=== PATIENT | male | born 1955 | race Caucasian/White ===

== ENCOUNTER 2020-09-18 12:34 | Outpatient (REF) | payer OTHER, SELFPAY ==
--- NOTE | 2020-09-18 12:50 | XR_ITS ---
EXAMINATION: BILATERAL HANDS. CLINICAL INFORMATION: Pain. COMPARISON: None TECHNIQUE: 3 views each hand. FINDINGS: Right hand: There is loss of PIP and DIP joint space with periarticular spurring second through fifth digits and first MCP joint. There is mild volar angulation at PIP and DIP joints second through fifth digit. No bony erosive changes seen. There is mild soft tissue swelling along the PIP and DIP joints. No soft tissue calcification seen. There is no visible acute fracture or dislocation. XR/XR hand LT min 3V IMPRESSION: Mild osteoarthritic changes PIP and DIP joints second through fifth digits. No visible acute fracture or dislocation seen.
--- NOTE | 2020-09-18 12:50 | XR_ITS ---
EXAMINATION: BILATERAL HANDS. CLINICAL INFORMATION: Pain. COMPARISON: None TECHNIQUE: 3 views each hand. FINDINGS: Right hand: There is loss of PIP and DIP joint space with periarticular spurring second through fifth digits and first MCP joint. There is mild volar angulation at PIP and DIP joints second through fifth digit. No bony erosive changes seen. There is mild soft tissue swelling along the PIP and DIP joints. No soft tissue calcification seen. There is no visible acute fracture or dislocation. XR/XR hand RT min 3V IMPRESSION: Mild osteoarthritic changes PIP and DIP joints second through fifth digits. No visible acute fracture or dislocation seen.
== END 2020-09-18 12:35 | disposition home or self-care (01) ==
LOC: HO.XRAY 12:34
PROVIDERS: PCP Internal Medicine Geriatric Medicine; Visit Provider Internal Medicine Geriatric Medicine
DX: M79.641 Pain in right hand (principal); M79.642 Pain in left hand; R29.898 Other symptoms and signs involving the musculoskeletal system
CPT/HCPCS: 73130

== ENCOUNTER 2021-07-16 07:58 | Outpatient (REF) | payer OTHER, SELFPAY ==
--- NOTE | ~2021-07-16 | XR_ITS ---
EXAMINATION: XR LUMBOSACRAL SPINE CLINICAL INFORMATION: Lower back pain. COMPARISON: Lumbar spine radiographs dated 12/21/2014. TECHNIQUE: Three views of the lumbosacral spine. FINDINGS: Mild straightening of the normal lumbar lordosis, which may be positional or related to muscular spasm. No acute fracture or subluxation. No loss of vertebral body height. Multilevel loss of intervertebral disc height with prominent endplate osteophytes. Lower lumbar spine bilateral facet arthropathy. No lytic or blastic osseous lesion. Right upper quadrant surgical clips. XR/XR lumbar spine 2-3V IMPRESSION: Prominent multilevel degenerative disc disease with lower lumbar spine facet arthropathy, similar when compared to the prior examination.
--- NOTE | ~2021-07-16 | XR_ITS ---
EXAMINATION: XR KNEE, LEFT CLINICAL INFORMATION: Left knee pain. COMPARISON: Left knee radiographs dated 05/04/2018. TECHNIQUE: Four views of the left knee. FINDINGS: Medial compartment joint space narrowing. Tiny medial and patellofemoral compartment marginal osteophytes. No osseous erosion. No fracture or dislocation. Moderate joint effusion. No abnormal soft tissue calcification. XR/XR knee LT 4V IMPRESSION: Mild medial and patellofemoral compartment osteoarthritis, unchanged. Moderate joint effusion.
== END 2021-07-16 07:59 | disposition home or self-care (01) ==
LOC: HO.XRAY 07:58
PROVIDERS: Absent Provider Internal Medicine Geriatric Medicine; PCP Internal Medicine Geriatric Medicine; Visit Provider Emergency Medicine
DX: M25.562 Pain in left knee (principal); M54.5 Low back pain
CPT/HCPCS: 72100; 73564

== ENCOUNTER 2021-08-13 11:43 | Outpatient (REF) | payer OTHER, SELFPAY | END 2021-08-13 11:44 | disposition home or self-care (01) | LOC: HO.LAB 11:43 | PROVIDERS: PCP Internal Medicine Geriatric Medicine; Visit Provider Internal Medicine | DX: Z20.822 Contact with and (suspected) exposure to COVID-19 (principal) | CPT/HCPCS: C9803; U0003; U0005 ==

== ENCOUNTER 2021-09-26 09:52 | Outpatient (REF) | payer OTHER, SELFPAY ==
--- NOTE | 2021-09-26 10:15 | EMG_ITS ---
This is a 66-year-old man with a history of weakness and numbness in both hands, right worse than left. He is on no medications. PHYSICAL EXAMINATION: On examination, he is alert and oriented. He has marked atrophy of the intrinsic hand muscles on the right, innervated by the ulnar nerve and atrophy of both thenar eminences. There is decreased sensation in median and ulnar nerve distribution on the right and in the median nerve distribution on the left. IMPRESSION: Severe end-stage carpal tunnel syndrome and ulnar neuropathy on the right. Nerve conduction EMG study: A severe end-stage carpal tunnel syndrome bilaterally. Severe compression palsy of the right ulnar nerve at the elbow. Mild compression palsy of the left ulnar nerve at the elbow. EMG of the right C5-T1 innervated muscles shows active denervation in the ulnar, innervated intrinsic hand muscles consistent with severe ulnar neuropathy. No voluntary motor units in the right abductor pollicis brevis consistent with end-stage carpal tunnel syndrome. MD HOWARD Ovalle/JUANA / [id number]
== END 2021-09-26 09:53 | disposition home or self-care (01) ==
LOC: HO.NEURO 09:52
PROVIDERS: PCP Internal Medicine Geriatric Medicine; Visit Provider Internal Medicine Geriatric Medicine
DX: M79.641 Pain in right hand (principal); M79.642 Pain in left hand; R29.898 Other symptoms and signs involving the musculoskeletal system
CPT/HCPCS: 95885; 95913

== ENCOUNTER 2021-10-03 11:27 | Outpatient (REF) | payer OTHER, SELFPAY ==
--- NOTE | ~2021-10-03 | XR_ITS ---
EXAMINATION: XR HIP, RIGHT CLINICAL INFORMATION: Pain. COMPARISON: None TECHNIQUE: Two views of the right hip. FINDINGS: No acute fracture or dislocation is seen. The femoral head is positioned superolaterally within the acetabulum/there is poor coverage of the femoral head. There is arthritis at the right hip joint with joint space narrowing and osteophyte formation. There are several cystic areas seen in the right intratrochanteric region near the greater trochanter and in the inferior medial acetabulum. Soft tissues are unremarkable. XR/XR hip RT min 2V IMPRESSION: Arthritis. Poor coverage of the femoral head by the acetabulum. Cystic changes in the right greater trochanter and inferior medial acetabulum.
== END 2021-10-03 11:28 | disposition home or self-care (01) ==
LOC: HO.XRAY 11:27
PROVIDERS: PCP Internal Medicine Geriatric Medicine; Visit Provider Internal Medicine Geriatric Medicine
DX: G89.29 Other chronic pain (principal); M25.551 Pain in right hip
CPT/HCPCS: 73502

== ENCOUNTER 2022-02-14 11:03 | Outpatient (REF) | payer OTHER, SELFPAY ==
--- NOTE | ~2022-02-14 | XR_ITS ---
EXAMINATION: XR KNEE, RIGHT CLINICAL INFORMATION: Pain of 5 months duration. COMPARISON: None TECHNIQUE: AP, lateral, tunnel, and sunrise views of the right knee. FINDINGS: There is bony demineralization. No fracture or dislocation is seen. There is a tiny peripheral osteophyte arising from the superior articular surface of the patella. There is a small right knee joint effusion. There are femoral atherosclerotic calcifications. No foreign body is seen. XR/XR knee RT 4V IMPRESSION: 1. No fracture or dislocation is seen. 2. There is a small right knee joint effusion. 3. There is minimal osteoarthritic change of the patellofemoral compartment. 4. There is bony demineralization.
== END 2022-02-14 11:04 | disposition home or self-care (01) ==
LOC: HO.XRAY 11:03
PROVIDERS: PCP Internal Medicine Geriatric Medicine; Visit Provider Internal Medicine Geriatric Medicine
DX: M25.561 Pain in right knee (principal)
CPT/HCPCS: 73564

== ENCOUNTER 2022-02-27 10:08 | Outpatient (REF) | payer OTHER, SELFPAY ==
--- NOTE | ~2022-02-27 | XR_ITS ---
EXAMINATION: XR LS SPINE XR HIP-RIGHT CLINICAL INFORMATION: Right hip pain. Abnormal gait and mobility. COMPARISON: Right hip done on 10/03/2021. Lumbosacral spine done on 07/16/2021. TECHNIQUE: 2 views of the right hip and 5 views of the lumbosacral spine were obtained. FINDINGS: Right hip: Interval development of marked flattening of the right femoral head and underlying large area of osteolysis present, most consistent with evolving avascular necrosis and superimposed subchondral cyst. Ill-defined lytic areas involving the inferior part of the acetabulum and the superior part of the intertrochanteric region appear similar to prior study, of indeterminate etiology. Lumbosacral spine: There are 5 nonrib-bearing lumbar vertebrae present. Moderate multilevel degenerative spondylosis related changes are noted throughout the visualized lower thoracic and lumbosacral spine with significant facet degenerative arthritic changes at lower lumbar spine. Posterior appendages are intact. The prespinal and paraspinal soft tissues are unremarkable. Mild upper lumbar dextro and lower lumbar levoscoliosis is noted. Significant fecal residual throughout the entire large bowel. Overall, no significant change. XR/XR lumbar spine 4V min IMPRESSION: 1. Right hip: Interval development of marked flattening of the right femoral head and underlying large area of osteolysis is present, most consistent with evolving avascular necrosis and superimposed subchondral cyst. Previously documented ill-defined lytic areas involving the acetabulum and the superior intertrochanteric region appears similar, of indeterminate etiology. 2. Lumbosacral spine: Multilevel moderate degenerative spondylosis and facet joint arthropathy, appears similar to prior study dated 07/16/2021.
--- NOTE | ~2022-02-27 | XR_ITS ---
EXAMINATION: XR LS SPINE XR HIP-RIGHT CLINICAL INFORMATION: Right hip pain. Abnormal gait and mobility. COMPARISON: Right hip done on 10/03/2021. Lumbosacral spine done on 07/16/2021. TECHNIQUE: 2 views of the right hip and 5 views of the lumbosacral spine were obtained. FINDINGS: Right hip: Interval development of marked flattening of the right femoral head and underlying large area of osteolysis present, most consistent with evolving avascular necrosis and superimposed subchondral cyst. Ill-defined lytic areas involving the inferior part of the acetabulum and the superior part of the intertrochanteric region appear similar to prior study, of indeterminate etiology. Lumbosacral spine: There are 5 nonrib-bearing lumbar vertebrae present. Moderate multilevel degenerative spondylosis related changes are noted throughout the visualized lower thoracic and lumbosacral spine with significant facet degenerative arthritic changes at lower lumbar spine. Posterior appendages are intact. The prespinal and paraspinal soft tissues are unremarkable. Mild upper lumbar dextro and lower lumbar levoscoliosis is noted. Significant fecal residual throughout the entire large bowel. Overall, no significant change. XR/XR hip RT min 2V IMPRESSION: 1. Right hip: Interval development of marked flattening of the right femoral head and underlying large area of osteolysis is present, most consistent with evolving avascular necrosis and superimposed subchondral cyst. Previously documented ill-defined lytic areas involving the acetabulum and the superior intertrochanteric region appears similar, of indeterminate etiology. 2. Lumbosacral spine: Multilevel moderate degenerative spondylosis and facet joint arthropathy, appears similar to prior study dated 07/16/2021.
== END 2022-02-27 10:09 | disposition home or self-care (01) ==
LOC: HO.XRAY 10:08
PROVIDERS: PCP Internal Medicine Geriatric Medicine; Visit Provider Internal Medicine Geriatric Medicine
DX: M25.551 Pain in right hip (principal); R26.89 Other abnormalities of gait and mobility
CPT/HCPCS: 72110; 73502

== ENCOUNTER 2022-03-15 09:30 | Outpatient (REF) | payer OTHER, SELFPAY ==
--- NOTE | ~2022-03-15 | XR_ITS ---
EXAMINATION: XR PELVIS CLINICAL INFORMATION: Pain COMPARISON: 02/27/2022 TECHNIQUE: AP view of the pelvis. XR/XR pelvis 1-2V FINDINGS/IMPRESSION: No significant interval change to the abnormal appearance of the right hip. Once again, there is flattening of the femoral head with collapse and cystic change. Superolateral subluxation with respect to the acetabulum. There appears to be remodeling of the acetabulum as well with decreasing convex curvature. Superior intertrochanteric lucency is unchanged and is of uncertain etiology. The left hip space is preserved. Minimal degenerative changes. Vascular calcifications. Degenerative changes lumbar spine.
== END 2022-03-15 09:31 | disposition home or self-care (01) ==
LOC: HO.HOSX 09:30
PROVIDERS: Visit Provider Orthopaedic Surgery
DX: M16.11 Unilateral primary osteoarthritis, right hip (principal); M87.051 Idiopathic aseptic necrosis of right femur
CPT/HCPCS: 72170; 99202

== ENCOUNTER → 2022-04-02 08:45 | Outpatient (BNVA) | payer OTHER, SELFPAY | PROVIDERS: PCP Internal Medicine Geriatric Medicine; Visit Provider Orthopaedic Surgery | DX: Z13.89 Encounter for screening for other disorder (principal) ==

== ENCOUNTER → 2022-05-31 12:52 | Outpatient (BNVA) | payer OTHER, SELFPAY | PROVIDERS: PCP Internal Medicine Geriatric Medicine; Referring Provider Internal Medicine Geriatric Medicine; Visit Provider Nurse Practitioner Family | DX: Z01.810 Encounter for preprocedural cardiovascular examination (principal); R07.89 Other chest pain; R94.31 Abnormal electrocardiogram [ECG] [EKG]; I49.1 Atrial premature depolarization; M16.11 Unilateral primary osteoarthritis, right hip | CPT/HCPCS: 93005; 99212 ==

== ENCOUNTER → 2022-06-10 14:54 | Outpatient (REF) | payer OTHER, SELFPAY ==
--- NOTE | 2022-06-10 14:58 | CA_ITS ---
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 Gkek-kt-mhmddsar LV systolic dysfunction with LVEF of 40-45% with impaired relaxation filling pattern next 2. Mildly dilated right ventricle and left atrium 3. Urjk-dr-eusfzvvv mitral regurgitation 4. Normal RV systolic pressure 5. No gross pericardial effusion Findings Left Ventricle Normal left ventricular cavity size. There is normal left ventricular wall thickness. The left ventricular systolic function is mild to moderately decreased. The visually estimated ejection fraction is between 40-45%. Spectral Doppler is indicative of an impaired relaxation filling pattern. E/E prime ratio is between 8 and 15 consistent with indeterminate filling pressures. Right Ventricle Mildly increased right ventricular cavity size. There is normal right ventricular systolic function. Atria The left atrium is mildly dilated. There is no evidence of interatrial shunt. The right atrium is likely dilated. Aortic Valve The aortic valve was not well visualized. There is no aortic valve stenosis. There is no aortic valve regurgitation. Mitral Valve There is mild anterior and posterior mitral leaflet thickening. There is mild to moderate mitral valve regurgitation. There is no mitral valve stenosis. Pulmonic Valve The pulmonic valve was not well visualized. Tricuspid Valve Likely normal tricuspid valve structure and function. There is mild tricuspid valve regurgitation. The right ventricular systolic pressure is normal. The right ventricular systolic pressure is 19 mmHg. Normal right atrial pressure. There is no evidence of pulmonary hypertension. Great Vessels All visible segments of the aorta are normal in size. The pulmonary artery was not well visualized. Venous The inferior vena cava is normal in size and collapses greater than 50% with inspiration. Pericardium/Pleural There is no evidence of pericardial effusion. Prior Study Comparison No prior study available for comparison. Measurements 2D Linear Measurements IVSd: 1.17 0.6-0.9/0.6-1.0 cm LVIDd: 5.56 3.9-5.3/4.2-5.9 cm LVIDd Index: 2.96 2.4-3.2/2.2-3.1 cm/m2 LVIDs: 4.31 2.0-3.6 cm LVPWd: 0.99 0.7-1.1 cm LA Diam: 3.90 2.7-3.8/3.0-4.0 cm LAIDs Index: 2.07 1.5-2.3 cm/m2 LV Mass: 299.75 67-162/88-224 g LV Mass Index: 159.44 43-95/49-115 g/m2 LVOT Diam: 2.10 3.0+(-)1.3 cm 2D Systolic Function EF 4C: 39.70 >55% EF 2C: 43.50 >55% EF BiP: 41.90 >55% Mitral Valve MV Pk E: 1.10 MV PK A: 0.94 MV Decel Time: 229.00 E/A: 1.20 E'Lateral: 9.57 E'Medial: 6.31 E/E' Med: 17.40 E/E' Lat: 11.50 PHT: 67.00 MVA PHT: 3.28 Decel Stanley: 4.79 MR Vol - PW Dopp: 23.40 MR VTI: 1.80 MR ERO: 13.00 MR Alias Luis: 0.30 MR RAD: 0.60 Aortic Valve AoV Pk Luis: 1.05 AoV Mn Luis: 0.79 AoV VTI: 0.20 AoV Pk Grad: 4.00 Aov Mn Grad: 3.00 YASMINE Cont.VTI: 3.00 LVOT LVOT Pk Luis: 0.94 LVOT Mn Luis: 0.65 LVOT VTI: 0.18 LVOT Pk Grad: 4.00 LVOT Mn Grad: 2.00 LVOT Diam: 2.10 LVOT Area: 3.46 Diastolic Function MV Pk E: 1.10 MV Pk A: 0.94 E/A: 1.20 E'Medial: 6.31 E/E' Med: 17.40 E' Laterial: 9.57 E/E' Lat: 11.50 Right Ventricle TAPSE (mm): 22.20 TVS' Luis: 11.10 Tricuspid Valve TR Pk Luis: 1.98 TR Pk Grad: 16.00 RA Press: 3.00 RVSP: 19.00 Great Vessels Aorta Sinus of Valsalva: 3.75 2.0-3.[address] Ridge: 2.68 1.7-3.4 cm Ao Asc: 3.60 2.1-3.4 cm Updated in Other Vendor System with Status of Final Maycol Stewart MD electronically signed on 06/11/2022 11:46:34 AM with status of Final
== END ==
LOC: HO.CARD 14:54
PROVIDERS: PCP Internal Medicine Geriatric Medicine; Visit Provider Nurse Practitioner Family
DX: Z01.810 Encounter for preprocedural cardiovascular examination (principal); R07.89 Other chest pain; I49.1 Atrial premature depolarization; R94.31 Abnormal electrocardiogram [ECG] [EKG]
CPT/HCPCS: 93306

== ENCOUNTER → 2022-06-19 08:12 | Outpatient (REF) | payer OTHER, SELFPAY ==
--- NOTE | ~2022-06-19 | NM_ITS ---
Myocardial perfusion study Indication: Chest pain to evaluate for myocardial ischemia Technique: The patient was brought in for a Lexiscan perfusion study on 06/21/2022. Patient performed low-level exercise and was injected 0.4 mg of Lexiscan intravenously. Within a minute of injection, 30 mCi of sestamibi was given intravenously. Images were obtained using the SPECT gamma camera interlaced with the gating device. Images were obtained in supine position. Resting perfusion study was performed on 06/16/2000. Patient was administered 30 mCi of sestamibi intravenously at rest. Images were then obtained in supine position. Images obtained with and without CT attenuation. Total DLP 102 mGy-cm. Images were processed with the software and compared side to side in short axis, horizontal long axis and vertical long axis views. Findings: The stress perfusion study showed non attenuated images show mildly reduced uptake in the basal lateral wall of the LV myocardium as well as thinning of the inferior wall of the LV myocardium. Attenuation corrected images show normal uptake of radiotracer in all segments of LV myocardium. The gated study shows reduced LV systolic function with calculated LVEF of 45%. LV cavity is mildly to moderately size. The gated study shows mildly reduced wall thickening and contraction of segments. Resting study shows attenuated corrected images show normal uptake.. Gating at rest reveals reduced wall motion with ejection fraction at 30%. The findings are consistent with no clear reversible defect suggestive of ischemia. NM/NM cardiolite stress test Impression: 1. Myocardial perfusion imaging study shows normal myocardial perfusion 2. Gated LVEF is 45% with stress and 30% with stress, consider echocardiogram 3. Transient ischemic dilatation absent but LV cavity is dilated EKG is nondiagnostic for ischemia
--- NOTE | 2022-06-19 08:16 | CA_ITS ---
Acquisition Time: 2022-06-21 10:25:22 Total Exercise Time: 00:02:00 Test Indications: CHEST PAIN Medications: Protocol: LEXISCAN Max HR: 114 BPM 73% of Pred: 155 BPM Max BP: 140/080 mmHG Max Work Load: 1.0 METS Pharmacological stress test with Lexiscan injection, while sitting and kicking his left leg, without anginal symptoms, with isolated PACs and rare PVC, with normotensive response to injection, with nondiagnostic EKG for ischemia. In recovery he was treated with Aminophylline 75mg IVP to reverse Lexiscan. Nuclear images pending. Test reviewed with Dr Campos. Referred By: Abigail Campbell Overread By: ABIGAIL CAMPBELL
== END ==
LOC: HO.CARD 08:12
PROVIDERS: PCP Internal Medicine Geriatric Medicine; Visit Provider Nurse Practitioner Family
DX: Z01.810 Encounter for preprocedural cardiovascular examination (principal); R07.89 Other chest pain; I49.1 Atrial premature depolarization; M16.11 Unilateral primary osteoarthritis, right hip; R94.31 Abnormal electrocardiogram [ECG] [EKG]
CPT/HCPCS: 78452; 93017; A9500

== ENCOUNTER → 2022-06-21 09:54 | Outpatient (REF) | payer OTHER, SELFPAY ==
--- NOTE | 2022-06-21 09:58 | HM_ITS ---
* Total monitoring time 3 days. * Underlying rhythm is sinus. Average rate 88/Min. Range 78 to 131/Min. * About 24% the time, rate greater than 100/Min. * Frequent supraventricular ectopy. Moncure of 12%. 103 supraventricular episodes. Longest 20 beats. * Occasional ventricular ectopy. Moncure 1%. 2 morphologies. 79 couplets. One episode of 5 beats. Monomorphic. * No patient events. MTDD
== END ==
LOC: HO.CARD 09:54
PROVIDERS: PCP Internal Medicine Geriatric Medicine; Visit Provider Nurse Practitioner Family
DX: I49.1 Atrial premature depolarization (principal); R00.2 Palpitations; R94.31 Abnormal electrocardiogram [ECG] [EKG]
CPT/HCPCS: 93242; J0280; J2785

== ENCOUNTER 2022-07-01 11:17 | Outpatient (REF) | payer OTHER, SELFPAY ==
[2022-07-01 11:40] LABS: MANUAL DIFF FLAG NO
[2022-07-01 12:08] LABS: Basophils Percent Auto 0.7 % (0-2); Eosinophils Absolute Auto 0.1 X10*3/uL (0.0-0.4); Hematocrit 40.4 % (42.0-52.0); Hemoglobin 13.6 g/dl (14.0-18.0); Imm Gran Abs Auto 0.02 X10*3/uL (0.00-0.03); Imm Gran Pct Auto 0.3 % (0.0-0.4); Lymphocytes Percent Auto 32.8 % (20-40); Mean Corpuscular HGB Conc 33.7 g/dl (31.0-36.0); Mean Corpuscular Hemoglobin 32.8 pg (27.0-33.0); Mean Corpuscular Volume 97.3 fL (80.0-98.0); Mean Platelet Volume 10.3 fL (9.4-12.4); Monocytes Absolute Auto 0.6 X10*3/uL (0.1-1.2); Monocytes Percent Auto 9.1 % (2-11); Neutrophils Absolute Auto 3.4 x10*3/uL (2.0-8.3); Neutrophils Percent Auto 55.1 % (45-73); Platelet Count 245 X10*3/uL (160-400); Red Blood Count 4.15 X10*6/uL (4.60-5.80); Red Cell Distribution Width 13.1 % (11.0-16.0); White Blood Count 6.1 X10*3/uL (4.8-10.8)
[2022-07-01 12:37] LABS: Alanine Aminotransferase 16 U/L (0-40); Albumin Level 4.3 g/dL (3.5-5.0); Alkaline Phosphatase 111 U/L (39-117); Anion Gap 13 (12-20); Aspartate Amino Transferase 20 U/L (5-37); Bilirubin Total 0.7 mg/dL (0.0-1.0); Blood Urea Nitrogen 13 mg/dL (9-16); Calcium 9.3 mg/dL (8.4-10.2); Carbon Dioxide 26 mmol/L (22-29); Chloride 106 mmol/L (96-108); Estimated Glomerular Filt Rate 57; Glucose Random 105 mg/dL (60-115); Potassium 4.4 mmol/L (3.3-5.1); Sodium 141 mmol/L (135-145); Total Protein 7.9 g/dL (6.5-8.0)
[2022-07-01 12:59] LABS: TSH reflex Free T4 1.12 uIU/mL (0.32-4.0)
== END 2022-07-01 11:18 | disposition home or self-care (01) ==
LOC: HO.LAB 11:17
PROVIDERS: PCP Internal Medicine Geriatric Medicine; Visit Provider Nurse Practitioner Family
DX: I49.1 Atrial premature depolarization (principal); R00.2 Palpitations
CPT/HCPCS: 36415; 80053; 84443; 85025

== ENCOUNTER → 2022-07-16 14:37 | Outpatient (BNVA) | payer OTHER, SELFPAY | PROVIDERS: PCP Internal Medicine Geriatric Medicine; Referring Provider Internal Medicine Geriatric Medicine; Visit Provider Nurse Practitioner Family | DX: Z01.810 Encounter for preprocedural cardiovascular examination (principal); I42.9 Cardiomyopathy, unspecified; I49.1 Atrial premature depolarization; R07.89 Other chest pain; R94.31 Abnormal electrocardiogram [ECG] [EKG]; M16.11 Unilateral primary osteoarthritis, right hip; Z79.899 Other long term (current) drug therapy; F14.20 Cocaine dependence, uncomplicated | CPT/HCPCS: 99212 ==

== ENCOUNTER → 2023-01-27 11:04 | Outpatient (BNVA) | payer OTHER, SELFPAY | PROVIDERS: PCP Internal Medicine Geriatric Medicine; Visit Provider Orthopaedic Surgery | DX: M16.11 Unilateral primary osteoarthritis, right hip (principal); M87.9 Osteonecrosis, unspecified; F14.90 Cocaine use, unspecified, uncomplicated | CPT/HCPCS: 99212 ==

== ENCOUNTER 2023-05-01 08:36 | Outpatient (REF) | payer OTHER, SELFPAY ==
--- NOTE | ~2023-05-01 | XR_ITS ---
EXAMINATION: XR PELVIS CLINICAL INFORMATION: Pain COMPARISON: Previous x-ray February 2022 TECHNIQUE: AP view of the pelvis. FINDINGS: There is severe arthritis of the right hip joint with joint space narrowing, subchondral cyst formation and tavt-sk-whuk appearance. The femoral head is positioned superior laterally in the acetabulum. Femoral head is flattened/has been abnormal contour and the acetabulum appears shallow. This does not appear appreciably changed from most recent exam February 2022 however is greatest from older exam T1. The left hip joint is normal. Bones and pelvis are otherwise normal. There are degenerative changes visualized lower lumbar spine. There is atherosclerotic disease. XR/XR pelvis 1-2V IMPRESSION: Severe arthritis of the right hip joint, superior lateral positioning of the femoral head with respect to the acetabulum and flattening of the femoral head not appreciably changed from most recent exam from 2021.
== END 2023-05-01 08:37 | disposition home or self-care (01) ==
LOC: HO.HOSX 08:36
PROVIDERS: Visit Provider Orthopaedic Surgery
DX: M16.11 Unilateral primary osteoarthritis, right hip (principal); F14.90 Cocaine use, unspecified, uncomplicated
CPT/HCPCS: 72170; 99212

== ENCOUNTER 2023-05-01 09:09 | Outpatient (REF) | payer OTHER, SELFPAY ==
[2023-05-01 13:39] LABS: Amphetamine Screen Urine Not Detected (Not Detect); Barbiturates, Urine Not Detected (Not Detect); Benzodiazepines Screen Urine Not Detected (Not Detect); Cannabinoid Screen Urine Not Detected (Not Detect); Cocaine Screen Urine POSITIVE (Not Detect); Fentanyl, urine Not Detected (Not Detect); Opiate Screen Urine Not Detected (Not Detect); Phencyclidine Screen Urine Not Detected (Not Detect)
== END 2023-05-01 09:10 | disposition home or self-care (01) ==
LOC: HO.10HDL 09:09
PROVIDERS: Visit Provider Orthopaedic Surgery
DX: F14.90 Cocaine use, unspecified, uncomplicated (principal)
CPT/HCPCS: 80307

== ENCOUNTER 2023-09-10 10:58 | Inpatient (IN) | payer OTHER, SELFPAY ==
[2023-09-10] VITALS (7 sets, daily range): BP systolic 115–138; BP diastolic 80–90; PULSE 101–111; RESP 16–28; TEMP 36.7–37.3; O2SAT 96–99; BMI 31.3; BMI 29.5
--- NOTE | ~2023-09-10 | XR_ITS ---
EXAMINATION: XR CHEST CLINICAL INFORMATION: Shortness of breath, dyspnea on insertion COMPARISON: 01/17/20 TECHNIQUE: 2 views of the chest were obtained. FINDINGS: Cardiac silhouette is more prominent and globular than on previous 2019 study. Mediastinum is unremarkable. No vascular congestion, consolidations or effusions. Minor right costophrenic angle atelectasis. XR/XR chest 2V IMPRESSION: In comparison with previous 2019 study, enlarged and globular cardiac silhouette. Correlate clinically regarding possible pericardial effusion. Minor right costophrenic angle atelectasis.
--- NOTE | 2023-09-10 11:25 | ED_ITS ---
HPI - General Adult General Chief complaint: General Medical Stated complaint: leg swelling for a month Time Seen by Provider: 09/10/23 12:25 Source: patient Mode of arrival: ambulatory Limitations: no limitations History of Present Illness HPI narrative: 68-year-old male with history of cardiomyopathy with an EF of 40% on echo dated 06/10/2023, hypertension, homelessness x3 weeks-living in his car and on the street fall last 3 weeks, daily cocaine use, last use yesterday who was referred to the emergency department from [facility] for evaluation of severe peripheral edema, fluid overload and 20 lb fluid gain over the past month. Patient states that he feels short of breath and has dyspnea on exertion . He states that he cannot lie down flat. Patient states he has been using his asthma inhaler with no relief of her shortness of breath. The patient states that he has been living in his car for the past 3 weeks and has been noncompliant with his medications. Related Data Home Medications Medication Instructions Recorded Confirmed acetaminophen 500 mg tablet 500 mg PO Q4H PRN Pain 03/15/22 07/16/22 albuterol sulfate 90 mcg/actuation 2 puff inhalation Q4H PRN Wheezing 03/15/22 07/16/22 aerosol inhaler (Ventolin HFA) fluticasone propionate 220 1 inh inhalation BID 03/15/22 07/16/22 mcg/actuation HFA aerosol inhaler (Flovent HFA) Previous Rx's Medication Instructions Recorded valsartan 40 mg tablet 40 mg PO BID #60 tabs 07/02/22 Allergies Allergy/AdvReac Type Severity Reaction Status Date / Time aspirin [ASPIRIN] Allergy Unknown LIVER Verified 05/01/23 09:32 PROBLEMS egg [EGGS] Allergy Unknown UNKNOWN Verified 05/01/23 09:32 Influenza Virus Vaccines Allergy Unknown UNKNOWN Verified 05/01/23 09:32 [INFLUENZA VIRUS VACCINES] lactose [LACTOSE] Allergy Unknown GI UPSET Verified 05/01/23 09:32 Review of Systems 2 Review of Systems: Yes all other systems are reviewed and are negative [facility] Past Medical History [facility] Narrative: Past medical history: Cardiomyopathy-EF 40% on echocardiogram dated 06/10/2023, hypertension, homelessness, cocaine use disorder. Social history: Patient is a former smoker, he states he stop smoking in 2017 but smoked 1-1 and half packs of cigarettes per day times many years. He states he has cut down on his alcohol use but he drinks 1-2 nips of alcohol per day. He states that he uses crack cocaine frequently. Medical History Asthma Surgical History Hx of endoscopic retrograde cholangiopancreatography History of cholecystectomy Family History Family History Mother Diabetes Hypertension Arthritis Asthma Father Asthma Social History Social History Alcohol intake: former Patient Tobacco Use Status: Former Tobacco user Quit Date: 2016 Smoked in Last 30 Days: Yes Use of substances other than those prescribed or required for medical reasons: Yes Substance Use Type: Crack/Cocaine Advance Directives: No Advance Directives Information Provided: No Physical Exam ED Vital Signs: Vital Signs - 24 hr 09/10/23 11:26 09/10/23 12:58 09/10/23 16:04 Temperature 98.0 F Pulse Rate 109 H 106 H 107 H Respiratory Rate 16 20 27 H Blood Pressure 133/82 128/85 138/86 Pulse Oximetry 96 99 98 Oxygen Delivery Method Room Air Room Air Room Air BMI result Body Mass Index 31.3 Vital signs were normal Exam: General: Awake, alert in no distress Head: Normocephalic, atraumatic EENT: PERRL, Lids normal, sclera normal, conjunctiva normal, nose normal , ears normal, throat without erythema or exudates Neck: Supple, no adenopathy, trachea midline and nontender Lung: breath sounds symmetric, no wheezing, rales or rhonchi Chest: symmetric movement, nontender Heart: regular rate and rhythm, normal S1, S2 no murmurs or rubs Abdomen: soft, non-tender, nondistended, normal bowel sounds Back: no vertebral tenderness, no CVAT Extremities: 2 to 3+ pitting edema, symmetric, chronic skin changes to lower extremity Neuro: Awake, alert, oriented, normal speech, cranial nerves intact, moves all extremities symmetrically Psych: Pleasant, cooperative Course Course Course Narrative: RME - 68 yo Greek speaking male with history of cardiomyopathy (EF 40% in 7/22), asthma, hx cocaine use, hx AVN right hip with plan for possible hip replacement who presents to the ER from [facility] for evalaution of severe LE edema worsening over the last month along w/ associated 20 lb weight gain, SOB and NUNN. Noncompliant with all medications. Newly homeless. Plan: labs, EKG, CXR Medications Administered Discontinued Medications Generic Name Dose Route Start Last Admin Trade Name Victorianoq PRN Reason Stop Dose Admin Furosemide 60 mg 09/10/23 13:11 09/10/23 13:40 Furosemide 100 Mg/10 Ml Vial IVPUSH 09/10/23 13:12 60 mg ONCE ONE Administration Protocol Medical Decision Making Medical Decision Making MDM Narrative: 68-year-old male with history of cardiomyopathy with an EF of 40% on echo dated 06/10/2023, hypertension, homelessness x3 weeks-living in his car and on the street fall last 3 weeks, daily cocaine use, last use yesterday who was referred to the emergency department from [facility] for evaluation of severe peripheral edema, fluid overload and 20 lb fluid gain over the past month. Patient states that he feels short of breath and has dyspnea on exertion . He states that he cannot lie down flat. Vital signs were normal and physical examination revealed 2 to 3+ pitting edema of his lower extremities. Following evaluation was ordered: CBC, BMP, liver panel, magnesium, troponin, BNP, urinalysis, chest x-ray two view, EKG. I ordered Lasix 60 mg IV. 1542: Patient's laboratory evaluation was remarkable for an elevated troponin of 86- repeat ordered for now. Patient had an elevated BNP 852. Radiology x-ray impression was reviewed by me, patient does have increased cardiomegaly radiologist was concerned about pericardial effusion. I did a bedside ultrasound and I do not see any large pericardial effusion therefore I believe that the change cardiac silhouette will be secondary to worsening cardiomegaly. The patient diuresed approximately 2 L of urine. I will discuss admission with the covering hospitalist. 16:08 I did discuss the patient's presentation with the covering hospitalist, and he did accept the patient to the hospital service. Differential Diagnosis Differential diagnosis includes was not limited to congestive heart failure, fluid overload, anemia, myocardial infarction, myocardial ischemia Admission/Observation Consideration of admission/observation: Escalation of care including admission/observation considered Consult Healthcare Provider Management of the patient was discussed with: Hospitalist Lab Data MDM Lab Attestation statement: I reviewed the patient's lab results. My independent interpretation patient's laboratory evaluation is as follows: WBC was normal 5800. Macrocytic with an H&H of 12.8 and 38.9, MCV 102.1. Kidney function was normal with a BUN of 12 and creatinine 1.28 with creatinine clearance of 59. BMP was elevated 852. Troponin was elevated at 86. 09/10/23 11:52 09/10/23 11:52 Labs: Lab Results 09/10/23 09/10/23 Range/Units 11:52 15:56 WBC 5.4 (4.8-10.8) X10*3/uL RBC 3.81 L (4.60-5.80) X10*6/uL Hgb 12.8 L (14.0-18.0) g/dl Hct 38.9 L (42.0-52.0) % MCV 102.1 H (80.0-98.0) fL MCH 33.6 H (27.0-33.0) pg MCHC 32.9 (31.0-36.0) g/dl RDW 15.5 (11.0-16.0) % Plt Count 165 D (160-400) X10*3/uL MPV 10.7 (9.4-12.4) fL Immature Gran % (Auto) 0.2 (0.0-0.4) % Neut % (Auto) 69.5 (45-73) % Lymph % (Auto) 21.6 (20-40) % [place] % (Auto) 6.9 (2-11) % Eos % (Auto) 1.1 (0-4) % Baso % (Auto) 0.7 (0-2) % Lymph # (Auto) 1.2 (1.2-4.9) X10*3/uL [place] # (Auto) 0.4 (0.1-1.2) X10*3/uL Eos # (Auto) 0.1 (0.0-0.4) X10*3/uL Baso # (Auto) 0.0 (0.0-0.2) X10*3/uL Abs Immat Gran (auto) 0.01 (0.00-0.03) X10*3/uL Absolute Neuts (auto) 3.7 (2.0-8.3) x10*3/uL Absolute Nucleated RBC 0.000 (0.0-0.012) X10*3/uL Nucleated RBC % (auto) 0.0 (0.0-0.2) /100WBC Sodium 143 (135-145) mmol/L Potassium 3.4 D (3.3-5.1) mmol/L Chloride 110 H (96-108) mmol/L Carbon Dioxide 24 (22-29) mmol/L Anion Gap 12 (12-20) BUN 12 (9-16) mg/dL Creatinine 1.28 (0.5-1.4) mg/dL Estim Creat Clear Calc 59.0 Estimated GFR 56 Random Glucose 95 (60-115) mg/dL Calcium 8.9 (8.4-10.2) mg/dL Magnesium 1.9 (1.6-2.6) mg/dL Total Bilirubin 1.8 H (0.0-1.0) mg/dL Direct Bilirubin 0.7 H (0.0-0.5) mg/dL AST 35 (5-37) U/L ALT 27 (0-40) U/L Alkaline Phosphatase 132 H (39-117) U/L Troponin I High Sens 86.0 H (<3.5-35.0) ng/L B-Natriuretic Peptide 852 H (<100) pg/mL Total Protein 7.2 (6.5-8.0) g/dL Albumin 3.8 (3.5-5.0) g/dL Urine Color Yellow Urine Appearance Clear Urine pH 5.5 (5.0-9.0) Ur Specific [place] 1.010 (1.005-1.025) Urine Protein Negative (Neg-Trace) mg/dL Urine Glucose (UA) Negative (Negative) mg/dL Urine Ketones Negative (Negative) mg/dL Urine Blood Negative (Negative) Urine Nitrite Negative (Negative) Ur Leukocyte Esterase Negative (Negative) Independent Interpretation I performed an independent interpretation of an: EKG and Plain X-Ray Interpretation: My independent interpretation patient's one-view chest x-ray is as follows: Cardiomegaly, no CHF My independent interpretation patient's 12 EKG is as follows: Sinus tachycardia with a rate of 108, normal OK interval, QRS interval, prolonged QTC interval 409 milliseconds, no ST segment elevation, no ST segment depression, Q-waves leads 3, V1 with poor R-wave progression V2 to V3, nonspecific T-wave abnormality Radiology Impression Discussion of test interpretation with radiology: I have reviewed the radiologist's reading. Radiologist Impression: XR chest 2V IMPRESSION: In comparison with previous 2020 study, enlarged and globular cardiac silhouette. Correlate clinically regarding possible pericardial effusion. Minor right costophrenic angle atelectasis. Dictated By: Belén Holloway MD Critical Care Time Critical Care Time Critical Care Time: Yes Total Critical Care Time: 35 Attestation: Critical Care: The patient was critically ill with a high probability of imminent or life threatening deterioration. I spent greater than 30 minutes of discontinuous time evaluating the patient,delivering critical care at the bedside, discussing and evaluating pertinent data with consultants. Critical care time does not include time spent performing separately billable procedures or teaching. Total time spent performing critical care was 35 minutes. Discharge Plan Discharge Patient Disposition: Admitted As Inpatient Prescriptions: No Action valsartan 40 mg tablet 40 mg PO BID Qty: 60 3RF albuterol sulfate [Ventolin HFA] 90 mcg/actuation HFA aerosol inhaler 2 puff inhalation Q4H PRN (Reason: Wheezing) Flovent HFA 220 mcg/actuation HFA aerosol inhaler 1 inh inhalation BID acetaminophen 500 mg tablet 500 mg PO Q4H PRN (Reason: Pain)
--- NOTE | 2023-09-10 11:29 | ECG_ITS ---
Test Reason : sob Blood Pressure : / mmHG Vent. Rate : 106 BPM Atrial Rate : 106 BPM P-R Int : 148 ms QRS Dur : 086 ms QT Int : 376 ms P-R-T Axes : 056 -32 045 degrees QTc Int : 499 ms Sinus tachycardia Left anterior fascicular block Low voltage QRS Nonspecific T wave abnormality Abnormal ECG When compared with ECG of 17-JAN-2020 09:42, Premature ventricular complexes are no longer Present Nonspecific T wave abnormality now evident in Inferior leads Nonspecific T wave abnormality now evident in Lateral leads Heart rate has increased Referred By: Renate Jha Electronically Signed By:SHAWANDA SORENSEN MD
[2023-09-10 12:02] LABS: MANUAL DIFF FLAG NO
[2023-09-10 12:04] LABS: Basophils Percent Auto 0.7 % (0-2); Eosinophils Absolute Auto 0.1 X10*3/uL (0.0-0.4); Eosinophils Percent Auto 1.1 % (0-4); Hematocrit 38.9 % (42.0-52.0); Hemoglobin 12.8 g/dl (14.0-18.0); Imm Gran Abs Auto 0.01 X10*3/uL (0.00-0.03); Imm Gran Pct Auto 0.2 % (0.0-0.4); Lymphocytes Absolute Auto 1.2 X10*3/uL (1.2-4.9); Lymphocytes Percent Auto 21.6 % (20-40); Mean Corpuscular HGB Conc 32.9 g/dl (31.0-36.0); Mean Corpuscular Hemoglobin 33.6 pg (27.0-33.0); Mean Corpuscular Volume 102.1 fL (80.0-98.0); Mean Platelet Volume 10.7 fL (9.4-12.4); Monocytes Absolute Auto 0.4 X10*3/uL (0.1-1.2); Monocytes Percent Auto 6.9 % (2-11); Neutrophils Absolute Auto 3.7 x10*3/uL (2.0-8.3); Neutrophils Percent Auto 69.5 % (45-73); Platelet Count 165 X10*3/uL (160-400); Red Blood Count 3.81 X10*6/uL (4.60-5.80); Red Cell Distribution Width 15.5 % (11.0-16.0); White Blood Count 5.4 X10*3/uL (4.8-10.8)
[2023-09-10 12:21] LABS: Alanine Aminotransferase 27 U/L (0-40); Albumin Level 3.8 g/dL (3.5-5.0); Alkaline Phosphatase 132 U/L (39-117); Anion Gap 12 (12-20); Aspartate Amino Transferase 35 U/L (5-37); Bilirubin Direct 0.7 mg/dL (0.0-0.5); Bilirubin Total 1.8 mg/dL (0.0-1.0); Blood Urea Nitrogen 12 mg/dL (9-16); Calcium 8.9 mg/dL (8.4-10.2); Carbon Dioxide 24 mmol/L (22-29); Chloride 110 mmol/L (96-108); Estimated Glomerular Filt Rate 56; Glucose Random 95 mg/dL (60-115); Magnesium 1.9 mg/dL (1.6-2.6); Potassium 3.4 mmol/L (3.3-5.1); Sodium 143 mmol/L (135-145); Total Protein 7.2 g/dL (6.5-8.0)
[2023-09-10 12:26] LABS: B Type Natriuretic Peptide 852 pg/mL (<100)
--- NOTE | 2023-09-10 13:00 | PC.NURSE ---
pt alert and oriented, skin appropriate for ethnicity, respirations even and unlabored, pt presents with extreme lower edema swelling all the way up to his knees about +3 peding edema, ls clear, denies sob/chest pain, sclera also appears slightly yellow, pt does report drinking alcohol and using crack but is stopping. ns on the monitor
[2023-09-10] MEDS: Furosemide 100 MG/10 ML VIAL 60 MG IVPUSH (13:40)
[2023-09-10 16:12] LABS: Appearance Urine Clear; Color Urine Yellow; Glucose Urine UA Negative (Negative); Leukocyte Esterase Urine Negative (Negative); Nitrite Urine Negative (Negative); PH 5.5 (5.0-9.0); Urine Blood Negative (Negative); Urine Ketones Negative (Negative); Urine Protein Negative (Neg-Trace)
[2023-09-10 16:19] LABS: Amphetamine Screen Urine Not Detected (Not Detect); Barbiturates, Urine Not Detected (Not Detect); Benzodiazepines Screen Urine Not Detected (Not Detect); Cannabinoid Screen Urine Not Detected (Not Detect); Cocaine Screen Urine POSITIVE (Not Detect); Fentanyl, urine Not Detected (Not Detect); Opiate Screen Urine Not Detected (Not Detect); Phencyclidine Screen Urine Not Detected (Not Detect)
--- NOTE | 2023-09-10 16:42 | PHA.MEDREC ---
Pharmacy Consult ? Medication Reconciliation Pharmacy has completed the medication reconciliation. Patient had rx bottles, reports not using the cyclobenzaprine or hydroxyzine. He reports it has been about 2 weeks since he taken his medications. Patient has bottle of valsartan but last filled 05/13/2023. Patient not adherent to medications. Shama Bear, PharmD
--- NOTE | 2023-09-10 17:02 | PM.IMHP ---
History of Present Illness Date of Service: 09/10/23 Chief Complaint: Leg swelling 68-year-old male with history of cardiomyopathy with an EF of 40% on echo dated 06/10/2023, hypertension, homelessness x3 weeks-living in his car and on the street fall last 3 weeks, daily cocaine use, last use yesterday who was referred to the emergency department from [facility] for evaluation of severe peripheral edema, fluid overload and 20 lb fluid gain over the past month. Patient states that he feels short of breath and has dyspnea on exertion . He states that he cannot lie down flat. Patient states he has been using his asthma inhaler with no relief of her shortness of breath. The patient states that he has been living in his car for the past 3 weeks and has been noncompliant with his medications. ER course In emergency room workup consistent with acute systolic CHF; given Lasix 60 mg admission requested Review of Systems Review of Systems: Denies chest pain Admit shortness of breath with minimal exertion Denies nausea vomiting diarrhea Denies fever chills [facility] Medical History (Updated 09/10/23 @ 17:08 by Kuldeep Camara DO) Asthma Family History Mother Diabetes Hypertension Arthritis Asthma Father Asthma Surgical History Hx of endoscopic retrograde cholangiopancreatography History of cholecystectomy Social History Alcohol intake: former Patient Tobacco Use Status: Former Tobacco user Quit Date: 2016 Smoked in Last 30 Days: Yes Use of substances other than those prescribed or required for medical reasons: Yes Substance Use Type: Crack/Cocaine Advance Directives: No Advance Directives Information Provided: No Meds Allergies Allergy/AdvReac Type Severity Reaction Status Date / Time aspirin [ASPIRIN] Allergy Unknown LIVER Verified 05/01/23 09:32 PROBLEMS egg [EGGS] Allergy Unknown UNKNOWN Verified 05/01/23 09:32 Influenza Virus Vaccines Allergy Unknown UNKNOWN Verified 05/01/23 09:32 [INFLUENZA VIRUS VACCINES] lactose [LACTOSE] Allergy Unknown GI UPSET Verified 05/01/23 09:32 Active Medications: Current Medications Aspirin (Aspirin Enteric Coated 81 Mg Tablet.) 81 mg PO DAILY [facility] Enoxaparin Sodium (Enoxaparin Sodium 40 Mg/0.4 Ml Syringe) 40 mg SUBCUT Q24H [facility] Furosemide (Furosemide 100 Mg/10 Ml Vial) 60 mg IVPUSH Q12H [facility]; Protocol Sodium Chloride (0.9 % Sodium Chloride Flush 3 Ml Syringe) 3 ml IVFLUSH QSHIFT [facility] Valsartan (Valsartan 40 Mg Tablet) 40 mg PO BID [facility]; Protocol Home Medications Medication Instructions Recorded Confirmed Last Taken Type albuterol sulfate 90 mcg/actuation 2 puff inhalation Q4H PRN Wheezing 03/15/22 09/10/23 Unknown History aerosol inhaler (Ventolin HFA) fluticasone propionate 220 1 inh inhalation BID 03/15/22 09/10/23 Unknown History mcg/actuation HFA aerosol inhaler (Flovent HFA) sildenafil 50 mg tablet (Viagra) 50 mg PO DAILY PRN Sexual Activity 09/10/23 09/10/23 Unknown History Physical Exam Vital Signs and Narrative: Vital Signs: Last Vital Signs Temp 98.0 F 09/10/23 11:26 Pulse 107 H 09/10/23 16:04 Resp 27 H 09/10/23 16:04 BP 138/86 09/10/23 16:04 Pulse Ox 98 09/10/23 16:04 O2 Del Method Room Air 09/10/23 16:04 BMI result Body Mass Index 31.3 Const: Other: Awake alert no acute distress able speak in full sentences lying semi Mills bed HEENT: Other: Positive JVD Resp: Other: Bilateral basilar crackles essentially inferior scapular border distal Cardio: Other: No S4; positive S1-S2; no S3 murmurs rubs or gallops GI: Other: Soft nontender nondistended normoactive bowel sounds Neuro: Other: Cranial nerves 2-12 grossly intact as tested. Motor is 5 of 5 as tested. And sensation is intact. Cognition is appropriate. Gait not examined Extrem: Other: Bilateral 2 to 3+ pitting edema up to thigh Results Labs 09/10/23 11:52 09/10/23 11:52 Labs: Laboratory Results - last 24 hr 09/10/23 09/10/23 11:52 15:56 MCV 102.1 H MCH 33.6 H MCHC 32.9 RDW 15.5 Plt Count 165 D MPV 10.7 Immature Gran % (Auto) 0.2 Neut % (Auto) 69.5 Lymph % (Auto) 21.6 [place] % (Auto) 6.9 Eos % (Auto) 1.1 Baso % (Auto) 0.7 Lymph # (Auto) 1.2 [place] # (Auto) 0.4 Eos # (Auto) 0.1 Baso # (Auto) 0.0 Abs Immat Gran (auto) 0.01 Absolute Neuts (auto) 3.7 Absolute Nucleated RBC 0.000 Nucleated RBC % (auto) 0.0 Anion Gap 12 Estim Creat Clear Calc 59.0 Estimated GFR 56 Random Glucose 95 Calcium 8.9 Magnesium 1.9 Total Bilirubin 1.8 H Direct Bilirubin 0.7 H AST 35 ALT 27 Alkaline Phosphatase 132 H B-Natriuretic Peptide 852 H Total Protein 7.2 Albumin 3.8 Urine Color Yellow Urine Appearance Clear Urine pH 5.5 Ur Specific [place] 1.010 Urine Protein Negative Urine Glucose (UA) Negative Urine Ketones Negative Urine Blood Negative Urine Nitrite Negative Ur Leukocyte Esterase Negative Urine Opiates Screen Not Detected Urine Fentanyl Screen Not Detected Ur Barbiturates Screen Not Detected Ur Phencyclidine Scrn Not Detected Ur Amphetamines Screen Not Detected U Benzodiazepines Scrn Not Detected Urine Cocaine Screen POSITIVE H U Marijuana (THC) Screen Not Detected Imaging Radiologist's Impressions: Impressions Chest X-Ray 09/10/23 12:14 IMPRESSION: In comparison with previous 2020 study, enlarged and globular cardiac silhouette. Correlate clinically regarding possible pericardial effusion. Minor right costophrenic angle atelectasis. Assessment and Plan (1) Acute systolic heart failure: Status: Acute (2) Asthma: Qualifiers: Asthma severity: mild Asthma persistence: intermittent Asthma complication type: uncomplicated Qualified Code(s): J45.20 - Mild intermittent asthma, uncomplicated Status: Acute (3) Hypertension: Qualifiers: Hypertension type: primary hypertension Qualified Code(s): I10 - Essential (primary) hypertension Status: Acute Plan 66-year-old male with history of cardiomyopathy with last documented EF of 40% hypertension presents with lower extremity edema worsening over the past 3 weeks. He states he has been living in a car for the past 3 weeks and has been noncompliant with his meds. He does endorse the fact that he smokes crack cocaine. He denies alcohol marijuana or other drugs 1. Acute systolic heart failure -Lasix drip at 5 mg an hour -KCL 40 mEq now -2D echo in a.m. -cardiology consult in a.m. -follow renals/Divalents 2. Abnormal troponin -repeat troponin at 20:00... No indication for heparin at time -ASA/statin 3. Hypertension -acceptable control off therapies -restart valsartan ... Adjust as clinically indicated Full code Juanx Patient requires at minimum 2 midnight inpatient stay to treat acute systolic heart failure with aggressive IV diuresis. This cannot be achieved a lesser acute setting Time Spent With Patient Time: Total time managing care of this patient today ____ minutes. Quality Stroke Does the patient have a stroke diagnosis?: No VTE Prior VTE?: No VTE Risk Level:: Medical - moderate - high VTE Device Contraindication: Treatment Not Indicated VTE Drug Contraindication: N/A - Med Ordered
[2023-09-10] MEDS: Atorvastatin Calcium 80 MG TABLET PO (17:34)
[2023-09-10] MEDS: Enoxaparin Sodium 40 MG/0.4 ML SYRINGE SUBCUT (17:35)
[2023-09-10] MEDS: Potassium Chloride Packet 20 MEQ PACKET 40 MEQ PO (17:35)
[2023-09-10] MEDS: Furosemide 200 MG in 0.9 % Sodium Chloride 80 ML IVCONT (17:36)
--- NOTE | 2023-09-10 17:40 | PC.NURSE ---
asa not given because pt reports he has and allergy to the medication, rash/vomiting/and was told by his doctor that he is not supposed take the medication . dr goldberg aware
--- NOTE | 2023-09-10 18:46 | PC.NURSE ---
called to give report but was told that they are unable to take report at this time because they are giving report on the floor
--- NOTE | 2023-09-10 19:07 | PC.NURSE ---
report given to imc rn
[2023-09-10] MEDS: 0.9 % Sodium Chloride Flush 3 ML SYRINGE IVFLUSH (19:48)
[2023-09-10] MEDS: Valsartan 40 MG TABLET PO (20:21)
[2023-09-10 20:57] LABS: Troponin-I High Sensitivity 99.4 ng/L (<3.5-35.0)
[2023-09-10 21:05] LABS: B Type Natriuretic Peptide 803 pg/mL (<100)
[2023-09-11 03:29] VITALS: BP 115/73; PULSE 103; RESP 19; TEMP 37.1; O2SAT 96
--- NOTE | 2023-09-11 04:00 | PC.NURSE ---
Patient admitted to [facility] for med-tele from ED for CHF exacerbation. Pt arrived at 19:40; care assumed at this time. A&Ox4. VSS. NSR-ST 90s to low 100's on tele. +pp/cms. 3+ edema to BLE. Pt arrived on lasix gtt at 5mg/hr (2.5ml/hr), continues as ordered. 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 Pt also reported non-compliance with medications, citing new homelessness (times two weeks) and financial burden. Active listening offered and pt educated on cardiovascular risks of cocaine use. Trending trops and bnp, covering Dr. Dillon notified of results. 23:00 hour pt had an asymptomatic eight-beat run of vtach, which spontaneously resolved to his baseline rhythm above. Vitals obtained, stable. Pt has consistently denied chest pain. Covering MD notified. Diet/nutrition consult placed due to poor dentition (pt reports he has no teeth and does not wear dentures, eats soft foods ) and newly reported weight loss. Tolerating cardiac diet/soft foods and po intake without n/v. Voiding cyu in adequate amounts with double urinals provided at pt bedside. Bed alarm on and high fall safety measures in place. Will continue to monitor for remainder of magnetic tape typewriter operator's scheduled care.
--- NOTE | 2023-09-11 07:00 | CA_ITS ---
Transthoracic Echocardiogram Patient (Last, First, Middle): Víctor Mi, Gender: Male Date of : 1955 Age: 68 Procedure Date: 09/11/2023 Procedure Type: Transthoracic Echocardiogram [place] [facility] [place]: 167.64 cm Weight: 82.56 kg BSA: 1.92 m2 Heart Rate: bpm BP: 115 / 73 mmHg Car Tracer: TO Referring MD: Kuldeep Camara DO Symptoms: CHF Study Quality: Adequate ECG Rhythm: Sinus Conclusions: - The left ventricular systolic function is moderately decreased. The calculated ejection fraction is 35% by biplane method. - The basal inferior segment is akinetic. - There is mild to moderate mitral valve regurgitation. - There is moderate tricuspid valve regurgitation. Findings Left Ventricle Mildly increased left ventricular cavity size. There is mildly increased left ventricular wall thickness. The left ventricular systolic function is moderately decreased. The calculated ejection fraction is 35% by biplane method. There is moderate global hypokinesis. Diastolic function is indeterminate on the basis of available data. There is moderate septal asymmetric hypertrophy. LV peak GLS -8.8%. Wall Motion Rest Echo Findings The basal inferior segment is akinetic. Right Ventricle Mildly increased right ventricular cavity size. Atria The left atrium is moderately dilated. The right atrium is mildly dilated. Aortic Valve There is a normal trileaflet aortic valve. There is mild calcification of the aortic valve. There is no aortic valve stenosis. There is no aortic valve regurgitation. Mitral Valve The mitral valve appears normal. There is mild to moderate mitral valve regurgitation. There is no mitral valve stenosis. Pulmonic Valve The pulmonic valve is likely normal. Tricuspid Valve There is moderate tricuspid valve regurgitation. There is no evidence of pulmonary hypertension. Great Vessels The asc aorta is normal in size. Venous The inferior vena cava is mildly dilated and collapses less than 50% with inspiration. Pericardium/Pleural There is a trivial pericardial effusion. Prior Study Comparison Changes noted compared to prior study dated: 06/10/2022. Decrease in LVEF. Measurements 2D Linear Measurements IVSd: 1.38 0.6-0.9/0.6-1.0 cm LVIDd: 5.76 3.9-5.3/4.2-5.9 cm LVIDd Index: 3.00 2.4-3.2/2.2-3.1 cm/m2 LVIDs: 4.46 2.0-3.6 cm LVPWd: 1.10 0.7-1.1 cm LA Diam: 3.70 2.7-3.8/3.0-4.0 cm LAIDs Index: 1.93 1.5-2.3 cm/m2 LV Mass: 383.11 67-162/88-224 g LV Mass Index: 199.54 43-95/49-115 g/m2 LVOT Diam: 2.20 3.0+(-)1.3 cm 2D Systolic Function EF 4C: 42.70 >55% EF 2C: 32.00 >55% EF BiP: 35.00 >55% Mitral Valve MV Pk E: 0.98 MV Decel Time: 192.00 E'Lateral: 8.20 E'Medial: 7.47 E/E' Med: 13.10 E/E' Lat: 11.90 PHT: 56.00 MVA PHT: 3.93 Decel [place]: 5.10 Aortic Valve AoV Pk Luis: 1.39 AoV Mn Luis: 0.98 AoV VTI: 0.23 AoV Pk Grad: 8.00 Aov Mn Grad: 5.00 YASMINE Cont.VTI: 3.07 LVOT LVOT Pk Luis: 1.03 LVOT Mn Luis: 0.77 LVOT VTI: 0.19 LVOT Pk Grad: 4.00 LVOT Mn Grad: 3.00 LVOT Diam: 2.20 LVOT Area: 3.80 Diastolic Function MV Pk E: 0.98 E'Medial: 7.47 E/E' Med: 13.10 E' Laterial: 8.20 E/E' Lat: 11.90 Right Ventricle TAPSE (mm): 20.90 TVS' Luis: 12.20 Tricuspid Valve TR Pk Luis: 2.78 TR Pk Grad: 31.00 RA Press: 8.00 RVSP: 39.00 Great Vessels Aorta Sinus of Valsalva: 3.64 2.0-3.[address] [place]: 2.68 1.7-3.4 cm Ao Asc: 3.50 2.1-3.4 cm Updated in Other Vendor System with Status of Final Vik Campos MD electronically signed on 09/11/2023 12:45:20 PM with status of Final
[2023-09-11 07:04] LABS: MANUAL DIFF FLAG NO
[2023-09-11 07:11] LABS: Basophils Percent Auto 0.6 % (0-2); Eosinophils Absolute Auto 0.1 X10*3/uL (0.0-0.4); Eosinophils Percent Auto 1.8 % (0-4); Hemoglobin 11.6 g/dl (14.0-18.0); Imm Gran Abs Auto 0.01 X10*3/uL (0.00-0.03); Imm Gran Pct Auto 0.2 % (0.0-0.4); Lymphocytes Absolute Auto 1.3 X10*3/uL (1.2-4.9); Lymphocytes Percent Auto 20.2 % (20-40); Mean Corpuscular HGB Conc 32.2 g/dl (31.0-36.0); Mean Corpuscular Hemoglobin 32.4 pg (27.0-33.0); Mean Corpuscular Volume 100.6 fL (80.0-98.0); Monocytes Absolute Auto 0.5 X10*3/uL (0.1-1.2); Monocytes Percent Auto 8.7 % (2-11); Neutrophils Absolute Auto 4.3 x10*3/uL (2.0-8.3); Neutrophils Percent Auto 68.5 % (45-73); Platelet Count 161 X10*3/uL (160-400); Red Blood Count 3.58 X10*6/uL (4.60-5.80); Red Cell Distribution Width 15.2 % (11.0-16.0); White Blood Count 6.2 X10*3/uL (4.8-10.8)
[2023-09-11 07:28] LABS: Alanine Aminotransferase 23 U/L (0-40); Albumin Level 3.4 g/dL (3.5-5.0); Alkaline Phosphatase 118 U/L (39-117); Anion Gap 14 (12-20); Aspartate Amino Transferase 31 U/L (5-37); Bilirubin Total 1.4 mg/dL (0.0-1.0); Blood Urea Nitrogen 10 mg/dL (9-16); Calcium 8.9 mg/dL (8.4-10.2); Carbon Dioxide 24 mmol/L (22-29); Chloride 106 mmol/L (96-108); Creatinine Clr Calc Pharmacy 55.6; Estimated Glomerular Filt Rate 54; Glucose Fasting 111 mg/dL (60-99); Potassium 3.3 mmol/L (3.3-5.1); Sodium 141 mmol/L (135-145); Total Protein 6.4 g/dL (6.5-8.0)
[2023-09-11 08:00] VITALS: BP 120/78; PULSE 107; RESP 20; TEMP 36.8; O2SAT 95
[2023-09-11] MEDS: 0.9 % Sodium Chloride Flush 3 ML SYRINGE IVFLUSH ×3 (08:53→19:51)
[2023-09-11] MEDS: Valsartan 40 MG TABLET PO ×2 (08:53→19:50)
[2023-09-11] MEDS: Potassium Chloride ER 20 MEQ TAB.ER.PRT 40 MEQ PO ×2 (09:45→19:50)
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
[2023-09-11] MEDS: Furosemide 200 MG in 0.9 % Sodium Chloride 80 ML IVCONT (10:27)
--- NOTE | 2023-09-11 11:02 | MHC.CLN ---
RE: CONSULT PT REPORTS 10# WT LOSS, HOWEVER H&P NOTES PT REPORTED 20# FLUID GAIN X 1 MONTH R/T CHF CURRENT WT 83KG PREVIOUS WT HX: 80.4KG (07/16/22) PT ALSO REPORTS COCAINE ABUSE WHICH MAY CAUSE WT LOSS NO SIGNIFICANT WT FLUCTUATIONS NO NEW ORDERS MONITOR PO INTAKE RD TO FOLLOW WEEKLY
--- NOTE | 2023-09-11 11:35 | P.CONCA_ITS ---
History of Present Illness History of Present Illness Date of Service: 09/11/23 Chief complaint: Acute Systolic CHF Narrative: This is a cardiology consultation regarding leg swelling and possibly congestive heart failure. Patient has history of cardiomyopathy with an ejection fraction in the 40s. Apparently he has been homeless for the last few weeks and living in his car and on the street. Daily cocaine use. He is in the hospital because of increasing leg swelling and apparently has gained about 20 lb in weight over the last month or so. He has also been getting increasing shortness of breath. He is apparently unable to lie down flat. No clear-cut anginal-type chest pains. Review of Systems 2 Review of Systems: Yes all other systems are reviewed and are negative Constitutional: Constitutional: Reports as per HPI and Reports no additional constitutional complaints Eyes: Eyes: Reports as per HPI and Denies no additional eye complaints ENT: Denies system reviewed and no additional complaints, except as documented and Reports as per HPI Cardiovascular: Cardiovascular: Reports as per HPI, Reports no additional cardiovascular complaints, Denies acrocyanosis, Denies cool extremities, Denies chest pain, Reports leg edema, Denies lightheadedness, Denies palpitations and Reports dyspnea Respiratory: Respiratory: Reports as per HPI, Denies no additional respiratory complaints and Reports dyspnea Gastrointestinal: Gastrointestinal: Reports as per HPI and Denies no additional gastrointestinal complaints Genitourinary: Genitourinary: Reports no additional male genitourinary complaints and Reports as per HPI Musculoskeletal: Musculoskeletal: Reports no additional musculoskeletal complaints and Reports as per HPI Integumentary/Breasts: Skin/Breast: Reports system reviewed and no additional complaints, except as docu Neurologic: Reports system reviewed and no additional complaints, except as documented and Reports as per HPI Psychiatric: Psychiatric: Reports no additional psychiatric complaints and Reports as per HPI Endocrine: Endocrine: Reports no additional endocrine complaints, Reports as per HPI and Denies palpitations Hematologic/Lymphatic: Hematologic/Lymphatic: Reports no additional hematologic/lymphatic complaints and Reports as per HPI Allergic/Immunologic: Allergic/Immunologic: Reports no additional allergic/immunologic complaints and Reports as per HPI PMF Past Medical History Medical History (Updated 09/11/23 @ 11:42 by Vik Campos MD) Asthma Family History Family History Mother Diabetes Hypertension Arthritis Asthma Father Asthma Surgical History Surgical History Hx of endoscopic retrograde cholangiopancreatography History of cholecystectomy Social History Social History Household Members: None Housing: Homeless Do you presently have visiting nurse or other home services: No Alcohol intake: former Patient Tobacco Use Status: Former Tobacco user Quit Date: 2016 Smoked in Last 30 Days: No e-Cigarette/Vaping Use: Former Use Use of substances other than those prescribed or required for medical reasons: Yes Substance Use Type: Crack/Cocaine Substance Use Frequency: Daily Currently Displaying Signs/Symptoms of Drug Intoxication Withdrawal: No Any prior treatment program specific to substance use: No Have you been hit, kicked, punched, or otherwise hurt by someone within the past year? If so, by whom?: No Do you feel safe in your current relationship?: No Current Relationship Is there a partner from a previous relationship who is making you feel unsafe now?: No Are you made to feel afraid or neglected: No Advance Directives: No Advance Directives Information Provided: No Do you have thoughts of harming others: None Do you have a plan to hurt others: No Plan Recently lost weight without trying: Yes How much weight loss: 2-13 pounds Eating poorly because of decreased appetite: No Nutrition screen score: 3 Nutrition Risks: Poor intake 0-25% >4 days Poor oral hygiene: Yes (no teeth or dentures per pt) service: No Meds Allergies Allergy/AdvReac Type Severity Reaction Status Date / Time aspirin [ASPIRIN] Allergy Unknown Rash Verified 09/10/23 18:05 egg [EGGS] Allergy Unknown UNKNOWN Verified 05/01/23 09:32 Influenza Virus Vaccines Allergy Unknown UNKNOWN Verified 05/01/23 09:32 [INFLUENZA VIRUS VACCINES] lactose [LACTOSE] Allergy Unknown GI UPSET Verified 05/01/23 09:32 Active Medications: Current Medications Aspirin (Aspirin Enteric Coated 81 Mg Tablet.) 81 mg PO DAILY [facility] Last Admin: 09/11/23 08:33 Dose: Not Given Enoxaparin Sodium (Enoxaparin Sodium 40 Mg/0.4 Ml Syringe) 40 mg SUBCUT Q24H [facility] Last Admin: 09/10/23 17:35 Dose: 40 mg Furosemide 200 mg/ Sodium (Chloride) 100 mls @ 5 mls/hr IVCONT .Q20H [facility] Last Admin: 09/11/23 10:27 Dose: 10 mg/hr, 5 mls/hr Magnesium Sulfate (Magnesium Sulfate/H2o) 2 gm in 50 mls @ 25 mls/hr IV ONCE ONE Stop: 09/11/23 13:10 Potassium Chloride (Potassium Chloride Er 20 Meq Tab.Er.Prt) 40 meq PO BID [facility] Last Admin: 09/11/23 09:45 Dose: 40 meq Sodium Chloride (0.9 % Sodium Chloride Flush 3 Ml Syringe) 3 ml IVFLUSH QSHIFT [facility] Last Admin: 09/11/23 08:53 Dose: 3 ml Valsartan (Valsartan 40 Mg Tablet) 40 mg PO BID [facility]; Protocol Last Admin: 09/11/23 08:53 Dose: 40 mg Home Medications Medication Instructions Recorded Confirmed Last Taken Type albuterol sulfate 90 mcg/actuation 2 puff inhalation Q4H PRN Wheezing 03/15/22 09/10/23 Unknown History aerosol inhaler (Ventolin HFA) fluticasone propionate 220 1 inh inhalation BID 03/15/22 09/10/23 Unknown History mcg/actuation HFA aerosol inhaler (Flovent HFA) sildenafil 50 mg tablet (Viagra) 50 mg PO DAILY PRN Sexual Activity 09/10/23 09/10/23 Unknown History Physical Exam 2 Vital Signs: Vital Signs: Last Vital Signs Temp 98.2 F 09/11/23 08:00 Pulse 107 H 09/11/23 08:00 Resp 20 09/11/23 08:00 BP 120/78 09/11/23 08:00 Pulse Ox 95 09/11/23 08:00 O2 Del Method Room Air 09/11/23 08:00 BMI result Body Mass Index 29.5 Const: General: comfortable and no acute distress O rientation/consciousness: patient oriented x3 HEENT: Other: Unremarkable Head: Yes normal to inspection Neck: Neck: Yes normal visual inspection Chest: Chest palpation & inspection: normal inspection of the chest Resp: Auscultation: rales Cardio: Palpation: normal PMI Heart sounds: S1 normal heart sound present, S2 normal heart sound present, no gallops, no murmurs and no rubs GI: Palpation (GI): Soft to palpation Back/Spine/Pelvis: Other: unremarkable Skin: General skin exam: no rashes or lesions noted Neuro: General: patient oriented x3 Extrem: Other: 2+ edema General: Yes normal to inspection Psych: Mental Status: mental status grossly normal Objective Labs and Meds 09/11/23 06:46 09/11/23 06:46 Lab results: Laboratory Results - last 24 hr 09/10/23 09/10/23 09/10/23 11:52 15:56 16:03 WBC 5.4 RBC 3.81 L Hgb 12.8 L Hct 38.9 L MCV 102.1 H MCH 33.6 H MCHC 32.9 RDW 15.5 Plt Count 165 D MPV 10.7 Immature Gran % (Auto) 0.2 Neut % (Auto) 69.5 Lymph % (Auto) 21.6 [place] % (Auto) 6.9 Eos % (Auto) 1.1 Baso % (Auto) 0.7 Lymph # (Auto) 1.2 [place] # (Auto) 0.4 Eos # (Auto) 0.1 Baso # (Auto) 0.0 Abs Immat Gran (auto) 0.01 Absolute Neuts (auto) 3.7 Absolute Nucleated RBC 0.000 Nucleated RBC % (auto) 0.0 Sodium 143 Potassium 3.4 D Chloride 110 H Carbon Dioxide 24 Anion Gap 12 BUN 12 Creatinine 1.28 Estim Creat Clear Calc 59.0 Estimated GFR 56 Random Glucose 95 Fasting Glucose Calcium 8.9 Magnesium 1.9 Total Bilirubin 1.8 H Direct Bilirubin 0.7 H AST 35 ALT 27 Alkaline Phosphatase 132 H Troponin I High Sens 86.0 H 85.0 H B-Natriuretic Peptide 852 H Total Protein 7.2 Albumin 3.8 Urine Color Yellow Urine Appearance Clear Urine pH 5.5 Ur Specific [place] 1.010 Urine Protein Negative Urine Glucose (UA) Negative Urine Ketones Negative Urine Blood Negative Urine Nitrite Negative Ur Leukocyte Esterase Negative Urine Opiates Screen Not Detected Urine Fentanyl Screen Not Detected Ur Barbiturates Screen Not Detected Ur Phencyclidine Scrn Not Detected Ur Amphetamines Screen Not Detected U Benzodiazepines Scrn Not Detected Urine Cocaine Screen POSITIVE H U Marijuana (THC) Screen Not Detected 09/10/23 09/11/23 20:12 06:46 WBC 6.2 RBC 3.58 L Hgb 11.6 L Hct 36.0 L MCV 100.6 H MCH 32.4 MCHC 32.2 RDW 15.2 Plt Count 161 MPV 11.0 Immature Gran % (Auto) 0.2 Neut % (Auto) 68.5 Lymph % (Auto) 20.2 [place] % (Auto) 8.7 Eos % (Auto) 1.8 Baso % (Auto) 0.6 Lymph # (Auto) 1.3 [place] # (Auto) 0.5 Eos # (Auto) 0.1 Baso # (Auto) 0.0 Abs Immat Gran (auto) 0.01 Absolute Neuts (auto) 4.3 Absolute Nucleated RBC 0.000 Nucleated RBC % (auto) 0.0 Sodium 141 Potassium 3.3 Chloride 106 Carbon Dioxide 24 Anion Gap 14 BUN 10 Creatinine 1.32 Estim Creat Clear Calc 55.6 Estimated GFR 54 Random Glucose Fasting Glucose 111 H Calcium 8.9 Magnesium Total Bilirubin 1.4 H Direct Bilirubin AST 31 ALT 23 Alkaline Phosphatase 118 H Troponin I High Sens 99.4 H B-Natriuretic Peptide 803 H Total Protein 6.4 L Albumin 3.4 L Urine Color Urine Appearance Urine pH Ur Specific [place] Urine Protein Urine Glucose (UA) Urine Ketones Urine Blood Urine Nitrite Ur Leukocyte Esterase Urine Opiates Screen Urine Fentanyl Screen Ur Barbiturates Screen Ur Phencyclidine Scrn Ur Amphetamines Screen U Benzodiazepines Scrn Urine Cocaine Screen U Marijuana (THC) Screen ECG Interpretation: EKG shows sinus tachycardia, 106/Min; nonspecific ST-T changes; normal DC and slight QT prolongation. Imaging Radiologist's impression: Impressions Chest X-Ray 09/10/23 12:14 IMPRESSION: In comparison with previous 2019 study, enlarged and globular cardiac silhouette. Correlate clinically regarding possible pericardial effusion. Minor right costophrenic angle atelectasis. Assessment and Plan (1) Acute on chronic congestive heart failure: Qualifiers: Heart failure type: unspecified Qualified Code(s): I50.9 - Heart failure, unspecified Status: Acute (2) Cardiomyopathy: Qualifiers: Cardiomyopathy type: other Qualified Code(s): I42.8 - Other cardiomyopathies Status: Acute (3) Cocaine use disorder: Status: Acute Plan Cardiac BNP is 852. About 3 years ago, it was only 45. High sensitivity troponin levels are 86, 85 and 99. Cocaine screen positive. Chest x-ray reported to have enlarged/globular cardiac silhouette. Possible pericardial effusion. Echocardiogram 2021-LVEF of 40-45%. Mildly dilated right ventricle. [id number] mitral regurgitation. Myocardial perfusion imaging study from 2021-normal perfusion. Clinically, volume overload and could be related to worsening cardiomyopathy due to ongoing cocaine use. He needs repeat echocardiogram for evaluation. In the interim, agree with empiric diuretics. He is currently on Lasix drip as listed and agree with that. With regard to slight troponin elevation, could be just from congestive heart failure. Due to cocaine use, the could also be some vasospasm/myocardial injury component but the level of elevation is not too high. Also it is somewhat flat. Hence doubt a true ACS. Will follow-up with you. Discussed with Dr. Camara. Time Spent With Patient Time: Total time managing care of this patient today ____ minutes. Procedures Date of Service Date of Service: 09/11/23
[2023-09-11] MEDS: Magnesium Sulfate/H2O 2 GM/50 ML PIGGYBACK IV (11:56)
[2023-09-11 12:00] VITALS: BP 102/59; PULSE 106; RESP 20; TEMP 37.3; O2SAT 93
--- NOTE | 2023-09-11 15:07 | HO.PM.IMPN ---
Subjective Subjective Date of Service: 09/11/23 Interval History: Notes overall improvement; states legs are much smaller now can make a fist with his hands. Review of Systems Denies chest pain Admit shortness of breath with minimal exertion Denies nausea vomiting diarrhea Denies fever chills Physical Exam Vital Signs: Vital Signs: Last Vital Signs Temp 99.1 F 09/11/23 12:00 Pulse 106 H 09/11/23 12:00 Resp 20 09/11/23 12:00 BP 102/59 L 09/11/23 12:00 Pulse Ox 93 09/11/23 12:00 O2 Del Method Room Air 09/11/23 12:00 BMI result Body Mass Index 29.5 Const: Other: Awake alert no acute distress able speak in full sentences lying semi Mills bed HEENT: Other: Positive JVD Resp: Other: Bilateral basilar crackles essentially inferior scapular border distal Cardio: Other: No S4; positive S1-S2; no S3 murmurs rubs or gallops GI: Other: Soft nontender nondistended normoactive bowel sounds Neuro: Other: Cranial nerves 2-12 grossly intact as tested. Motor is 5 of 5 as tested. And sensation is intact. Cognition is appropriate. Gait not examined Extrem: Other: Bilateral 2 to 3+ pitting edema up to thigh Objective Data Active Medications Aspirin (Aspirin Enteric Coated 81 Mg Tablet.) 81 mg PO DAILY [facility] Last Admin: 09/11/23 08:33 Dose: Not Given Documented By: ORIANA Non-Admin Reason: pt allergic Enoxaparin Sodium (Enoxaparin Sodium 40 Mg/0.4 Ml Syringe) 40 mg SUBCUT Q24H [facility] Last Admin: 09/10/23 17:35 Dose: 40 mg Documented By: MELI Furosemide 200 mg/ Sodium (Chloride) 100 mls @ 5 mls/hr IVCONT .Q20H [facility] Last Admin: 09/11/23 10:27 Dose: 10 mg/hr, 5 mls/hr Documented By: ORIANA Potassium Chloride (Potassium Chloride Er 20 Meq Tab.Er.Prt) 40 meq PO BID [facility] Last Admin: 09/11/23 09:45 Dose: 40 meq Documented By: ORIANA Sodium Chloride (0.9 % Sodium Chloride Flush 3 Ml Syringe) 3 ml IVFLUSH QSHIFT [facility] Last Admin: 09/11/23 08:53 Dose: 3 ml Documented By: ORIANA Valsartan (Valsartan 40 Mg Tablet) 40 mg PO BID [facility]; Protocol Last Admin: 09/11/23 08:53 Dose: 40 mg Documented By: ORIANA Labs 09/11/23 06:46 09/11/23 06:46 Labs: Laboratory Results - last 24 hr 09/10/23 09/10/23 09/11/23 15:56 20:12 06:46 MCV 100.6 H MCH 32.4 MCHC 32.2 RDW 15.2 Plt Count 161 MPV 11.0 Immature Gran % (Auto) 0.2 Neut % (Auto) 68.5 Lymph % (Auto) 20.2 [place] % (Auto) 8.7 Eos % (Auto) 1.8 Baso % (Auto) 0.6 Lymph # (Auto) 1.3 [place] # (Auto) 0.5 Eos # (Auto) 0.1 Baso # (Auto) 0.0 Abs Immat Gran (auto) 0.01 Absolute Neuts (auto) 4.3 Absolute Nucleated RBC 0.000 Nucleated RBC % (auto) 0.0 Anion Gap 14 Estim Creat Clear Calc 55.6 Estimated GFR 54 Fasting Glucose 111 H Calcium 8.9 Total Bilirubin 1.4 H AST 31 ALT 23 Alkaline Phosphatase 118 H B-Natriuretic Peptide 803 H Total Protein 6.4 L Albumin 3.4 L Urine Color Yellow Urine Appearance Clear Urine pH 5.5 Ur Specific [place] 1.010 Urine Protein Negative Urine Glucose (UA) Negative Urine Ketones Negative Urine Blood Negative Urine Nitrite Negative Ur Leukocyte Esterase Negative Urine Opiates Screen Not Detected Urine Fentanyl Screen Not Detected Ur Barbiturates Screen Not Detected Ur Phencyclidine Scrn Not Detected Ur Amphetamines Screen Not Detected U Benzodiazepines Scrn Not Detected Urine Cocaine Screen POSITIVE H U Marijuana (THC) Screen Not Detected Assessment and Plan (1) Acute systolic heart failure: Status: Acute (2) Hypertension: Status: Acute Plan 66-year-old male with history of cardiomyopathy with last documented EF of 40% hypertension presents with lower extremity edema worsening over the past 3 weeks. He states he has been living in a car for the past 3 weeks and has been noncompliant with his meds. He does endorse the fact that he smokes crack cocaine. He denies alcohol marijuana or other drugs 1. Acute systolic heart failure -increase Lasix drip 10mg/hour -KCL 40 mEq b.i.d. -2D echo .. LVEF 35% with moderate tricuspid valve and mitral valve regurgitation. -follow renals/Divalents 2. Abnormal troponin -stable.. Likely related to demand -ASA/statin 3. Hypertension -acceptable control off therapies -restart valsartan ... Adjust as clinically indicated Full code Camryn Patient requires ongoing hospitalization for IV Lasix to treat acute systolic heart failure Time Spent With Patient Time: Total time managing care of this patient today ____ minutes. Quality Stroke Does the patient have a stroke diagnosis?: No VTE Prior VTE?: No VTE Risk Level:: Medical - moderate - high VTE Device Contraindication: Treatment Not Indicated VTE Drug Contraindication: N/A - Med Ordered
[2023-09-11 15:23] VITALS: BP 90/58; PULSE 102; RESP 20; TEMP 37; O2SAT 95
[2023-09-11] MEDS: Enoxaparin Sodium 40 MG/0.4 ML SYRINGE SUBCUT (16:54)
[2023-09-11 18:11] LABS: B Type Natriuretic Peptide 568 pg/mL (<100)
[2023-09-11 19:40] VITALS: BP 108/62; PULSE 109; RESP 17; TEMP 36.4; O2SAT 94
[2023-09-12] VITALS (7 sets, daily range): BP systolic 97–119; BP diastolic 51–78; PULSE 88–106; RESP 14–20; TEMP 36.2–37.2; O2SAT 95–98
[2023-09-12] MEDS: Furosemide 200 MG in 0.9 % Sodium Chloride 80 ML IVCONT (07:05)
[2023-09-12 07:17] LABS: MANUAL DIFF FLAG NO
[2023-09-12 07:28] LABS: Basophils Percent Auto 0.4 % (0-2); Eosinophils Absolute Auto 0.1 X10*3/uL (0.0-0.4); Eosinophils Percent Auto 2.5 % (0-4); Hematocrit 41.2 % (42.0-52.0); Hemoglobin 13.5 g/dl (14.0-18.0); Imm Gran Abs Auto 0.01 X10*3/uL (0.00-0.03); Imm Gran Pct Auto 0.2 % (0.0-0.4); Lymphocytes Absolute Auto 1.7 X10*3/uL (1.2-4.9); Lymphocytes Percent Auto 30.2 % (20-40); Mean Corpuscular HGB Conc 32.8 g/dl (31.0-36.0); Mean Corpuscular Hemoglobin 31.9 pg (27.0-33.0); Mean Corpuscular Volume 97.4 fL (80.0-98.0); Mean Platelet Volume 10.6 fL (9.4-12.4); Monocytes Absolute Auto 0.6 X10*3/uL (0.1-1.2); Monocytes Percent Auto 11.4 % (2-11); Neutrophils Absolute Auto 3.1 x10*3/uL (2.0-8.3); Neutrophils Percent Auto 55.3 % (45-73); Platelet Count 190 X10*3/uL (160-400); Red Blood Count 4.23 X10*6/uL (4.60-5.80); Red Cell Distribution Width 14.8 % (11.0-16.0); White Blood Count 5.6 X10*3/uL (4.8-10.8)
[2023-09-12 07:39] LABS: Alanine Aminotransferase 22 U/L (0-40); Albumin Level 3.7 g/dL (3.5-5.0); Alkaline Phosphatase 131 U/L (39-117); Anion Gap 16 (12-20); Aspartate Amino Transferase 30 U/L (5-37); Bilirubin Total 1.2 mg/dL (0.0-1.0); Blood Urea Nitrogen 10 mg/dL (9-16); Carbon Dioxide 29 mmol/L (22-29); Chloride 99 mmol/L (96-108); Creatinine Clr Calc Pharmacy 56.9; Estimated Glomerular Filt Rate 56; Glucose Fasting 94 mg/dL (60-99); Potassium 3.4 mmol/L (3.3-5.1); Sodium 141 mmol/L (135-145); Total Protein 7.2 g/dL (6.5-8.0)
[2023-09-12] MEDS: Potassium Chloride ER 20 MEQ TAB.ER.PRT 40 MEQ PO ×2 (08:55→21:08)
[2023-09-12] MEDS: Valsartan 40 MG TABLET PO ×2 (08:55→21:08)
[2023-09-12] MEDS: 0.9 % Sodium Chloride Flush 3 ML SYRINGE IVFLUSH ×3 (08:56→21:08)
--- NOTE | 2023-09-12 10:27 | MHC.CM.PN ---
PER PHYSICIAN ROUNDS, PATIENT STILL REQUIRES DIURESIS PLAN IS FOR DC 09/13/23
[2023-09-12] MEDS: carvediloL 3.125 MG TABLET PO ×2 (12:41→21:07)
--- NOTE | 2023-09-12 14:11 | P.PNIM_ITS ---
Subjective Subjective Date of Service: 09/12/23 Interval History: Continues to improve. Slowly diuresing. No focal complaints Review of Systems Denies chest pain Admit shortness of breath with minimal exertion Denies nausea vomiting diarrhea Denies fever chills Physical Exam 2 Vital Signs: Vital Signs: Last Vital Signs Temp 97.8 F 09/12/23 11:56 Pulse 98 09/12/23 11:56 Resp 14 09/12/23 11:56 BP 108/70 09/12/23 11:56 Pulse Ox 96 09/12/23 11:56 O2 Del Method Room Air 09/12/23 11:56 BMI result Body Mass Index 29.5 Const: Other: Awake alert no acute distress able speak in full sentences lying semi Mills bed HEENT: Other: Positive JVD Resp: Other: Bilateral basilar crackles essentially inferior scapular border distal Cardio: Other: No S4; positive S1-S2; no S3 murmurs rubs or gallops GI: Other: Soft nontender nondistended normoactive bowel sounds Neuro: Other: Cranial nerves 2-12 grossly intact as tested. Motor is 5 of 5 as tested. And sensation is intact. Cognition is appropriate. Gait not examined Extrem: Other: Bilateral 2 to 3+ pitting edema up to thigh Objective Data Active Medications Aspirin (Aspirin Enteric Coated 81 Mg Tablet.) 81 mg PO DAILY [facility] Last Admin: 09/12/23 08:57 Dose: Not Given Documented By: ORIANA Non-Admin Reason: Allergy Carvedilol (Carvedilol 3.125 Mg Tablet) 3.125 mg PO BID [facility]; Protocol Last Admin: 09/12/23 12:41 Dose: 3.125 mg Documented By: ORIANA Enoxaparin Sodium (Enoxaparin Sodium 40 Mg/0.4 Ml Syringe) 40 mg SUBCUT Q24H [facility] Last Admin: 09/11/23 16:54 Dose: 40 mg Documented By: ORIANA Furosemide 200 mg/ Sodium (Chloride) 100 mls @ 5 mls/hr IVCONT .Q20H [facility] Last Admin: 09/12/23 07:05 Dose: 10 mg/hr, 5 mls/hr Documented By: ORIANA Potassium Chloride (Potassium Chloride Er 20 Meq Tab.Er.Prt) 40 meq PO BID [facility] Last Admin: 09/12/23 08:55 Dose: 40 meq Documented By: ORIANA Sodium Chloride (0.9 % Sodium Chloride Flush 3 Ml Syringe) 3 ml IVFLUSH QSHIFT [facility] Last Admin: 09/12/23 08:56 Dose: 3 ml Documented By: ORIANA Valsartan (Valsartan 40 Mg Tablet) 40 mg PO BID [facility]; Protocol Last Admin: 09/12/23 08:55 Dose: 40 mg Documented By: ORIANA Labs 09/12/23 07:07 09/12/23 07:07 Labs: Laboratory Results - last 24 hr 09/11/23 09/12/23 17:20 07:07 MCV 97.4 MCH 31.9 MCHC 32.8 RDW 14.8 Plt Count 190 MPV 10.6 Immature Gran % (Auto) 0.2 Neut % (Auto) 55.3 Lymph % (Auto) 30.2 [place] % (Auto) 11.4 H Eos % (Auto) 2.5 Baso % (Auto) 0.4 Lymph # (Auto) 1.7 [place] # (Auto) 0.6 Eos # (Auto) 0.1 Baso # (Auto) 0.0 Abs Immat Gran (auto) 0.01 Absolute Neuts (auto) 3.1 Absolute Nucleated RBC 0.000 Nucleated RBC % (auto) 0.0 Anion Gap 16 Estim Creat Clear Calc 56.9 Estimated GFR 56 Fasting Glucose 94 Calcium 9.0 Total Bilirubin 1.2 H AST 30 ALT 22 Alkaline Phosphatase 131 H B-Natriuretic Peptide 568 H Total Protein 7.2 Albumin 3.7 Assessment and Plan (1) Acute systolic heart failure: Status: Acute Plan 66-year-old male with history of cardiomyopathy with last documented EF of 40% hypertension presents with lower extremity edema worsening over the past 3 weeks. He states he has been living in a car for the past 3 weeks and has been noncompliant with his meds. He does endorse the fact that he smokes crack cocaine. He denies alcohol marijuana or other drugs 1. Acute systolic heart failure -Lasix drip 10mg/hour (approximately 9 L negative) -KCL 40 mEq b.i.d. -2D echo .. LVEF 35% with moderate tricuspid valve and mitral valve regurgitation. -add Coreg 3.25 b.i.d. -follow renals/Divalents 2. Abnormal troponin -stable.. Likely related to demand -ASA/statin 3. Hypertension -acceptable control -follow response to Coreg Full code Camryn Patient requires ongoing hospitalization for IV Lasix to treat acute systolic heart failure Time Spent With Patient Time: Total time managing care of this patient today ____ minutes. Quality Stroke Does the patient have a stroke diagnosis?: No VTE Prior VTE?: No VTE Risk Level:: Medical - moderate - high VTE Device Contraindication: Treatment Not Indicated VTE Drug Contraindication: N/A - Med Ordered
[2023-09-12] MEDS: Enoxaparin Sodium 40 MG/0.4 ML SYRINGE SUBCUT (16:31)
[2023-09-13] VITALS (8 sets, daily range): BP systolic 85–98; BP diastolic 46–64; PULSE 88–104; RESP 14–20; TEMP 36.7–37.8; O2SAT 92–96
[2023-09-13] MEDS: Furosemide 200 MG in 0.9 % Sodium Chloride 80 ML IVCONT (02:20)
[2023-09-13 06:02] LABS: MANUAL DIFF FLAG NO
[2023-09-13 06:13] LABS: Basophils Percent Auto 0.6 % (0-2); Eosinophils Absolute Auto 0.2 X10*3/uL (0.0-0.4); Eosinophils Percent Auto 2.5 % (0-4); Hematocrit 45.1 % (42.0-52.0); Hemoglobin 15.1 g/dl (14.0-18.0); Imm Gran Abs Auto 0.02 X10*3/uL (0.00-0.03); Imm Gran Pct Auto 0.3 % (0.0-0.4); Lymphocytes Absolute Auto 1.9 X10*3/uL (1.2-4.9); Lymphocytes Percent Auto 26.3 % (20-40); Mean Corpuscular HGB Conc 33.5 g/dl (31.0-36.0); Mean Corpuscular Hemoglobin 32.3 pg (27.0-33.0); Mean Corpuscular Volume 96.6 fL (80.0-98.0); Mean Platelet Volume 10.5 fL (9.4-12.4); Monocytes Absolute Auto 0.7 X10*3/uL (0.1-1.2); Monocytes Percent Auto 9.8 % (2-11); Neutrophils Absolute Auto 4.4 x10*3/uL (2.0-8.3); Neutrophils Percent Auto 60.5 % (45-73); Platelet Count 213 X10*3/uL (160-400); Red Blood Count 4.67 X10*6/uL (4.60-5.80); Red Cell Distribution Width 14.3 % (11.0-16.0); White Blood Count 7.2 X10*3/uL (4.8-10.8)
[2023-09-13 06:26] LABS: Alanine Aminotransferase 21 U/L (0-40); Albumin Level 3.7 g/dL (3.5-5.0); Alkaline Phosphatase 120 U/L (39-117); Anion Gap 16 (12-20); Aspartate Amino Transferase 26 U/L (5-37); Blood Urea Nitrogen 25 mg/dL (9-16); Calcium 9.2 mg/dL (8.4-10.2); Carbon Dioxide 28 mmol/L (22-29); Chloride 96 mmol/L (96-108); Creatinine Clr Calc Pharmacy 42.9; Estimated Glomerular Filt Rate 40; Glucose Fasting 95 mg/dL (60-99); Potassium 3.9 mmol/L (3.3-5.1); Sodium 136 mmol/L (135-145); Total Protein 7.5 g/dL (6.5-8.0)
[2023-09-13] MEDS: Potassium Chloride ER 20 MEQ TAB.ER.PRT 40 MEQ PO (09:00)
[2023-09-13] MEDS: Valsartan 40 MG TABLET PO (09:00)
[2023-09-13] MEDS: carvediloL 3.125 MG TABLET PO (09:00)
[2023-09-13] MEDS: 0.9 % Sodium Chloride Flush 3 ML SYRINGE IVFLUSH (10:40)
--- NOTE | 2023-09-13 14:25 | HO.PM.IMPN ---
Subjective Subjective Date of Service: 09/13/23 Interval History: Offers no acute complaints denies chest pain, no shortness of breath, no PND, no orthopnea tolerating diet, no nausea, no vomiting, no abdominal pain, no bowel or bladder issues no acute events overnight. Review of Systems All other systems reviewed and negative. Physical Exam Vital Signs: Vital Signs: Last Vital Signs Temp 98.2 F 09/13/23 12:00 Pulse 88 09/13/23 12:00 Resp 18 09/13/23 12:00 BP 95/53 L 09/13/23 12:00 Pulse Ox 95 09/13/23 12:00 O2 Del Method Room Air 09/13/23 12:00 BMI result Body Mass Index 29.5 Const: Other: General awake alert x3, sitting comfortably in no acute distress. Neck supple no JVD. CVS regular rate rhythm, Respiratory lungs clear to auscultation, no respiratory distress, no wheeze, no rales Gastrointestinal abdomen soft, nontender, bowel sounds audible, no guarding , no rigidity. Extremities no edema. Right leg dry skin with reyes of excoriation. Neuro nonfocal Psych appropriate affect Objective Data Active Medications Aspirin (Aspirin Enteric Coated 81 Mg Tablet.) 81 mg PO DAILY [facility] Last Admin: 09/13/23 11:39 Dose: Not Given Documented By: JAROCHO Non-Admin Reason: Allergy Carvedilol (Carvedilol 3.125 Mg Tablet) 3.125 mg PO BID [facility]; Protocol Last Admin: 09/13/23 09:00 Dose: 3.125 mg Documented By: JAROCHO Enoxaparin Sodium (Enoxaparin Sodium 40 Mg/0.4 Ml Syringe) 40 mg SUBCUT Q24H [facility] Last Admin: 09/12/23 16:31 Dose: 40 mg Documented By: ORIANA Furosemide 200 mg/ Sodium (Chloride) 100 mls @ 5 mls/hr IVCONT .Q20H [facility] Last Admin: 09/13/23 02:20 Dose: 10 mg/hr, 5 mls/hr Documented By: YOVANI Potassium Chloride (Potassium Chloride Er 20 Meq Tab.Er.Prt) 40 meq PO BID [facility] Last Admin: 09/13/23 09:00 Dose: 40 meq Documented By: JAROCHO Sodium Chloride (0.9 % Sodium Chloride Flush 3 Ml Syringe) 3 ml IVFLUSH QSHIFT [facility] Last Admin: 09/13/23 10:40 Dose: 3 ml Documented By: JAROCHO Valsartan (Valsartan 40 Mg Tablet) 40 mg PO BID [facility]; Protocol Last Admin: 09/13/23 09:00 Dose: 40 mg Documented By: JAROCHO Labs 09/13/23 05:57 09/13/23 05:57 Labs: Laboratory Results - last 24 hr 09/13/23 05:57 MCV 96.6 MCH 32.3 MCHC 33.5 RDW 14.3 Plt Count 213 MPV 10.5 Immature Gran % (Auto) 0.3 Neut % (Auto) 60.5 Lymph % (Auto) 26.3 [place] % (Auto) 9.8 Eos % (Auto) 2.5 Baso % (Auto) 0.6 Lymph # (Auto) 1.9 [place] # (Auto) 0.7 Eos # (Auto) 0.2 Baso # (Auto) 0.0 Abs Immat Gran (auto) 0.02 Absolute Neuts (auto) 4.4 Absolute Nucleated RBC 0.000 Nucleated RBC % (auto) 0.0 Anion Gap 16 Estim Creat Clear Calc 42.9 Estimated GFR 40 Fasting Glucose 95 Calcium 9.2 Total Bilirubin 1.0 AST 26 ALT 21 Alkaline Phosphatase 120 H Total Protein 7.5 Albumin 3.7 Assessment and Plan (1) Acute systolic heart failure: Status: Acute Plan 66-year-old male with history of cardiomyopathy with last documented EF of 40% hypertension presents with lower extremity edema worsening over the past 3 weeks. He states he has been living in a car for the past 3 weeks and has been noncompliant with his meds. He does endorse the fact that he smokes crack cocaine. He denies alcohol marijuana or other drugs 1. Acute systolic heart failure -seems resolved, no leg edema, no shortness of breath, BNP down to 568, will DC IV Lasix drip 10mg/hour (approximately 10 L negative) -2D echo .. LVEF 35% with moderate tricuspid valve and mitral valve regurgitation. -continue Coreg 3.25 b.i.d.hold lasix and potassium. 2. Abnormal troponin -stable.. Likely related to demand continue beta-blockers aspirin and statin 3. Hypertension -soft blood pressures will DC valsartan 4. Acute kidney injury likely due to over-diuresis /hypotension will treat with IV fluids follow BMP DC diuretics and arbs, renal consult if no improvement in renal function. 5. Nonsustained V-tach patient asymptomatic, normal potassium will check magnesium, continue beta-blockers follow clinical course. 6. History of cocaine use obtain addiction consult. Full code Lovenox Patient requires ongoing hospitalization for close monitoring of acute kidney injury on ivf Time Spent With Patient Time: Total time managing care of this patient today ____ minutes. Quality Stroke Does the patient have a stroke diagnosis?: No VTE Prior VTE?: No VTE Risk Level:: Medical - moderate - high VTE Device Contraindication: Treatment Not Indicated VTE Drug Contraindication: N/A - Med Ordered
[2023-09-13 14:56] LABS: Magnesium 2.1 mg/dL (1.6-2.6)
[2023-09-13] MEDS: 0.9 % Sodium Chloride 1,000 ML 100 ML IVCONT (14:59)
[2023-09-13] MEDS: Enoxaparin Sodium 40 MG/0.4 ML SYRINGE SUBCUT (16:33)
[2023-09-14 04:00] VITALS: BP 91/62; PULSE 94; RESP 18; TEMP 36.7; O2SAT 96
[2023-09-14 06:51] LABS: Anion Gap 14 (12-20); Blood Urea Nitrogen 28 mg/dL (9-16); Calcium 8.9 mg/dL (8.4-10.2); Carbon Dioxide 28 mmol/L (22-29); Chloride 99 mmol/L (96-108); Creatinine Clr Calc Pharmacy 41.5; Estimated Glomerular Filt Rate 39; Glucose Random 60 mg/dL (60-115); Potassium 3.4 mmol/L (3.3-5.1); Sodium 138 mmol/L (135-145)
[2023-09-14 07:42] VITALS: BP 99/62; PULSE 94; RESP 16; TEMP 36.6; O2SAT 97
[2023-09-14] MEDS: Potassium Chloride ER 20 MEQ TAB.ER.PRT 40 MEQ PO (09:39)
[2023-09-14] MEDS: 0.9 % Sodium Chloride Flush 3 ML SYRINGE IVFLUSH ×2 (09:40→12:33)
--- NOTE | 2023-09-14 10:58 | PM.PNCARD ---
Subjective Subjective Date of Service: 09/14/23 Interval history: He states that he is feeling better. Not short of breath. Swelling is much improved. Review of Systems Review of Systems Yes all other systems are reviewed and are negative Constitutional: Reports as per HPI and Reports no additional constitutional complaints Eyes: Reports as per HPI and Denies no additional eye complaints Denies system reviewed and no additional complaints, except as documented and Reports as per HPI Cardiovascular: Reports as per HPI, Reports no additional cardiovascular complaints, Denies acrocyanosis, Denies cool extremities, Denies chest pain, Denies leg edema, Denies lightheadedness, Denies palpitations and Denies dyspnea Respiratory: Reports as per HPI, Denies no additional respiratory complaints and Denies dyspnea Gastrointestinal: Reports as per HPI and Denies no additional gastrointestinal complaints Genitourinary: Reports no additional male genitourinary complaints and Reports as per HPI Musculoskeletal: Reports no additional musculoskeletal complaints and Reports as per HPI Skin/Breast: Reports system reviewed and no additional complaints, except as docu Reports system reviewed and no additional complaints, except as documented and Reports as per HPI Psychiatric: Reports no additional psychiatric complaints and Reports as per HPI Endocrine: Reports no additional endocrine complaints, Reports as per HPI and Denies palpitations Hematologic/Lymphatic: Reports no additional hematologic/lymphatic complaints and Reports as per HPI Allergic/Immunologic: Reports no additional allergic/immunologic complaints and Reports as per HPI Physical Exam Vital Signs: Last Vital Signs Temp 97.8 F 09/14/23 07:42 Pulse 94 09/14/23 07:42 Resp 16 09/14/23 07:42 BP 99/62 09/14/23 07:42 Pulse Ox 97 09/14/23 07:42 O2 Del Method Room Air 09/14/23 07:42 BMI result Body Mass Index 29.5 Const General: comfortable and no acute distress Orientation/consciousness: patient oriented x3 HEENT Other: Unremarkable Head: Yes normal to inspection Neck Neck: Yes normal visual inspection Chest Chest palpation & inspection: normal inspection of the chest Resp Auscultation: clear to auscultation bilaterally Cardio Palpation: normal PMI Heart sounds: S1 normal heart sound present, S2 normal heart sound present, no gallops, no murmurs and no rubs GI Palpation (GI): Soft to palpation Back/Spine/Pelvis Other: unremarkable Skin General skin exam: no rashes or lesions noted Neuro General: patient oriented x3 Extrem General: Yes normal to inspection Psych Mental Status: mental status grossly normal Objective Labs and Meds 09/13/23 05:57 09/14/23 06:14 Lab results: Laboratory Results - last 24 hr 09/13/23 09/14/23 05:57 06:14 Hold Purple Top SEE NOTE Sodium 138 Potassium 3.4 Chloride 99 Carbon Dioxide 28 Anion Gap 14 BUN 28 H Creatinine 1.77 H Estim Creat Clear Calc 41.5 Estimated GFR 39 Random Glucose 60 Calcium 8.9 Magnesium 2.1 Progress Note: A&P Assessment and plan (1) Acute systolic heart failure: Status: Acute (2) Cocaine use: Status: Acute Plan Echocardiogram with LVEF of 35%. Basal inferior akinesis. [id number] mitral regurgitation and moderate tricuspid regurgitation. Myocardial perfusion imaging study from 2021 with normal perfusion. However, probably will need a repeat ischemic eval if he is able to follow through. Overall, positive for cocaine, cardiomyopathy, acute heart failure but much improved. Considering the fact that he is homeless, may optimize medications as reasonably possible. Not sure if he can come back for labs extra and he already has abnormal kidney function. Hence may be difficult to use LAURITA inhibitors or ARB. Refrain from cocaine. If able to come, follow-up in the clinic. Time Spent With Patient Time: Total time managing care of this patient today ____ minutes. Progress Note: Quality Stroke Does the patient have a stroke diagnosis?: No Procedures Date of Service Date of Service: 09/14/23
--- NOTE | 2023-09-14 11:11 | P.PNIM_ITS ---
Subjective Subjective Date of Service: 09/14/23 Interval History: Feels tired resting in bed denies chest pain, no shortness of breath, no fevers no chills, no nausea, no vomiting ,tolerating diet, no other acute issues overnight. Review of Systems All other system reviewed and negative. Physical Exam 2 Vital Signs: Vital Signs: Last Vital Signs Temp 97.8 F 09/14/23 07:42 Pulse 94 09/14/23 07:42 Resp 16 09/14/23 07:42 BP 99/62 09/14/23 07:42 Pulse Ox 97 09/14/23 07:42 O2 Del Method Room Air 09/14/23 07:42 BMI result Body Mass Index 29.5 Const: Other: General awake alert x3, resting comfortably in no acute distress. Neck no JVD. CVS regular rate rhythm, Respiratory lungs clear to auscultation, no respiratory distress, no wheeze, few right base rhonchi. Gastrointestinal abdomen soft, non tender, bowel sounds audible, no guarding , no rigidity. Extremities no edema. Neuro non focal Skin no rash Psych appropriate affect Objective Data Active Medications Aspirin (Aspirin Enteric Coated 81 Mg Tablet.) 81 mg PO DAILY [facility] Last Admin: 09/14/23 09:40 Dose: Not Given Documented By: JAROCHO Non-Admin Reason: Physician Approved Carvedilol (Carvedilol 3.125 Mg Tablet) 3.125 mg PO BID [facility]; Protocol Last Admin: 09/14/23 09:41 Dose: Not Given Documented By: JAROCHO Non-Admin Reason: Physician Approved Enoxaparin Sodium (Enoxaparin Sodium 40 Mg/0.4 Ml Syringe) 40 mg SUBCUT Q24H [facility] Last Admin: 09/13/23 16:33 Dose: 40 mg Documented By: JAROCHO Sodium Chloride (Ns) 1,000 mls @ 100 mls/hr IVCONT .Q10H [facility] Stop: 09/14/23 20:14 Potassium Chloride (Potassium Chloride Er 20 Meq Tab.Er.Prt) 40 meq PO DAILY [facility] Last Admin: 09/14/23 09:39 Dose: 40 meq Documented By: JAROCHO Sodium Chloride (0.9 % Sodium Chloride Flush 3 Ml Syringe) 3 ml IVFLUSH QSHIFT [facility] Last Admin: 09/14/23 09:40 Dose: 3 ml Documented By: JAROCHO Labs 09/13/23 05:57 09/14/23 06:14 Labs: Laboratory Results - last 24 hr 09/13/23 09/14/23 05:57 06:14 Hold Purple Top SEE NOTE Anion Gap 14 Estim Creat Clear Calc 41.5 Estimated GFR 39 Random Glucose 60 Calcium 8.9 Magnesium 2.1 Assessment and Plan (1) Acute systolic heart failure: Status: Acute Plan 66-year-old male with history of cardiomyopathy with last documented EF of 40% hypertension presents with lower extremity edema worsening over the past 3 weeks. He states he has been living in a car for the past 3 weeks and has been noncompliant with his meds. He does endorse the fact that he smokes crack cocaine. He denies alcohol marijuana or other drugs 1. Acute systolic heart failure -seems resolved, no leg edema, no shortness of breath, BNP down to 568, s/p IV Lasix drip (approximately 10 L negative) -2D echo .. LVEF 35% with moderate tricuspid valve and mitral valve regurgitation. -since creatinine trended up with hypotension, Lasix/ Coreg /valsartan discontinued 2. Abnormal troponin -stable.. Likely related to demand soft blood pressure will hold beta-blockers, patient is allergic to aspirin, continue statin 3. Hypertension -soft blood pressures will DC valsartan and Coreg. 4. Acute kidney injury likely due to over-diuresis /hypotension will treat with IV fluids follow BMP DC diuretics and arbs, renal consult if no improvement in renal function. 5. Nonsustained V-tach patient asymptomatic, normal potassium and magnesium, follow clinical course. 6. History of cocaine use , addiction consult. Full code Lovenox Patient requires ongoing hospitalization for close monitoring of acute kidney injury on ivf Time Spent With Patient Time: Total time managing care of this patient today ____ minutes. Quality Stroke Does the patient have a stroke diagnosis?: No VTE Prior VTE?: No VTE Risk Level:: Medical - moderate - high VTE Device Contraindication: Treatment Not Indicated VTE Drug Contraindication: N/A - Med Ordered
[2023-09-14 11:35] VITALS: BP 95/56; PULSE 91; RESP 18; TEMP 36.4; O2SAT 98
[2023-09-14] MEDS: 0.9 % Sodium Chloride 1,000 ML 100 ML IVCONT (12:33)
[2023-09-14 15:36] VITALS: BP 92/57; PULSE 98; RESP 16; TEMP 36.5; O2SAT 99
[2023-09-14] MEDS: Enoxaparin Sodium 40 MG/0.4 ML SYRINGE SUBCUT (16:04)
[2023-09-14 20:00] VITALS: BP 110/63; PULSE 112; RESP 20; TEMP 37.1; O2SAT 99
[2023-09-14 23:03] VITALS: BP 96/61; PULSE 108; RESP 20; TEMP 37.1; O2SAT 97
[2023-09-15 03:18] VITALS: BP 100/55; PULSE 96; RESP 17; TEMP 37.2; O2SAT 98
[2023-09-15 07:30] VITALS: BP 102/65; PULSE 104; RESP 18; TEMP 36.6; O2SAT 97
[2023-09-15 08:02] LABS: Anion Gap 12 (12-20); Blood Urea Nitrogen 19 mg/dL (9-16); Calcium 8.9 mg/dL (8.4-10.2); Carbon Dioxide 26 mmol/L (22-29); Chloride 106 mmol/L (96-108); Estimated Glomerular Filt Rate 55; Glucose Random 89 mg/dL (60-115); Potassium 4.1 mmol/L (3.3-5.1); Sodium 140 mmol/L (135-145)
[2023-09-15] MEDS: 0.9 % Sodium Chloride Flush 3 ML SYRINGE IVFLUSH ×3 (09:17→20:04)
[2023-09-15 11:18] VITALS: BP 96/64; PULSE 100; RESP 18; TEMP 36.8; O2SAT 98
--- NOTE | 2023-09-15 11:24 | MHC.CM.PN ---
EMR reviewed and per MD rounds, pt is medically cleared for D/C. This CM met with pt with drawer in plain loom to discuss transportation and where he would be going. Per pt he would like help getting a bed at a homeless [facility]. This CM called multiple homeless shelters and unable to locate a male bed. Per [facility], our best chance in getting a bed is to call back tomorrow morning 8:30am-9:30am at #[phone] to try to hold bed for him for tomorrow. Hospitalist updated.
--- NOTE | 2023-09-15 12:46 | HO.ADDICT_ITS ---
History of Present Illness Date of Service: 09/15/2023 Chief Complaint: Acute Systolic CHF Reason for Consult: substance use HPI Narrative: Patient is a 68 year old Slovak speaking male currently medically admitted with CHF. Consult requested as patient reported using crack cocaine. Patient seen in room 477. Awake, alert, engaged in interview. He reports smoking cocaine maybe 2 days per week--although he emphatically states that he will not be using again. He states that he has used many substances over the years and one by one has stopped them all. Discussed risk reduction strategies. Patient any other substance, including alcohol Very focused on getting housing situated. Review of Systems Constitutional: Reports as per HPI and Reports no additional constitutional complaints Diagnostics Vital Signs (24Hr): Vital Signs - 24 hr 09/14/23 15:36 09/14/23 20:00 09/14/23 23:03 Temperature 97.7 F 98.7 F 98.7 F Pulse Rate 98 112 H 108 H Respiratory Rate 16 20 20 Blood Pressure 92/57 L 110/63 96/61 Pulse Oximetry 99 99 97 Oxygen Delivery Method Room Air Room Air Room Air 09/15/23 03:18 09/15/23 07:30 09/15/23 11:18 Temperature 99.0 F 97.9 F 98.3 F Pulse Rate 96 104 H 100 Respiratory Rate 17 18 18 Blood Pressure 100/55 L 102/65 96/64 Pulse Oximetry 98 97 98 Oxygen Delivery Method Room Air Room Air Room Air BMI result Body Mass Index 29.5 Labs 09/13/23 05:57 09/15/23 06:18 Labs: Laboratory Results - last 48 hr 09/13/23 09/14/23 09/14/23 05:57 06:14 15:08 Hold Purple Top SEE NOTE Sodium 138 Potassium 3.4 Chloride 99 Carbon Dioxide 28 Anion Gap 14 BUN 28 H Creatinine 1.77 H Estim Creat Clear Calc 41.5 Estimated GFR 39 Random Glucose 60 Calcium 8.9 Magnesium 2.1 Ur Random Sodium 45.0 09/15/23 06:18 Hold Purple Top SEE NOTE Sodium 140 Potassium 4.1 D Chloride 106 Carbon Dioxide 26 Anion Gap 12 BUN 19 H Creatinine 1.31 Estim Creat Clear Calc 56.0 Estimated GFR 55 Random Glucose 89 Calcium 8.9 Magnesium Ur Random Sodium Imaging Radiology Impressions: ITS Impressions Chest X-Ray 09/10/23 12:14 IMPRESSION: In comparison with previous 2020 study, enlarged and globular cardiac silhouette. Correlate clinically regarding possible pericardial effusion. Minor right costophrenic angle atelectasis. Mental Status Exam Mental Status Exam Level of Consciousness: Awake and Appropriate Patient Behavior: Appropriate and Talkative Mood Description: Calm Affect Description: Calm Speech Pattern: Clear Thought Content: positive for Circumstantial Medications Medications Current Medications Carvedilol (Carvedilol 3.125 Mg Tablet) 3.125 mg PO BID [facility]; Protocol Enoxaparin Sodium (Enoxaparin Sodium 40 Mg/0.4 Ml Syringe) 40 mg SUBCUT Q24H [facility] Last Admin: 09/14/23 16:04 Dose: 40 mg Sodium Chloride (0.9 % Sodium Chloride Flush 3 Ml Syringe) 3 ml IVFLUSH QSHIFT [facility] Last Admin: 09/15/23 09:17 Dose: 3 ml Valsartan (Valsartan 40 Mg Tablet) 20 mg PO BID [facility]; Protocol Allergies Allergies Allergy/AdvReac Type Severity Reaction Status Date / Time aspirin [ASPIRIN] Allergy Unknown Rash Verified 09/10/23 18:05 egg [EGGS] Allergy Unknown UNKNOWN Verified 05/01/23 09:32 Influenza Virus Vaccines Allergy Unknown UNKNOWN Verified 05/01/23 09:32 [INFLUENZA VIRUS VACCINES] lactose [LACTOSE] Allergy Unknown GI UPSET Verified 05/01/23 09:32 Assessment & Plan Assessment & Plan (1) Cocaine use disorder: Status: Acute Code(s): F14.10 - Cocaine abuse, uncomplicated Assessment and Plan: * risk reduction discussion * patient declines additional recovery resources * no follow up indicated Total time managing care of this patient today __20__ minutes. [facility] Past Medical History Medical History (Updated 09/11/23 @ 11:42 by Vik Campos MD) Asthma Family History Family History Mother Diabetes Hypertension Arthritis Asthma Father Asthma Surgical History Surgical History Hx of endoscopic retrograde cholangiopancreatography History of cholecystectomy Social History Social History Household Members: None Housing: Homeless Do you presently have visiting nurse or other home services: No Alcohol intake: former Patient Tobacco Use Status: Former Tobacco user Quit Date: 2016 Smoked in Last 30 Days: No e-Cigarette/Vaping Use: Former Use Use of substances other than those prescribed or required for medical reasons: Yes Substance Use Type: Crack/Cocaine Substance Use Frequency: Daily Currently Displaying Signs/Symptoms of Drug Intoxication Withdrawal: No Any prior treatment program specific to substance use: No Have you been hit, kicked, punched, or otherwise hurt by someone within the past year? If so, by whom?: No Do you feel safe in your current relationship?: No Current Relationship Is there a partner from a previous relationship who is making you feel unsafe now?: No Are you made to feel afraid or neglected: No Advance Directives: No Advance Directives Information Provided: No Do you have thoughts of harming others: None Do you have a plan to hurt others: No Plan Recently lost weight without trying: Yes How much weight loss: 2-13 pounds Eating poorly because of decreased appetite: No Nutrition screen score: 3 Nutrition Risks: Poor intake 0-25% >4 days Poor oral hygiene: Yes (no teeth or dentures per pt) service: No
[2023-09-15 15:31] VITALS: BP 101/59; PULSE 98; RESP 20; TEMP 36.8; O2SAT 97
--- NOTE | 2023-09-15 16:01 | P.PNIM_ITS ---
Subjective Subjective Date of Service: 09/15/23 Interval History: Being followed for CHF and PRIYA, feeling better this morning denies shortness of breath,no pnd, no cough ,no fevers, no chills, tolerating diet, no nausea, no vomiting ,no abdominal pain, or diarrhea, no urinary symptoms, no acute issues overnight. Review of Systems All other system reviewed and negative. Physical Exam 2 Vital Signs: Vital Signs: Last Vital Signs Temp 98.3 F 09/15/23 15:31 Pulse 98 09/15/23 15:31 Resp 20 09/15/23 15:31 BP 101/59 L 09/15/23 15:31 Pulse Ox 97 09/15/23 15:31 O2 Del Method Room Air 09/15/23 15:31 BMI result Body Mass Index 29.5 Const: Other: General awake alert x3, resting comfortably in no acute distress. Neck no JVD. CVS regular rate rhythm, Respiratory lungs clear to auscultation, no respiratory distress, no wheeze, few right base rhonchi. Gastrointestinal abdomen soft, non tender, bowel sounds audible, no guarding , no rigidity. Extremities no edema. Neuro non focal Skin no rash Psych appropriate affect Objective Data Active Medications Carvedilol (Carvedilol 3.125 Mg Tablet) 3.125 mg PO BID [facility]; Protocol Enoxaparin Sodium (Enoxaparin Sodium 40 Mg/0.4 Ml Syringe) 40 mg SUBCUT Q24H [facility] Last Admin: 09/14/23 16:04 Dose: 40 mg Documented By: JAROCHO Sodium Chloride (0.9 % Sodium Chloride Flush 3 Ml Syringe) 3 ml IVFLUSH QSHIFT [facility] Last Admin: 09/15/23 09:17 Dose: 3 ml Documented By: LINA Valsartan (Valsartan 40 Mg Tablet) 20 mg PO BID [facility]; Protocol Labs 09/13/23 05:57 09/15/23 06:18 Labs: Laboratory Results - last 24 hr 09/15/23 06:18 Hold Purple Top SEE NOTE Anion Gap 12 Estim Creat Clear Calc 56.0 Estimated GFR 55 Random Glucose 89 Calcium 8.9 Assessment and Plan (1) Acute systolic heart failure: Status: Acute Plan 66-year-old male with history of cardiomyopathy with last documented EF of 40% hypertension presents with lower extremity edema worsening over the past 3 weeks. He states he has been living in a car for the past 3 weeks and has been noncompliant with his meds. He does endorse the fact that he smokes crack cocaine. He denies alcohol marijuana or other drugs 1. Acute systolic heart failure -seems resolved, no leg edema, no shortness of breath, BNP down to 568, s/p IV Lasix drip (approximately 10 L negative) -2D echo .. LVEF 35% with moderate tricuspid valve and mitral valve regurgitation. Case discussed with Cardiology they recommend outpatient ischemic workup and repeat echo they recommend to resume Coreg, valsartan and low-dose Lasix upon discharge -creatinine normalized will resume Coreg /low dose valsartan and add lasix . 2. Abnormal troponin -stable.. Likely related to demand soft blood pressure will hold beta-blockers, patient is allergic to aspirin, continue statin 3. Hypertension -soft blood pressures will resume low-dose Coreg and valsartan. 4. Acute kidney injury likely due to over-diuresis /hypotension treated with IV fluids creatinine normalized. 5. Nonsustained V-tach no recurrent episodes, normal potassium and magnesium, follow clinical course. 6. History of cocaine use , await addiction consult. 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 Quality Stroke Does the patient have a stroke diagnosis?: No VTE Prior VTE?: No VTE Risk Level:: Medical - moderate - high VTE Device Contraindication: Treatment Not Indicated VTE Drug Contraindication: N/A - Med Ordered
[2023-09-15] MEDS: Enoxaparin Sodium 40 MG/0.4 ML SYRINGE SUBCUT (16:47)
[2023-09-15] MEDS: carvediloL 3.125 MG TABLET PO (19:59)
[2023-09-15 20:00] VITALS: BP 107/63; PULSE 101; RESP 20; TEMP 36.7; O2SAT 98
[2023-09-15] MEDS: Valsartan 40 MG TABLET 20 MG PO (20:00)
[2023-09-15 23:05] VITALS: BP 105/62; PULSE 99; RESP 16; TEMP 36.7; O2SAT 97
[2023-09-16 03:02] VITALS: BP 100/64; PULSE 92; RESP 18; TEMP 36.8; O2SAT 98
[2023-09-16 07:22] VITALS: BP 96/60; PULSE 93; RESP 20; TEMP 36.6; O2SAT 100
--- NOTE | 2023-09-16 08:55 | MHC.CM.PN ---
Addendum entered by Lisha Dc RN 09/16/23 13:18: PT REQUESTED CM CONTACT [facility] [phone], CM RECEIVED CALL BACK AND THEY REQUESTED INFO ON WHERE PT WAS GOING THEY COULD PUT PT UP FOR 3 NIGHTS IN A HOTEL HOWEVER THEY ARE UNSURE IF EMERGENCY FAMILY HOUSING WILL BE AVAILABLE IN THAT AMOUNT OF TIME AND WOULD LIKE PT TO CONT W/PLAN TO GO TO [facility] AND THEY WILL FOLLOW UP W/PT. Original Note: CM CONTACTED [facility] AT 8:32AM [phone], PER [facility] THEY CAN ACCOMMODATE IF PT IS THERE BEFORE 4PM, HOSPITALIST AWARE AND CM WILL SET UP LYFT TRANSPORT FOR 3PM AND LET [facility] KNOW.
[2023-09-16 09:10] LABS: Creatinine Urine 125.14 mg/dL; Protein/Creatinine Ratio, Ur 0.07 (<0.2); Total Protein Urine Random 9 mg/dL (<12)
[2023-09-16] MEDS: Valsartan 40 MG TABLET 20 MG PO (09:23)
[2023-09-16] MEDS: carvediloL 3.125 MG TABLET PO (09:24)
[2023-09-16] MEDS: 0.9 % Sodium Chloride Flush 3 ML SYRINGE IVFLUSH (09:24)
--- NOTE | 2023-09-16 10:42 | PM.DS ---
DS: Providers Provider Date of Service: 09/16/23 Date of admission: 09/10/23 16:48 Primary care physician: Fredi Ritter MD Consults: 09/10/23 16:58 Consult to Cardiology Routine Consulting Provider: [facility] Reason for consultation: CHF Has provider been notified: Yes 09/13/23 14:51 Addiction Medicine Routine Consulting Provider: Addiction Covering Reason for consultation: cocaine use Has provider been notified: No DS: Diagnosis Discharge Diagnosis (1) Acute systolic heart failure: Status: Acute DS: Summary Hospital Course Hospital Course: Date of Service: 09/10/23 Chief Complaint: Leg swelling 68-year-old male with history of cardiomyopathy with an EF of 40% on echo dated 06/10/2023, hypertension, homelessness x3 weeks-living in his car and on the street fall last 3 weeks, daily cocaine use, last use yesterday who was referred to the emergency department from [facility] for evaluation of severe peripheral edema, fluid overload and 20 lb fluid gain over the past month. Patient states that he feels short of breath and has dyspnea on exertion . He states that he cannot lie down flat. Patient states he has been using his asthma inhaler with no relief of her shortness of breath. The patient states that he has been living in his car for the past 3 weeks and has been noncompliant with his medications. ER course In emergency room workup consistent with acute systolic CHF; given Lasix 60 mg admission requested Hospital course: 66-year-old male with history of cardiomyopathy with last documented EF of 40% hypertension presents with lower extremity edema worsening over the past 3 weeks. He states he has been living in a car for the past 3 weeks and has been noncompliant with his meds. He does endorse the fact that he smokes crack cocaine. He denies alcohol marijuana or other drugs 1. Patient admitted to intermediate care unit with a diagnosis of Acute systolic heart failure patient treated with IV Lasix drip with good response was 10 L negative 2D echo showed LVEF 35% with moderate tricuspid valve and mitral valve regurgitation, patient noted to have worsening renal function creatinine bumped up to 1.7 Therefore Lasix was discontinued patient treated with IV fluid with a diagnosis of PRIYA with over diuresis patient electrolytes remained stable, all symptoms of shortness of breath, leg edema resolved, patient had 1 episode of nonsustained V-tach in you meant asymptomatic, patient is now stable for discharge he was seen in consultation by Dr. Campos he has been started on Coreg 3.125 b.i.d., valsartan 80 mg b.i.d. and low-dose Lasix 20 mg daily use of blood pressure if blood pressure improves he can be placed on Entresto he has recommended outpatient follow-up with Cardiology for ischemic workup and close Cardiology monitoring, was noted to have elevated troponin likely related to demand ischemia patient is allergic to aspirin, need [place] workup as outpatient. 2. Hypertension patient has history of hypertension although noted to be hypotensive therefore medications adjusted now on low-dose Coreg and valsartan as above -soft blood pressures will resume low-dose Coreg and valsartan. 3. History of cocaine use strongly recommend to abstain from cocaine. Time Spent with Patient Time attestation: Total time managing care of this patient today ____ minutes. Discharge coordination time: Greater than 30 minutes Quality: Safe Use of Opioids Does Pt have an Active Cancer Diagnosis on the Problem List?: No Quality: Stroke Does the patient have a stroke diagnosis?: No Physical Exam Vital Signs: Vital Signs: Last Vital Signs Temp 97.8 F 09/16/23 07:22 Pulse 93 09/16/23 07:22 Resp 20 09/16/23 07:22 BP 96/60 09/16/23 07:22 Pulse Ox 100 09/16/23 07:22 O2 Del Method Room Air 09/16/23 07:22 BMI result Body Mass Index 29.5 Const: Other: General awake alert x3, resting comfortably in no acute distress. Neck no JVD. CVS regular rate rhythm, Respiratory lungs clear to auscultation, no respiratory distress, no wheeze, few right base rhonchi. Gastrointestinal abdomen soft, non tender, bowel sounds audible, no guarding , no rigidity. Extremities no edema. Neuro non focal Skin no rash Psych appropriate affect DS: Data Data Completed and Pending Labs on day of discharge: Laboratory Results - last 24 hr 09/14/23 15:08 U Random Total Protein 9 Urine Creatinine 125.14 Protein/Creatinin Ratio 0.07 Discharge Plan Discharge Anticipated Discharge Date/Time: 09/16/23 10:26 Patient Disposition: Home, Self-Care Discharge Diagnosis: Acute on chronic systolic heart failure Acute kidney injury Cocaine use disorder Referrals: Name,MD Fredi [Primary Care Provider] - 1 Week Discharge Medications: New carvedilol 3.125 mg Tablet 3.125 mg PO BID Qty: 60 0RF Protocol: Hold for SBP/HR < HOLD for SBP < : 90 HOLD for HR < : 60 valsartan 40 mg Tablet 20 mg PO BID Qty: 60 0RF Protocol: Hold for SBP< HOLD for SBP < : 90 furosemide [Lasix] 20 mg tablet 20 mg PO DAILY Qty: 30 0RF Continued sildenafil [Viagra] 50 mg tablet 50 mg PO DAILY PRN (Reason: Sexual Activity) albuterol sulfate [Ventolin HFA] 90 mcg/actuation HFA aerosol inhaler 2 puff inhalation Q4H PRN (Reason: Wheezing) Flovent HFA 220 mcg/actuation HFA aerosol inhaler 1 inh inhalation BID Discontinued valsartan 40 mg tablet 40 mg PO BID Qty: 60 3RF Discharge Orders: Discharge Order (Routine); Ordered 09/16/23 Ordered By: Jade Clinton Diet: Low salt diet Activity on Discharge: As tolerated Stand Alone Forms: Patient Portal Discharge page Care Plan Goals: start Lasix 20 mg daily from September 18 Take valsartan 20 mg (1/2 of valsartan 40mg) twice daily Take additional Lasix 20 mg as needed for weight gain 2 lb in 1 week Follow low-salt diet Return to check with worsening shortness of breath lightheadedness dizziness or chest pain a Health Concerns: Strongly recommend to avoid cocaine and illicit drugs Plan of Treatment: Outpatient follow-up with 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 Campos call for appointment in 2 weeks Assessment: As above
[2023-09-16 11:36] VITALS: BP 111/60; PULSE 82; RESP 20; TEMP 36.8; O2SAT 100
--- NOTE | 2023-09-17 16:51 | PC.NURSE ---
patient's home meds VALSARTAN AND FLEXERIL found in [facility] nursing station. 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 Both phone # are inactive , pharmacy called and meds will be sent to the [facility]
== END 2023-09-16 13:30 | disposition home or self-care (01) | DRG 291 ==
LOC: HO.ED 16:18 → HO.EDOVER 17:26 → HO.IMC 18:10
PROVIDERS: Physician Assistant; Admitting Provider Hospitalist; Emergency Provider Emergency Medicine Emergency Medical Services; PCP Internal Medicine Geriatric Medicine; Visit Provider Hospitalist
DX: I11.0 Hypertensive heart disease with heart failure (principal); I50.21 Acute systolic (congestive) heart failure; N17.9 Acute kidney failure, unspecified; I47.20 Ventricular tachycardia, unspecified; Z59.02 Unsheltered homelessness; I95.9 Hypotension, unspecified; F14.10 Cocaine abuse, uncomplicated; I34.0 Nonrheumatic mitral (valve) insufficiency; J45.20 Mild intermittent asthma, uncomplicated; Z87.891 Personal history of nicotine dependence; Z79.51 Long term (current) use of inhaled steroids; Z79.899 Other long term (current) drug therapy
CPT/HCPCS: 36415; 71046; 80048; 80053; 80076; 80307; 81003; 82570; 83735; 83880; 84156; 84300; 84484; 85025; 93005; 93306; 93356; 99285; J1650; J1940; J3475; Q9957

== ENCOUNTER → 2023-09-10 12:32 | Outpatient (BNV) | payer OTHER, SELFPAY | PROVIDERS: Emergency Provider Emergency Medicine Emergency Medical Services; PCP Internal Medicine Geriatric Medicine; Visit Provider Hospitalist | DX: I50.21 Acute systolic (congestive) heart failure (principal) | CPT/HCPCS: 99223; 99233; 99239 ==

== ENCOUNTER 2023-09-10 16:48 | Outpatient (BNV) | payer OTHER, SELFPAY | END 2023-09-11 07:00 | PROVIDERS: Admitting Provider Hospitalist; Emergency Provider Emergency Medicine Emergency Medical Services; PCP Internal Medicine Geriatric Medicine; Visit Provider Internal Medicine | DX: I36.1 Nonrheumatic tricuspid (valve) insufficiency (principal); I34.81 Nonrheumatic mitral (valve) annulus calcification | CPT/HCPCS: 93306 ==

== ENCOUNTER → 2023-09-10 16:48 | Outpatient (BNV) | payer OTHER, SELFPAY | PROVIDERS: Admitting Provider Hospitalist; Emergency Provider Emergency Medicine Emergency Medical Services; PCP Internal Medicine Geriatric Medicine; Visit Provider Nurse Practitioner Psychiatric/Mental Health | DX: F14.10 Cocaine abuse, uncomplicated (principal) | CPT/HCPCS: 99221 ==

== ENCOUNTER → 2023-09-10 16:48 | Outpatient (BNV) | payer OTHER, SELFPAY | PROVIDERS: Admitting Provider Hospitalist; Emergency Provider Emergency Medicine Emergency Medical Services; PCP Internal Medicine Geriatric Medicine; Visit Provider Internal Medicine | DX: I50.21 Acute systolic (congestive) heart failure (principal); F14.90 Cocaine use, unspecified, uncomplicated | CPT/HCPCS: 99223; 99233 ==

== ENCOUNTER 2023-10-03 10:06 | Outpatient (REF) | payer OTHER, SELFPAY ==
[2023-10-03 11:41] LABS: Anion Gap 9 (12-20); Blood Urea Nitrogen 9 mg/dL (9-16); Calcium 8.8 mg/dL (8.4-10.2); Carbon Dioxide 27 mmol/L (22-29); Chloride 111 mmol/L (96-108); Estimated Glomerular Filt Rate > 60; Glucose Random 108 mg/dL (60-115); Potassium 3.9 mmol/L (3.3-5.1); Sodium 143 mmol/L (135-145)
== END 2023-10-03 10:07 | disposition home or self-care (01) ==
LOC: HO.HHCL 10:06
PROVIDERS: Visit Provider Internal Medicine Geriatric Medicine
DX: I50.20 Unspecified systolic (congestive) heart failure (principal); N17.9 Acute kidney failure, unspecified
CPT/HCPCS: 36415; 80048

== ENCOUNTER 2023-12-12 12:41 | Inpatient (IN) | payer OTHER, SELFPAY ==
[2023-12-12] VITALS (9 sets, daily range): BP systolic 108–149; BP diastolic 62–91; PULSE 94–110; RESP 15–20; TEMP 36.6–37.1; O2SAT 93–99; BMI 31.9
--- NOTE | ~2023-12-12 | XR_ITS ---
EXAMINATION: XR CHEST CLINICAL INFORMATION: SOB COMPARISON: None available. TECHNIQUE: Frontal view of the chest was obtained. FINDINGS: There is patchy opacity in the right middle lobe likely infiltrate or atelectasis. There is elevation of right hemidiaphragm. The lungs are expanded and clear. Heart size is enlarged. Pulmonary vascularity is normal. No gross bony abnormality seen. XR/XR chest 1V IMPRESSION: 1. Right middle lobe patchy opacity likely infiltrate or atelectasis. 2. Elevated right hemidiaphragm. 3. Mild cardiomegaly.
--- NOTE | 2023-12-12 13:06 | ECG_ITS ---
Test Reason : DIFF BREATHING Blood Pressure : / mmHG Vent. Rate : 102 BPM Atrial Rate : 102 BPM P-R Int : 160 ms QRS Dur : 082 ms QT Int : 352 ms P-R-T Axes : 074 -50 025 degrees QTc Int : 458 ms Sinus tachycardia Left axis deviation Anteroseptal infarct (cited on or before 12-DEC-2023) Abnormal ECG When compared with ECG of 10-SEP-2023 11:47, No significant change was found Referred By: Ana Fagan Electronically Signed By:KERWIN CARBAJAL
--- NOTE | 2023-12-12 13:19 | ED_ITS ---
HPI - General Adult General Chief complaint: Dyspnea Stated complaint: DIFF BREATHING Time Seen by Provider: 12/12/23 13:03 History of Present Illness HPI narrative: 68 y/o M patient; PMH HFrEF, recreational drug use (recently crack cocaine smoked 4 - 5 days ago), HTN; presents from home via EMS with report of two weeks of increased lower extremity swelling, difficulty breathing, orthopnea. Associated with increased productive cough. One day of central chest heaviness at night associated with the difficulty breathing. The patient states he is concerned that he is filling up with fluid again. He is on Lasix 20mg once daily, he was increased to 40mg one month ago and then decreased to 20mg due to side effects . The patient otherwise denies: fever or chills, nausea or vomiting, abdominal pain, diarrhea. Patient last admitted from 09/10 - for CHF exacerbation. He has not followed with cardiology within the last few months. Treasury Specialist: Dr. Campos Related Data Home Medications Medication Instructions Recorded Confirmed albuterol sulfate 90 mcg/actuation 2 puff inhalation Q4H PRN Wheezing 03/15/22 12/12/23 aerosol inhaler (Ventolin HFA) fluticasone propionate 220 1 inh inhalation BID 03/15/22 12/12/23 mcg/actuation HFA aerosol inhaler (Flovent HFA) sildenafil 50 mg tablet (Viagra) 50 mg PO DAILY PRN Sexual Activity 09/10/23 12/12/23 sacubitril 24 mg-valsartan 26 mg 1 tab PO BID 12/12/23 12/12/23 tablet (Entresto) Previous Rx's Medication Instructions Recorded carvedilol 3.125 mg tablet 3.125 mg PO BID #60 tabs 09/16/23 furosemide 20 mg tablet (Lasix) 20 mg PO DAILY #30 tabs 09/16/23 valsartan 40 mg tablet 20 mg PO BID #60 tabs 09/16/23 Allergies Allergy/AdvReac Type Severity Reaction Status Date / Time aspirin [ASPIRIN] Allergy Unknown Rash Verified 09/10/23 18:05 egg [EGGS] Allergy Unknown UNKNOWN Verified 05/01/23 09:32 Influenza Virus Vaccines Allergy Unknown UNKNOWN Verified 05/01/23 09:32 [INFLUENZA VIRUS VACCINES] lactose [LACTOSE] Allergy Unknown GI UPSET Verified 05/01/23 09:32 Review of Systems 2 Review of Systems: Yes all other systems are reviewed and are negative Neurologic: Denies Sensory deficit (Neuro) [facility] Past Medical History Attestation statement: The following information was validated with the patient. Source: old records reviewed Onset Date is defined in the Problem List Problems that require an onset date and time if occurred within 24 hrs of arrival to the ED Aortic Dissection and Rupture; Neurologic impairment; Cardiopulmonary Arrest; Endotracheal Intubation; Insertion or Replacement of Mechanical Circulatory Assist Device Medical History (Updated 12/12/23 @ 16:58 by Kuldeep Camara DO) Hypertension Cocaine use disorder Cardiomegaly Cocaine use Cardiomyopathy Asthma Surgical History Hx of endoscopic retrograde cholangiopancreatography History of cholecystectomy Family History Family History Mother Diabetes Hypertension Arthritis Asthma Father Asthma Social History Social History Household Members: None Housing: Homeless Do you presently have visiting nurse or other home services: No Alcohol intake: former Patient Tobacco Use Status: Former Tobacco user Quit Date: 2016 Smoked in Last 30 Days: No e-Cigarette/Vaping Use: Former Use Use of substances other than those prescribed or required for medical reasons: No Substance Use Type: Crack/Cocaine Advance Directives: No Advance Directives Information Provided: Yes service: No Physical Exam ED Vital Signs: Vital Signs - 24 hr 12/12/23 12:48 12/12/23 14:35 12/12/23 15:48 Temperature 98.7 F 97.9 F Pulse Rate 106 H 104 H 98 Respiratory Rate 18 17 15 Blood Pressure 124/90 H 108/76 117/91 H Pulse Oximetry 93 98 95 Oxygen Delivery Method Room Air Room Air Room Air 12/12/23 16:25 Temperature Pulse Rate 94 Respiratory Rate 20 Blood Pressure 117/91 H Pulse Oximetry 96 Oxygen Delivery Method Room Air BMI result Body Mass Index 31.9 Patient is afebrile, tachycardic, with SpO2 92% on RA. Const Orientation/consciousness: patient oriented x3 HENMT Head: Yes atraumatic Eyes Other: Right glass eye Neck Neck: Yes full ROM, Yes supple and No tender Chest Chest palpation & inspection: normal inspection of the chest and normal palpation of entire chest wall Resp Effort & Inspection: able to speak in complete sentences Auscultation: crackles Cardio Rate: tachycardic Rhythm: regular rhythm Peripheral pulses: Peripheral pulses 2+ throughout and other (2+ bilateral lower extremity edema ) GI Inspection: No distended Palpation (GI): Soft to palpation, not firm, nontender, no guarding and not rigid Auscultation: normal bowel sounds Neuro General: patient oriented x3 and moves all extremities Sensory Exam: No Sensory deficit (Neuro) Course Course Course Narrative: Patient is afebrile, tachycardic, with SpO2 92% on RA. History and exam concerning for CHF exacerbation. Will obtain EKG, CXR, and cardiorespiratory labs. Reevaluation(s) Reevaluation #1: COVID/Flu negative. Labs with evidence of pancytopenia - anemia, leukopenia, thrombocytopenia. Possibly in setting of recent viral illness but will require trend. Troponin 106.6 - suspect 2/2 to demand from CHF exacerbation. BNP 1159 - prior 800s during recent exacerbation in 08/2023. CXR with cephalization. Provided 40mg IV Lasix (current home dose is 20mg Lasix OD). Discussed with hospitalist: Patient accepted for admission Time: 14:52 Medications Administered Discontinued Medications Generic Name Dose Route Start Last Admin Trade Name Victorianoq PRN Reason Stop Dose Admin Furosemide 40 mg 12/12/23 14:14 12/12/23 14:37 Furosemide 40 Mg/4 Ml Vial IVPUSH 12/12/23 14:15 40 mg ONCE ONE Administration Protocol Medical Decision Making Lab Data 12/12/23 13:35 12/12/23 13:35 Labs: Lab Results 12/12/23 12/12/23 12/12/23 Range/Units 13:35 13:38 13:44 WBC 2.1 L (4.8-10.8) X10*3/uL RBC 3.62 L D (4.60-5.80) X10*6/uL Hgb 11.5 L D (14.0-18.0) g/dl Hct 35.5 L D (42.0-52.0) % MCV 98.1 H (80.0-98.0) fL MCH 31.8 (27.0-33.0) pg MCHC 32.4 (31.0-36.0) g/dl RDW 16.1 H (11.0-16.0) % Plt Count 84 L D (160-400) X10*3/uL MPV 11.2 (9.4-12.4) fL Immature Gran % (Auto) 0.0 (0.0-0.4) % Neut % (Auto) 58.9 (45-73) % Lymph % (Auto) 21.7 (20-40) % [place] % (Auto) 17.5 H (2-11) % Eos % (Auto) 0.5 (0-4) % Baso % (Auto) 1.4 (0-2) % Lymph # (Auto) 0.5 L (1.2-4.9) X10*3/uL [place] # (Auto) 0.4 (0.1-1.2) X10*3/uL Eos # (Auto) 0.0 (0.0-0.4) X10*3/uL Baso # (Auto) 0.0 (0.0-0.2) X10*3/uL Abs Immat Gran (auto) 0.00 (0.00-0.03) X10*3/uL Absolute Neuts (auto) 1.3 L (2.0-8.3) x10*3/uL Absolute Nucleated RBC 0.000 (0.0-0.012) X10*3/uL Nucleated RBC % (auto) 0.0 (0.0-0.2) /100WBC Smear Tech's Comments VERIFIED VBG pH 7.37 (7.32-7.43) VBG pCO2 39 mmHg VBG pO2 43 mmHg VBG HCO3 23 (22-26) mmol/L VBG O2 Saturation 63.0 % VBG Base Excess -1.8 mmol/L Sodium 141 (135-145) mmol/L Potassium 4.1 (3.3-5.1) mmol/L Chloride 110 H (96-108) mmol/L Carbon Dioxide 25 (22-29) mmol/L Anion Gap 10 L (12-20) BUN 16 (9-16) mg/dL Creatinine 1.19 (0.5-1.4) mg/dL Estim Creat Clear Calc 64.0 Estimated GFR > 60 Random Glucose 128 H (60-115) mg/dL Calcium 8.5 (8.4-10.2) mg/dL Total Bilirubin 1.3 H (0.0-1.0) mg/dL Direct Bilirubin 0.7 H (0.0-0.5) mg/dL AST 31 (5-37) U/L ALT 18 (0-40) U/L Alkaline Phosphatase 126 H (39-117) U/L Troponin I High Sens 106.6 H* (<3.5-35.0) ng/L B-Natriuretic Peptide 1159 H (<100) pg/mL Total Protein 7.0 (6.5-8.0) g/dL Albumin 3.3 L (3.5-5.0) g/dL Lipase 20 (8-78) U/L COVID-19 (MICHELLE) Invalid (Negative) COVID-19 Clin Com See Note Influenza Type A (SAI) Negative (Negative) Influenza Type A (PCR) (Negative) Influenza Type B (SAI) Negative (Negative) Influenza Type B (PCR) (Negative) Influenza A & B Note See Note RSV RNA Qual (PCR) (Negative) SARS-CoV-2 RNA (RT-PCR) (Negative) 12/12/23 Range/Units 15:44 WBC (4.8-10.8) X10*3/uL RBC (4.60-5.80) X10*6/uL Hgb (14.0-18.0) g/dl Hct (42.0-52.0) % MCV (80.0-98.0) fL MCH (27.0-33.0) pg MCHC (31.0-36.0) g/dl RDW (11.0-16.0) % Plt Count (160-400) X10*3/uL MPV (9.4-12.4) fL Immature Gran % (Auto) (0.0-0.4) % Neut % (Auto) (45-73) % Lymph % (Auto) (20-40) % [place] % (Auto) (2-11) % Eos % (Auto) (0-4) % Baso % (Auto) (0-2) % Lymph # (Auto) (1.2-4.9) X10*3/uL [place] # (Auto) (0.1-1.2) X10*3/uL Eos # (Auto) (0.0-0.4) X10*3/uL Baso # (Auto) (0.0-0.2) X10*3/uL Abs Immat Gran (auto) (0.00-0.03) X10*3/uL Absolute Neuts (auto) (2.0-8.3) x10*3/uL Absolute Nucleated RBC (0.0-0.012) X10*3/uL Nucleated RBC % (auto) (0.0-0.2) /100WBC Smear Tech's Comments VBG pH (7.32-7.43) VBG pCO2 mmHg VBG pO2 mmHg VBG HCO3 (22-26) mmol/L VBG O2 Saturation % VBG Base Excess mmol/L Sodium (135-145) mmol/L Potassium (3.3-5.1) mmol/L Chloride (96-108) mmol/L Carbon Dioxide (22-29) mmol/L Anion Gap (12-20) BUN (9-16) mg/dL Creatinine (0.5-1.4) mg/dL Estim Creat Clear Calc Estimated GFR Random Glucose (60-115) mg/dL Calcium (8.4-10.2) mg/dL Total Bilirubin (0.0-1.0) mg/dL Direct Bilirubin (0.0-0.5) mg/dL AST (5-37) U/L ALT (0-40) U/L Alkaline Phosphatase (39-117) U/L Troponin I High Sens (<3.5-35.0) ng/L B-Natriuretic Peptide (<100) pg/mL Total Protein (6.5-8.0) g/dL Albumin (3.5-5.0) g/dL Lipase (8-78) U/L COVID-19 (MICHELLE) Negative (Negative) COVID-19 Clin Com See Note Influenza Type A (SAI) (Negative) Influenza Type A (PCR) NEGATIVE (Negative) Influenza Type B (SAI) (Negative) Influenza Type B (PCR) NEGATIVE (Negative) Influenza A & B Note RSV RNA Qual (PCR) NEGATIVE (Negative) SARS-CoV-2 RNA (RT-PCR) NEGATIVE (Negative) Independent Interpretation I performed an independent interpretation of an: EKG Interpretation: ST 102BPM without ischemic changes, no ST-T wave abnormalities Radiology Impression Discussion of test interpretation with radiology: I have reviewed the radiologist's reading. Radiologist Impression: EXAMINATION: XR CHEST CLINICAL INFORMATION: SOB COMPARISON: None available. TECHNIQUE: Frontal view of the chest was obtained. FINDINGS: There is patchy opacity in the right middle lobe likely infiltrate or atelectasis. There is elevation of right hemidiaphragm. The lungs are expanded and clear. Heart size is enlarged. Pulmonary vascularity is normal. No gross bony abnormality seen. XR/XR chest 1V IMPRESSION: 1. Right middle lobe patchy opacity likely infiltrate or atelectasis. 2. Elevated right hemidiaphragm. 3. Mild cardiomegaly. Discharge Plan Discharge Clinical Impression: Congestive heart failure Patient Disposition: Admitted As Inpatient
[2023-12-12 13:46] LABS: VBG Base Excess -1.8 mmol/L; VBG HCO3 23 mmol/L (22-26); VBG pCO2 39 mmHg; VBG pH 7.37 (7.32-7.43); VBG pO2 43 mmHg
[2023-12-12 13:46] LABS: Venous Blood Gas Refer to POC result
[2023-12-12 13:54] LABS: Basophils Percent Auto 1.4 % (0-2); Eosinophils Percent Auto 0.5 % (0-4); Hematocrit 35.5 % (42.0-52.0); Hemoglobin 11.5 g/dl (14.0-18.0); Lymphocytes Absolute Auto 0.5 X10*3/uL (1.2-4.9); Lymphocytes Percent Auto 21.7 % (20-40); MANUAL DIFF FLAG SCAN; Mean Corpuscular HGB Conc 32.4 g/dl (31.0-36.0); Mean Corpuscular Hemoglobin 31.8 pg (27.0-33.0); Mean Corpuscular Volume 98.1 fL (80.0-98.0); Monocytes Absolute Auto 0.4 X10*3/uL (0.1-1.2); Monocytes Percent Auto 17.5 % (2-11); Neutrophils Absolute Auto 1.3 x10*3/uL (2.0-8.3); Neutrophils Percent Auto 58.9 % (45-73); Red Blood Count 3.62 X10*6/uL (4.60-5.80); Red Cell Distribution Width 16.1 % (11.0-16.0); SCAN SMEAR FLAG 1
[2023-12-12 13:56] LABS: White Blood Count 2.1 X10*3/uL (4.8-10.8)
[2023-12-12 14:02] LABS: Alanine Aminotransferase 18 U/L (0-40); Albumin Level 3.3 g/dL (3.5-5.0); Alkaline Phosphatase 126 U/L (39-117); Anion Gap 10 (12-20); Aspartate Amino Transferase 31 U/L (5-37); Bilirubin Direct 0.7 mg/dL (0.0-0.5); Bilirubin Total 1.3 mg/dL (0.0-1.0); Blood Urea Nitrogen 16 mg/dL (9-16); Calcium 8.5 mg/dL (8.4-10.2); Carbon Dioxide 25 mmol/L (22-29); Chloride 110 mmol/L (96-108); Estimated Glomerular Filt Rate > 60; Glucose Random 128 mg/dL (60-115); Lipase 20 U/L (8-78); Potassium 4.1 mmol/L (3.3-5.1); Sodium 141 mmol/L (135-145)
[2023-12-12 14:07] LABS: B Type Natriuretic Peptide 1159 pg/mL (<100)
[2023-12-12 14:11] LABS: IDNOW Serial# 152EDE1D; Influenza A Negative (Negative); Influenza B2 Negative (Negative)
[2023-12-12 14:13] LABS: Troponin-I High Sensitivity 106.6 ng/L (<3.5-35.0)
[2023-12-12 14:14] LABS: Mean Platelet Volume 11.2 fL (9.4-12.4); Platelet Count 84 X10*3/uL (160-400)
[2023-12-12 14:15] LABS: SLIDE REVIEW VERIFIED
[2023-12-12 14:28] LABS: COVID-19 Test Invalid (Negative); IDNOW Serial# 152EDE1D
[2023-12-12] MEDS: Furosemide 40 MG/4 ML VIAL IVPUSH (14:37)
--- NOTE | 2023-12-12 15:42 | MHC.EDTECH ---
This pct assumed care of pt at 1500 ,Patient was assisted to change into hospital gown ,alll extra blankets remove from Patient ,Patient belonings list done ,Pt output was 700 ml ,rsv/covid swab collected and sent to lab ,Call [facility]illard within Pt reach .
--- NOTE | 2023-12-12 16:02 | PHA.MEDREC ---
Pharmacy Consult ? Medication Reconciliation Pharmacy has completed the medication reconciliation. Patient stated he does not know what hes on, to call [facility]. Used claims. It was mentioned in ED note that patient went up in furosemide dose but did not tolerate it.
[2023-12-12 16:19] LABS: COVID-19 Test Negative (Negative); IDNOW Serial# 152EDE1D
--- NOTE | 2023-12-12 16:19 | PC.NURSE ---
Report taken from Naomi RIOS assumed care of pt at 1515. Pt resting on stretcher A&Ox3 skin pwd respirations even unlabored. Denies chest pain at this time, 2+ pitting edema to BLE noted. VSS. Sinus tach on monitor. Using urinal at bedside independently. Plan for admission, aware of plan of care.
[2023-12-12 16:44] LABS: Influenza A PCR NEGATIVE (Negative); Influenza B PCR NEGATIVE (Negative); Resp Syncy Virus RNA Qual PCR NEGATIVE (Negative); SARS COV2 PCR INHOUSE NEGATIVE (Negative)
--- NOTE | 2023-12-12 16:56 | PM.IMHP ---
History of Present Illness Date of Service: 12/12/23 Chief Complaint: Shortness of breath 68 y/o M patient; PMH HFrEF, recreational drug use (recently crack cocaine smoked 4 - 5 days ago), HTN; presents from home via EMS with report of two weeks of increased lower extremity swelling, difficulty breathing, orthopnea. Associated with increased productive cough. One day of central chest heaviness at night associated with the difficulty breathing. The patient states he is concerned that he is filling up with fluid again. He is on Lasix 20mg once daily, he was increased to 40mg one month ago and then decreased to 20mg due to side effects . The patient otherwise denies: fever or chills, nausea or vomiting, abdominal pain, diarrhea. Patient last admitted from 09/10 - for CHF exacerbation. He has not followed with cardiology within the last few months. Typically noncompliant with therapies Review of Systems Review of Systems: Denies chest pain admits to shortness of breath and orthopnea Denies nausea vomiting diarrhea Denies fever chills [facility] Medical History (Updated 12/12/23 @ 16:58 by Kuldeep Camara DO) Hypertension Cocaine use disorder Cardiomegaly Cocaine use Cardiomyopathy Asthma Family History Mother Diabetes Hypertension Arthritis Asthma Father Asthma Surgical History Hx of endoscopic retrograde cholangiopancreatography History of cholecystectomy Social History Household Members: None Housing: Homeless Do you presently have visiting nurse or other home services: No Alcohol intake: former Patient Tobacco Use Status: Former Tobacco user Quit Date: 2016 Smoked in Last 30 Days: No e-Cigarette/Vaping Use: Former Use Use of substances other than those prescribed or required for medical reasons: No Substance Use Type: Crack/Cocaine Advance Directives: No Advance Directives Information Provided: Yes service: No Meds Allergies Allergy/AdvReac Type Severity Reaction Status Date / Time aspirin [ASPIRIN] Allergy Unknown Rash Verified 09/10/23 18:05 egg [EGGS] Allergy Unknown UNKNOWN Verified 05/01/23 09:32 Influenza Virus Vaccines Allergy Unknown UNKNOWN Verified 05/01/23 09:32 [INFLUENZA VIRUS VACCINES] lactose [LACTOSE] Allergy Unknown GI UPSET Verified 05/01/23 09:32 Active Medications: Current Medications Acetaminophen (Acetaminophen 325 Mg Tablet) 650 mg PO Q6H PRN PRN Reason: Pain, Mild (Pain Scale 1-3) Carvedilol (Carvedilol 3.125 Mg Tablet) 3.125 mg PO BID COUNTS INCLUDE 234 BEDS AT THE [facility]; Protocol Enoxaparin Sodium (Enoxaparin Sodium 40 Mg/0.4 Ml Syringe) 40 mg SUBCUT Q24H [facility] Furosemide (Furosemide 40 Mg/4 Ml Vial) 40 mg IVPUSH Q12H [facility]; Protocol Ondansetron HCl (Ondansetron Hcl 4 Mg/2 Ml Vial) 4 mg IVPUSH Q8H PRN PRN Reason: Nausea and Vomiting Sacubitril/Valsartan (Sacubitril/Valsartan 1 Tab Tablet) 1 tab PO BID [facility]; Protocol Sodium Chloride (0.9 % Sodium Chloride Flush 3 Ml Syringe) 3 ml IVFLUSH QSHIFT [facility] Valsartan (Valsartan 40 Mg Tablet) 20 mg PO BID [facility]; Protocol Home Medications Medication Instructions Recorded Confirmed Last Taken Type albuterol sulfate 90 mcg/actuation 2 puff inhalation Q4H PRN Wheezing 03/15/22 12/12/23 Unknown History aerosol inhaler (Ventolin HFA) fluticasone propionate 220 1 inh inhalation BID 03/15/22 12/12/23 Unknown History mcg/actuation HFA aerosol inhaler (Flovent HFA) sildenafil 50 mg tablet (Viagra) 50 mg PO DAILY PRN Sexual Activity 09/10/23 12/12/23 Unknown History sacubitril 24 mg-valsartan 26 mg 1 tab PO BID 12/12/23 12/12/23 Unknown History tablet (Entresto) Physical Exam Vital Signs and Narrative: Vital Signs: Last Vital Signs Temp 97.9 F 12/12/23 15:48 Pulse 94 12/12/23 16:25 Resp 20 12/12/23 16:25 BP 117/91 H 12/12/23 16:25 Pulse Ox 96 12/12/23 16:25 O2 Del Method Room Air 12/12/23 16:25 BMI result Body Mass Index 31.9 Const: Other: Awake alert no acute distress Neck: Other: JVD to jaw Resp: Other: Diminished bilaterally with scant crackles bilaterally Cardio: Other: No S4; positive S1-S2; no S3 murmurs rubs or gallops GI: Other: Soft nontender nondistended normoactive bowel sounds Extrem: Other: Positive edema bilaterally Results Labs 12/12/23 13:35 12/12/23 13:35 Labs: Laboratory Results - last 24 hr 12/12/23 12/12/23 12/12/23 13:35 13:38 13:44 MCV 98.1 H MCH 31.8 MCHC 32.4 RDW 16.1 H Plt Count 84 L D MPV 11.2 Immature Gran % (Auto) 0.0 Neut % (Auto) 58.9 Lymph % (Auto) 21.7 [place] % (Auto) 17.5 H Eos % (Auto) 0.5 Baso % (Auto) 1.4 Lymph # (Auto) 0.5 L [place] # (Auto) 0.4 Eos # (Auto) 0.0 Baso # (Auto) 0.0 Abs Immat Gran (auto) 0.00 Absolute Neuts (auto) 1.3 L Absolute Nucleated RBC 0.000 Nucleated RBC % (auto) 0.0 Smear Tech's Comments VERIFIED VBG pH 7.37 VBG pCO2 39 VBG pO2 43 VBG HCO3 23 VBG O2 Saturation 63.0 VBG Base Excess -1.8 Anion Gap 10 L Estim Creat Clear Calc 64.0 Estimated GFR > 60 Random Glucose 128 H Calcium 8.5 Total Bilirubin 1.3 H Direct Bilirubin 0.7 H AST 31 ALT 18 Alkaline Phosphatase 126 H B-Natriuretic Peptide 1159 H Total Protein 7.0 Albumin 3.3 L Lipase 20 COVID-19 (MICHELLE) Invalid COVID-19 Clin Com See Note Influenza Type A (SAI) Negative Influenza Type A (PCR) Influenza Type B (SAI) Negative Influenza Type B (PCR) Influenza A & B Note See Note RSV RNA Qual (PCR) SARS-CoV-2 RNA (RT-PCR) 12/12/23 15:44 MCV MCH MCHC RDW Plt Count MPV Immature Gran % (Auto) Neut % (Auto) Lymph % (Auto) [place] % (Auto) Eos % (Auto) Baso % (Auto) Lymph # (Auto) [place] # (Auto) Eos # (Auto) Baso # (Auto) Abs Immat Gran (auto) Absolute Neuts (auto) Absolute Nucleated RBC Nucleated RBC % (auto) Smear Tech's Comments VBG pH VBG pCO2 VBG pO2 VBG HCO3 VBG O2 Saturation VBG Base Excess Anion Gap Estim Creat Clear Calc Estimated GFR Random Glucose Calcium Total Bilirubin Direct Bilirubin AST ALT Alkaline Phosphatase B-Natriuretic Peptide Total Protein Albumin Lipase COVID-19 (MICHELLE) Negative COVID-19 Clin Com See Note Influenza Type A (SAI) Influenza Type A (PCR) NEGATIVE Influenza Type B (SAI) Influenza Type B (PCR) NEGATIVE Influenza A & B Note RSV RNA Qual (PCR) NEGATIVE SARS-CoV-2 RNA (RT-PCR) NEGATIVE Imaging Radiologist's Impressions: Impressions Chest X-Ray 12/12/23 14:04 IMPRESSION: 1. Right middle lobe patchy opacity likely infiltrate or atelectasis. 2. Elevated right hemidiaphragm. 3. Mild cardiomegaly. Assessment and Plan (1) Acute systolic CHF (congestive heart failure): Status: Acute (2) Hypertension: Qualifiers: Hypertension type: primary hypertension Qualified Code(s): I10 - Essential (primary) hypertension Status: Acute (3) Cocaine use disorder: Status: Acute Plan 68-year-old male with known history of cocaine abuse and systolic congestive heart failure presents with approximately 3-5 days of worsening shortness of breath with exertion culminating with inability to lie flat at night. States he is awakened from sleep gasping for air. States he last used cocaine approximately 4-5 days ago at his recollection. In the emergency room workup was consistent with acute systolic CHF 1. Acute systolic CHF -IV Lasix 40 mg q.12 hours -restart all outpatient therapies. . . Likely noncompliant at home -follow renals/divalents -2D echo -cardiology consult in a.m. 2. Hypertension -acceptable control -continue outpatient therapies and adjust as indicated 3. Cocaine abuse -ongoing Full code Lovenox Will require at least 2 midnights inpatient stay to treat acute CHF with IV Lasix and specialty consultation. This can not be achieved a lesser acute setting Quality Stroke Does the patient have a stroke diagnosis?: No VTE Prior VTE?: No VTE Risk Level:: Medical - moderate - high VTE Device Contraindication: Treatment Not Indicated VTE Drug Contraindication: N/A - Med Ordered
[2023-12-12] MEDS: Enoxaparin Sodium 40 MG/0.4 ML SYRINGE SUBCUT (18:02)
[2023-12-12 19:00] LABS: Troponin-I High Sensitivity 100.9 ng/L (<3.5-35.0)
--- NOTE | 2023-12-12 19:00 | PC.NURSE ---
Report given to Stacy RIOS, pt exits my care at this time.
[2023-12-12] MEDS: Sacubitril/Valsartan 24/26 1 TAB TABLET PO (21:48)
[2023-12-12] MEDS: carvediloL 3.125 MG TABLET PO (21:49)
[2023-12-13 03:08] VITALS: BP 107/84; PULSE 100; RESP 20; TEMP 36.7; O2SAT 95
[2023-12-13] MEDS: Furosemide 40 MG/4 ML VIAL IVPUSH ×2 (06:15→17:16)
[2023-12-13] MEDS: 0.9 % Sodium Chloride Flush 3 ML SYRINGE IVFLUSH ×4 (06:15→22:43)
[2023-12-13 06:38] LABS: MANUAL DIFF FLAG NO
[2023-12-13 07:01] LABS: Lymphocytes Absolute Auto 0.9 X10*3/uL (1.2-4.9); Mean Corpuscular Volume 97.8 fL (80.0-98.0); Monocytes Absolute Auto 0.4 X10*3/uL (0.1-1.2); PLT CLUMP 1; Red Cell Distribution Width 15.9 % (11.0-16.0); SCAN SMEAR FLAG 1
[2023-12-13 07:03] LABS: Alanine Aminotransferase 18 U/L (0-40); Alkaline Phosphatase 114 U/L (39-117); Anion Gap 11 (12-20); Aspartate Amino Transferase 31 U/L (5-37); Basophils Absolute Auto 0.1 X10*3/uL (0.0-0.2); Basophils Percent Auto 1.2 % (0-2); Blood Urea Nitrogen 18 mg/dL (9-16); Carbon Dioxide 24 mmol/L (22-29); Chloride 108 mmol/L (96-108); Creatinine Clr Calc Pharmacy 62.4; Eosinophils Absolute Auto 0.1 X10*3/uL (0.0-0.4); Eosinophils Percent Auto 1.2 % (0-4); Estimated Glomerular Filt Rate 59; Glucose Random 96 mg/dL (60-115); Hematocrit 35.5 % (42.0-52.0); Hemoglobin 11.5 g/dl (14.0-18.0); Imm Gran Abs Auto 0.02 X10*3/uL (0.00-0.03); Imm Gran Pct Auto 0.5 % (0.0-0.4); Mean Corpuscular HGB Conc 32.4 g/dl (31.0-36.0); Mean Corpuscular Hemoglobin 31.7 pg (27.0-33.0); Mean Platelet Volume 11.7 fL (9.4-12.4); Monocytes Percent Auto 9.6 % (2-11); Neutrophils Absolute Auto 2.8 x10*3/uL (2.0-8.3); Neutrophils Percent Auto 66.5 % (45-73); Potassium 3.6 mmol/L (3.3-5.1); Red Blood Count 3.63 X10*6/uL (4.60-5.80); Sodium 139 mmol/L (135-145); Total Protein 6.9 g/dL (6.5-8.0)
[2023-12-13 07:11] LABS: Platelet Count 81 X10*3/uL (160-400); White Blood Count 4.2 X10*3/uL (4.8-10.8)
[2023-12-13 08:00] VITALS: BP 100/71; PULSE 104; RESP 20; TEMP 37.6; O2SAT 96
[2023-12-13] MEDS: Sacubitril/Valsartan 24/26 1 TAB TABLET PO ×2 (08:41→22:41)
[2023-12-13] MEDS: carvediloL 3.125 MG TABLET PO ×2 (08:41→22:42)
[2023-12-13 11:45] VITALS: BP 92/75; PULSE 90; RESP 20; TEMP 36.8; O2SAT 95
--- NOTE | 2023-12-13 14:09 | MHC.CM.PN ---
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
--- NOTE | 2023-12-13 14:23 | P.PNIM_ITS ---
Subjective Subjective Date of Service: 12/13/23 Interval History: Notes improvement now that is taking meds as ordered Review of Systems Denies chest pain admits to shortness of breath and orthopnea Denies nausea vomiting diarrhea Denies fever chills Physical Exam 2 Vital Signs: Vital Signs: Last Vital Signs Temp 98.3 F 12/13/23 11:45 Pulse 90 12/13/23 11:45 Resp 20 12/13/23 11:45 BP 92/75 12/13/23 11:45 Pulse Ox 95 12/13/23 11:45 O2 Del Method Room Air 12/13/23 11:45 BMI result Body Mass Index 31.9 Const: Other: Awake alert no acute distress Neck: Other: JVD to jaw Resp: Other: Diminished bilaterally with scant crackles bilaterally Cardio: Other: No S4; positive S1-S2; no S3 murmurs rubs or gallops GI: Other: Soft nontender nondistended normoactive bowel sounds Extrem: Other: Positive edema bilaterally Objective Data Active Medications Acetaminophen (Acetaminophen 325 Mg Tablet) 650 mg PO Q6H PRN PRN Reason: Pain, Mild (Pain Scale 1-3) Carvedilol (Carvedilol 3.125 Mg Tablet) 3.125 mg PO BID [facility]; Protocol Last Admin: 12/13/23 08:41 Dose: 3.125 mg Documented By: CLAUDIA Enoxaparin Sodium (Enoxaparin Sodium 40 Mg/0.4 Ml Syringe) 40 mg SUBCUT Q24H [facility] Last Admin: 12/12/23 18:02 Dose: 40 mg Documented By: VAMSI Furosemide (Furosemide 40 Mg/4 Ml Vial) 40 mg IVPUSH Q12H [facility]; Protocol Last Admin: 12/13/23 06:15 Dose: 40 mg Documented By: KYUNG Ondansetron HCl (Ondansetron Hcl 4 Mg/2 Ml Vial) 4 mg IVPUSH Q8H PRN PRN Reason: Nausea and Vomiting Sacubitril/Valsartan (Sacubitril/Valsartan 1 Tab Tablet) 1 tab PO BID [facility]; Protocol Last Admin: 12/13/23 08:41 Dose: 1 tab Documented By: CLAUDIA Sodium Chloride (0.9 % Sodium Chloride Flush 3 Ml Syringe) 3 ml IVFLUSH QSHIFT [facility] Last Admin: 12/13/23 08:42 Dose: 3 ml Documented By: CLAUDIA Labs 12/13/23 05:59 12/13/23 05:59 Labs: Laboratory Results - last 24 hr 12/12/23 12/12/23 12/13/23 13:44 15:44 05:59 MCV 97.8 MCH 31.7 MCHC 32.4 RDW 15.9 Plt Count 81 L MPV 11.7 Immature Gran % (Auto) 0.5 H Neut % (Auto) 66.5 Lymph % (Auto) 21.0 [place] % (Auto) 9.6 Eos % (Auto) 1.2 Baso % (Auto) 1.2 Lymph # (Auto) 0.9 L [place] # (Auto) 0.4 Eos # (Auto) 0.1 Baso # (Auto) 0.1 Abs Immat Gran (auto) 0.02 Absolute Neuts (auto) 2.8 Absolute Nucleated RBC 0.000 Nucleated RBC % (auto) 0.0 Anion Gap 11 L Estim Creat Clear Calc 62.4 Estimated GFR 59 Random Glucose 96 Calcium 8.0 L Total Bilirubin 1.0 AST 31 ALT 18 Alkaline Phosphatase 114 Total Protein 6.9 Albumin 3.0 L COVID-19 (MICHELLE) Invalid Negative COVID-19 Clin Com See Note See Note Influenza Type A (PCR) NEGATIVE Influenza Type B (PCR) NEGATIVE RSV RNA Qual (PCR) NEGATIVE SARS-CoV-2 RNA (RT-PCR) NEGATIVE Assessment and Plan (1) Acute systolic CHF (congestive heart failure): Status: Acute (2) Hypertension: Status: Acute (3) Cocaine use disorder: Status: Acute Plan 68-year-old male with known history of cocaine abuse and systolic congestive heart failure presents with approximately 3-5 days of worsening shortness of breath with exertion culminating with inability to lie flat at night. States he is awakened from sleep gasping for air. States he last used cocaine approximately 4-5 days ago at his recollection. In the emergency room workup was consistent with acute systolic CHF 1. Acute systolic CHF -IV Lasix 40 mg q.12 hours -restart all outpatient therapies. . . Improved now that compliance -follow renals/divalents -2D echo 2. Hypertension -acceptable control -continue outpatient therapies and adjust as indicated 3. Cocaine abuse -ongoing Full code Lovenox Will require at least 2 midnights inpatient stay to treat acute CHF with IV Lasix and specialty consultation. This can not be achieved a lesser acute setting Quality Stroke Does the patient have a stroke diagnosis?: No VTE Prior VTE?: No VTE Risk Level:: Medical - moderate - high VTE Device Contraindication: Treatment Not Indicated VTE Drug Contraindication: N/A - Med Ordered
[2023-12-13 15:53] VITALS: BP 101/66; PULSE 84; RESP 20; TEMP 37.1; O2SAT 94
[2023-12-13] MEDS: Enoxaparin Sodium 40 MG/0.4 ML SYRINGE SUBCUT (17:16)
[2023-12-13 20:00] VITALS: BP 104/58; PULSE 89; RESP 20; TEMP 36.5; O2SAT 97
[2023-12-14] VITALS (7 sets, daily range): BP systolic 81–106; BP diastolic 53–68; PULSE 87–99; RESP 16–20; TEMP 36.3–37.2; O2SAT 93–97
[2023-12-14] MEDS: Albumin Human 25 % 100 ML IV ×6 (01:59→09:39)
[2023-12-14 06:22] LABS: Basophils Percent Auto 1.3 % (0-2); Eosinophils Absolute Auto 0.1 X10*3/uL (0.0-0.4); Eosinophils Percent Auto 3.2 % (0-4); Hematocrit 33.6 % (42.0-52.0); Hemoglobin 11.1 g/dl (14.0-18.0); Lymphocytes Absolute Auto 1.2 X10*3/uL (1.2-4.9); Lymphocytes Percent Auto 39.2 % (20-40); MANUAL DIFF FLAG SCAN; Mean Corpuscular Hemoglobin 31.5 pg (27.0-33.0); Mean Corpuscular Volume 95.5 fL (80.0-98.0); Mean Platelet Volume 11.5 fL (9.4-12.4); Monocytes Absolute Auto 0.4 X10*3/uL (0.1-1.2); Monocytes Percent Auto 11.4 % (2-11); Neutrophils Absolute Auto 1.4 x10*3/uL (2.0-8.3); Neutrophils Percent Auto 44.9 % (45-73); Red Blood Count 3.52 X10*6/uL (4.60-5.80); Red Cell Distribution Width 15.3 % (11.0-16.0); SCAN SMEAR FLAG 1; White Blood Count 3.2 X10*3/uL (4.8-10.8)
[2023-12-14 06:23] LABS: Platelet Count 79 X10*3/uL (160-400)
[2023-12-14 06:45] LABS: Alanine Aminotransferase 14 U/L (0-40); Albumin Level 3.3 g/dL (3.5-5.0); Alkaline Phosphatase 94 U/L (39-117); Anion Gap 12 (12-20); Aspartate Amino Transferase 28 U/L (5-37); Bilirubin Total 0.9 mg/dL (0.0-1.0); Blood Urea Nitrogen 16 mg/dL (9-16); Calcium 8.1 mg/dL (8.4-10.2); Carbon Dioxide 28 mmol/L (22-29); Chloride 103 mmol/L (96-108); Creatinine Clr Calc Pharmacy 62.4; Estimated Glomerular Filt Rate 59; Glucose Random 89 mg/dL (60-115); Magnesium 1.7 mg/dL (1.6-2.6); Potassium 3.3 mmol/L (3.3-5.1); Sodium 140 mmol/L (135-145); Total Protein 6.3 g/dL (6.5-8.0)
[2023-12-14 07:19] LABS: SLIDE REVIEW VERIFIED
[2023-12-14] MEDS: 0.9 % Sodium Chloride Flush 3 ML SYRINGE IVFLUSH ×3 (08:21→20:48)
[2023-12-14] MEDS: Sacubitril/Valsartan 24/26 1 TAB TABLET PO (08:21)
--- NOTE | 2023-12-14 13:59 | HO.PM.IMPN ---
Subjective Subjective Date of Service: 12/14/23 Interval History: Feels better from a breathing standpoint. Ten beat VT noted this afternoon; asymptomatic Review of Systems Denies chest pain admits to shortness of breath and orthopnea Denies nausea vomiting diarrhea Denies fever chills Physical Exam Vital Signs: Vital Signs: Last Vital Signs Temp 98.4 F 12/14/23 11:28 Pulse 99 12/14/23 11:28 Resp 20 12/14/23 11:28 BP 86/60 L 12/14/23 11:28 Pulse Ox 94 12/14/23 11:28 O2 Del Method Room Air 12/14/23 11:28 BMI result Body Mass Index 31.9 Const: Other: Awake alert no acute distress Neck: Other: JVD to jaw Resp: Other: Diminished bilaterally with scant crackles bilaterally Cardio: Other: No S4; positive S1-S2; no S3 murmurs rubs or gallops GI: Other: Soft nontender nondistended normoactive bowel sounds Extrem: Other: Positive edema bilaterally Objective Data Active Medications Acetaminophen (Acetaminophen 325 Mg Tablet) 650 mg PO Q6H PRN PRN Reason: Pain, Mild (Pain Scale 1-3) Carvedilol (Carvedilol 3.125 Mg Tablet) 3.125 mg PO BID [facility]; Protocol Last Admin: 12/14/23 09:45 Dose: Not Given Documented By: CLAUDIA Non-Admin Reason: Decreased Blood Pressure Enoxaparin Sodium (Enoxaparin Sodium 40 Mg/0.4 Ml Syringe) 40 mg SUBCUT Q24H [facility] Last Admin: 12/13/23 17:16 Dose: 40 mg Documented By: CLAUDIA Furosemide (Furosemide 40 Mg/4 Ml Vial) 40 mg IVPUSH Q12H [facility]; Protocol Last Admin: 12/14/23 01:30 Dose: Not Given Documented By: KYRA Non-Admin Reason: Physician Held Med Ondansetron HCl (Ondansetron Hcl 4 Mg/2 Ml Vial) 4 mg IVPUSH Q8H PRN PRN Reason: Nausea and Vomiting Sacubitril/Valsartan (Sacubitril/Valsartan 1 Tab Tablet) 1 tab PO BID [facility]; Protocol Last Admin: 12/14/23 08:21 Dose: 1 tab Documented By: CLAUDIA Sodium Chloride (0.9 % Sodium Chloride Flush 3 Ml Syringe) 3 ml IVFLUSH QSHIFT [facility] Last Admin: 12/14/23 08:21 Dose: 3 ml Documented By: CLAUDIA Labs 12/14/23 05:32 12/14/23 05:32 Labs: Laboratory Results - last 24 hr 12/14/23 05:32 MCV 95.5 MCH 31.5 MCHC 33.0 RDW 15.3 Plt Count 79 L MPV 11.5 Immature Gran % (Auto) 0.0 Neut % (Auto) 44.9 L Lymph % (Auto) 39.2 [place] % (Auto) 11.4 H Eos % (Auto) 3.2 Baso % (Auto) 1.3 Lymph # (Auto) 1.2 [place] # (Auto) 0.4 Eos # (Auto) 0.1 Baso # (Auto) 0.0 Abs Immat Gran (auto) 0.00 Absolute Neuts (auto) 1.4 L Absolute Nucleated RBC 0.000 Nucleated RBC % (auto) 0.0 Smear Tech's Comments VERIFIED Anion Gap 12 Estim Creat Clear Calc 62.4 Estimated GFR 59 Random Glucose 89 Calcium 8.1 L Magnesium 1.7 Total Bilirubin 0.9 AST 28 ALT 14 Alkaline Phosphatase 94 Total Protein 6.3 L Albumin 3.3 L Assessment and Plan (1) Acute systolic CHF (congestive heart failure): Status: Acute Plan 68-year-old male with known history of cocaine abuse and systolic congestive heart failure presents with approximately 3-5 days of worsening shortness of breath with exertion culminating with inability to lie flat at night. States he is awakened from sleep gasping for air. States he last used cocaine approximately 4-5 days ago at his recollection. In the emergency room workup was consistent with acute systolic CHF 1. Acute systolic CHF with nonsustained VT -aggressive potassium repletion. .. Mag stable -IV Lasix 40 mg q.12 hours -restart all outpatient therapies. . . Improved now that compliance -follow renals/divalents 2. Hypertension -acceptable control -continue outpatient therapies and adjust as indicated 3. Cocaine abuse -ongoing Full code Lovenox Will require ongoing inpatient stay to treat acute CHF with IV Lasix and specialty consultation. Quality Stroke Does the patient have a stroke diagnosis?: No VTE Prior VTE?: No VTE Risk Level:: Medical - moderate - high VTE Device Contraindication: Treatment Not Indicated VTE Drug Contraindication: N/A - Med Ordered
[2023-12-14] MEDS: Enoxaparin Sodium 40 MG/0.4 ML SYRINGE SUBCUT (15:33)
[2023-12-14] MEDS: Potassium Chloride Packet 20 MEQ PACKET 40 MEQ PO ×2 (15:33→20:48)
[2023-12-15 00:35] VITALS: BP 107/68
[2023-12-15 03:29] VITALS: BP 110/72; PULSE 94; RESP 18; TEMP 37; O2SAT 98
[2023-12-15 07:21] LABS: Eosinophils Absolute Auto 0.1 X10*3/uL (0.0-0.4); Eosinophils Percent Auto 2.7 % (0-4); Hematocrit 35.7 % (42.0-52.0); Hemoglobin 11.8 g/dl (14.0-18.0); Imm Gran Abs Auto 0.01 X10*3/uL (0.00-0.03); Imm Gran Pct Auto 0.2 % (0.0-0.4); Lymphocytes Percent Auto 49.4 % (20-40); MANUAL DIFF FLAG SCAN; Mean Corpuscular HGB Conc 33.1 g/dl (31.0-36.0); Mean Corpuscular Hemoglobin 31.6 pg (27.0-33.0); Mean Corpuscular Volume 95.5 fL (80.0-98.0); Mean Platelet Volume 12.1 fL (9.4-12.4); Monocytes Absolute Auto 0.4 X10*3/uL (0.1-1.2); Monocytes Percent Auto 10.1 % (2-11); Neutrophils Absolute Auto 1.5 x10*3/uL (2.0-8.3); Neutrophils Percent Auto 36.6 % (45-73); PLT CLUMP 1; Red Blood Count 3.74 X10*6/uL (4.60-5.80); Red Cell Distribution Width 15.1 % (11.0-16.0); SCAN SMEAR FLAG 1
[2023-12-15 07:28] VITALS: BP 105/74; PULSE 87; RESP 20; TEMP 36.8; O2SAT 96
[2023-12-15 07:33] LABS: Alanine Aminotransferase 16 U/L (0-40); Albumin Level 3.7 g/dL (3.5-5.0); Alkaline Phosphatase 85 U/L (39-117); Anion Gap 10 (12-20); Aspartate Amino Transferase 29 U/L (5-37); Blood Urea Nitrogen 19 mg/dL (9-16); Calcium 8.5 mg/dL (8.4-10.2); Carbon Dioxide 28 mmol/L (22-29); Chloride 102 mmol/L (96-108); Creatinine Clr Calc Pharmacy 71.8; Estimated Glomerular Filt Rate > 60; Glucose Random 99 mg/dL (60-115); Sodium 136 mmol/L (135-145); Total Protein 6.9 g/dL (6.5-8.0)
[2023-12-15 07:34] LABS: Platelet Count 85 X10*3/uL (160-400); White Blood Count 4.1 X10*3/uL (4.8-10.8)
[2023-12-15 07:35] LABS: SLIDE REVIEW VERIFIED
[2023-12-15] MEDS: 0.9 % Sodium Chloride Flush 3 ML SYRINGE IVFLUSH (08:32)
[2023-12-15] MEDS: carvediloL 3.125 MG TABLET PO (10:46)
[2023-12-15] MEDS: Potassium Chloride Packet 20 MEQ PACKET 40 MEQ PO (10:46)
[2023-12-15 11:28] VITALS: BP 92/66; PULSE 84; RESP 18; TEMP 36.4; O2SAT 95
--- NOTE | 2023-12-15 11:28 | PM.DS ---
DS: Providers Provider Date of Service: 12/15/23 Date of admission: 12/12/23 16:52 Date of discharge: 12/15/23 Primary care physician: Fredi Ritter MD DS: Diagnosis Discharge Diagnosis (1) Acute systolic CHF (congestive heart failure): Status: Acute DS: Summary Hospital Course Hospital Course: 68 y/o M patient; PMH HFrEF, recreational drug use (recently crack cocaine smoked 4 - 5 days ago), HTN; presents from home via EMS with report of two weeks of increased lower extremity swelling, difficulty breathing, orthopnea. Associated with increased productive cough. One day of central chest heaviness at night associated with the difficulty breathing. The patient states he is concerned that he is filling up with fluid again. He is on Lasix 20mg once daily, he was increased to 40mg one month ago and then decreased to 20mg due to side effects . The patient otherwise denies: fever or chills, nausea or vomiting, abdominal pain, diarrhea. Patient last admitted from 09/10 - for CHF exacerbation. He has not followed with cardiology within the last few months. Typically noncompliant with therapies Hospital Course Admitted to telemetry and restarted on all outpatient therapies. He received 3 doses of IV Lasix with good results. His blood pressure remained around 100-110 systolic so Lasix was DC. At this point in time he examines benign and does not have an oxygen requirement. He is medically acceptable to return to home and compliance is strongly urged Time Attestation Discharge coordination time: Greater than 30 minutes Quality: Safe Use of Opioids Does Pt have an Active Cancer Diagnosis on the Problem List?: No Quality: Stroke Does the patient have a stroke diagnosis?: No Physical Exam Vital Signs: Vital Signs: Last Vital Signs Temp 98.2 F 12/15/23 07:28 Pulse 87 12/15/23 07:28 Resp 20 12/15/23 07:28 BP 105/74 12/15/23 07:28 Pulse Ox 96 12/15/23 07:28 O2 Del Method Room Air 12/15/23 07:28 BMI result Body Mass Index 31.9 Const: Other: Awake alert no acute distress Neck: Other: JVD to jaw Resp: Other: Diminished bilaterally with scant crackles bilaterally Cardio: Other: No S4; positive S1-S2; no S3 murmurs rubs or gallops GI: Other: Soft nontender nondistended normoactive bowel sounds Extrem: Other: Positive edema bilaterally DS: Data Data Completed and Pending Labs on day of discharge: Laboratory Results - last 24 hr 12/12/23 12/15/23 13:35 07:00 WBC 4.1 L RBC 3.74 L Hgb 11.8 L Hct 35.7 L MCV 95.5 MCH 31.6 MCHC 33.1 RDW 15.1 Plt Count 85 L MPV 12.1 Immature Gran % (Auto) 0.2 Neut % (Auto) 36.6 L Lymph % (Auto) 49.4 H [place] % (Auto) 10.1 Eos % (Auto) 2.7 Baso % (Auto) 1.0 Lymph # (Auto) 2.0 [place] # (Auto) 0.4 Eos # (Auto) 0.1 Baso # (Auto) 0.0 Abs Immat Gran (auto) 0.01 Absolute Neuts (auto) 1.5 L Absolute Nucleated RBC 0.000 Nucleated RBC % (auto) 0.0 Smear Tech's Comments VERIFIED Smear Path Review SEE NOTE Sodium 136 Potassium 4.0 D Chloride 102 Carbon Dioxide 28 Anion Gap 10 L BUN 19 H Creatinine 1.06 Estim Creat Clear Calc 71.8 Estimated GFR > 60 Random Glucose 99 Calcium 8.5 Total Bilirubin 1.0 AST 29 ALT 16 Alkaline Phosphatase 85 Total Protein 6.9 Albumin 3.7 Discharge Plan Discharge Anticipated Discharge Date/Time: 12/14/23 11:32 Patient Disposition: Home, Self-Care Discharge Diagnosis: Acute systolic CHF Referrals: Name,MD Fredi [Primary Care Provider] - 1 Week Discharge Medications: Continued Entresto 24-26 mg tablet 1 tab PO BID sildenafil [Viagra] 50 mg tablet 50 mg PO DAILY PRN (Reason: Sexual Activity) carvedilol 3.125 mg Tablet 3.125 mg PO BID Qty: 60 0RF Protocol: Hold for SBP/HR < HOLD for SBP < : 90 HOLD for HR < : 60 furosemide [Lasix] 20 mg tablet 20 mg PO DAILY Qty: 30 0RF albuterol sulfate [Ventolin HFA] 90 mcg/actuation HFA aerosol inhaler 2 puff inhalation Q4H PRN (Reason: Wheezing) Flovent HFA 220 mcg/actuation HFA aerosol inhaler 1 inh inhalation BID Discharge Orders: Discharge Order (Routine); Ordered 12/15/23 Ordered By: Kuldeep Camara Diet: Advance to usual diet Activity on Discharge: As tolerated Stand Alone Forms: Patient Portal Discharge page Care Plan Goals: Resume all medicines as taken before hospital. You need to take her meds daily to avoid readmission Health Concerns: Do not smoke crack cocaine; this will lead to heart issues Plan of Treatment: Follow-up with cardiology in your PCP as scheduled Assessment: See discharge summary
--- NOTE | 2023-12-15 13:01 | MHC.CM.PN ---
Pt. has been medically cleared for DC. He will go home via ambulance, and have prior home care services.
[2023-12-15 15:39] VITALS: BP 93/59; PULSE 86; RESP 18; TEMP 36.4; O2SAT 97
== END 2023-12-15 15:59 | disposition home or self-care (01) | DRG 291 ==
LOC: HO.ED 14:53 → HO.EDOVER 17:10 → HO.IMC 21:13
PROVIDERS: Admitting Provider Hospitalist; Emergency Provider Emergency Medicine; PCP Internal Medicine Geriatric Medicine; Visit Provider Hospitalist
DX: I11.0 Hypertensive heart disease with heart failure (principal); I50.23 Acute on chronic systolic (congestive) heart failure; I47.20 Ventricular tachycardia, unspecified; F14.10 Cocaine abuse, uncomplicated; Z20.822 Contact with and (suspected) exposure to COVID-19; Z91.199 Patient's noncompliance with other medical treatment and regimen due to unspecified reason; Z87.891 Personal history of nicotine dependence; Z79.51 Long term (current) use of inhaled steroids; Z79.899 Other long term (current) drug therapy
CPT/HCPCS: 0241U; 36415; 71045; 80048; 80053; 80076; 82803; 83690; 83735; 83880; 84484; 85025; 87502; 87635; 93005; 99285; J1650; J1940; P9047

== ENCOUNTER → 2023-12-12 13:06 | Outpatient (BNV) | payer OTHER, SELFPAY | PROVIDERS: Admitting Provider Hospitalist; Emergency Provider Emergency Medicine; PCP Internal Medicine Geriatric Medicine; Visit Provider Internal Medicine | DX: R00.0 Tachycardia, unspecified (principal) | CPT/HCPCS: 93010 ==

== ENCOUNTER → 2023-12-12 13:45 | Outpatient (BNV) | payer OTHER, SELFPAY | PROVIDERS: Emergency Provider Emergency Medicine; PCP Internal Medicine Geriatric Medicine; Visit Provider Hospitalist | DX: I50.21 Acute systolic (congestive) heart failure (principal); I10 Essential (primary) hypertension | CPT/HCPCS: 99223; 99233; 99239 ==

== ENCOUNTER 2023-12-23 12:02 | Emergency (ER) | payer OTHER, SELFPAY ==
--- NOTE | 2023-12-23 | ECG_ITS ---
Test Reason : DYSPNEA Blood Pressure : / mmHG Vent. Rate : 104 BPM Atrial Rate : 104 BPM P-R Int : 152 ms QRS Dur : 086 ms QT Int : 370 ms P-R-T Axes : 076 -36 030 degrees QTc Int : 486 ms Sinus tachycardia with Fusion complexes Left axis deviation Low voltage QRS Cannot rule out Anteroseptal infarct (cited on or before 12-DEC-2023) Abnormal ECG When compared with ECG of 12-DEC-2023 13:19, Questionable change in initial forces of Anterior leads Referred By: Generic ED Physician Electronically Signed By:GARETT TRENT MD
--- NOTE | ~2023-12-23 | XR_ITS ---
EXAMINATION: XR CHEST CLINICAL INFORMATION: Dyspnea. COMPARISON: Prior chest radiographs, most recently 12/12/2023. TECHNIQUE: An AP portable view of the chest was obtained. FINDINGS: The heart, great vessels, pulmonary vasculature and mediastinum are stable. There is a relatively stable patchy infiltrate in the lower right lung. There is persistent elevation of the right hemidiaphragm. The left lung remains clear. A skinfold projects over the lateral left thorax. There is no pleural effusion or pneumothorax. No acute osseous abnormality is seen. There are degenerative changes of the shoulders. XR/XR chest 1V IMPRESSION: There is a persistent right lower lung field infiltrate, and there is stable elevation of the right hemidiaphragm.
[2023-12-23 12:16] VITALS: BP 120/80; PULSE 102; RESP 16; TEMP 36.7; O2SAT 100
[2023-12-23 12:48] VITALS: PULSE 107; RESP 24; O2SAT 97; BMI 27.4
[2023-12-23 13:14] LABS: MANUAL DIFF FLAG NO
[2023-12-23 13:22] LABS: Basophils Percent Auto 0.8 % (0-2); Eosinophils Absolute Auto 0.1 X10*3/uL (0.0-0.4); Hematocrit 34.3 % (42.0-52.0); Hemoglobin 10.8 g/dl (14.0-18.0); Imm Gran Abs Auto 0.01 X10*3/uL (0.00-0.03); Imm Gran Pct Auto 0.2 % (0.0-0.4); Lymphocytes Absolute Auto 1.4 X10*3/uL (1.2-4.9); Lymphocytes Percent Auto 27.5 % (20-40); Mean Corpuscular HGB Conc 31.5 g/dl (31.0-36.0); Mean Corpuscular Hemoglobin 31.5 pg (27.0-33.0); Monocytes Absolute Auto 0.5 X10*3/uL (0.1-1.2); Monocytes Percent Auto 10.9 % (2-11); Neutrophils Absolute Auto 2.9 x10*3/uL (2.0-8.3); Neutrophils Percent Auto 59.6 % (45-73); Platelet Count 114 X10*3/uL (160-400); Red Blood Count 3.43 X10*6/uL (4.60-5.80); Red Cell Distribution Width 15.9 % (11.0-16.0); White Blood Count 4.9 X10*3/uL (4.8-10.8)
[2023-12-23 13:33] LABS: Alanine Aminotransferase 20 U/L (0-40); Albumin Level 3.9 g/dL (3.5-5.0); Alkaline Phosphatase 113 U/L (39-117); Anion Gap 13 (12-20); Aspartate Amino Transferase 27 U/L (5-37); Bilirubin Total 1.3 mg/dL (0.0-1.0); Blood Urea Nitrogen 14 mg/dL (9-16); Carbon Dioxide 23 mmol/L (22-29); Chloride 113 mmol/L (96-108); Creatinine Clr Calc Pharmacy 69.6; Estimated Glomerular Filt Rate > 60; Glucose Random 97 mg/dL (60-115); Potassium 4.2 mmol/L (3.3-5.1); Sodium 145 mmol/L (135-145); Total Protein 7.8 g/dL (6.5-8.0)
[2023-12-23 13:40] LABS: B Type Natriuretic Peptide 865 pg/mL (<100)
[2023-12-23 14:00] VITALS: BP 116/72; PULSE 101; RESP 21; TEMP 36.8; O2SAT 97
--- NOTE | 2023-12-23 15:26 | ED_ITS ---
HPI - SOB/Dyspnea General Chief Complaint: Dyspnea Stated Complaint: SOB 94% SHAKIRAMARKFely GIVEN PER EMS Time Seen by Provider: 12/23/23 14:58 Source: patient Mode of arrival: EMS Limitations: no limitations History of Present Illness HPI Narrative: Patient comes to emergency room by ambulance complaining of shortness of breath. Patient was recently discharged approximately a week and half ago from this facility for CHF. Patient states that he never really recovered from the shortness of breath, now he is coughing more than usual. Patient states that he can walk but he feels very short of breath doing so. Patient denies any chest pain. Patient complaining of constant lower extremity edema Related Data Home Medications Medication Instructions Recorded Confirmed albuterol sulfate 90 mcg/actuation 2 puff inhalation Q4H PRN Wheezing 03/15/22 12/12/23 aerosol inhaler (Ventolin HFA) fluticasone propionate 220 1 inh inhalation BID 03/15/22 12/12/23 mcg/actuation HFA aerosol inhaler (Flovent HFA) sildenafil 50 mg tablet (Viagra) 50 mg PO DAILY PRN Sexual Activity 09/10/23 12/12/23 sacubitril 24 mg-valsartan 26 mg 1 tab PO BID 12/12/23 12/12/23 tablet (Entresto) Previous Rx's Medication Instructions Recorded carvedilol 3.125 mg tablet 3.125 mg PO BID #60 tabs 09/16/23 furosemide 20 mg tablet (Lasix) 20 mg PO DAILY #30 tabs 09/16/23 furosemide 40 mg tablet (Lasix) 40 mg PO BID #6 tabs 12/23/23 levofloxacin 500 mg tablet 500 mg PO DAILY #9 tabs 12/23/23 prednisone 50 mg tablet 50 mg PO DAILY #4 tabs 12/23/23 Allergies Allergy/AdvReac Type Severity Reaction Status Date / Time aspirin [ASPIRIN] Allergy Unknown Rash Verified 09/10/23 18:05 egg [EGGS] Allergy Unknown UNKNOWN Verified 05/01/23 09:32 Influenza Virus Vaccines Allergy Unknown UNKNOWN Verified 05/01/23 09:32 [INFLUENZA VIRUS VACCINES] lactose [LACTOSE] Allergy Unknown GI UPSET Verified 05/01/23 09:32 Review of Systems 2 Review of Systems: Constitutional : No Weight loss, No Fever, No Chills, No Night Sweats, No Fatigue, No Malaise ENT/Mouth : No Hearing loss, No Ear Pain, No Nasal Congestion, No Sinus Pain, No Hoarseness, No sore throat, No Rhinorrhea, No Swallowing Difficulty Eyes: No Eye Pain, No Swelling, No Redness, No Foreign Body, No Discharge, No Vision Changes Cardiovascular : No Chest Pain, No SOB, No Dyspnea on Exertion, No Orthopnea, complaining of constant lower extremity edema Respiratory : Complaining of worsening cough, shortness of breath, Gastrointestinal : No Nausea, No Vomiting, No Diarrhea, No Constipation, No abdominal Pain, No Hematochezia, No Melena Genitourinary : no irregular bleeding, No Dysuria, No Urinary Frequency, No Hematuria, No Urinary Incontinence, No Urgency, No Flank Pain, No Urinary Flow Changes, No Hesitancy Musculoskeletal : No joint pain, No Myalgias, No Joint Swelling Skin : No Skin Lesions, No rash Neuro : No Weakness, No Numbness, No Paresthesias, No Loss of Consciousness, No Dizziness, No Headache Psych : No Anxiety/Panic, No Depression, No SI/HI/AH/VH, No Social Issues, Heme/Lymph: No Bruising, No Bleeding,No Lymphadenopathy Endocrine : No Polyuria, No Polydipsia, No Temperature Intolerance [facility] Past Medical History Medical History Congestive heart failure Hypertension Cocaine use disorder Cardiomegaly Cocaine use Cardiomyopathy Asthma Surgical History Hx of endoscopic retrograde cholangiopancreatography History of cholecystectomy Family History Family History Mother Diabetes Hypertension Arthritis Asthma Father Asthma Social History Social History Household Members: Friend(s) Housing: Apartment Do you presently have visiting nurse or other home services: No Alcohol intake: former Patient Tobacco Use Status: Former Tobacco user Quit Date: 2016 e-Cigarette/Vaping Use: Former Use Substance Use Type: Crack/Cocaine Advance Directives: No Advance Directives Information Provided: Yes service: No Physical Exam 2 Vital Signs: Vital Signs: Last Vital Signs Temp 98.2 F 12/23/23 14:00 Pulse 101 H 12/23/23 14:00 Resp 21 H 12/23/23 14:00 BP 116/72 12/23/23 14:00 Pulse Ox 97 12/23/23 14:00 O2 Del Method Room Air 12/23/23 12:48 O2 Flow Rate 6 12/23/23 12:16 BMI result Body Mass Index 27.4 Const: Other: Appearance: Alert. Oriented X3. No acute distress. Eyes: Pupils equal, round and reactive to light. ENT: Pharynx normal. Neck: Normal inspection. Neck supple. No lymph nodes noted. No crepitus CVS: Normal heart rate and rhythm. Pulses normal. Normal S1 and S2 Respiratory: No respiratory distress. Bilateral rales and crackles, no wheezing Abdomen: Soft and nontender. No rigidity. No distention. Skin: Skin warm and dry. Normal skin color. Normal skin turgor. Extremities: +1 pitting edema bilaterally No Lacerations. No Rash Neuro: Oriented X 3. No motor deficit. No sensory deficit. Moving all extremities. No slurred speech. CN 2 through 12 grossly intact Psych: calm, cooperative, normal affect Course Course Course Narrative: - Medical Decision Making Medical Decision Making [facility] Narrative: -my interpretation of labs: Hematology at baseline, chemistry at baseline, troponin pending, BNP 865, previously elevated at 1100. Troponin 62.4, lower than previous troponins. Patient has no chest pain -patient ambulated in the emergency room, patient's oxygen saturation remained above 90% on room air, no significant shortness of breath with exertion, patient did well walking, no significant oxygen desaturation. Patient was given p.o. antibiotics, levofloxacin an extra dose of Lasix. Patient remains on room air saturating 97%, vitals stable Differential Diagnosis Differential Diagnoses: The differential diagnosis associated with the presentation includes (CHF, pneumonia, COVID, influenza) Admission/Observation Consideration of admission/observation: Escalation of care including admission/observation considered (Given patient's recent hospitalization, readmission was considered.) Lab Data [facility] Lab Attestation statement: I reviewed the patient's lab results. 12/23/23 13:09 12/23/23 13:09 Labs: Lab Results 12/23/23 Range/Units 13:09 WBC 4.9 (4.8-10.8) X10*3/uL RBC 3.43 L (4.60-5.80) X10*6/uL Hgb 10.8 L (14.0-18.0) g/dl Hct 34.3 L (42.0-52.0) % MCV 100.0 H (80.0-98.0) fL MCH 31.5 (27.0-33.0) pg MCHC 31.5 (31.0-36.0) g/dl RDW 15.9 (11.0-16.0) % Plt Count 114 L D (160-400) X10*3/uL MPV 11.0 (9.4-12.4) fL Immature Gran % (Auto) 0.2 (0.0-0.4) % Neut % (Auto) 59.6 (45-73) % Lymph % (Auto) 27.5 (20-40) % [place] % (Auto) 10.9 (2-11) % Eos % (Auto) 1.0 (0-4) % Baso % (Auto) 0.8 (0-2) % Lymph # (Auto) 1.4 (1.2-4.9) X10*3/uL [place] # (Auto) 0.5 (0.1-1.2) X10*3/uL Eos # (Auto) 0.1 (0.0-0.4) X10*3/uL Baso # (Auto) 0.0 (0.0-0.2) X10*3/uL Abs Immat Gran (auto) 0.01 (0.00-0.03) X10*3/uL Absolute Neuts (auto) 2.9 (2.0-8.3) x10*3/uL Absolute Nucleated RBC 0.000 (0.0-0.012) X10*3/uL Nucleated RBC % (auto) 0.0 (0.0-0.2) /100WBC Hold Blue Top SEE NOTE Sodium 145 (135-145) mmol/L Potassium 4.2 (3.3-5.1) mmol/L Chloride 113 H (96-108) mmol/L Carbon Dioxide 23 (22-29) mmol/L Anion Gap 13 (12-20) BUN 14 (9-16) mg/dL Creatinine 1.01 (0.5-1.4) mg/dL Estim Creat Clear Calc 69.6 Estimated GFR > 60 Random Glucose 97 (60-115) mg/dL Calcium 9.0 (8.4-10.2) mg/dL Total Bilirubin 1.3 H (0.0-1.0) mg/dL AST 27 (5-37) U/L ALT 20 (0-40) U/L Alkaline Phosphatase 113 (39-117) U/L Troponin I High Sens 62.4 H (<3.5-35.0) ng/L B-Natriuretic Peptide 865 H (<100) pg/mL Total Protein 7.8 (6.5-8.0) g/dL Albumin 3.9 (3.5-5.0) g/dL Independent Interpretation I performed an independent interpretation of an: EKG (Interpretation of EKG: Normal sinus rhythm, heart rate 104, no ST segment depression or elevation, no T-wave inversion, QTC 486) and Plain X-Ray Radiology Impression Discussion of test interpretation with radiology: I have reviewed the radiologist's reading. Radiologist Impression: FINDINGS: The heart, great vessels, pulmonary vasculature and mediastinum are stable. There is a relatively stable patchy infiltrate in the lower right lung. There is persistent elevation of the right hemidiaphragm. The left lung remains clear. A skinfold projects over the lateral left thorax. There is no pleural effusion or pneumothorax. No acute osseous abnormality is seen. There are degenerative changes of the shoulders. XR/XR chest 1V IMPRESSION: There is a persistent right lower lung field infiltrate, and there is stable elevation of the right hemidiaphragm. Critical Care Time Critical Care Time Critical Care Time: Yes Total Critical Care Time: 45 Attestation: I have personally provided critical care time. Time includes review of lab data, radiology results, discussion with consultants, and monitoring for potential decompensation. Intervention performed as documented. Discharge Plan Discharge Clinical Impression: Pneumonia Patient Disposition: Home, Self-Care Instructions: Pneumonia (ED) Additional Instructions: For 2 days, take Lasix twice a day Please follow-up with your primary care physician tomorrow. If you have any worsening or new symptoms, please return to the emergency room or call 911 Prescriptions: New levofloxacin 500 mg tablet 500 mg PO DAILY Qty: 9 0RF prednisone 50 mg tablet 50 mg PO DAILY Qty: 4 0RF furosemide [Lasix] 40 mg tablet 40 mg PO BID Qty: 6 0RF No Action Entresto 24-26 mg tablet 1 tab PO BID sildenafil [Viagra] 50 mg tablet 50 mg PO DAILY PRN (Reason: Sexual Activity) carvedilol 3.125 mg Tablet 3.125 mg PO BID Qty: 60 0RF Protocol: Hold for SBP/HR < HOLD for SBP < : 90 HOLD for HR < : 60 furosemide [Lasix] 20 mg tablet 20 mg PO DAILY Qty: 30 0RF albuterol sulfate [Ventolin HFA] 90 mcg/actuation HFA aerosol inhaler 2 puff inhalation Q4H PRN (Reason: Wheezing) Flovent HFA 220 mcg/actuation HFA aerosol inhaler 1 inh inhalation BID
[2023-12-23 15:57] LABS: Troponin-I High Sensitivity 62.4 ng/L (<3.5-35.0)
--- NOTE | 2023-12-23 17:23 | PC.NURSE ---
patient trial ambulation, stating he cannot walk w/out his crutches that were left at home. able to stand and take steps to different stretcher, maintained 90% on room air. provided with sindy brooke and sandwich at this time
[2023-12-23 18:15] VITALS: BP 120/81; PULSE 103; RESP 20; TEMP 36.5; O2SAT 98
[2023-12-23] MEDS: levoFLOXacin 500 MG TABLET PO (18:19)
[2023-12-23] MEDS: Furosemide 40 MG TABLET PO (18:19)
[2023-12-23 19:30] VITALS: BP 120/81; PULSE 102; RESP 16; TEMP 36.6; O2SAT 96
--- NOTE | 2023-12-23 19:39 | PC.NURSE ---
This RN took over pt care at 1900. Pt resting in bed quietly watching tv. Plan of care ongoing.
--- NOTE | 2023-12-23 20:35 | PC.NURSE ---
Pt attempting to get out of bed. Pt redirected and assisted back into bed. Pt requested and given a warm blanket. Pt requested and given food and drink. This RN explained to pt he cannot leave until the ambulance arrives to pick him up. Plan of care ongoing.
== END 2023-12-23 21:31 | disposition home or self-care (01) ==
PROVIDERS: Emergency Provider Emergency Medicine; PCP Internal Medicine Geriatric Medicine
DX: J18.9 Pneumonia, unspecified organism (principal); R00.0 Tachycardia, unspecified; R06.02 Shortness of breath; R05.9 Cough, unspecified; R60.0 Localized edema; Z79.899 Other long term (current) drug therapy
CPT/HCPCS: 36415; 71045; 80053; 83880; 84484; 85025; 93005; 99283; 99285

== ENCOUNTER → 2023-12-23 13:20 | Outpatient (BNV) | payer OTHER, SELFPAY | PROVIDERS: Emergency Provider Emergency Medicine; PCP Internal Medicine Geriatric Medicine; Visit Provider Internal Medicine Cardiovascular Disease | DX: R00.0 Tachycardia, unspecified (principal) | CPT/HCPCS: 93010 ==

== ENCOUNTER 2024-01-16 11:55 | Outpatient (REF) | payer OTHER, SELFPAY ==
[2024-01-16 14:24] LABS: Anion Gap 10 (12-20); Blood Urea Nitrogen 9 mg/dL (9-16); Calcium 8.7 mg/dL (8.4-10.2); Carbon Dioxide 28 mmol/L (22-29); Chloride 106 mmol/L (96-108); Estimated Glomerular Filt Rate > 60; Glucose Random 91 mg/dL (60-115); Magnesium 1.8 mg/dL (1.6-2.6); Potassium 3.8 mmol/L (3.3-5.1); Sodium 140 mmol/L (135-145)
== END 2024-01-16 11:56 | disposition home or self-care (01) ==
LOC: HO.HHCL 11:55
PROVIDERS: Visit Provider Internal Medicine Geriatric Medicine
DX: I11.0 Hypertensive heart disease with heart failure (principal); I50.23 Acute on chronic systolic (congestive) heart failure
CPT/HCPCS: 36415; 80048; 83735

== ENCOUNTER 2024-03-15 07:11 | Inpatient (IN) | payer OTHER, SELFPAY ==
[2024-03-15] VITALS (15 sets, daily range): BP systolic 111–146; BP diastolic 67–100; PULSE 98–123; RESP 18–36; TEMP 36.6–37.1; O2SAT 93–100; BMI 30.5
--- NOTE | ~2024-03-15 | XR_ITS ---
EXAMINATION: XR CHEST CLINICAL INFORMATION: Shortness of breath COMPARISON: 12/23/2023 TECHNIQUE: Frontal view of the chest was obtained. FINDINGS: The heart is enlarged. There is no evidence of gross CHF. Previously seen right sided infiltrate appears improved but there is new patchy density seen in the left midlung. Continued elevation of right hemidiaphragm. No pleural effusions are seen. XR/XR chest 1V IMPRESSION: 1. Cardiomegaly. 2. New patchy density left midlung. 3. Improved right-sided infiltrate.
--- NOTE | 2024-03-15 07:19 | ECG_ITS ---
Test Reason : diff breathing Blood Pressure : / mmHG Vent. Rate : 115 BPM Atrial Rate : 120 BPM P-R Int : 140 ms QRS Dur : 080 ms QT Int : 298 ms P-R-T Axes : 183 -87 007 degrees QTc Int : 412 ms Poor data quality Undetermined rhythm Left axis deviation Low voltage QRS Cannot rule out Anteroseptal infarct (cited on or before 12-DEC-2023) Abnormal ECG When compared with ECG of 23-DEC-2023 13:20, Current undetermined rhythm precludes rhythm comparison, needs review Poor data quality in current ECG precludes serial comparison Referred By: Renate Jha Electronically Signed By:GARETT TRENT MD
--- NOTE | 2024-03-15 07:21 | ED_ITS ---
HPI - SOB/Dyspnea General Chief Complaint: Dyspnea Stated Complaint: DIFF [id number] ON DUONEB PER EMS Time Seen by Provider: 03/15/24 07:15 Source: patient, EMS and old records reviewed Mode of arrival: EMS Limitations: physical limitation (SOB) History of Present Illness HPI Narrative: 69 yo male with history of asthma, HFrEF (EF 35%), HTN, crack cocaine use, history of pneumonia, who presents to the ER from home via EMS for evaluation of SOB and wheezing that got acutely worse yesterday. He states he has had breathing issues and SOB for the last 2 months but yesterday is when it became much worse. He states he has a history of asthma, not COPD, he is a nonsmoker. He is a poor historian. No chest pain or fevers, He has been coughing but no phlegm. no sick contacts. patient very SOB on arrival w/ RR 30s so difficult to obtain history MD elicited complaint: shortness of breath and chest pain Pertinent past history: asthma and congestive heart failure Onset (ago): day(s) Timing: progressively worsening Severity: severe Known history of: asthma and congestive heart failure Associated symptoms: pain with inspiration, cough and wheezing Treatment prior to arrival: bronchodilator Related Data Home oxygen amount: 3 liters (per EMS but patient says he is not on O2) Home Medications ?Medication ?Instructions ?Recorded ?Confirmed albuterol sulfate 90 mcg/actuation 2 puff inhalation Q4H PRN Wheezing 03/15/22 12/12/23 aerosol inhaler (Ventolin HFA) fluticasone propionate 220 1 inh inhalation BID 03/15/22 12/12/23 mcg/actuation HFA aerosol inhaler (Flovent HFA) sildenafil 50 mg tablet (Viagra) 50 mg PO DAILY PRN Sexual Activity 09/10/23 12/12/23 sacubitril 24 mg-valsartan 26 mg 1 tab PO BID 12/12/23 12/12/23 tablet (Entresto) Previous Rx's ?Medication ?Instructions ?Recorded carvedilol 3.125 mg tablet 3.125 mg PO BID #60 tabs 09/16/23 furosemide 20 mg tablet (Lasix) 20 mg PO DAILY #30 tabs 09/16/23 furosemide 40 mg tablet (Lasix) 40 mg PO BID #6 tabs 01/30/24 levofloxacin 500 mg tablet 500 mg PO DAILY #9 tabs 12/23/23 prednisone 50 mg tablet 50 mg PO DAILY #4 tabs 12/23/23 Allergies Allergy/AdvReac Type Severity Reaction Status Date / Time aspirin [ASPIRIN] Allergy Unknown Rash Verified 03/15/24 07:22 egg [EGGS] Allergy Unknown UNKNOWN Verified 03/15/24 07:22 Influenza Virus Vaccines Allergy Unknown UNKNOWN Verified 03/15/24 07:22 [INFLUENZA VIRUS VACCINES] lactose [LACTOSE] Allergy Unknown GI UPSET Verified 03/15/24 07:22 FOR[facility]LY [facility] Past Medical History Medical History Congestive heart failure Hypertension Cocaine use disorder Cardiomegaly Cocaine use Cardiomyopathy Asthma Surgical History Hx of endoscopic retrograde cholangiopancreatography History of cholecystectomy Family History Family History Mother Diabetes Hypertension Arthritis Asthma Father Asthma Social History Social History Household Members: Friend(s) Housing: Apartment Do you presently have visiting nurse or other home services: No Alcohol intake: former Patient Tobacco Use Status: Former Tobacco user Quit Date: 2016 Smoked in Last 30 Days: No e-Cigarette/Vaping Use: Former Use Use of substances other than those prescribed or required for medical reasons: Yes Substance Use Type: Crack/Cocaine Substance Use Frequency: Chronic Longstanding Advance Directives: No Advance Directives Information Provided: Yes service: No Physical Exam 2 Vital Signs: Vital Signs: Last Vital Signs Temp 98.5 F 03/15/24 12:45 Pulse 102 H 03/15/24 12:45 Resp 20 03/15/24 12:45 BP 118/70 03/15/24 12:45 Pulse Ox 94 03/15/24 12:45 O2 Del Method Room Air 03/15/24 12:45 FiO2 30 03/15/24 11:49 BMI result Body Mass Index 30.5 Appearance: Alert. Oriented X3. Moderate respiratory distress Head: normocephalic, atraumatic. Eyes: Pupils equal, round and reactive to light. ENT: Pharynx normal. No tonsillar swelling or exudate. Neck: Normal inspection. Neck supple. Positive JVD CVS: Tachycardic, regular rhythm, heart rate 110 Pulses normal. Respiratory: Moderate respiratory distress. Breath sounds with diffuse inspiratory and expiratory wheezes, scattered rhonchi throughout Abdomen: Well-healed surgical scar in the right upper quadrant of the abdomen. Soft and nontender. +BS x4 Skin: Skin warm and dry. Normal skin color. Normal skin turgor. No rashes. Extremities: 1+ lower extremity edema. Fingers on the left hand are contracted with scarring of the 1st digit Neuro/psych: Oriented X 3. Grossly normal, follows simple commands, moves all extremities spontaneously CN II-XII intact. Difficult to understand speech while on CPAP Course Reevaluation(s) Reevaluation #1: patient meeting SIRS criteria w/ elevated HR, RR, requiring CPAP for resp support. lactic acid 3.6 at this time infection is NOT suspected. lactic acid likely from the multiple breathing treatments he was given/tachypnea. he has history of CHF w/ BNP 900s today - CXR w/ evidence of volume overload IV lasix given troponin 150, likely demand ischemia from resp failure EKG is nondiagnostic, repeat pending. Time: 09:00 Reevaluation #2: cxr w/ possible left sided infiltrate. procal is low no leukocytosis given his resp failure will cover with an empiric dose of azithromycin and rocephin Time: 10:48 Reevaluation #3: patient stable off of CPAP - will admit to the hospital Medications Administered Discontinued Medications Generic Name Dose Route Start Last Admin Trade Name Freq PRN Reason Stop Dose Admin Albuterol Sulfate 5 mg/ 7.5 mg 03/15/24 09:13 03/15/24 09:18 Albuterol Sulfate 2.5 mg INHALE 03/15/24 09:14 7.5 mg ONCE ONE Administration Albuterol Sulfate 5 mg/ 7.5 mg 03/15/24 12:08 03/15/24 12:12 Albuterol Sulfate 2.5 mg INHALE 03/15/24 12:09 7.5 mg ONCE ONE Administration Albuterol Sulfate 7.5 mg/ 0 mg 03/15/24 07:18 03/15/24 07:30 Albuterol/Ipratropium 3 ml INHALE 03/15/24 07:19 10 each ONCE ONE Administration Furosemide 60 mg 03/15/24 08:44 03/15/24 09:04 Furosemide 100 Mg/10 Ml Vial IVPUSH 03/15/24 08:45 60 mg ONCE ONE Administration Protocol Magnesium Sulfate 2 gm in 50 mls @ 150 mls/hr 03/15/24 07:19 03/15/24 08:08 Magnesium Sulfate/H2o IV 03/15/24 07:38 Infused ONCE ONE Infusion Ceftriaxone Sodium 1 gm/ 50 mls @ 100 mls/hr 03/15/24 10:47 03/15/24 11:48 Sodium Chloride IV 03/15/24 11:16 Infused ONCE ONE Infusion Azithromycin 500 mg/ Sodium 250 mls @ 125 mls/hr 03/15/24 10:47 03/15/24 11:48 Chloride IV 03/15/24 12:46 125 mls/hr ONCE ONE Administration Methylprednisolone Sodium Succinate 125 mg 03/15/24 07:19 03/15/24 07:24 Methylprednisolone Sod Succ 125 Mg/2 Ml Vial IVPUSH 03/15/24 07:20 125 mg ONCE ONE Administration Medical Decision Making Medical Decision Making MDM Narrative: 69-year-old male with a history of CHF, asthma, drug use presents to the ER for evaluation of acute onset wheezing and shortness of breath that started yesterday. Patient reports he has had breathing issues for the last 2 months. He has a poor historian. He arrives to the ER visibly short of breath with accessory muscle use. Respiratory rate in the 30s. He has diffuse inspiratory and expiratory wheezes throughout. He was placed on rescue CPAP and given 10 mg of albuterol followed by 7.5 mg albuterol per ED bronch protocol Patient appears volume overloaded on examination with positive JVD. BNP 996. He was given dose of IV Lasix in addition to IV Solu-Medrol and magnesium. Respiratory status slowly improved. He was found to have a troponin of 150, repeat up to 180, not a delta of 50%. Not consistent with true cardiac ischemia. Most likely demand ischemia due to his respiratory failure and increased work of breathing. No ischemic changes on his EKG. Lactic acid is elevated due to respiratory failure and significant bronchodilator administration. Not due to severe sepsis. Contraindication IV fluids given his respiratory failure and elevated BNP. Empiric antibiotics given for possible left-sided pneumonia although less likely with no leukocytosis, no fever, low procalcitonin. Patient requiring admission to the hospital for further management of his acute asthma and CHF exacerbations. Differential Diagnosis Differential Diagnoses: The differential diagnosis associated with the presentation includes Acute asthma exacerbation, acute COPD exacerbation, interstitial pneumonitis, crack cocaine use, type 2 demand NSTEMI, bronchitis, COVID, flu, RSV, other viral process, medication noncompliance Admission/Observation Consideration of admission/observation: Escalation of care including admission/observation considered Requiring multiple nebulizers, IV steroids, requires admission Consult Healthcare Provider Management of the patient was discussed with: Hospitalist Lab Data MDM Lab Attestation statement: I reviewed the patient's lab results. Stable anemia and thrombocytopenia, elevated lactic acid, elevated troponin, elevated liver function tests 03/15/24 08:25 03/15/24 07:58 Labs: Lab Results 03/15/24 03/15/24 03/15/24 Range/Units 07:58 07:59 08:25 WBC 4.8 (4.8-10.8) X10*3/uL RBC 3.62 L (4.60-5.80) X10*6/uL Hgb 12.1 L (14.0-18.0) g/dl Hct 37.7 L (42.0-52.0) % MCV 104.1 H (80.0-98.0) fL MCH 33.4 H (27.0-33.0) pg MCHC 32.1 (31.0-36.0) g/dl RDW 15.3 (11.0-16.0) % Plt Count 78 L D (160-400) X10*3/uL MPV 12.3 (9.4-12.4) fL Immature Gran % (Auto) 0.6 H (0.0-0.4) % Neut % (Auto) 72.1 (45-73) % Lymph % (Auto) 18.1 L (20-40) % [place] % (Auto) 7.8 (2-11) % Eos % (Auto) 0.6 (0-4) % Baso % (Auto) 0.8 (0-2) % Lymph # (Auto) 0.9 L (1.2-4.9) X10*3/uL [place] # (Auto) 0.4 (0.1-1.2) X10*3/uL Eos # (Auto) 0.0 (0.0-0.4) X10*3/uL Baso # (Auto) 0.0 (0.0-0.2) X10*3/uL Abs Immat Gran (auto) 0.03 (0.00-0.03) X10*3/uL Absolute Neuts (auto) 3.4 (2.0-8.3) x10*3/uL Absolute Nucleated RBC 0.000 (0.0-0.012) X10*3/uL Nucleated RBC % (auto) 0.0 (0.0-0.2) /100WBC VBG pH (7.32-7.43) VBG pCO2 mmHg VBG pO2 mmHg VBG HCO3 (22-26) mmol/L VBG O2 Saturation % VBG Base Excess mmol/L Sodium 139 (135-145) mmol/L Potassium 4.7 D (3.3-5.1) mmol/L Chloride 108 (96-108) mmol/L Carbon Dioxide 20 L (22-29) mmol/L Anion Gap 16 (12-20) BUN 21 H (9-16) mg/dL Creatinine 1.20 (0.5-1.4) mg/dL Estim Creat Clear Calc 63.3 Estimated GFR > 60 Random Glucose 107 (60-115) mg/dL Lactic Acid 3.6 H* (0.5-2.0) mmol/L Lactic Acid F/U @ 2Hr (0.5-2.0) mmol/L Calcium 8.8 (8.4-10.2) mg/dL Magnesium 2.5 (1.6-2.6) mg/dL Total Bilirubin 1.6 H (0.0-1.0) mg/dL Direct Bilirubin 0.8 H (0.0-0.5) mg/dL AST 61 H (5-37) U/L ALT 35 (0-40) U/L Alkaline Phosphatase 159 H (39-117) U/L Troponin I High Sens 150.8 H* D (<3.5-35.0) ng/L B-Natriuretic Peptide 996 H (<100) pg/mL Total Protein 7.7 (6.5-8.0) g/dL Albumin 3.8 (3.5-5.0) g/dL Procalcitonin 0.37 ng/mL Urine Color Urine Appearance Urine pH (5.0-9.0) Ur Specific [place] (1.005-1.025) Urine Protein (Neg-Trace) mg/dL Urine Glucose (UA) (Negative) mg/dL Urine Ketones (Negative) mg/dL Urine Blood (Negative) Urine Nitrite (Negative) Ur Leukocyte Esterase (Negative) Urine Opiates Screen (Not Detect) Ur Buprenorphine Scrn (Not Detect) ng/mL Ur Oxycodone Screen (Not Detect) ng/mL Urine Methadone Screen (Not Detect) ng/mL Urine Fentanyl Screen (Not Detect) Ur Barbiturates Screen (Not Detect) Ur Phencyclidine Scrn (Not Detect) Ur Amphetamines Screen (Not Detect) U Benzodiazepines Scrn (Not Detect) Urine Cocaine Screen (Not Detect) U Marijuana (THC) Screen (Not Detect) 03/15/24 03/15/24 03/15/24 Range/Units 08:30 10:14 10:46 WBC (4.8-10.8) X10*3/uL RBC (4.60-5.80) X10*6/uL Hgb (14.0-18.0) g/dl Hct (42.0-52.0) % MCV (80.0-98.0) fL MCH (27.0-33.0) pg MCHC (31.0-36.0) g/dl RDW (11.0-16.0) % Plt Count (160-400) X10*3/uL MPV (9.4-12.4) fL Immature Gran % (Auto) (0.0-0.4) % Neut % (Auto) (45-73) % Lymph % (Auto) (20-40) % [place] % (Auto) (2-11) % Eos % (Auto) (0-4) % Baso % (Auto) (0-2) % Lymph # (Auto) (1.2-4.9) X10*3/uL [place] # (Auto) (0.1-1.2) X10*3/uL Eos # (Auto) (0.0-0.4) X10*3/uL Baso # (Auto) (0.0-0.2) X10*3/uL Abs Immat Gran (auto) (0.00-0.03) X10*3/uL Absolute Neuts (auto) (2.0-8.3) x10*3/uL Absolute Nucleated RBC (0.0-0.012) X10*3/uL Nucleated RBC % (auto) (0.0-0.2) /100WBC VBG pH 7.45 H (7.32-7.43) VBG pCO2 25 mmHg VBG pO2 142 mmHg VBG HCO3 17 L (22-26) mmol/L VBG O2 Saturation 99.0 % VBG Base Excess -4.4 mmol/L Sodium (135-145) mmol/L Potassium (3.3-5.1) mmol/L Chloride (96-108) mmol/L Carbon Dioxide (22-29) mmol/L Anion Gap (12-20) BUN (9-16) mg/dL Creatinine (0.5-1.4) mg/dL Estim Creat Clear Calc Estimated GFR Random Glucose (60-115) mg/dL Lactic Acid (0.5-2.0) mmol/L Lactic Acid F/U @ 2Hr 3.8 H* (0.5-2.0) mmol/L Calcium (8.4-10.2) mg/dL Magnesium (1.6-2.6) mg/dL Total Bilirubin (0.0-1.0) mg/dL Direct Bilirubin (0.0-0.5) mg/dL AST (5-37) U/L ALT (0-40) U/L Alkaline Phosphatase (39-117) U/L Troponin I High Sens (<3.5-35.0) ng/L B-Natriuretic Peptide (<100) pg/mL Total Protein (6.5-8.0) g/dL Albumin (3.5-5.0) g/dL Procalcitonin ng/mL Urine Color Yellow Urine Appearance Clear Urine pH 5.5 (5.0-9.0) Ur Specific [place] 1.010 (1.005-1.025) Urine Protein Negative (Neg-Trace) mg/dL Urine Glucose (UA) Negative (Negative) mg/dL Urine Ketones Negative (Negative) mg/dL Urine Blood Negative (Negative) Urine Nitrite Negative (Negative) Ur Leukocyte Esterase Negative (Negative) Urine Opiates Screen Not Detected (Not Detect) Ur Buprenorphine Scrn Not Detected (Not Detect) ng/mL Ur Oxycodone Screen Not Detected (Not Detect) ng/mL Urine Methadone Screen Not Detected (Not Detect) ng/mL Urine Fentanyl Screen Not Detected (Not Detect) Ur Barbiturates Screen Not Detected (Not Detect) Ur Phencyclidine Scrn Not Detected (Not Detect) Ur Amphetamines Screen Not Detected (Not Detect) U Benzodiazepines Scrn Not Detected (Not Detect) Urine Cocaine Screen POSITIVE H (Not Detect) U Marijuana (THC) Screen Not Detected (Not Detect) 03/15/24 Range/Units 11:43 WBC (4.8-10.8) X10*3/uL RBC (4.60-5.80) X10*6/uL Hgb (14.0-18.0) g/dl Hct (42.0-52.0) % MCV (80.0-98.0) fL MCH (27.0-33.0) pg MCHC (31.0-36.0) g/dl RDW (11.0-16.0) % Plt Count (160-400) X10*3/uL MPV (9.4-12.4) fL Immature Gran % (Auto) (0.0-0.4) % Neut % (Auto) (45-73) % Lymph % (Auto) (20-40) % [place] % (Auto) (2-11) % Eos % (Auto) (0-4) % Baso % (Auto) (0-2) % Lymph # (Auto) (1.2-4.9) X10*3/uL [place] # (Auto) (0.1-1.2) X10*3/uL Eos # (Auto) (0.0-0.4) X10*3/uL Baso # (Auto) (0.0-0.2) X10*3/uL Abs Immat Gran (auto) (0.00-0.03) X10*3/uL Absolute Neuts (auto) (2.0-8.3) x10*3/uL Absolute Nucleated RBC (0.0-0.012) X10*3/uL Nucleated RBC % (auto) (0.0-0.2) /100WBC VBG pH (7.32-7.43) VBG pCO2 mmHg VBG pO2 mmHg VBG HCO3 (22-26) mmol/L VBG O2 Saturation % VBG Base Excess mmol/L Sodium (135-145) mmol/L Potassium (3.3-5.1) mmol/L Chloride (96-108) mmol/L Carbon Dioxide (22-29) mmol/L Anion Gap (12-20) BUN (9-16) mg/dL Creatinine (0.5-1.4) mg/dL Estim Creat Clear Calc Estimated GFR Random Glucose (60-115) mg/dL Lactic Acid (0.5-2.0) mmol/L Lactic Acid F/U @ 2Hr (0.5-2.0) mmol/L Calcium (8.4-10.2) mg/dL Magnesium (1.6-2.6) mg/dL Total Bilirubin (0.0-1.0) mg/dL Direct Bilirubin (0.0-0.5) mg/dL AST (5-37) U/L ALT (0-40) U/L Alkaline Phosphatase (39-117) U/L Troponin I High Sens 188.8 H* (<3.5-35.0) ng/L B-Natriuretic Peptide (<100) pg/mL Total Protein (6.5-8.0) g/dL Albumin (3.5-5.0) g/dL Procalcitonin ng/mL Urine Color Urine Appearance Urine pH (5.0-9.0) Ur Specific [place] (1.005-1.025) Urine Protein (Neg-Trace) mg/dL Urine Glucose (UA) (Negative) mg/dL Urine Ketones (Negative) mg/dL Urine Blood (Negative) Urine Nitrite (Negative) Ur Leukocyte Esterase (Negative) Urine Opiates Screen (Not Detect) Ur Buprenorphine Scrn (Not Detect) ng/mL Ur Oxycodone Screen (Not Detect) ng/mL Urine Methadone Screen (Not Detect) ng/mL Urine Fentanyl Screen (Not Detect) Ur Barbiturates Screen (Not Detect) Ur Phencyclidine Scrn (Not Detect) Ur Amphetamines Screen (Not Detect) U Benzodiazepines Scrn (Not Detect) Urine Cocaine Screen (Not Detect) U Marijuana (THC) Screen (Not Detect) Independent Interpretation I performed an independent interpretation of an: EKG and Plain X-Ray Interpretation: EKG 1. At 09:00 with poor quality, ventricular rate 115, undetermined rhythm, artifact present, can not see P waves, no ST segment elevations. EKG 2 ventricular rate 110 beats per minute, sinus tachycardia, low-voltage QRS, prolonged QTC 484, normal AK interval, no ST segment elevation or depression Chest x-ray with vascular congestion, possible left-sided infiltrate, appears to be consistent with CHF Radiology Impression Discussion of test interpretation with radiology: I have reviewed the radiologist's reading. Radiologist Impression: XR CHEST CLINICAL INFORMATION: Shortness of breath COMPARISON: 12/23/2023 TECHNIQUE: Frontal view of the chest was obtained. FINDINGS: The heart is enlarged. There is no evidence of gross CHF. Previously seen right sided infiltrate appears improved but there is new patchy density seen in the left midlung. Continued elevation of right hemidiaphragm. No pleural effusions are seen. XR/XR chest 1V IMPRESSION: 1. Cardiomegaly. 2. New patchy density left midlung. 3. Improved right-sided infiltrate. Independent Historian Clinical information obtained from an independent historian. History obtained from or confirmed by: EMS External Record Review External record reviewed: Inpatient record, Office record, Outpatient record, Prior outpatient labs and Prior outpatient radiology Tests considered The following testing was considered but not selected: CT chest considered Prescription Management I considered prescription management with: Antibiotic Chronic Conditions Patient?s care impacted by: Other asthma, drug Social Determinants Patient?s care significantly limited by Social Determinants of Health including: Alcoholism and drug addiction in family, Problems related to primary support group and Other Social Determinant of Health Critical Care Time Critical Care Time Critical Care Time: Yes Total Critical Care Time: 66 Attestation: I have personally provided critical care time exclusive of time spent on separately billable procedures. Time includes review of lab data, radiology results, discussion with consultants, and monitoring for potential decompensation. Intervention performed as documented. Discharge Plan Discharge Clinical Impression: Acute respiratory failure with hypoxia Acute exacerbation of CHF (congestive heart failure) Qualifiers: Heart failure type: unspecified Qualified Code(s): I50.9 - Heart failure, unspecified Asthma exacerbation Qualifiers: Asthma severity: unspecified severity Asthma persistence: unspecified Qualified Code(s): J45.901 - Unspecified asthma with (acute) exacerbation Patient Disposition: Admitted As Inpatient Print Language: Kyrgyz
[2024-03-15] MEDS: Magnesium Sulfate/H2O 2 GM/50 ML PIGGYBACK IV (07:24)
[2024-03-15] MEDS: methylPREDNISolone Sod Succ 125 MG/2 ML VIAL IVPUSH (07:24)
[2024-03-15] MEDS: Albuterol Sulfate 7.5 MG, Albuterol/Iprat 2.5/0.5MG 3 ML 3 ML INHALE (07:30)
--- NOTE | 2024-03-15 07:43 | PC.NURSE ---
pt arrived via EMS from home, per EMS pt on home O2 w condenser - unclear if pt has rx for home O2, increased sob, hx CHF. pt received duoneb w EMS. 20G PIV left AC placed by EMS. medicated per JAN - solumedrol and resp magnesium given. resp at bedside. potline monitor applied, tech at bedside obtaining EKG/labs. no new orders at this time.
--- NOTE | 2024-03-15 07:47 | PC.NURSE ---
pt transitioned to CPAP by resp, tolerating well.
[2024-03-15 08:27] LABS: Alanine Aminotransferase 35 U/L (0-40); Albumin Level 3.8 g/dL (3.5-5.0); Alkaline Phosphatase 159 U/L (39-117); Anion Gap 16 (12-20); Aspartate Amino Transferase 61 U/L (5-37); Bilirubin Direct 0.8 mg/dL (0.0-0.5); Bilirubin Total 1.6 mg/dL (0.0-1.0); Blood Urea Nitrogen 21 mg/dL (9-16); Calcium 8.8 mg/dL (8.4-10.2); Carbon Dioxide 20 mmol/L (22-29); Chloride 108 mmol/L (96-108); Creatinine Clr Calc Pharmacy 63.3; Estimated Glomerular Filt Rate > 60; Glucose Random 107 mg/dL (60-115); Magnesium 2.5 mg/dL (1.6-2.6); Potassium 4.7 mmol/L (3.3-5.1); Sodium 139 mmol/L (135-145); Total Protein 7.7 g/dL (6.5-8.0)
[2024-03-15 08:28] LABS: B Type Natriuretic Peptide 996 pg/mL (<100)
[2024-03-15 08:30] LABS: Troponin-I High Sensitivity 150.8 ng/L (<3.5-35.0)
[2024-03-15 08:34] LABS: Basophils Percent Auto 0.8 % (0-2); Eosinophils Percent Auto 0.6 % (0-4); Hematocrit 37.7 % (42.0-52.0); Hemoglobin 12.1 g/dl (14.0-18.0); Imm Gran Abs Auto 0.03 X10*3/uL (0.00-0.03); Imm Gran Pct Auto 0.6 % (0.0-0.4); Lymphocytes Absolute Auto 0.9 X10*3/uL (1.2-4.9); Lymphocytes Percent Auto 18.1 % (20-40); Mean Corpuscular HGB Conc 32.1 g/dl (31.0-36.0); Mean Corpuscular Hemoglobin 33.4 pg (27.0-33.0); Mean Corpuscular Volume 104.1 fL (80.0-98.0); Mean Platelet Volume 12.3 fL (9.4-12.4); Monocytes Absolute Auto 0.4 X10*3/uL (0.1-1.2); Monocytes Percent Auto 7.8 % (2-11); Neutrophils Absolute Auto 3.4 x10*3/uL (2.0-8.3); Neutrophils Percent Auto 72.1 % (45-73); Red Blood Count 3.62 X10*6/uL (4.60-5.80); Red Cell Distribution Width 15.3 % (11.0-16.0); White Blood Count 4.8 X10*3/uL (4.8-10.8)
[2024-03-15 08:36] LABS: Venous Blood Gas Refer to POC result
[2024-03-15 08:36] LABS: VBG Base Excess -4.4 mmol/L; VBG HCO3 17 mmol/L (22-26); VBG pCO2 25 mmHg; VBG pH 7.45 (7.32-7.43); VBG pO2 142 mmHg
[2024-03-15 08:41] LABS: Procalcitonin 0.37 ng/mL
[2024-03-15 08:42] LABS: Platelet Count 78 X10*3/uL (160-400)
[2024-03-15 08:43] LABS: MANUAL DIFF FLAG NO
--- NOTE | 2024-03-15 08:44 | ECG_ITS ---
Test Reason : diff breathing Blood Pressure : / mmHG Vent. Rate : 110 BPM Atrial Rate : 110 BPM P-R Int : 168 ms QRS Dur : 084 ms QT Int : 358 ms P-R-T Axes : 055 -78 009 degrees QTc Int : 484 ms Baseline wander Sinus tachycardia Left axis deviation Low voltage QRS Cannot rule out Anteroseptal infarct (cited on or before 12-DEC-2023) Abnormal ECG When compared with ECG of 15-MAR-2024 07:25, Previous ECG has undetermined rhythm, needs review Referred By: Renate Jha Electronically Signed By:GARETT TRENT MD
[2024-03-15 08:52] LABS: Lactic Acid 3.6 mmol/L (0.5-2.0)
[2024-03-15] MEDS: Furosemide 100 MG/10 ML VIAL 60 MG IVPUSH (09:04)
[2024-03-15] MEDS: Albuterol Sulfate 5 MG, Albuterol Sulfate (0.083%) 2.5 MG 7.5 MG INHALE ×2 (09:18→12:12)
[2024-03-15 10:21] LABS: Appearance Urine Clear; Color Urine Yellow; Glucose Urine UA Negative (Negative); Leukocyte Esterase Urine Negative (Negative); Nitrite Urine Negative (Negative); PH 5.5 (5.0-9.0); Urine Blood Negative (Negative); Urine Ketones Negative (Negative); Urine Protein Negative (Neg-Trace)
[2024-03-15 10:29] LABS: Reflex Lactate? Lactic Acid Added
[2024-03-15 10:33] LABS: Amphetamine Screen Urine Not Detected (Not Detect); Barbiturates, Urine Not Detected (Not Detect); Benzodiazepines Screen Urine Not Detected (Not Detect); Buprenorphine Scr Not Detected (Not Detect); Cannabinoid Screen Urine Not Detected (Not Detect); Cocaine Screen Urine POSITIVE (Not Detect); Fentanyl, urine Not Detected (Not Detect); Methadone Screen, Urine Not Detected (Not Detect); Opiate Screen Urine Not Detected (Not Detect); Oxycodone Screen Urine Not Detected (Not Detect); Phencyclidine Screen Urine Not Detected (Not Detect)
[2024-03-15 11:04] LABS: ~Lactic Acid-LAB USE ONLY 3.8 mmol/L (0.5-2.0)
[2024-03-15] MEDS: cefTRIAXone sodium 1 GM in 0.9 % Sodium Chloride 50 ML IV (11:11)
[2024-03-15] MEDS: Azithromycin 500 MG in 0.9 % Sodium Chloride 250 ML 125 MG IV (11:48)
--- NOTE | 2024-03-15 11:53 | PC.NURSE ---
improved RR, pt resting quietly, medicated per MAR, vss, resp called to bedside to trial pt off of CPAP.
[2024-03-15 12:14] LABS: Troponin-I High Sensitivity 188.8 ng/L (<3.5-35.0)
[2024-03-15 12:49] LABS: Reflex Lactate? 2 Y
[2024-03-15 13:49] LABS: ~Lactic Acid-LAB USE ONLY 3.4 mmol/L (0.5-2.0)
--- NOTE | 2024-03-15 14:05 | PC.NURSE ---
pt reeducated on importance of keeping arm straight for medication administration.
--- NOTE | 2024-03-15 14:21 | P.HPHOSP_ITS ---
History of Present Illness Date of Service: 03/15/24 Chief Complaint: Shortness of breath 69-year-old man presented to the ER with complaints of shortness a breath. He reports he has had shortness of breath and breathing issues over the last 2 months but has been worse over the last couple of days. He does use cocaine and reports that he last used 6 days ago. He reported that he has had some episodes of incontinence of his bowel and bladder because of his weakness. He reports that he lives in a residential with his son and has been compliant with his Lasix but has not taken any other medications. He denied any recent travel, sick contacts, fever, chills, nausea, vomiting, diarrhea. Reported dry cough with no phlegm. He does not smoke or drink alcohol. Chest x-ray in the ER was noted to have cardiomegaly, new patchy density left midlung infiltrate, improved right- sided infiltrate, troponin elevated with peak of 188.8, BNP 996, total bilirubin 1.6. In the ER patient received albuterol, Solu-Medrol, IV magnesium, IV Lasix, Rocephin, azithromycin. He will be admitted for further management and treatment of CHF and pneumonia. Review of Systems 2 Review of Systems: Denies any recent fever chills or decrease in appetite respiratory see HPI cardiovascular denies chest pain gastrointestinal denies any dysphagia abdominal pain nausea vomiting or diarrhea genitourinary denies any dysuria frequency or hematuria musculoskeletal denies any joint pain or swelling neuropsych denies any weakness or seizures all other systems reviewed are negative [facility] Medical History HFrEF (heart failure with reduced ejection fraction) Hypertension Cocaine use disorder Cardiomyopathy Asthma Family History Mother Diabetes Hypertension Arthritis Asthma Father Asthma Surgical History Hx of endoscopic retrograde cholangiopancreatography History of cholecystectomy Social History Household Members: Children Housing: Other Housing Other:: living in residential with son Do you presently have visiting nurse or other home services: Yes (nurse visits every 6mon, interested in more frequent aid visits) Alcohol intake: former Patient Tobacco Use Status: Former Tobacco user Quit Date: 2016 Tobacco use type: Cigarette Cigarette Packs Per Day: 2 Cigarettes Per Day: 40.0 Years Smoked: 51 Smoked in Last 30 Days: No e-Cigarette/Vaping Use: Former Use Patient Interested in Nicotine Replacement: No Patient Given Instructions on How to Stop Smoking: No Second Hand Smoke Exposure: Yes Use of substances other than those prescribed or required for medical reasons: Yes Substance Use Type: Crack/Cocaine Substance Use Frequency: Chronic Longstanding Last Used Substance: Weeks (ago) Last Used Substance Other:: smoked crack cocaine 1 time last week after 30 years clean Currently Displaying Signs/Symptoms of Drug Intoxication Withdrawal: No Other Past Substance Use Problem:: used to do cocaine daily states he quit in 1987 Any prior treatment program specific to substance use: No Have you been hit, kicked, punched, or otherwise hurt by someone within the past year? If so, by whom?: No Do you feel safe in your current relationship?: No Current Relationship Is there a partner from a previous relationship who is making you feel unsafe now?: No Are you made to feel afraid or neglected: No Advance Directives: No Advance Directives Information Provided: Yes Do you have a plan to hurt others: No Plan Recently lost weight without trying: No Eating poorly because of decreased appetite: No Nutrition Risks: No Nutritional Risk Poor oral hygiene: No service: No Meds Allergies Allergy/AdvReac Type Severity Reaction Status Date / Time aspirin [ASPIRIN] Allergy Unknown Rash Verified 03/15/24 07:22 egg [EGGS] Allergy Unknown UNKNOWN Verified 03/15/24 07:22 Influenza Virus Vaccines Allergy Unknown UNKNOWN Verified 03/15/24 07:22 [INFLUENZA VIRUS VACCINES] lactose [LACTOSE] Allergy Unknown GI UPSET Verified 03/15/24 07:22 Active Medications: Current Medications Acetaminophen (Acetaminophen 325 Mg Tablet) 650 mg PO Q6H PRN PRN Reason: Pain, Mild (Pain Scale 1-3) Furosemide (Furosemide 40 Mg/4 Ml Vial) 40 mg IVPUSH BID@0900,1800 [facility]; Protocol Heparin Sodium (Porcine) (Heparin Sodium,Porcine 5,000 Unit/Ml Vial) 5,000 unit SUBCUT Q12H [facility] Ondansetron HCl (Ondansetron Hcl 4 Mg/2 Ml Vial) 4 mg IVPUSH Q8H PRN PRN Reason: Nausea and Vomiting Sodium Chloride (0.9 % Sodium Chloride Flush 3 Ml Syringe) 3 ml IVFLUSH QSHIFT [facility] Home Medications ?Medication ?Instructions ?Recorded ?Confirmed ?Last Taken ?Type albuterol sulfate 90 mcg/actuation 2 puff inhalation Q4H PRN Wheezing 03/15/22 03/15/24 Unknown History aerosol inhaler (Ventolin HFA) hydrocortisone 2.5 % topical cream 1 appl topical QD-BID 03/15/24 03/15/24 Unknown History mometasone 100 mcg/actuation HFA 2 puff inhalation BID 03/15/24 03/15/24 Unknown History aerosol inhaler (Asmanex HFA) sacubitril 49 mg-valsartan 51 mg 1 tab PO BID 03/15/24 03/15/24 Unknown History tablet (Entresto) Physical Exam 2 Vital Signs and Narrative: Vital Signs: Last Vital Signs Temp 98.5 F 03/15/24 12:45 Pulse 102 H 03/15/24 12:45 Resp 20 03/15/24 12:45 BP 118/70 03/15/24 12:45 Pulse Ox 94 03/15/24 12:45 O2 Del Method Room Air 03/15/24 12:45 FiO2 30 03/15/24 11:49 BMI result Body Mass Index 30.5 Appearing in no acute distress head is normocephalic atraumatic eyes pupils are PERRLA sclera is anicteric mouth throat mucous membranes are intact and moist neck is supple no lymphadenopathy, no JVD noted lung sounds are clear to auscultation heart regular rate rhythm, clear S1, S2 positive bowel sounds, abdomen is soft, nontender neuro patient is alert x3, no focal deficits Results Labs 03/16/24 06:03 03/16/24 06:03 Labs: Laboratory Results - last 24 hr 03/15/24 03/15/24 03/15/24 07:58 07:59 08:25 MCV 104.1 H MCH 33.4 H MCHC 32.1 RDW 15.3 Plt Count 78 L D MPV 12.3 Immature Gran % (Auto) 0.6 H Neut % (Auto) 72.1 Lymph % (Auto) 18.1 L Navarro % (Auto) 7.8 Eos % (Auto) 0.6 Baso % (Auto) 0.8 Lymph # (Auto) 0.9 L [place] # (Auto) 0.4 Eos # (Auto) 0.0 Baso # (Auto) 0.0 Abs Immat Gran (auto) 0.03 Absolute Neuts (auto) 3.4 Absolute Nucleated RBC 0.000 Nucleated RBC % (auto) 0.0 VBG pH VBG pCO2 VBG pO2 VBG HCO3 VBG O2 Saturation VBG Base Excess Anion Gap 16 Estim Creat Clear Calc 63.3 Estimated GFR > 60 Random Glucose 107 Lactic Acid 3.6 H* Lactic Acid F/U @ 2Hr Lactic Acid F/U @ 4Hr Calcium 8.8 Magnesium 2.5 Total Bilirubin 1.6 H Direct Bilirubin 0.8 H AST 61 H ALT 35 Alkaline Phosphatase 159 H Troponin I High Sens 150.8 H* D B-Natriuretic Peptide 996 H Total Protein 7.7 Albumin 3.8 Procalcitonin 0.37 Urine Color Urine Appearance Urine pH Ur Specific [place] Urine Protein Urine Glucose (UA) Urine Ketones Urine Blood Urine Nitrite Ur Leukocyte Esterase Urine Opiates Screen Ur Buprenorphine Scrn Ur Oxycodone Screen Urine Methadone Screen Urine Fentanyl Screen Ur Barbiturates Screen Ur Phencyclidine Scrn Ur Amphetamines Screen U Benzodiazepines Scrn Urine Cocaine Screen U Marijuana (THC) Screen 03/15/24 03/15/24 03/15/24 08:30 10:14 10:46 MCV MCH MCHC RDW Plt Count MPV Immature Gran % (Auto) Neut % (Auto) Lymph % (Auto) [place] % (Auto) Eos % (Auto) Baso % (Auto) Lymph # (Auto) [place] # (Auto) Eos # (Auto) Baso # (Auto) Abs Immat Gran (auto) Absolute Neuts (auto) Absolute Nucleated RBC Nucleated RBC % (auto) VBG pH 7.45 H VBG pCO2 25 VBG pO2 142 VBG HCO3 17 L VBG O2 Saturation 99.0 VBG Base Excess -4.4 Anion Gap Estim Creat Clear Calc Estimated GFR Random Glucose Lactic Acid Lactic Acid F/U @ 2Hr 3.8 H* Lactic Acid F/U @ 4Hr Calcium Magnesium Total Bilirubin Direct Bilirubin AST ALT Alkaline Phosphatase Troponin I High Sens B-Natriuretic Peptide Total Protein Albumin Procalcitonin Urine Color Yellow Urine Appearance Clear Urine pH 5.5 Ur Specific [place] 1.010 Urine Protein Negative Urine Glucose (UA) Negative Urine Ketones Negative Urine Blood Negative Urine Nitrite Negative Ur Leukocyte Esterase Negative Urine Opiates Screen Not Detected Ur Buprenorphine Scrn Not Detected Ur Oxycodone Screen Not Detected Urine Methadone Screen Not Detected Urine Fentanyl Screen Not Detected Ur Barbiturates Screen Not Detected Ur Phencyclidine Scrn Not Detected Ur Amphetamines Screen Not Detected U Benzodiazepines Scrn Not Detected Urine Cocaine Screen POSITIVE H U Marijuana (THC) Screen Not Detected 03/15/24 03/15/24 11:43 13:32 MCV MCH MCHC RDW Plt Count MPV Immature Gran % (Auto) Neut % (Auto) Lymph % (Auto) [place] % (Auto) Eos % (Auto) Baso % (Auto) Lymph # (Auto) [place] # (Auto) Eos # (Auto) Baso # (Auto) Abs Immat Gran (auto) Absolute Neuts (auto) Absolute Nucleated RBC Nucleated RBC % (auto) VBG pH VBG pCO2 VBG pO2 VBG HCO3 VBG O2 Saturation VBG Base Excess Anion Gap Estim Creat Clear Calc Estimated GFR Random Glucose Lactic Acid Lactic Acid F/U @ 2Hr Lactic Acid F/U @ 4Hr 3.4 H* Calcium Magnesium Total Bilirubin Direct Bilirubin AST ALT Alkaline Phosphatase Troponin I High Sens 188.8 H* B-Natriuretic Peptide Total Protein Albumin Procalcitonin Urine Color Urine Appearance Urine pH Ur Specific [place] Urine Protein Urine Glucose (UA) Urine Ketones Urine Blood Urine Nitrite Ur Leukocyte Esterase Urine Opiates Screen Ur Buprenorphine Scrn Ur Oxycodone Screen Urine Methadone Screen Urine Fentanyl Screen Ur Barbiturates Screen Ur Phencyclidine Scrn Ur Amphetamines Screen U Benzodiazepines Scrn Urine Cocaine Screen U Marijuana (THC) Screen Imaging Radiologist's Impressions: Impressions Chest X-Ray 03/15/24 08:31 IMPRESSION: 1. Cardiomegaly. 2. New patchy density left midlung. 3. Improved right-sided infiltrate. Assessment and Plan (1) Acute exacerbation of CHF (congestive heart failure): Qualifiers: Heart failure type: unspecified Qualified Code(s): I50.9 - Heart failure, unspecified Status: Acute Plan 69-year-old man admitted with acute on chronic congestive heart failure Acute on chronic heart failure with reduced ejection fraction Last echocardiogram with EF of 35% with moderate global hypokinesis Start Lasix 40 mg IV b.i.d. Patient on Entresto and beta-carson at home but likely has not been taking, will hold Cardiology consultation> add spironolactone 12.5 mg daily, continue BID IV lasix, add entresto, will need o/p ischemic workup Strict intake and output Daily weights Monitor on telemetry CAP New patchy density to the left mid lung on chest x-ray Rocephin, azithromycin Supplemental oxygen as needed to keep oxygen saturation greater than 91% Cough suppressant as needed Asthma exacerbation Tachycardia and tachypnea likely secondary to shortness of breath, not sepsis Solu-Medrol Scheduled DuoNebs Elevated troponin Likely secondary to acute congestive heart failure Trend Lactic acidosis Likely secondary to asthma, steroid use not sepsis Crack cocaine use Addiction medicine consultation DVT prophylaxis with heparin Full code Patient required least 48 hours of inpatient admission for treatment of acute on chronic congestive heart failure requiring IV diuretics Quality Stroke Does the patient have a stroke diagnosis?: No VTE Prior VTE?: No VTE Risk Level:: Medical - moderate - high VTE Device Contraindication: Treatment Not Indicated VTE Drug Contraindication: N/A - Med Ordered
[2024-03-15 15:30] LABS: Troponin-I High Sensitivity 167.8 ng/L (<3.5-35.0)
--- NOTE | 2024-03-15 16:12 | PHA.MEDREC ---
Pharmacy Consult ? Medication Reconciliation Pharmacy has completed the medication reconciliation. Patient luigi jaime know name of the medications. Reports taking medications for his heart. Called [facility], who report carvedilol, entresto and asmanex have not been filled since 12/30/23. Left on home list as patient reported taking medications for his heart and he could not clarify if uses an inhaler. Shama Bear, BrianD
[2024-03-15] MEDS: Heparin Sodium,Porcine 5,000 UNIT/ML VIAL 5000 UNIT SUBCUT (18:09)
[2024-03-15] MEDS: Furosemide 40 MG/4 ML VIAL IVPUSH (18:09)
[2024-03-15] MEDS: 0.9 % Sodium Chloride Flush 3 ML SYRINGE IVFLUSH (18:10)
[2024-03-15] MEDS: methylPREDNISolone Sod Succ 40 MG/ML VIAL IVPUSH (21:21)
[2024-03-16] VITALS (13 sets, daily range): BP systolic 108–129; BP diastolic 55–84; PULSE 94–103; RESP 16–22; TEMP 36.8–37.4; O2SAT 92–96; BMI 29.8; BMI 29.7
[2024-03-16] MEDS: 0.9 % Sodium Chloride Flush 3 ML SYRINGE IVFLUSH ×3 (03:27→21:49)
[2024-03-16 06:45] LABS: MANUAL DIFF FLAG NO
[2024-03-16 06:53] LABS: Basophils Percent Auto 0.2 % (0-2); Hematocrit 35.7 % (42.0-52.0); Hemoglobin 11.8 g/dl (14.0-18.0); Imm Gran Abs Auto 0.01 X10*3/uL (0.00-0.03); Imm Gran Pct Auto 0.2 % (0.0-0.4); Lymphocytes Absolute Auto 0.5 X10*3/uL (1.2-4.9); Mean Corpuscular HGB Conc 33.1 g/dl (31.0-36.0); Mean Corpuscular Volume 102.9 fL (80.0-98.0); Mean Platelet Volume 12.1 fL (9.4-12.4); Monocytes Absolute Auto 0.3 X10*3/uL (0.1-1.2); Neutrophils Absolute Auto 4.4 x10*3/uL (2.0-8.3); Neutrophils Percent Auto 84.6 % (45-73); Red Blood Count 3.47 X10*6/uL (4.60-5.80); Red Cell Distribution Width 15.1 % (11.0-16.0); White Blood Count 5.2 X10*3/uL (4.8-10.8)
[2024-03-16 06:54] LABS: Platelet Count 79 X10*3/uL (160-400)
--- NOTE | 2024-03-16 07:00 | CA_ITS ---
Transthoracic Echocardiogram Patient (Last, First, Middle): Víctor Mi, Gender: Male Date of : 1955 Age: 69 Procedure Date: 03/16/2024 Procedure Type: Transthoracic Echocardiogram Location[place] [facility] [place] Height: 167.64 cm Weight: 83.01 kg BSA: 1.93 m2 Heart Rate: 100 bpm BP: 124 / 84 mmHg Senior Major Gifts Officer: NATALIE Read MD: Beckie Dumont NP Acute Care Nursing Assistant: Maycol Stewart MD Symptoms: chf Study Quality: Adequate ECG Rhythm: Sinus with extra beats Conclusions: - 1. Moderately reduced LV ejection fraction of 35-40% with restrictive filling pattern 2. Moderately reduced RV systolic function 3. Moderately dilated left atrium 4. [id number] mitral regurgitation and moderate tricuspid regurgitation 5. Moderately elevated right ventricular systolic pressure with significantly elevated right atrial pressures 6. No gross pericardial effusion Findings Left Ventricle Normal left ventricular cavity size. There is normal left ventricular wall thickness. The left ventricular systolic function is moderately decreased. The visually estimated ejection fraction is between 35-40%. Spectral Doppler is indicative of a restrictive filling pattern. E/E prime ratio is between 8 and 15 consistent with indeterminate filling pressures. Peak GLS is -6.8%, which is markedly reduced. Right Ventricle Mildly increased right ventricular cavity size. There is moderately decreased right ventricular systolic function. Atria The left atrium is moderately dilated. There is no evidence of interatrial shunt. The right atrium is mildly dilated. Aortic Valve Normal aortic valve structure and function. There is no aortic valve stenosis. There is no aortic valve regurgitation. Mitral Valve There is mild anterior and posterior mitral leaflet thickening. There is mild to moderate mitral valve regurgitation. There is no mitral valve stenosis. Pulmonic Valve The pulmonic valve is likely normal. There is trace pulmonic valve regurgitation. Tricuspid Valve Normal tricuspid valve structure. There is mild to moderate tricuspid valve regurgitation. Significantly elevated right atrial pressure. Moderate pulmonary hypertension is present. Great Vessels All visible segments of the aorta are normal in size. The pulmonary artery was not well visualized. There is no dilatation of the ascending aorta measuring 3.30 cm. Venous The inferior vena cava is moderately dilated and collapses less than 50% with inspiration. Pericardium/Pleural There is no evidence of pericardial effusion. Prior Study Comparison No significant change compared to prior study dated: 09/11/2023. Measurements 2D Linear Measurements IVSd: 1.04 0.6-0.9/0.6-1.0 cm LVIDd: 5.52 3.9-5.3/4.2-5.9 cm LVIDd Index: 2.86 2.4-3.2/2.2-3.1 cm/m2 LVIDs: 4.58 2.0-3.6 cm LVPWd: 1.03 0.7-1.1 cm LA Diam: 4.00 2.7-3.8/3.0-4.0 cm LAIDs Index: 2.07 1.5-2.3 cm/m2 LV Mass: 279.81 67-162/88-224 g LV Mass Index: 144.98 43-95/49-115 g/m2 LVOT Diam: 2.10 3.0+(-)1.3 cm 2D Systolic Function EF 4C: 42.90 >55% EF 2C: 31.00 >55% EF BiP: 38.00 >55% Mitral Valve MV Pk E: 0.94 MV Decel Time: 199.00 E'Lateral: 6.87 E'Medial: 6.53 E/E' Med: 14.40 E/E' Lat: 13.70 PHT: 58.00 MVA PHT: 3.79 Decel [place]: 4.72 MR Vol - PW Dopp: 15.54 MR VTI: 1.11 MR ERO: 14.00 MR Alias Luis: 0.39 MR RAD: 0.50 Aortic Valve AoV Pk Luis: 1.15 AoV Pk Grad: 5.00 YASMINE: 2.20 LVOT LVOT Pk Luis: 0.76 LVOT Mn Luis: 0.59 LVOT VTI: 0.14 LVOT Pk Grad: 2.00 LVOT Mn Grad: 2.00 LVOT Diam: 2.10 LVOT Area: 3.46 Diastolic Function MV Pk E: 0.94 E'Medial: 6.53 E/E' Med: 14.40 E' Laterial: 6.87 E/E' Lat: 13.70 Right Ventricle TAPSE (mm): 14.30 TVS' Luis: 9.36 Tricuspid Valve TR Pk Luis: 3.04 TR Pk Grad: 37.00 RA Press: 15.00 RVSP: 52.00 Great Vessels Aorta Sinus of Valsalva: 3.30 2.0-3.5 cm Ao Asc: 3.30 2.1-3.4 cm Pulmonary Valve PV Pk Luis: 0.79 Peak PV Grad: 2.00 Updated in Other Vendor System with Status of Final Maycol Stewart MD electronically signed on 03/16/2024 12:28:03 PM with status of Final
[2024-03-16 07:33] LABS: Alanine Aminotransferase 31 U/L (0-40); Albumin Level 3.3 g/dL (3.5-5.0); Alkaline Phosphatase 126 U/L (39-117); Anion Gap 13 (12-20); Aspartate Amino Transferase 52 U/L (5-37); Bilirubin Total 0.8 mg/dL (0.0-1.0); Blood Urea Nitrogen 32 mg/dL (9-16); Calcium 8.3 mg/dL (8.4-10.2); Carbon Dioxide 26 mmol/L (22-29); Chloride 107 mmol/L (96-108); Estimated Glomerular Filt Rate 54; Glucose Random 136 mg/dL (60-115); Potassium 3.9 mmol/L (3.3-5.1); Sodium 142 mmol/L (135-145); Total Protein 6.8 g/dL (6.5-8.0)
[2024-03-16] MEDS: Furosemide 40 MG/4 ML VIAL IVPUSH ×2 (08:37→18:34)
[2024-03-16] MEDS: methylPREDNISolone Sod Succ 40 MG/ML VIAL IVPUSH ×2 (08:37→21:43)
--- NOTE | 2024-03-16 09:06 | P.PNIM_ITS ---
Subjective Subjective Date of Service: 03/16/24 Review of Systems Follow up CHF, PNA, Asthma feeling better but still wheezing Physical Exam 2 Vital Signs: Vital Signs: Last Vital Signs Temp 98.3 F 03/16/24 07:52 Pulse 98 03/16/24 07:52 Resp 22 H 03/16/24 07:52 BP 113/82 03/16/24 08:37 Pulse Ox 96 03/16/24 07:52 O2 Del Method Nasal Cannula 03/16/24 07:52 O2 Flow Rate 2 03/16/24 07:52 FiO2 30 03/15/24 11:49 BMI result Body Mass Index 29.7 Appearing in no acute distress lung sounds exp[ wheezing heart regular rate rhythm, clear S1, S2 positive bowel sounds, abdomen is soft, nontender neuro patient is alert x3, no focal deficits Objective Data Active Medications Acetaminophen (Acetaminophen 325 Mg Tablet) 650 mg PO Q6H PRN PRN Reason: Pain, Mild (Pain Scale 1-3) Furosemide (Furosemide 40 Mg/4 Ml Vial) 40 mg IVPUSH BID@0900,1800 COUNT INCLUDES THE [facility]; Protocol Last Admin: 03/16/24 08:37 Dose: 40 mg Documented By: AAYUSH Heparin Sodium (Porcine) (Heparin Sodium,Porcine 5,000 Unit/Ml Vial) 5,000 unit SUBCUT Q12H COUNT INCLUDES THE [facility] Last Admin: 03/16/24 05:47 Dose: Not Given Documented By: SHEFALI Non-Admin Reason: blood tinged sputum, MD aware Ceftriaxone Sodium 1 gm/ (Sodium Chloride) 50 mls @ 100 mls/hr IV Q24H COUNT INCLUDES THE [facility] Azithromycin 500 mg/ Sodium (Chloride) 250 mls @ 125 mls/hr IV Q24H COUNT INCLUDES THE [facility] Methylprednisolone Sodium Succinate (Methylprednisolone Sod Succ 40 Mg/Ml Vial) 40 mg IVPUSH Q12H COUNT INCLUDES THE [facility] Last Admin: 03/16/24 08:37 Dose: 40 mg Documented By: AAYUSH Ondansetron HCl (Ondansetron Hcl 4 Mg/2 Ml Vial) 4 mg IVPUSH Q8H PRN PRN Reason: Nausea and Vomiting Sodium Chloride (0.9 % Sodium Chloride Flush 3 Ml Syringe) 3 ml IVFLUSH QSHIFT COUNT INCLUDES THE [facility] Last Admin: 03/16/24 08:37 Dose: 3 ml Documented By: AAYUSH Labs 03/16/24 06:03 03/16/24 06:03 Labs: Laboratory Results - last 24 hr 03/15/24 03/15/24 03/15/24 10:14 10:46 11:43 MCV MCH MCHC RDW Plt Count MPV Immature Gran % (Auto) Neut % (Auto) Lymph % (Auto) [place] % (Auto) Eos % (Auto) Baso % (Auto) Lymph # (Auto) [place] # (Auto) Eos # (Auto) Baso # (Auto) Abs Immat Gran (auto) Absolute Neuts (auto) Absolute Nucleated RBC Nucleated RBC % (auto) Anion Gap Estim Creat Clear Calc Estimated GFR Random Glucose Lactic Acid F/U @ 2Hr 3.8 H* Lactic Acid F/U @ 4Hr Calcium Total Bilirubin AST ALT Alkaline Phosphatase Troponin I High Sens 188.8 H* Total Protein Albumin Urine Color Yellow Urine Appearance Clear Urine pH 5.5 Ur Specific [place] 1.010 Urine Protein Negative Urine Glucose (UA) Negative Urine Ketones Negative Urine Blood Negative Urine Nitrite Negative Ur Leukocyte Esterase Negative Urine Opiates Screen Not Detected Ur Buprenorphine Scrn Not Detected Ur Oxycodone Screen Not Detected Urine Methadone Screen Not Detected Urine Fentanyl Screen Not Detected Ur Barbiturates Screen Not Detected Ur Phencyclidine Scrn Not Detected Ur Amphetamines Screen Not Detected U Benzodiazepines Scrn Not Detected Urine Cocaine Screen POSITIVE H U Marijuana (THC) Screen Not Detected 03/15/24 03/15/24 03/16/24 13:32 14:50 06:03 MCV 102.9 H MCH 34.0 H MCHC 33.1 RDW 15.1 Plt Count 79 L MPV 12.1 Immature Gran % (Auto) 0.2 Neut % (Auto) 84.6 H Lymph % (Auto) 9.0 L [place] % (Auto) 6.0 Eos % (Auto) 0.0 Baso % (Auto) 0.2 Lymph # (Auto) 0.5 L [place] # (Auto) 0.3 Eos # (Auto) 0.0 Baso # (Auto) 0.0 Abs Immat Gran (auto) 0.01 Absolute Neuts (auto) 4.4 Absolute Nucleated RBC 0.000 Nucleated RBC % (auto) 0.0 Anion Gap 13 Estim Creat Clear Calc 55.0 Estimated GFR 54 Random Glucose 136 H Lactic Acid F/U @ 2Hr Lactic Acid F/U @ 4Hr 3.4 H* Calcium 8.3 L Total Bilirubin 0.8 AST 52 H ALT 31 Alkaline Phosphatase 126 H Troponin I High Sens 167.8 H* Total Protein 6.8 Albumin 3.3 L Urine Color Urine Appearance Urine pH Ur Specific [place] Urine Protein Urine Glucose (UA) Urine Ketones Urine Blood Urine Nitrite Ur Leukocyte Esterase Urine Opiates Screen Ur Buprenorphine Scrn Ur Oxycodone Screen Urine Methadone Screen Urine Fentanyl Screen Ur Barbiturates Screen Ur Phencyclidine Scrn Ur Amphetamines Screen U Benzodiazepines Scrn Urine Cocaine Screen U Marijuana (THC) Screen Assessment and Plan (1) Acute exacerbation of CHF (congestive heart failure): Status: Acute (2) Asthma exacerbation: Status: Acute Plan 69-year-old man admitted with acute on chronic congestive heart failure Acute on chronic heart failure with reduced ejection fraction Last echocardiogram with EF of 35% with moderate global hypokinesis Lasix 40 mg IV b.i.d. Patient on Entresto and beta-carson at home but likely has not been taking, will hold Cardiology consultation Strict intake and output Daily weights> weight down Monitor on telemetry CAP patchy density to the left mid lung on chest x-ray Rocephin, azithromycin Supplemental oxygen as needed to keep oxygen saturation greater than 91% Cough suppressant as needed Asthma exacerbation Solu-Medrol Scheduled DuoNebs Elevated troponin Likely secondary to acute congestive heart failure no acute ischemic changes on EKG Lactic acidosis Likely secondary to asthma, steroid use not sepsis Crack cocaine use Addiction medicine consultation DVT prophylaxis with heparin Attending Dr. Blount Full code continue inpatient admission for treatment of acute on chronic congestive heart failure requiring IV diuretics Quality Stroke Does the patient have a stroke diagnosis?: No VTE Prior VTE?: No VTE Risk Level:: Medical - moderate - high VTE Device Contraindication: Treatment Not Indicated VTE Drug Contraindication: N/A - Med Ordered
--- NOTE | 2024-03-16 10:02 | PM.CNCAR ---
History of Present Illness History of Present Illness Date of Service: 03/16/24 Requesting physician: Beckie Dumont Consult reason: congestive heart failure Chief complaint: DIFF [id number] ON DUONEB PER EMS Narrative: I was consulted to see Víctor in cardiology consultation today for decompensated congestive heart failure as well as asthma exacerbation. He is a 69-year-old male with prior history of decompensated congestive heart failure in August last year with LVEF of 35% with regional wall motion abnormality. No follow-up in Cardiology Clinic since then. Patient says he came to the hospital with progressively worsening shortness of breath over the last 1-2 months with not able to walk even very short distances with progressive leg swelling and not able to breathe in resting position. He came to the hospital and had difficulty breathing on 100% as well as DuoNeb therapy. Advise noted to have significant wheezing bilaterally as well as significant fluid overload with BNP of about 1000. He has been admitted for diuresis and and bronchodilators. He continues to remain short of breath. He is a poor historian and does not remember is medications although as per the chart he should be on carvedilol, furosemide as well as Entresto from the heart failure perspective. He has not had any ischemic workup. Echocardiogram last August showed LVEF of 35% with basal inferior wall being akinetic with [id number] mitral regurgitation with moderately dilated left atrium. EKG done yesterday shows poor quality EKG with possible sinus rhythm with left axis deviation Review of Systems Constitutional: Constitutional: Reports no additional constitutional complaints Cardiovascular: Cardiovascular: Reports Abdominal Distension, Denies chest pain, Reports leg edema, Denies lightheadedness, Denies Loss of Consciousness, Denies palpitations, Reports dyspnea on exertion and Reports orthopnea Respiratory: Respiratory: Reports dyspnea on exertion Gastrointestinal: Gastrointestinal: Reports no additional gastrointestinal complaints Musculoskeletal: Musculoskeletal: Reports no additional musculoskeletal complaints Integumentary/Breasts: Skin/Breast: Reports system reviewed and no additional complaints, except as docu Neurologic: Reports system reviewed and no additional complaints, except as documented Psychiatric: Psychiatric: Reports no additional psychiatric complaints Endocrine: Endocrine: Denies palpitations Hematologic/Lymphatic: Hematologic/Lymphatic: Reports no additional hematologic/lymphatic complaints Allergic/Immunologic: Allergic/Immunologic: Reports no additional allergic/immunologic complaints PMFSH Past Medical History Medical History HFrEF (heart failure with reduced ejection fraction) Hypertension Cocaine use disorder Cardiomyopathy Asthma Family History Family History Mother Diabetes Hypertension Arthritis Asthma Father Asthma Surgical History Surgical History Hx of endoscopic retrograde cholangiopancreatography History of cholecystectomy Social History Social History Household Members: Children Housing: Other Housing Other:: living in [facility] with son Do you presently have visiting nurse or other home services: Yes (nurse visits every 6mon, interested in more frequent aid visits) Alcohol intake: former Patient Tobacco Use Status: Former Tobacco user Quit Date: 2016 Tobacco use type: Cigarette Cigarette Packs Per Day: 2 Cigarettes Per Day: 40.0 Years Smoked: 51 Smoked in Last 30 Days: No e-Cigarette/Vaping Use: Former Use Patient Interested in Nicotine Replacement: No Patient Given Instructions on How to Stop Smoking: No Second Hand Smoke Exposure: Yes Use of substances other than those prescribed or required for medical reasons: Yes Substance Use Type: Crack/Cocaine Substance Use Frequency: Chronic Longstanding Last Used Substance: Weeks (ago) Last Used Substance Other:: smoked crack cocaine 1 time last week after 30 years clean Currently Displaying Signs/Symptoms of Drug Intoxication Withdrawal: No Other Past Substance Use Problem:: used to do cocaine daily states he quit in 1987 Any prior treatment program specific to substance use: No Have you been hit, kicked, punched, or otherwise hurt by someone within the past year? If so, by whom?: No Do you feel safe in your current relationship?: No Current Relationship Is there a partner from a previous relationship who is making you feel unsafe now?: No Are you made to feel afraid or neglected: No Advance Directives: No Advance Directives Information Provided: Yes Do you have a plan to hurt others: No Plan Recently lost weight without trying: No Eating poorly because of decreased appetite: No Nutrition Risks: No Nutritional Risk Poor oral hygiene: No service: No Meds Allergies Allergy/AdvReac Type Severity Reaction Status Date / Time aspirin [ASPIRIN] Allergy Unknown Rash Verified 03/15/24 07:22 egg [EGGS] Allergy Unknown UNKNOWN Verified 03/15/24 07:22 Influenza Virus Vaccines Allergy Unknown UNKNOWN Verified 03/15/24 07:22 [INFLUENZA VIRUS VACCINES] lactose [LACTOSE] Allergy Unknown GI UPSET Verified 03/15/24 07:22 Active Medications: Current Medications Acetaminophen (Acetaminophen 325 Mg Tablet) 650 mg PO Q6H PRN PRN Reason: Pain, Mild (Pain Scale 1-3) Albuterol Sulfate (Albuterol Sulfate (0.083%) 2.5 Mg/3 Ml Vial.Neb) 2.5 mg INHALE RQ4H WHILE AWAKE [facility] Furosemide (Furosemide 40 Mg/4 Ml Vial) 40 mg IVPUSH BID@0900,1800 [facility]; Protocol Last Admin: 03/16/24 08:37 Dose: 40 mg Heparin Sodium (Porcine) (Heparin Sodium,Porcine 5,000 Unit/Ml Vial) 5,000 unit SUBCUT Q12H [facility] Last Admin: 03/16/24 05:47 Dose: Not Given Ceftriaxone Sodium 1 gm/ (Sodium Chloride) 50 mls @ 100 mls/hr IV Q24H [facility] Azithromycin 500 mg/ Sodium (Chloride) 250 mls @ 125 mls/hr IV Q24H [facility] Methylprednisolone Sodium Succinate (Methylprednisolone Sod Succ 40 Mg/Ml Vial) 40 mg IVPUSH Q12H [facility] Last Admin: 03/16/24 08:37 Dose: 40 mg Ondansetron HCl (Ondansetron Hcl 4 Mg/2 Ml Vial) 4 mg IVPUSH Q8H PRN PRN Reason: Nausea and Vomiting Sodium Chloride (0.9 % Sodium Chloride Flush 3 Ml Syringe) 3 ml IVFLUSH QSHIFT [facility] Last Admin: 03/16/24 08:37 Dose: 3 ml Home Medications ?Medication ?Instructions ?Recorded ?Confirmed ?Last Taken ?Type albuterol sulfate 90 mcg/actuation 2 puff inhalation Q4H PRN Wheezing 03/15/22 03/15/24 Unknown History aerosol inhaler (Ventolin HFA) hydrocortisone 2.5 % topical cream 1 appl topical QD-BID 03/15/24 03/15/24 Unknown History mometasone 100 mcg/actuation HFA 2 puff inhalation BID 03/15/24 03/15/24 Unknown History aerosol inhaler (Asmanex HFA) sacubitril 49 mg-valsartan 51 mg 1 tab PO BID 03/15/24 03/15/24 Unknown History tablet (Entresto) Physical Exam Vital Signs: Vital Signs: Last Vital Signs Temp 98.3 F 03/16/24 07:52 Pulse 98 03/16/24 07:52 Resp 22 H 03/16/24 07:52 BP 113/82 03/16/24 08:37 Pulse Ox 96 03/16/24 07:52 O2 Del Method Nasal Cannula 03/16/24 07:52 O2 Flow Rate 2 03/16/24 07:52 FiO2 30 03/15/24 11:49 BMI result Body Mass Index 29.7 Const: General: cooperative, comfortable, alert, awake and in distress moderate and respiratory Nutritional Appearance: overweight Orientation/consciousness: patient oriented x3 Limitations: no limitations HEENT: Head: Yes normocephalic and Yes atraumatic Neck: Neck: Yes trachea midline, Yes supple and Yes JVD Resp: Effort & Inspection: normal respiratory effort Auscultation: crackles (coarse) and wheezes scattered wheezes Cardio: Jugular venous distension: JVD Rate: regular rate Rhythm: regular rhythm Heart sounds: S1 normal heart sound present, S2 normal heart sound present, no click, no gallops, no murmurs and no rubs GI: Auscultation: normal bowel sounds Skin: General skin exam: no rashes or lesions noted Neuro: General: patient oriented x3 and no focal motor deficits Objective Labs and Meds 03/16/24 06:03 03/16/24 06:03 Lab results: Laboratory Results - last 24 hr 03/15/24 03/15/24 03/15/24 10:14 10:46 11:43 WBC RBC Hgb Hct MCV MCH MCHC RDW Plt Count MPV Immature Gran % (Auto) Neut % (Auto) Lymph % (Auto) [place] % (Auto) Eos % (Auto) Baso % (Auto) Lymph # (Auto) [place] # (Auto) Eos # (Auto) Baso # (Auto) Abs Immat Gran (auto) Absolute Neuts (auto) Absolute Nucleated RBC Nucleated RBC % (auto) Sodium Potassium Chloride Carbon Dioxide Anion Gap BUN Creatinine Estim Creat Clear Calc Estimated GFR Random Glucose Lactic Acid F/U @ 2Hr 3.8 H* Lactic Acid F/U @ 4Hr Calcium Total Bilirubin AST ALT Alkaline Phosphatase Troponin I High Sens 188.8 H* Total Protein Albumin Urine Color Yellow Urine Appearance Clear Urine pH 5.5 Ur Specific [place] 1.010 Urine Protein Negative Urine Glucose (UA) Negative Urine Ketones Negative Urine Blood Negative Urine Nitrite Negative Ur Leukocyte Esterase Negative Urine Opiates Screen Not Detected Ur Buprenorphine Scrn Not Detected Ur Oxycodone Screen Not Detected Urine Methadone Screen Not Detected Urine Fentanyl Screen Not Detected Ur Barbiturates Screen Not Detected Ur Phencyclidine Scrn Not Detected Ur Amphetamines Screen Not Detected U Benzodiazepines Scrn Not Detected Urine Cocaine Screen POSITIVE H U Marijuana (THC) Screen Not Detected 03/15/24 03/15/24 03/16/24 13:32 14:50 06:03 WBC 5.2 RBC 3.47 L Hgb 11.8 L Hct 35.7 L MCV 102.9 H MCH 34.0 H MCHC 33.1 RDW 15.1 Plt Count 79 L MPV 12.1 Immature Gran % (Auto) 0.2 Neut % (Auto) 84.6 H Lymph % (Auto) 9.0 L [place] % (Auto) 6.0 Eos % (Auto) 0.0 Baso % (Auto) 0.2 Lymph # (Auto) 0.5 L [place] # (Auto) 0.3 Eos # (Auto) 0.0 Baso # (Auto) 0.0 Abs Immat Gran (auto) 0.01 Absolute Neuts (auto) 4.4 Absolute Nucleated RBC 0.000 Nucleated RBC % (auto) 0.0 Sodium 142 Potassium 3.9 Chloride 107 Carbon Dioxide 26 Anion Gap 13 BUN 32 H Creatinine 1.32 Estim Creat Clear Calc 55.0 Estimated GFR 54 Random Glucose 136 H Lactic Acid F/U @ 2Hr Lactic Acid F/U @ 4Hr 3.4 H* Calcium 8.3 L Total Bilirubin 0.8 AST 52 H ALT 31 Alkaline Phosphatase 126 H Troponin I High Sens 167.8 H* Total Protein 6.8 Albumin 3.3 L Urine Color Urine Appearance Urine pH Ur Specific [place] Urine Protein Urine Glucose (UA) Urine Ketones Urine Blood Urine Nitrite Ur Leukocyte Esterase Urine Opiates Screen Ur Buprenorphine Scrn Ur Oxycodone Screen Urine Methadone Screen Urine Fentanyl Screen Ur Barbiturates Screen Ur Phencyclidine Scrn Ur Amphetamines Screen U Benzodiazepines Scrn Urine Cocaine Screen U Marijuana (THC) Screen Assessment and Plan (1) Acute exacerbation of CHF (congestive heart failure): Qualifiers: Heart failure type: unspecified Qualified Code(s): I50.9 - Heart failure, unspecified Status: Acute Acute decompensated congestive heart failure with patient still appears to be short of breath and fluid overloaded. Continue IV diuresis with Lasix. Agree with 40 mg b.i.d.. Strict intake and output chart needs to be pursued. Continue to treat bronchospastic airway disease as well. Add Entresto to his regimen. Hold off on carvedilol therapy for now. We will gradually maximize Entresto therapy as tolerated. Add Aldactone 12.5 mg to his regimen as well. Continue to follow renal function, electrolytes as well as BNP. Will require ischemic workup once patient is discharged as there is likelihood of underlying obstructive coronary artery disease given his regional wall motion abnormality. Management of heart failure was discussed with the patient, not sure if he can not comprehend everything. CHF education to be provided. Will follow with you Procedures Date of Service Date of Service: 03/16/24
--- NOTE | 2024-03-16 10:30 | P.CDIM_ITS ---
PROVIDER RESPONSE TEXT: To clarify, the appropriate diagnosis supported by the clinical indicators: Acute QUERY TEXT: PHYSICIAN'S DOCUMENTATION REQUEST Date of Query: 03/16/2024 07:06 AM EDT Patient Name: Víctor Mi Admit Date: 03/15/2024 Dear Beckie Dumont, A review of the medical record indicates additional documentation may be needed. Please review below and update the documentation accordingly. Clinical Indicators: H&P: Plan - Lactic acidosis Likely secondary to asthma, steroid use not sepsis Clarify which of the following accurately represents the acuity of the lactic acidosis: Acute Acute on chronic Other (explain) Clinically unable to determine (explain) Thank you, Pratibha Louis, CCS, CDIS Use of terms such as suspected, likely, concern for, or probable (associated with a specific diagnosi s that is being evaluated, monitored, or treated as if it exists) are acceptable and can be coded in the inpatient se tting, when documented at the time of discharge. Please use your independent medical judgment in providing your response. THIS QUERY IS PART OF THE PERMANENT MEDICAL RECORD
--- NOTE | 2024-03-16 10:30 | P.CDIM_ITS ---
PROVIDER RESPONSE TEXT: To clarify, the appropriate diagnosis supported by the clinical indicators: Mild intermittent QUERY TEXT: PHYSICIAN'S DOCUMENTATION REQUEST Date of Query: 03/16/2024 07:02 AM EDT Patient Name: Víctor Mi Admit Date: 03/15/2024 Dear Beckie Dumont, A review of the medical record indicates additional documentation may be needed. Please review below and update the documentation accordingly. Clinical indicators: H&P: Plan - Asthma exacerbation Tachycardia and tachypnea likely secondary to shortness of breath Solu-Medrol Scheduled Duonebs Based on the above, please clarify in the Progress Notes further specificity regarding the type and a cuity of the asthma: Mild intermittent Mild persistent Moderate persistent Severe persistent Asthma with underlying COPD and indicate if with acute lower respiratory infection Please specify if with or without acute exacerbation or status asthmaticus Other (explain) Clinically unable to determine (explain) Thank you, Pratibha Louis, CCS, CDIS Use of terms such as suspected, likely, concern for, or probable (associated with a specific diagnosi s that is being evaluated, monitored, or treated as if it exists) are acceptable and can be coded in the inpatient se tting, when documented at the time of discharge. Please use your independent medical judgment in providing your response. THIS QUERY IS PART OF THE PERMANENT MEDICAL RECORD
[2024-03-16] MEDS: Albuterol Sulfate (0.083%) 2.5 MG/3 ML VIAL.NEB INHALE ×3 (11:05→20:25)
[2024-03-16] MEDS: cefTRIAXone sodium 1 GM in 0.9 % Sodium Chloride 50 ML IV (11:32)
[2024-03-16] MEDS: Azithromycin 500 MG in 0.9 % Sodium Chloride 250 ML 125 MG IV (12:46)
--- NOTE | 2024-03-16 14:10 | MHC.CM.PN ---
IMM 03/16/24 Patient lives with son in new apartment. He uses crutches for unsteady gait. A referral has been sent to [facility] for a EKG/ECG TECHNICIAN. [facility] cares was given to the patient. He was recently homeless. DP home with family support via shuttle
--- NOTE | 2024-03-16 14:27 | P.CDIM_ITS ---
PROVIDER RESPONSE TEXT: To clarify, the appropriate diagnosis supported by the clinical indicators: Acute respiratory failure QUERY TEXT: PHYSICIAN'S DOCUMENTATION REQUEST Date of Query: 03/16/2024 11:42 AM EDT Patient Name: Víctor Mi Admit Date: 03/15/2024 Dear Beckie Dumont, A review of the medical record indicates additional documentation may be needed. Please review below and update the documentation accordingly. Clinical Indicators: ED: Accessory muscle use, shortness of breath, diffuse inspiratory and expiratory wheezes, scattered rhonchi throughout, pain with inspiration. History of smoking, Asthma, moderate respiratory distress. CPAP for respiratory support to 2 L NC with RR 30 Given his resp failure will cover with an empiric dose of azithromycin and rocephin. Lactic acid is elevated due to respiratory failure and significant bronchodilator administration. ABG's performed If possible, please further clarify any specifics of the documented respiratory failure: Respiratory failure with hypoxia Please specify acuity as Acute, Chronic, or Acute on chronic if known Respiratory failure with hypercapnia Please specify acuity as Acute, Chronic, or Acute on chronic if known Respiratory failure with hypoxia and hypercapnia Please specify acuity as Acute, Chronic, or Acute on chronic if known Acute respiratory failure Other specific Other (explain) Clinically unable to determine (explain) Thank you, Pratibha Louis, CCS, CDIS Use of terms such as suspected, likely, concern for, or probable (associated with a specific diagnosi s that is being evaluated, monitored, or treated as if it exists) are acceptable and can be coded in the inpatient se tting, when documented at the time of discharge. Please use your independent medical judgment in providing your response. THIS QUERY IS PART OF THE PERMANENT MEDICAL RECORD
[2024-03-16] MEDS: Spironolactone 25 MG TABLET 12.5 MG PO (16:10)
[2024-03-16] MEDS: Heparin Sodium,Porcine 5,000 UNIT/ML VIAL 5000 UNIT SUBCUT (18:22)
[2024-03-16] MEDS: Sacubitril/Valsartan 49/51 1 TAB TABLET PO (21:49)
[2024-03-16] MEDS: Acetaminophen 325 MG TABLET 650 MG PO (21:58)
[2024-03-17] VITALS (13 sets, daily range): BP systolic 83–150; BP diastolic 54–80; PULSE 71–98; RESP 16–18; TEMP 36.4–37.3; O2SAT 92–99; BMI 31.5
[2024-03-17] MEDS: Albuterol Sulfate (0.083%) 2.5 MG/3 ML VIAL.NEB INHALE ×4 (08:18→20:00)
[2024-03-17] MEDS: Heparin Sodium,Porcine 5,000 UNIT/ML VIAL 5000 UNIT SUBCUT ×2 (08:23→17:54)
[2024-03-17] MEDS: Spironolactone 25 MG TABLET 12.5 MG PO (08:24)
[2024-03-17] MEDS: methylPREDNISolone Sod Succ 40 MG/ML VIAL IVPUSH ×2 (08:24→19:51)
[2024-03-17] MEDS: Furosemide 40 MG/4 ML VIAL IVPUSH ×2 (08:24→17:54)
[2024-03-17] MEDS: Sacubitril/Valsartan 49/51 1 TAB TABLET PO ×2 (08:24→19:54)
[2024-03-17] MEDS: 0.9 % Sodium Chloride Flush 3 ML SYRINGE IVFLUSH (08:30)
--- NOTE | 2024-03-17 09:37 | PM.PNCARD ---
Subjective Subjective Date of Service: 03/17/24 Principal diagnosis: Acute CHF Interval history: Patient still short of breath. Says he has been coughing up phlegm. Continues to be wheezing, says better with bronchodilators. He has been diuresing. Total negative balance of about 4500 mL. Blood pressure is stable. Noted nonsustained VT multiple runs. Review of Systems Constitutional: Reports no additional constitutional complaints Cardiovascular: Reports leg edema and Reports dyspnea Respiratory: Reports excessive phlegm production, Reports dyspnea and Reports wheezing Gastrointestinal: Reports no additional gastrointestinal complaints Musculoskeletal: Reports no additional musculoskeletal complaints Reports system reviewed and no additional complaints, except as documented Psychiatric: Reports no additional psychiatric complaints Allergic/Immunologic: Reports wheezing Physical Exam Vital Signs: Last Vital Signs Temp 97.6 F 03/17/24 07:43 Pulse 90 03/17/24 08:17 Resp 18 03/17/24 08:17 BP 127/73 03/17/24 08:24 Pulse Ox 96 03/17/24 07:43 O2 Del Method Room Air 03/17/24 07:43 O2 Flow Rate 2 03/16/24 23:50 FiO2 30 03/15/24 11:49 BMI result Body Mass Index 31.5 Const General: cooperative, alert, awake and in distress mild and respiratory Nutritional Appearance: overweight Orientation/consciousness: patient oriented x3 Neck Neck: Yes trachea midline, Yes supple and Yes JVD Resp Auscultation: crackles (coarse), wheezes scattered wheezes and diminished lung sounds Cardio Jugular venous distension: JVD Palpation: abnormal PMI displaced PMI Rate: regular rate Rhythm: regular rhythm Heart sounds: S1 normal heart sound present, S2 normal heart sound present, no click, no gallops and no murmurs GI Auscultation: normal bowel sounds Neuro General: patient oriented x3 and no focal motor deficits Extrem General: No clubbing, No cyanosis and Yes edema Objective Labs and Meds 03/16/24 06:03 03/16/24 06:03 Progress Note: A&P Assessment and plan (1) Acute exacerbation of CHF (congestive heart failure): Status: Acute Assessment and Plan: Acute systolic heart failure with LVEF of 35-40% with likelihood of underlying coronary artery disease. He also has significant bronchospastic airway disease. This is all improving. Continue IV diuresis with Lasix. Continue Entresto. Spironolactone was added yesterday. Continue monitor blood pressure and renal function closely. Strict intake and output chart needs to be pursued. Noted nonsustained VT which is not unexpected with systolic dysfunction. Add carvedilol 3.125 mg b.i.d.. If he continues to have multiple episodes may need to consider external vest defibrillator atrial and will require further ischemic workup but this will be pursued as outpatient. Continue supportive respiratory treatment with bronchodilators. Will continue to follow with you Time Spent With Patient Time: Total time managing care of this patient today ____ minutes. Progress Note: Quality Stroke Does the patient have a stroke diagnosis?: No Procedures Date of Service Date of Service: 03/17/24
--- NOTE | 2024-03-17 09:49 | HO.PM.IMPN ---
Subjective Subjective Date of Service: 03/17/24 Review of Systems Follow up CHF, PNA, Asthma feeling better but still wheezing Physical Exam Vital Signs: Vital Signs: Last Vital Signs Temp 97.6 F 03/17/24 07:43 Pulse 90 03/17/24 08:17 Resp 18 03/17/24 08:17 BP 127/73 03/17/24 08:24 Pulse Ox 96 03/17/24 07:43 O2 Del Method Room Air 03/17/24 07:43 O2 Flow Rate 2 03/16/24 23:50 FiO2 30 03/15/24 11:49 BMI result Body Mass Index 31.5 Appearing in no acute distress lung sounds exp wheezing heart regular rate rhythm, clear S1, S2 positive bowel sounds, abdomen is soft, nontender neuro patient is alert x3, no focal deficits Objective Data Active Medications Acetaminophen (Acetaminophen 325 Mg Tablet) 650 mg PO Q6H PRN PRN Reason: Pain, Mild (Pain Scale 1-3) Last Admin: 03/16/24 21:58 Dose: 650 mg Documented By: VICKY Albuterol Sulfate (Albuterol Sulfate (0.083%) 2.5 Mg/3 Ml Vial.Neb) 2.5 mg INHALE RQ4H WHILE AWAKE [facility] Last Admin: 03/17/24 08:18 Dose: 2.5 mg Documented By: PEGGY Furosemide (Furosemide 40 Mg/4 Ml Vial) 40 mg IVPUSH BID@0900,1800 [facility]; Protocol Last Admin: 03/17/24 08:24 Dose: 40 mg Documented By: AAYUSH Heparin Sodium (Porcine) (Heparin Sodium,Porcine 5,000 Unit/Ml Vial) 5,000 unit SUBCUT Q12H [facility] Last Admin: 03/17/24 08:23 Dose: 5,000 unit Documented By: AAYUSH Ceftriaxone Sodium 1 gm/ (Sodium Chloride) 50 mls @ 100 mls/hr IV Q24H [facility] Last Infusion: 03/16/24 12:51 Dose: Infused Documented By: AAYUSH Azithromycin 500 mg/ Sodium (Chloride) 250 mls @ 125 mls/hr IV Q24H [facility] Last Infusion: 03/16/24 18:50 Dose: Infused Documented By: AAYUSH Methylprednisolone Sodium Succinate (Methylprednisolone Sod Succ 40 Mg/Ml Vial) 40 mg IVPUSH Q12H [facility] Last Admin: 03/17/24 08:24 Dose: 40 mg Documented By: AAYUSH Ondansetron HCl (Ondansetron Hcl 4 Mg/2 Ml Vial) 4 mg IVPUSH Q8H PRN PRN Reason: Nausea and Vomiting Sacubitril/Valsartan (Sacubitril/Valsartan 49/51 1 Tab Tablet) 1 tab PO BID [facility]; Protocol Last Admin: 03/17/24 08:24 Dose: 1 tab Documented By: AAYUSH Sodium Chloride (0.9 % Sodium Chloride Flush 3 Ml Syringe) 3 ml IVFLUSH QSHIFT [facility] Last Admin: 03/17/24 08:30 Dose: 3 ml Documented By: AAYUSH Spironolactone (Spironolactone 25 Mg Tablet) 12.5 mg PO DAILY [facility]; Protocol Last Admin: 03/17/24 08:24 Dose: 12.5 mg Documented By: AAYUSH Labs 03/16/24 06:03 03/16/24 06:03 Microbiology Microbiology Results: Microbiology 03/15/24 08:25 Blood Culture - Preliminary Blood - Venous No growth after 24 hours. 03/15/24 07:59 Blood Culture - Preliminary Blood - Venous No growth after 24 hours. Assessment and Plan (1) Acute exacerbation of CHF (congestive heart failure): Status: Acute (2) Asthma exacerbation: Status: Acute Plan 69-year-old man admitted with acute on chronic congestive heart failure Acute on chronic heart failure with reduced ejection fraction Last echocardiogram with EF of 35% with moderate global hypokinesis Lasix 40 mg IV b.i.d. Patient on Entresto and beta-carson at home but likely has not been taking, will hold Cardiology consultation> start spironolactone 12.5 mg daily, re-start coreg and entresto Strict intake and output Daily weights> weight down Monitor on telemetry Vtach several episodes, nonstustained longest run 14 beats start coreg 3.125mg BID as per cardiology CAP patchy density to the left mid lung on chest x-ray Rocephin, azithromycin Supplemental oxygen as needed to keep oxygen saturation greater than 91% Cough suppressant as needed Asthma exacerbation Solu-Medrol Scheduled DuoNebs Elevated troponin Likely secondary to acute congestive heart failure no acute ischemic changes on EKG Lactic acidosis Likely secondary to asthma, steroid use not sepsis Crack cocaine use Addiction medicine consultation DVT prophylaxis with heparin Attending Dr. Blount Full code continue inpatient admission for treatment of acute on chronic congestive heart failure requiring IV diuretics Quality Stroke Does the patient have a stroke diagnosis?: No VTE Prior VTE?: No VTE Risk Level:: Medical - moderate - high VTE Device Contraindication: Treatment Not Indicated VTE Drug Contraindication: N/A - Med Ordered
[2024-03-17] MEDS: carvediloL 3.125 MG TABLET PO ×2 (10:16→19:53)
[2024-03-17] MEDS: cefTRIAXone sodium 1 GM in 0.9 % Sodium Chloride 50 ML IV (10:16)
--- NOTE | 2024-03-17 11:01 | MHC.CM.PN ---
Per MD rounds no discharge today. Patient continues with wheezing and Rales. DP Home with new [facility] referral. Patient will transport home via [facility].
--- NOTE | 2024-03-17 11:27 | ECG_ITS ---
Test Reason : rhythm change Blood Pressure : / mmHG Vent. Rate : 096 BPM Atrial Rate : 096 BPM P-R Int : 148 ms QRS Dur : 096 ms QT Int : 398 ms P-R-T Axes : 041 -49 012 degrees QTc Int : 502 ms Sinus rhythm with Premature supraventricular complexes and Premature ventricular complexes or Fusion complexes Left axis deviation Cannot rule out Anterior infarct (cited on or before 12-DEC-2023) Prolonged QT Abnormal ECG When compared with ECG of 15-MAR-2024 08:58, No significant changes seen Referred By: Maycol Stewart Electronically Signed By:MAYCOL STEWART MD
[2024-03-17] MEDS: Amiodarone HCL 900 MG in 0.9 % Sodium Chloride 500 ML 34.53 MG IVCONT (12:04)
[2024-03-17] MEDS: Azithromycin 500 MG in 0.9 % Sodium Chloride 250 ML 125 MG IV (14:29)
--- NOTE | 2024-03-17 15:46 | HO.WOUND ---
Wound Consult: Initial 69yr old Male? admitted to [facility] [place] on 03/15 - See progress notes and H&P for detailed history.? Wound consult placed for Left Index Finger.? Patient agreeable to assessment and photo documentation.? Patient reports she has had this wound for several months he reports the wound originated as a burn from cooking soup. He reports she has not saught treatment for the wound. Left Index Finger Etiology: ?Chronic nonhealing wound?Present on Admission Measurements: see charting for detailed measurements Wound Bed: dry thickened lifting tissue - difficult to assess wound bed as unable to visualize at this time. Drainage / Odor: None Edges: ? irregular Hailey wound: ?Intact tissue with contracted fingers due to arthritis - No Induration, Fluctuance or Warmth noted Pain: denies Goals of Treatment: Hydrocolloid to allow for autolytic debridement and protect from outside environment ? Bilateral heels were assessed for redness - remained intact and blanchable preventative foams applied at bedside along with heels elevated off of bed surface. Bilateral lower legs assess for venous dermatitis - intact dry thickened tissue, firm swelling noted. Both legs are dry and will benefit from moisturizing. Sacrum and coccyx assessed for redness intact and blanchable - there is some hyperpigmentation noted indicative of chronic moisture at times. Patient reports baseline incontinence. Sacral foam to be applied for prevention. Recommendations: 1. Turn and Reposition every 2 hours and as needed for patient comfort.? Use pillows or wedges to support off loading positions. 2. Off Load all bony prominences with use of pillows and heel boots if needed.? Apply Preventative foams where needed. ? 3. Monitor for incontinence and moisture control, use barrier creams when needed for prevention and treatment. 4. Provide adequate and supplemental nutrition.? 5. Order low air loss mattress. 6. When applicable maintain blood glucose levels per Providers order. 7. Left Index Finger - Cleanse with Ns wash, pat dry. Apply skin prep, allow to dry. Cover with Hydrocolloid dressing, change every 3 days. Re-consult wound care Nurse for wound deterioration or wound changes.
--- NOTE | 2024-03-17 20:43 | PC.NURSE ---
Was notified at 2015 by [facility] that pt had a 5 beat run of Vtach. pt is asymptomatic, calm, and on an Amiodarone drip. Notified , will monitor closely
--- NOTE | 2024-03-17 23:40 | PC.NURSE ---
Patient noted to be hypotensive at 2320, rechecked manually and confirmed x2; see vital sign documentation for further details. Amiodarone drip paused at 2330. Dr. Deng aware, further orders to be given if continues hypotensive s/p pause of amiodarone drip.
[2024-03-18] VITALS (19 sets, daily range): BP systolic 76–101; BP diastolic 50–67; PULSE 74–89; RESP 18; TEMP 36.1–36.7; O2SAT 94–98; BMI 30.6
[2024-03-18] MEDS: 0.9 % Sodium Chloride Flush 3 ML SYRINGE IVFLUSH ×3 (00:01→18:06)
[2024-03-18] MEDS: 0.9 % Sodium Chloride 250 ML 999 ML IV (00:24)
--- NOTE | 2024-03-18 04:56 | PC.NURSE ---
verbal ok per Dr. Deng to restart amiodarone drip at this time.
[2024-03-18] MEDS: Acetaminophen 325 MG TABLET 650 MG PO (04:57)
[2024-03-18] MEDS: Heparin Sodium,Porcine 5,000 UNIT/ML VIAL 5000 UNIT SUBCUT ×2 (04:57→18:09)
[2024-03-18] MEDS: Amiodarone HCL 900 MG in 0.9 % Sodium Chloride 500 ML IVCONT (04:57)
--- NOTE | 2024-03-18 06:15 | PM.EVENT ---
Event Note Date of Service: 03/18/24 Event Note: 11:25 PM - BP dropped to 83/54. Amiodarone drip stopped. NS bolus given. Had an episode of V-tachy earlier. Pt asymptomatic. 3:39 AM - BP after bolus 99/62. 4:48 AM - will restart amiodarone infusion. Time Spent With Patient Time: Total time managing care of this patient today ____ minutes.
[2024-03-18 08:21] LABS: MANUAL DIFF FLAG NO
[2024-03-18] MEDS: Albuterol Sulfate (0.083%) 2.5 MG/3 ML VIAL.NEB INHALE ×3 (08:21→19:33)
[2024-03-18 08:46] LABS: Anion Gap 6 (12-20); Basophils Percent Auto 0.1 % (0-2); Blood Urea Nitrogen 25 mg/dL (9-16); Calcium 7.6 mg/dL (8.4-10.2); Carbon Dioxide 32 mmol/L (22-29); Chloride 105 mmol/L (96-108); Creatinine Clr Calc Pharmacy 69.2; Estimated Glomerular Filt Rate > 60; Glucose Random 138 mg/dL (60-115); Hematocrit 37.8 % (42.0-52.0); Hemoglobin 12.3 g/dl (14.0-18.0); Imm Gran Abs Auto 0.05 X10*3/uL (0.00-0.03); Imm Gran Pct Auto 0.4 % (0.0-0.4); Lymphocytes Absolute Auto 0.8 X10*3/uL (1.2-4.9); Lymphocytes Percent Auto 6.4 % (20-40); Mean Corpuscular HGB Conc 32.5 g/dl (31.0-36.0); Mean Corpuscular Hemoglobin 33.4 pg (27.0-33.0); Mean Corpuscular Volume 102.7 fL (80.0-98.0); Monocytes Absolute Auto 0.4 X10*3/uL (0.1-1.2); Monocytes Percent Auto 3.3 % (2-11); Neutrophils Absolute Auto 10.8 x10*3/uL (2.0-8.3); Neutrophils Percent Auto 89.8 % (45-73); Platelet Count 130 X10*3/uL (160-400); Potassium 3.4 mmol/L (3.3-5.1); Red Blood Count 3.68 X10*6/uL (4.60-5.80); Red Cell Distribution Width 14.4 % (11.0-16.0); Sodium 140 mmol/L (135-145); White Blood Count 12.1 X10*3/uL (4.8-10.8)
--- NOTE | 2024-03-18 10:44 | P.PNCA_ITS ---
Subjective Subjective Date of Service: 03/18/24 Principal diagnosis: Acute CHF, nonsustained VT. Interval history: Patient was started on IV amiodarone drip yesterday due to prolonged nonsustained VT runs. Overnight still has had 4-6 beats of nonsustained VT. No symptoms related to it. Has been diuresing. Overnight had low blood pressure. Coreg was added yesterday. He denies any lightheadedness, syncope. He is agitated this morning as he wants to go to bowel movement but in the bathroom. He denies any lightheadedness, syncope. Still has shortness of breath and cough productive of phlegm. Her clinically is doing better. Negative balance of about 7 L. Kidney functions are still stable Review of Systems Constitutional: Reports no additional constitutional complaints Eyes: Reports no additional eye complaints Cardiovascular: Denies chest pain, Reports leg edema, Denies lightheadedness, Denies Loss of Consciousness, Denies palpitations and Reports dyspnea on exertion Respiratory: Reports excessive phlegm production and Reports dyspnea on exertion Gastrointestinal: Reports abdominal pain (Constipation) Musculoskeletal: Reports no additional musculoskeletal complaints Reports system reviewed and no additional complaints, except as documented Endocrine: Denies palpitations Physical Exam Vital Signs: Last Vital Signs Temp 97.0 F 03/18/24 08:00 Pulse 89 03/18/24 08:22 Resp 18 03/18/24 08:22 BP 96/60 03/18/24 08:00 Pulse Ox 98 03/18/24 08:00 O2 Del Method Room Air 03/18/24 08:00 O2 Flow Rate 2 03/16/24 23:50 FiO2 30 03/15/24 11:49 BMI result Body Mass Index 27.3 Const General: cooperative, comfortable, alert and awake Nutritional Appearance: overweight Orientation/consciousness: patient oriented x3 Neck Neck: Yes trachea midline, Yes supple and Yes JVD Resp Effort & Inspection: normal respiratory effort Auscultation: wheezes (Improved) and diminished lung sounds Cardio Jugular venous distension: JVD Palpation: abnormal PMI displaced PMI Rate: regular rate Rhythm: regular rhythm Heart sounds: S1 normal heart sound present, S2 normal heart sound present, no click, no gallops and no murmurs GI Auscultation: normal bowel sounds Neuro General: patient oriented x3 and no focal motor deficits Extrem General: No clubbing, No cyanosis and Yes edema Objective Labs and Meds 03/18/24 08:13 03/18/24 08:13 Lab results: Laboratory Results - last 24 hr 03/18/24 08:13 WBC 12.1 H RBC 3.68 L Hgb 12.3 L Hct 37.8 L MCV 102.7 H MCH 33.4 H MCHC 32.5 RDW 14.4 Plt Count 130 L D MPV 12.0 Immature Gran % (Auto) 0.4 Neut % (Auto) 89.8 H Lymph % (Auto) 6.4 L [place] % (Auto) 3.3 Eos % (Auto) 0.0 Baso % (Auto) 0.1 Lymph # (Auto) 0.8 L [place] # (Auto) 0.4 Eos # (Auto) 0.0 Baso # (Auto) 0.0 Abs Immat Gran (auto) 0.05 H Absolute Neuts (auto) 10.8 H Absolute Nucleated RBC 0.000 Nucleated RBC % (auto) 0.0 Sodium 140 Potassium 3.4 Chloride 105 Carbon Dioxide 32 H Anion Gap 6 L BUN 25 H Creatinine 1.01 Estim Creat Clear Calc 69.2 Estimated GFR > 60 Random Glucose 138 H Calcium 7.6 L D Magnesium 2.0 Progress Note: A&P Assessment and plan (1) Acute exacerbation of CHF (congestive heart failure): Status: Acute Assessment and Plan: Acute congestive heart failure which is improved significantly with overall negative balance of 7 L. Tolerating well. Continue 1 more day of diuresis. Noted overnight low blood pressure with multiple medications added and this limits his uptitration of neurohormonal modulation. Will hold off on spironolactone therapy. Continue carvedilol and Entresto therapy. Continue diuresis. Strict intake and output chart needs to be pursued. Continue to follow renal function and electrolytes. Check BNP tomorrow. Out of bed to chair. Continue to optimize his pulmonary function bronchospastic airway disease. Incentive spirometry needs to be provided. Will require ischemic workup as outpatient. (2) Nonsustained ventricular tachycardia: Status: Acute Assessment and Plan: Nonsustained ventricular tachycardia, improved burden on amiodarone. Switch to amiodarone overall 400 mg b.i.d.. This should probably help with low blood pressure as well. Continue avoid stimulants. Continue full disclosure cardiac telemetry. Continue carvedilol therapy as above. Will require ischemic workup as outpatient. Will follow with you Time Spent With Patient Time: Total time managing care of this patient today ____ minutes. Progress Note: Quality Stroke Does the patient have a stroke diagnosis?: No Procedures Date of Service Date of Service: 03/18/24
[2024-03-18] MEDS: cefTRIAXone sodium 1 GM in 0.9 % Sodium Chloride 50 ML IV (11:00)
[2024-03-18] MEDS: methylPREDNISolone Sod Succ 40 MG/ML VIAL IVPUSH ×2 (11:06→21:34)
[2024-03-18] MEDS: Furosemide 40 MG/4 ML VIAL IVPUSH (11:06)
[2024-03-18] MEDS: Amiodarone HCL 200 MG TABLET 400 MG PO ×2 (11:10→21:35)
[2024-03-18] MEDS: carvediloL 3.125 MG TABLET PO ×2 (11:21→21:35)
[2024-03-18] MEDS: Doxycycline Hyclate 100 MG in 0.9 % Sodium Chloride 250 ML 166.67 MG IV ×2 (12:00→21:36)
--- NOTE | 2024-03-18 12:55 | HO.PM.IMPN ---
Subjective Subjective Date of Service: 03/18/24 Interval History: Seen and examined this morning Follow-up for CHF, asthma, NSVT No significant shortness of breath this morning Review of Systems Review of Systems: Yes all other systems are reviewed and are negative Constitutional Constitutional: Denies chills and Denies fever(s) ENT Ears, Nose, Mouth, and Throat: Denies dizziness Cardiovascular Cardiovascular: Denies chest pain and Denies dyspnea Respiratory Respiratory: Denies dyspnea Gastrointestinal Gastrointestinal: Denies abdominal pain Neurologic Neurologic: Denies dizziness Physical Exam Vital Signs: Vital Signs: Last Vital Signs Temp 97.6 F 03/18/24 11:46 Pulse 79 03/18/24 11:58 Resp 18 03/18/24 11:58 BP 101/50 L 03/18/24 11:46 Pulse Ox 97 03/18/24 11:46 O2 Del Method Room Air 03/18/24 11:46 O2 Flow Rate 2 03/16/24 23:50 FiO2 30 03/15/24 11:49 BMI result Body Mass Index 27.3 Const: General: cooperative, comfortable, no acute distress, alert and awake Nutritional Appearance: average body habitus Orientation/consciousness: patient oriented x3 Resp: Effort & Inspection: normal respiratory effort and able to speak in complete sentences Cardio: Jugular venous distension: JVD Rate: regular rate GI: Inspection: No distended Palpation (GI): Soft to palpation and nontender Neuro: General: patient oriented x3, moves all extremities and CN's II-XI intact bilaterally Extrem: Other: leg edema Objective Data Active Medications Acetaminophen (Acetaminophen 325 Mg Tablet) 650 mg PO Q6H PRN PRN Reason: Pain, Mild (Pain Scale 1-3) Last Admin: 03/18/24 04:57 Dose: 650 mg Documented By: ERMIAS Albuterol Sulfate (Albuterol Sulfate (0.083%) 2.5 Mg/3 Ml Vial.Neb) 2.5 mg INHALE RQ4H WHILE AWAKE [facility] Last Admin: 03/18/24 11:58 Dose: 2.5 mg Documented By: FABIAN Amiodarone HCl (Amiodarone Hcl 200 Mg Tablet) 400 mg PO BID [facility] Last Admin: 03/18/24 11:10 Dose: 400 mg Documented By: CATHY Carvedilol (Carvedilol 3.125 Mg Tablet) 3.125 mg PO BID [facility]; Protocol Last Admin: 03/18/24 11:21 Dose: 3.125 mg Documented By: CATHY Furosemide (Furosemide 40 Mg/4 Ml Vial) 40 mg IVPUSH BID@0900,1800 [facility]; Protocol Last Admin: 03/18/24 11:06 Dose: 40 mg Documented By: CATHY Heparin Sodium (Porcine) (Heparin Sodium,Porcine 5,000 Unit/Ml Vial) 5,000 unit SUBCUT Q12H [facility] Last Admin: 03/18/24 04:57 Dose: 5,000 unit Documented By: N-RIVLA Ceftriaxone Sodium 1 gm/ (Sodium Chloride) 50 mls @ 100 mls/hr IV Q24H [facility] Last Infusion: 03/18/24 11:34 Dose: Infused Documented By: CATHY Doxycycline Hyclate 100 mg/ (Sodium Chloride) 250 mls @ 166.67 mls/hr IV BID [facility] Last Admin: 03/18/24 12:00 Dose: 166.67 mls/hr Documented By: CATHY Methylprednisolone Sodium Succinate (Methylprednisolone Sod Succ 40 Mg/Ml Vial) 40 mg IVPUSH Q12H [facility] Last Admin: 03/18/24 11:06 Dose: 40 mg Documented By: CATHY Ondansetron HCl (Ondansetron Hcl 4 Mg/2 Ml Vial) 4 mg IVPUSH Q8H PRN PRN Reason: Nausea and Vomiting Sacubitril/Valsartan (Sacubitril/Valsartan 49/51 1 Tab Tablet) 1 tab PO BID [facility]; Protocol Last Admin: 03/18/24 11:22 Dose: Not Given Documented By: CATHY Non-Admin Reason: decreased BP Sodium Chloride (0.9 % Sodium Chloride Flush 3 Ml Syringe) 3 ml IVFLUSH QSHIFT [facility] Last Admin: 03/18/24 11:10 Dose: 3 ml Documented By: CATHY Spironolactone (Spironolactone 25 Mg Tablet) 12.5 mg PO DAILY [facility]; Protocol Last Admin: 03/18/24 10:46 Dose: Not Given Documented By: CATHY Non-Admin Reason: Physician Held Med Labs 03/18/24 08:13 03/18/24 08:13 Labs: Laboratory Results - last 24 hr 03/18/24 08:13 MCV 102.7 H MCH 33.4 H MCHC 32.5 RDW 14.4 Plt Count 130 L D MPV 12.0 Immature Gran % (Auto) 0.4 Neut % (Auto) 89.8 H Lymph % (Auto) 6.4 L [place] % (Auto) 3.3 Eos % (Auto) 0.0 Baso % (Auto) 0.1 Lymph # (Auto) 0.8 L [place] # (Auto) 0.4 Eos # (Auto) 0.0 Baso # (Auto) 0.0 Abs Immat Gran (auto) 0.05 H Absolute Neuts (auto) 10.8 H Absolute Nucleated RBC 0.000 Nucleated RBC % (auto) 0.0 Anion Gap 6 L Estim Creat Clear Calc 69.2 Estimated GFR > 60 Random Glucose 138 H Calcium 7.6 L D Magnesium 2.0 Microbiology Microbiology Results: Microbiology 03/15/24 08:25 Blood Culture - Preliminary Blood - Venous No growth after 48 hours. 03/15/24 07:59 Blood Culture - Preliminary Blood - Venous No growth after 48 hours. Assessment and Plan (1) Nonsustained ventricular tachycardia: Status: Acute (2) Acute exacerbation of CHF (congestive heart failure): Status: Acute Plan 69-year-old man admitted with acute on chronic congestive heart failure Acute on chronic heart failure with reduced ejection fraction Last echocardiogram with EF of 35% with moderate global hypokinesis Patient on Entresto and beta-carson at home, has been resumed Cardiology consultation> start spironolactone 12.5 mg daily, re-start coreg and entresto. Hold spironolactone due to soft blood pressure Good output with diuresis thus far continue IV Lasix 1 more day per cardiology recommendation Daily weights> weight down Monitor on telemetry Will need outpatient ischemic workup NSVT several episodes, nonstustained longest run 14 beats started on coreg 3.125mg BID Also started on amiodarone drip, we will transitioned to p.o. amiodarone 400 mg b.i.d. for 14 days then 200 mg daily follow lytes CAP No sepsis. Low blood pressure due to cardiac medications not due to sepsis. patchy density to the left mid lung on chest x-ray Rocephin, azithromycin initially; given NSVT and mild prolongation of QTC will change azithromycin to doxycycline Supplemental oxygen as needed to keep oxygen saturation greater than 91% Cough suppressant as needed Thrombocytopenia Appears chronic, platelets stable Asthma exacerbation Solu-Medrol, likely wean in a.m. Scheduled DuoNebs Elevated troponin Likely secondary to acute congestive heart failure no acute ischemic changes on EKG Lactic acidosis Likely secondary to asthma, steroid use not sepsis Crack cocaine use Recommend to avoid using cocaine DVT prophylaxis with heparin Attending Dr. Blount Full code continue inpatient admission for treatment of acute on chronic congestive heart failure requiring IV diuretics Quality Stroke Does the patient have a stroke diagnosis?: No VTE Prior VTE?: No VTE Risk Level:: Medical - moderate - high VTE Device Contraindication: Treatment Not Indicated VTE Drug Contraindication: N/A - Med Ordered
--- NOTE | 2024-03-18 19:19 | PC.NURSE ---
Pt Bp was 88/58 at 1800, pt was asymptomatic. Doc notified and Lasix was held.
[2024-03-18] MEDS: Sacubitril/Valsartan 49/51 1 TAB TABLET PO (21:34)
[2024-03-19] VITALS (10 sets, daily range): BP systolic 95–117; BP diastolic 58–79; PULSE 51–86; RESP 18–20; TEMP 36.1–37.2; O2SAT 93–99; BMI 30.7
[2024-03-19] MEDS: 0.9 % Sodium Chloride Flush 3 ML SYRINGE IVFLUSH ×4 (01:00→22:32)
--- NOTE | 2024-03-19 04:11 | PC.NURSE ---
Pt has had low bp's throughout the shift. Dr. Joy has been made aware. Pt is comfortable and asymptomatic.
[2024-03-19] MEDS: Heparin Sodium,Porcine 5,000 UNIT/ML VIAL 5000 UNIT SUBCUT ×2 (05:46→19:25)
[2024-03-19 07:30] LABS: Anion Gap 13 (12-20); Blood Urea Nitrogen 29 mg/dL (9-16); Calcium 7.8 mg/dL (8.4-10.2); Carbon Dioxide 28 mmol/L (22-29); Chloride 104 mmol/L (96-108); Creatinine Clr Calc Pharmacy 68.3; Estimated Glomerular Filt Rate > 60; Glucose Random 203 mg/dL (60-115); Potassium 3.4 mmol/L (3.3-5.1); Sodium 142 mmol/L (135-145)
[2024-03-19 07:32] LABS: B Type Natriuretic Peptide 555 pg/mL (<100)
[2024-03-19 08:00] LABS: Hematocrit 39.6 % (42.0-52.0); Hemoglobin 12.9 g/dl (14.0-18.0); Mean Corpuscular HGB Conc 32.6 g/dl (31.0-36.0); Mean Corpuscular Hemoglobin 33.8 pg (27.0-33.0); Mean Corpuscular Volume 103.7 fL (80.0-98.0); Mean Platelet Volume 11.8 fL (9.4-12.4); Platelet Count 146 X10*3/uL (160-400); Red Blood Count 3.82 X10*6/uL (4.60-5.80); Red Cell Distribution Width 14.5 % (11.0-16.0); White Blood Count 10.6 X10*3/uL (4.8-10.8)
[2024-03-19] MEDS: Albuterol Sulfate (0.083%) 2.5 MG/3 ML VIAL.NEB INHALE ×2 (08:23→12:05)
[2024-03-19] MEDS: Doxycycline Hyclate 100 MG in 0.9 % Sodium Chloride 250 ML 166.67 MG IV ×2 (10:37→22:30)
[2024-03-19] MEDS: methylPREDNISolone Sod Succ 40 MG/ML VIAL IVPUSH (10:38)
[2024-03-19] MEDS: Amiodarone HCL 200 MG TABLET 400 MG PO ×2 (10:41→22:31)
[2024-03-19] MEDS: carvediloL 3.125 MG TABLET PO ×2 (10:41→22:31)
[2024-03-19] MEDS: Sacubitril/Valsartan 49/51 1 TAB TABLET PO ×2 (10:41→22:31)
--- NOTE | 2024-03-19 10:51 | PM.PNCARD ---
Subjective Subjective Date of Service: 03/19/24 Principal diagnosis: Acute CHF, nonsustained VT. Interval history: Patient is feeling better. Still short of breath but improved. Overnight blood pressure was slightly on the lower side but no lightheadedness. Continues to have nonsustained VT despite amiodarone therapy. Breathing is improved compared to on presentation. Review of Systems Constitutional: Reports no additional constitutional complaints Cardiovascular: Denies chest pain, Denies lightheadedness, Denies palpitations and Reports dyspnea on exertion Respiratory: Reports no additional respiratory complaints and Reports dyspnea on exertion Gastrointestinal: Reports no additional gastrointestinal complaints Musculoskeletal: Reports no additional musculoskeletal complaints Endocrine: Denies palpitations Physical Exam Vital Signs: Last Vital Signs Temp 97.6 F 03/19/24 08:00 Pulse 77 03/19/24 10:41 Resp 20 03/19/24 08:00 BP 103/62 03/19/24 10:41 Pulse Ox 95 03/19/24 08:00 O2 Del Method Room Air 03/19/24 08:00 O2 Flow Rate 2 03/16/24 23:50 FiO2 30 03/15/24 11:49 BMI result Body Mass Index 30.7 Const General: cooperative, comfortable, alert and awake Nutritional Appearance: overweight Orientation/consciousness: patient oriented x3 Neck Neck: Yes trachea midline, Yes supple and Yes no JVD Resp Effort & Inspection: normal respiratory effort Auscultation: no rales and wheezes (Improved) Cardio Jugular venous distension: no JVD Palpation: abnormal PMI displaced PMI Rate: regular rate Rhythm: regular rhythm Heart sounds: S1 normal heart sound present, S2 normal heart sound present, no click, no gallops and no murmurs GI Auscultation: normal bowel sounds Neuro General: patient oriented x3 and no focal motor deficits Extrem General: No clubbing, No cyanosis and Yes edema Objective Labs and Meds 03/19/24 06:11 03/19/24 06:11 Lab results: Laboratory Results - last 24 hr 03/19/24 06:11 WBC 10.6 RBC 3.82 L Hgb 12.9 L Hct 39.6 L MCV 103.7 H MCH 33.8 H MCHC 32.6 RDW 14.5 Plt Count 146 L MPV 11.8 Absolute Nucleated RBC 0.000 Nucleated RBC % (auto) 0.0 Hold Purple Top SEE NOTE Sodium 142 Potassium 3.4 Chloride 104 Carbon Dioxide 28 Anion Gap 13 BUN 29 H Creatinine 1.08 Estim Creat Clear Calc 68.3 Estimated GFR > 60 Random Glucose 203 H Calcium 7.8 L B-Natriuretic Peptide 555 H Progress Note: A&P Assessment and plan (1) Acute exacerbation of CHF (congestive heart failure): Status: Acute Assessment and Plan: Acute congestive heart failure with LV systolic dysfunction with possible ischemic etiology. Patient has improved significantly. Overall negative balance of about 7 L. blood pressure is stable. Can switch to oral diuretics. Can not further maximize neurohormonal modulator due to low blood pressure. Switch to oral Bumex 2 mg. Continue amiodarone. See below for further management of ventricular arrhythmias. Continue to manage bronchospastic airway disease. Please switch to Xopenex from albuterol to reduce cardiac stimulation. Will require outpatient workup for ischemia possibly cardiac catheterization. (2) Nonsustained ventricular tachycardia: Status: Acute Assessment and Plan: Nonsustained ventricular tachycardia despite amiodarone therapy. Continue amiodarone loading. Will set him for if possible and insurance approved external vest defibrillator for the next 3 months. Ischemic workup as above. Avoidance of stimulants and switching albuterol to Xopenex. Will follow with you Time Spent With Patient Time: Total time managing care of this patient today ____ minutes. Progress Note: Quality Stroke Does the patient have a stroke diagnosis?: No Procedures Date of Service Date of Service: 03/19/24
--- NOTE | 2024-03-19 11:01 | MHC.CM.PN ---
PER MD ROUNDS, NO PLAN FOR DC TODAY CASE MANAGEMENT CONTINUING TO FOLLOW.
[2024-03-19] MEDS: cefTRIAXone sodium 1 GM in 0.9 % Sodium Chloride 50 ML IV (12:38)
--- NOTE | 2024-03-19 12:51 | P.PNIM_ITS ---
Subjective Subjective Date of Service: 03/19/24 Interval History: seen and examined this morning follow up for pneumonia, CHF, NSVT breathing improving, no chest pain Review of Systems Review of Systems: Yes all other systems are reviewed and are negative Constitutional Constitutional: Denies chills and Denies fever(s) Physical Exam 2 Vital Signs: Vital Signs: Last Vital Signs Temp 98.2 F 03/19/24 11:36 Pulse 77 03/19/24 12:05 Resp 18 03/19/24 12:05 BP 115/79 03/19/24 11:36 Pulse Ox 97 03/19/24 11:36 O2 Del Method Room Air 03/19/24 11:36 O2 Flow Rate 2 03/16/24 23:50 FiO2 30 03/15/24 11:49 BMI result Body Mass Index 30.7 Const: General: cooperative, comfortable, no acute distress, alert and awake Nutritional Appearance: average body habitus Orientation/consciousness: p atient oriented x3 Resp: Other: expiratory wheeze Effort & Inspection: normal respiratory effort, able to speak in complete sentences, no respiratory distress and no use of accessory muscles Cardio: Jugular venous distension: JVD Rate: regular rate GI: Inspection: No distended Palpation (GI): Soft to palpation and nontender Neuro: General: patient oriented x3, moves all extremities and CN's II-XI intact bilaterally Extrem: Other: trace leg edema Objective Data Active Medications Acetaminophen (Acetaminophen 325 Mg Tablet) 650 mg PO Q6H PRN PRN Reason: Pain, Mild (Pain Scale 1-3) Last Admin: 03/18/24 04:57 Dose: 650 mg Documented By: ERMIAS Amiodarone HCl (Amiodarone Hcl 200 Mg Tablet) 400 mg PO BID [facility] Last Admin: 03/19/24 10:41 Dose: 400 mg Documented By: CATHY Bumetanide (Bumetanide 1 Mg Tablet) 2 mg PO DAILY [facility]; Protocol Carvedilol (Carvedilol 3.125 Mg Tablet) 3.125 mg PO BID [facility]; Protocol Last Admin: 03/19/24 10:41 Dose: 3.125 mg Documented By: CATHY Heparin Sodium (Porcine) (Heparin Sodium,Porcine 5,000 Unit/Ml Vial) 5,000 unit SUBCUT Q12H [facility] Last Admin: 03/19/24 05:46 Dose: 5,000 unit Documented By: GAMALIEL Ceftriaxone Sodium 1 gm/ (Sodium Chloride) 50 mls @ 100 mls/hr IV Q24H [facility] Last Admin: 03/19/24 12:38 Dose: 100 mls/hr Documented By: CATHY Doxycycline Hyclate 100 mg/ (Sodium Chloride) 250 mls @ 166.67 mls/hr IV BID [facility] Last Infusion: 03/19/24 12:38 Dose: Infused Documented By: CATHY Levalbuterol HCl (Levalbuterol Hcl 1.25 Mg/3 Ml Vial.Neb) 1.25 mg INHALE Q4H [facility] Methylprednisolone Sodium Succinate (Methylprednisolone Sod Succ 40 Mg/Ml Vial) 40 mg IVPUSH Q12H [facility] Last Admin: 03/19/24 10:38 Dose: 40 mg Documented By: CATHY Ondansetron HCl (Ondansetron Hcl 4 Mg/2 Ml Vial) 4 mg IVPUSH Q8H PRN PRN Reason: Nausea and Vomiting Sacubitril/Valsartan (Sacubitril/Valsartan 49/51 1 Tab Tablet) 1 tab PO BID [facility]; Protocol Last Admin: 03/19/24 10:41 Dose: 1 tab Documented By: CATHY Sodium Chloride (0.9 % Sodium Chloride Flush 3 Ml Syringe) 3 ml IVFLUSH QSHIFT [facility] Last Admin: 03/19/24 10:43 Dose: 3 ml Documented By: CATHY Spironolactone (Spironolactone 25 Mg Tablet) 12.5 mg PO DAILY [facility]; Protocol Last Admin: 03/18/24 10:46 Dose: Not Given Documented By: CATHY Non-Admin Reason: Physician Held Med Labs 03/19/24 06:11 03/19/24 06:11 Labs: Laboratory Results - last 24 hr 03/19/24 06:11 MCV 103.7 H MCH 33.8 H MCHC 32.6 RDW 14.5 Plt Count 146 L MPV 11.8 Absolute Nucleated RBC 0.000 Nucleated RBC % (auto) 0.0 Hold Purple Top SEE NOTE Anion Gap 13 Estim Creat Clear Calc 68.3 Estimated GFR > 60 Random Glucose 203 H Calcium 7.8 L B-Natriuretic Peptide 555 H Assessment and Plan (1) Nonsustained ventricular tachycardia: Status: Acute (2) Acute exacerbation of CHF (congestive heart failure): Status: Acute Plan 69-year-old man admitted with acute on chronic congestive heart failure Acute on chronic heart failure with reduced ejection fraction Last echocardiogram with EF of 35% with moderate global hypokinesis Patient on Entresto and beta-carson at home but wasn't compliant, has been resumed Cardiology consultation> re-started coreg and entresto. spironolactone started but then placed on hold due to soft blood pressure Good output with diuresis will transition to po bumex Monitor on telemetry Will need outpatient ischemic workup NSVT continues to have NSVT mutliple times daily despite amiodarone therapy coreg 3.125mg BID s/p amiodarone drip, we will transitioned to p.o. amiodarone 03/18 plan for 400 mg b.i.d. for 14 days then 200 mg daily Cardiology trying to obtain external defibrillator vest change albuterol to xopenex CAP No sepsis. Low blood pressure due to cardiac medications not due to sepsis. patchy density to the left mid lung on chest x-ray Rocephin, azithromycin initially; given NSVT and mild prolongation of QTC will change azithromycin to doxycycline Supplemental oxygen as needed to keep oxygen saturation greater than 91% Cough suppressant as needed Thrombocytopenia Appears chronic, platelets stable, trending back up Asthma exacerbation wean solu medrol Scheduled DuoNebs Elevated troponin Likely secondary to demand related to acute congestive heart failure no acute ischemic changes on EKG Lactic acidosis Likely secondary to asthma, steroid use not sepsis Crack cocaine use Recommend to avoid using cocaine DVT prophylaxis with heparin Attending Dr. Blount Full code continue inpatient admission for treatment of acute on chronic congestive heart failure requiring IV diuretics Quality Stroke Does the patient have a stroke diagnosis?: No VTE Prior VTE?: No VTE Risk Level:: Medical - moderate - high VTE Device Contraindication: Treatment Not Indicated VTE Drug Contraindication: N/A - Med Ordered
[2024-03-19] MEDS: Bumetanide 1 MG TABLET 2 MG PO (13:24)
[2024-03-19] MEDS: levalbuterol HCL 1.25 MG/3 ML VIAL.NEB INHALE ×2 (16:19→18:51)
--- NOTE | 2024-03-19 16:28 | PM.EVENT ---
Event Note Date of Service: 03/19/24 Event Note: It is my opinion that patient has LV ejection fraction is 35% after reviewing the echocardiogram. Patient having runs of nonsustained ventricular tachycardia with suggestion of ischemic cardiomyopathy. High risk for sudden cardiac and would benefit from external defibrillator on discharge Time Spent With Patient Time: Total time managing care of this patient today ____ minutes.
[2024-03-20] VITALS (10 sets, daily range): BP systolic 96–113; BP diastolic 59–70; PULSE 65–79; RESP 16–20; TEMP 36.2–36.6; O2SAT 93–98; BMI 30.4
[2024-03-20] MEDS: Heparin Sodium,Porcine 5,000 UNIT/ML VIAL 5000 UNIT SUBCUT ×2 (06:02→17:37)
[2024-03-20 07:39] LABS: Anion Gap 11 (12-20); Blood Urea Nitrogen 27 mg/dL (9-16); Calcium 7.7 mg/dL (8.4-10.2); Carbon Dioxide 33 mmol/L (22-29); Chloride 104 mmol/L (96-108); Creatinine Clr Calc Pharmacy 71.3; Estimated Glomerular Filt Rate > 60; Glucose Random 149 mg/dL (60-115); Potassium 3.5 mmol/L (3.3-5.1); Sodium 144 mmol/L (135-145)
[2024-03-20] MEDS: levalbuterol HCL 1.25 MG/3 ML VIAL.NEB INHALE ×3 (07:39→18:58)
--- NOTE | 2024-03-20 09:27 | PM.PNCARD ---
Subjective Subjective Date of Service: 03/20/24 Principal diagnosis: Acute CHF, nonsustained VT. Interval history: Patient trial of external vest defibrillator yesterday but could not operated and therefore was not put on him. He continues to nonsustained VT. Continues to exertional shortness of breath with the without overt leg edema or heart failure. Continues to have productive phlegm. Review of Systems Constitutional: Reports no additional constitutional complaints Cardiovascular: Denies chest pain, Denies lightheadedness, Denies palpitations and Reports dyspnea on exertion Respiratory: Reports no additional respiratory complaints and Reports dyspnea on exertion Gastrointestinal: Reports no additional gastrointestinal complaints Musculoskeletal: Reports no additional musculoskeletal complaints Endocrine: Denies palpitations Physical Exam Vital Signs: Last Vital Signs Temp 97.7 F 03/20/24 07:42 Pulse 73 03/20/24 07:42 Resp 17 03/20/24 07:42 BP 105/61 03/20/24 07:42 Pulse Ox 97 03/20/24 07:42 O2 Del Method Room Air 03/20/24 07:42 O2 Flow Rate 2 03/16/24 23:50 FiO2 30 03/15/24 11:49 BMI result Body Mass Index 30.4 Const General: cooperative, comfortable, alert and awake Nutritional Appearance: overweight Orientation/consciousness: patient oriented x3 Neck Neck: Yes trachea midline, Yes supple and Yes no JVD Resp Effort & Inspection: normal respiratory effort Auscultation: no rales and wheezes (Improved) Cardio Jugular venous distension: no JVD Palpation: abnormal PMI displaced PMI Rate: regular rate Rhythm: regular rhythm Heart sounds: S1 normal heart sound present, S2 normal heart sound present, no click, no gallops and no murmurs GI Auscultation: normal bowel sounds Neuro General: patient oriented x3 and no focal motor deficits Extrem General: No clubbing, No cyanosis and Yes edema Objective Labs and Meds 03/19/24 06:11 03/20/24 07:03 Lab results: Laboratory Results - last 24 hr 03/20/24 07:03 Hold Purple Top SEE NOTE Sodium 144 Potassium 3.5 Chloride 104 Carbon Dioxide 33 H Anion Gap 11 L BUN 27 H Creatinine 1.03 Estim Creat Clear Calc 71.3 Estimated GFR > 60 Random Glucose 149 H Calcium 7.7 L Progress Note: A&P Assessment and plan (1) Acute exacerbation of CHF (congestive heart failure): Status: Acute Assessment and Plan: Acute CHF with bronchospastic airway disease. Clinically improved. Continue current neurohormonal modulation with Entresto and carvedilol. Oral diuretic therapy. CHF education to be provided. Will require ischemic workup as outpatient. Management of heart failure was discussed with her. Please provide CHF education. Will set up for follow-up in the near future. (2) Nonsustained ventricular tachycardia: Status: Acute Assessment and Plan: Nonsustained ventricular tachycardia persistent despite amiodarone therapy. Continue the same. Unfortunately could not get the external vest defibrillator as he could not operated. Remains at high risk for sudden cardiac that. Continue carvedilol. Avoidance of stimulants was discussed. Ischemic workup as outpatient. Will follow up in 7-10 days Time Spent With Patient Time: Total time managing care of this patient today ____ minutes. Progress Note: Quality Stroke Does the patient have a stroke diagnosis?: No Procedures Date of Service Date of Service: 03/20/24
[2024-03-20] MEDS: methylPREDNISolone Sod Succ 40 MG/ML VIAL IVPUSH (10:16)
[2024-03-20] MEDS: Sacubitril/Valsartan 49/51 1 TAB TABLET PO ×2 (10:16→22:05)
[2024-03-20] MEDS: Bumetanide 1 MG TABLET 2 MG PO (10:17)
[2024-03-20] MEDS: cefTRIAXone sodium 1 GM in 0.9 % Sodium Chloride 50 ML IV (10:18)
[2024-03-20] MEDS: carvediloL 3.125 MG TABLET PO ×2 (10:18→22:05)
[2024-03-20] MEDS: Amiodarone HCL 200 MG TABLET 400 MG PO ×2 (10:18→22:05)
--- NOTE | 2024-03-20 11:01 | HO.PM.IMPN ---
Subjective Subjective Date of Service: 03/20/24 Interval History: seen and examined this morning follow up for pneumonia, CHF, NSVT breathing improving, no chest pain Review of Systems Review of Systems: Yes all other systems are reviewed and are negative Constitutional Constitutional: Denies chills and Denies fever(s) Physical Exam Vital Signs: Vital Signs: Last Vital Signs Temp 97.7 F 03/20/24 07:42 Pulse 73 03/20/24 07:42 Resp 17 03/20/24 07:42 BP 105/61 03/20/24 10:16 Pulse Ox 97 03/20/24 07:42 O2 Del Method Room Air 03/20/24 07:42 O2 Flow Rate 2 03/16/24 23:50 FiO2 30 03/15/24 11:49 BMI result Body Mass Index 30.4 Appearing in no acute distress lung sounds are clear to auscultation heart regular rate rhythm, clear S1, S2 positive bowel sounds, abdomen is soft, nontender neuro patient is alert x3, no focal deficits arthritic joints to both hands Objective Data Active Medications Acetaminophen (Acetaminophen 325 Mg Tablet) 650 mg PO Q6H PRN PRN Reason: Pain, Mild (Pain Scale 1-3) Last Admin: 03/18/24 04:57 Dose: 650 mg Documented By: ERMIAS Amiodarone HCl (Amiodarone Hcl 200 Mg Tablet) 400 mg PO BID [facility] Last Admin: 03/20/24 10:18 Dose: 400 mg Documented By: AAYUSH Bumetanide (Bumetanide 1 Mg Tablet) 2 mg PO DAILY [facility]; Protocol Last Admin: 03/20/24 10:17 Dose: 2 mg Documented By: AAYUSH Carvedilol (Carvedilol 3.125 Mg Tablet) 3.125 mg PO BID [facility]; Protocol Last Admin: 03/20/24 10:18 Dose: 3.125 mg Documented By: AAYUSH Heparin Sodium (Porcine) (Heparin Sodium,Porcine 5,000 Unit/Ml Vial) 5,000 unit SUBCUT Q12H [facility] Last Admin: 03/20/24 06:02 Dose: 5,000 unit Documented By: TEDDY Ceftriaxone Sodium 1 gm/ (Sodium Chloride) 50 mls @ 100 mls/hr IV Q24H [facility] Last Admin: 03/20/24 10:18 Dose: 100 mls/hr Documented By: AAYUSH Doxycycline Hyclate 100 mg/ (Sodium Chloride) 250 mls @ 166.67 mls/hr IV BID [facility] Last Infusion: 03/20/24 00:33 Dose: Infused Documented By: TEDDY Levalbuterol HCl (Levalbuterol Hcl 1.25 Mg/3 Ml Vial.Neb) 1.25 mg INHALE RQ4H [facility] Last Admin: 03/20/24 07:39 Dose: 1.25 mg Documented By: URI Methylprednisolone Sodium Succinate (Methylprednisolone Sod Succ 40 Mg/Ml Vial) 40 mg IVPUSH DAILY [facility] Last Admin: 03/20/24 10:16 Dose: 40 mg Documented By: AAYUSH Ondansetron HCl (Ondansetron Hcl 4 Mg/2 Ml Vial) 4 mg IVPUSH Q8H PRN PRN Reason: Nausea and Vomiting Sacubitril/Valsartan (Sacubitril/Valsartan 49/51 1 Tab Tablet) 1 tab PO BID [facility]; Protocol Last Admin: 03/20/24 10:16 Dose: 1 tab Documented By: AAYUSH Sodium Chloride (0.9 % Sodium Chloride Flush 3 Ml Syringe) 3 ml IVFLUSH QSHIFT [facility] Last Admin: 03/20/24 10:41 Dose: Not Given Documented By: AAYUSH Non-Admin Reason: Previously Administered Spironolactone (Spironolactone 25 Mg Tablet) 12.5 mg PO DAILY [facility]; Protocol Last Admin: 03/18/24 10:46 Dose: Not Given Documented By: CATHY Non-Admin Reason: Physician Held Med Labs 03/19/24 06:11 03/20/24 07:03 Labs: Laboratory Results - last 24 hr 03/20/24 07:03 Hold Purple Top SEE NOTE Anion Gap 11 L Estim Creat Clear Calc 71.3 Estimated GFR > 60 Random Glucose 149 H Calcium 7.7 L Microbiology Microbiology Results: Microbiology 03/15/24 08:25 Blood Culture - Final Blood - Venous No growth after 5 days. 03/15/24 07:59 Blood Culture - Final Blood - Venous No growth after 5 days. Assessment and Plan (1) Nonsustained ventricular tachycardia: Status: Acute (2) Acute exacerbation of CHF (congestive heart failure): Status: Acute Plan 69-year-old man admitted with acute on chronic congestive heart failure Acute on chronic heart failure with reduced ejection fraction Last echocardiogram with EF of 35% with moderate global hypokinesis Patient on Entresto and beta-carson at home but wasn't compliant, has been resumed Cardiology consultation> re-started coreg and entresto. spironolactone on hold due to soft blood pressure Good output with diuresis will transition to po bumex Monitor on telemetry Will need outpatient ischemic workup NSVT continues to have NSVT multiple times daily despite amiodarone therapy coreg 3.125mg BID s/p amiodarone drip,transitioned to p.o. amiodarone 03/18 plan for 400 mg b.i.d. for 14 days then 200 mg daily patient unable to use external defibrillator vest CAP No sepsis. Low blood pressure due to cardiac medications not due to sepsis. patchy density to the left mid lung on chest x-ray Rocephin, azithromycin initially; given NSVT and mild prolongation of QTC will change azithromycin to doxycycline Supplemental oxygen as needed to keep oxygen saturation greater than 91% Cough suppressant as needed Thrombocytopenia Appears chronic, platelets stable, trending back up Asthma exacerbation wean solu medrol Scheduled DuoNebs Elevated troponin Likely secondary to demand related to acute congestive heart failure no acute ischemic changes on EKG Lactic acidosis Likely secondary to asthma, steroid use not sepsis Crack cocaine use Recommend to avoid using cocaine DVT prophylaxis with heparin Attending Dr. Cintron Full code continue inpatient admission for treatment of acute on chronic congestive heart failure requiring IV diuretics Quality Stroke Does the patient have a stroke diagnosis?: No VTE Prior VTE?: No VTE Risk Level:: Medical - moderate - high VTE Device Contraindication: Treatment Not Indicated VTE Drug Contraindication: N/A - Med Ordered
[2024-03-20] MEDS: Doxycycline Hyclate 100 MG in 0.9 % Sodium Chloride 250 ML 166.67 MG IV (11:53)
[2024-03-20] MEDS: 0.9 % Sodium Chloride Flush 3 ML SYRINGE IVFLUSH ×2 (17:39→22:06)
[2024-03-20] MEDS: Doxycycline Monohydrate 100 MG CAPSULE PO (22:06)
[2024-03-21] VITALS (14 sets, daily range): BP systolic 98–106; BP diastolic 54–68; PULSE 65–87; RESP 16–20; TEMP 36.2–36.7; O2SAT 92–98; BMI 30.8
[2024-03-21] MEDS: Heparin Sodium,Porcine 5,000 UNIT/ML VIAL 5000 UNIT SUBCUT ×2 (06:10→18:02)
[2024-03-21] MEDS: levalbuterol HCL 1.25 MG/3 ML VIAL.NEB INHALE ×4 (07:28→23:25)
[2024-03-21 08:18] LABS: Anion Gap 12 (12-20); Blood Urea Nitrogen 27 mg/dL (9-16); Calcium 7.8 mg/dL (8.4-10.2); Carbon Dioxide 30 mmol/L (22-29); Chloride 104 mmol/L (96-108); Creatinine Clr Calc Pharmacy 73.9; Estimated Glomerular Filt Rate > 60; Glucose Random 154 mg/dL (60-115); Potassium 3.3 mmol/L (3.3-5.1); Sodium 143 mmol/L (135-145)
--- NOTE | 2024-03-21 08:19 | P.PNIM_ITS ---
Subjective Subjective Date of Service: 03/21/24 Interval History: seen and examined this morning follow up for pneumonia, CHF, NSVT breathing improving, no chest pain Review of Systems Review of Systems: Yes all other systems are reviewed and are negative Constitutional Constitutional: Denies chills and Denies fever(s) Physical Exam 2 Vital Signs: Vital Signs: Last Vital Signs Temp 97.2 F 03/21/24 07:54 Pulse 70 03/21/24 07:54 Resp 20 03/21/24 07:54 BP 100/64 03/21/24 07:54 Pulse Ox 94 03/21/24 07:54 O2 Del Method Room Air 03/21/24 07:54 O2 Flow Rate 2 03/16/24 23:50 FiO2 30 03/15/24 11:49 BMI result Body Mass Index 30.8 Appearing in no acute distress lung sounds are clear to auscultation heart regular rate rhythm, clear S1, S2 positive bowel sounds, abdomen is soft, nontender neuro patient is alert x3, no focal deficits Objective Data Active Medications Acetaminophen (Acetaminophen 325 Mg Tablet) 650 mg PO Q6H PRN PRN Reason: Pain, Mild (Pain Scale 1-3) Last Admin: 03/18/24 04:57 Dose: 650 mg Documented By: ERMIAS Amiodarone HCl (Amiodarone Hcl 200 Mg Tablet) 400 mg PO BID [facility] Last Admin: 03/20/24 22:05 Dose: 400 mg Documented By: TEDDY Bumetanide (Bumetanide 1 Mg Tablet) 2 mg PO DAILY [facility]; Protocol Last Admin: 03/20/24 10:17 Dose: 2 mg Documented By: AAYUSH Carvedilol (Carvedilol 3.125 Mg Tablet) 3.125 mg PO BID [facility]; Protocol Last Admin: 03/20/24 22:05 Dose: 3.125 mg Documented By: TEDDY Doxycycline Monohydrate (Doxycycline Monohydrate 100 Mg Capsule) 100 mg PO Q12H [facility] Last Admin: 03/20/24 22:06 Dose: 100 mg Documented By: TEDDY Heparin Sodium (Porcine) (Heparin Sodium,Porcine 5,000 Unit/Ml Vial) 5,000 unit SUBCUT Q12H [facility] Last Admin: 03/21/24 06:10 Dose: 5,000 unit Documented By: TEDDY Ceftriaxone Sodium 1 gm/ (Sodium Chloride) 50 mls @ 100 mls/hr IV Q24H [facility] Last Infusion: 03/20/24 11:08 Dose: Infused Documented By: AAYUSH Levalbuterol HCl (Levalbuterol Hcl 1.25 Mg/3 Ml Vial.Neb) 1.25 mg INHALE RQ4H [facility] Last Admin: 03/21/24 07:28 Dose: 1.25 mg Documented By: URI Methylprednisolone Sodium Succinate (Methylprednisolone Sod Succ 40 Mg/Ml Vial) 40 mg IVPUSH DAILY [facility] Last Admin: 03/20/24 10:16 Dose: 40 mg Documented By: AAYUSH Ondansetron HCl (Ondansetron Hcl 4 Mg/2 Ml Vial) 4 mg IVPUSH Q8H PRN PRN Reason: Nausea and Vomiting Sacubitril/Valsartan (Sacubitril/Valsartan 49/51 1 Tab Tablet) 1 tab PO BID [facility]; Protocol Last Admin: 03/20/24 22:05 Dose: 1 tab Documented By: TEDDY Sodium Chloride (0.9 % Sodium Chloride Flush 3 Ml Syringe) 3 ml IVFLUSH QSHIFT [facility] Last Admin: 03/20/24 22:06 Dose: 3 ml Documented By: TEDDY Spironolactone (Spironolactone 25 Mg Tablet) 12.5 mg PO DAILY [facility]; Protocol Last Admin: 03/18/24 10:46 Dose: Not Given Documented By: CATHY Non-Admin Reason: Physician Held Med Labs 03/19/24 06:11 03/21/24 07:30 Labs: Laboratory Results - last 24 hr 03/21/24 07:30 Anion Gap 12 Estim Creat Clear Calc 73.9 Estimated GFR > 60 Random Glucose 154 H Calcium 7.8 L Microbiology Microbiology Results: Microbiology 03/15/24 08:25 Blood Culture - Final Blood - Venous No growth after 5 days. 03/15/24 07:59 Blood Culture - Final Blood - Venous No growth after 5 days. Assessment and Plan (1) Nonsustained ventricular tachycardia: Status: Acute (2) Acute exacerbation of CHF (congestive heart failure): Status: Acute Plan 69-year-old man admitted with acute on chronic congestive heart failure Acute on chronic heart failure with reduced ejection fraction Last echocardiogram with EF of 35% with moderate global hypokinesis Patient on Entresto and beta-carson at home but wasn't compliant, has been resumed Cardiology consultation> re-started coreg and entresto. spironolactone on hold due to soft blood pressure Good output with diuresis transitioned to po bumex Monitor on telemetry Will need outpatient ischemic workup NSVT continues to have NSVT multiple times daily despite amiodarone therapy coreg 3.125mg BID s/p amiodarone drip,transitioned to p.o. amiodarone 03/18 plan for 400 mg b.i.d. for 14 days then 200 mg daily patient unable to use external defibrillator vest CAP No sepsis. Low blood pressure due to cardiac medications not due to sepsis. patchy density to the left mid lung on chest x-ray Rocephin, azithromycin initially; given NSVT and mild prolongation of QTC will change azithromycin to doxycycline Supplemental oxygen as needed to keep oxygen saturation greater than 91% Cough suppressant as needed Thrombocytopenia Appears chronic, platelets stable, trending back up Asthma exacerbation wean solu medrol Scheduled DuoNebs Elevated troponin Likely secondary to demand related to acute congestive heart failure no acute ischemic changes on EKG Lactic acidosis Likely secondary to asthma, steroid use not sepsis Crack cocaine use Recommend to avoid using cocaine DVT prophylaxis with heparin Attending Dr. Cintron Full code continue inpatient admission for treatment of acute on chronic congestive heart failure requiring IV diuretics Quality Stroke Does the patient have a stroke diagnosis?: No VTE Prior VTE?: No VTE Risk Level:: Medical - moderate - high VTE Device Contraindication: Treatment Not Indicated VTE Drug Contraindication: N/A - Med Ordered
[2024-03-21 08:29] LABS: B Type Natriuretic Peptide 679 pg/mL (<100)
[2024-03-21] MEDS: carvediloL 3.125 MG TABLET PO ×2 (08:40→21:10)
[2024-03-21] MEDS: 0.9 % Sodium Chloride Flush 3 ML SYRINGE IVFLUSH ×3 (08:40→21:11)
[2024-03-21] MEDS: methylPREDNISolone Sod Succ 40 MG/ML VIAL IVPUSH (08:40)
[2024-03-21] MEDS: Sacubitril/Valsartan 49/51 1 TAB TABLET PO (08:40)
[2024-03-21] MEDS: Amiodarone HCL 200 MG TABLET 400 MG PO ×2 (08:41→21:10)
[2024-03-21] MEDS: Bumetanide 1 MG TABLET 2 MG PO (09:09)
[2024-03-21] MEDS: Doxycycline Monohydrate 100 MG CAPSULE PO ×2 (12:25→23:49)
[2024-03-21] MEDS: cefTRIAXone sodium 1 GM in 0.9 % Sodium Chloride 50 ML IV (12:25)
--- NOTE | 2024-03-21 12:49 | PM.PNCARD ---
Subjective Subjective Date of Service: 03/21/24 Principal diagnosis: Acute CHF, nonsustained VT. Interval history: No significant prolonged VT runs. Blood pressure is stable. Shortness of breath is stable. No PT consultation. Review of Systems Constitutional: Reports no additional constitutional complaints Cardiovascular: Denies chest pain, Denies lightheadedness, Denies palpitations and Reports dyspnea on exertion Respiratory: Reports no additional respiratory complaints and Reports dyspnea on exertion Gastrointestinal: Reports no additional gastrointestinal complaints Musculoskeletal: Reports no additional musculoskeletal complaints Endocrine: Denies palpitations Physical Exam Vital Signs: Last Vital Signs Temp 97.7 F 03/21/24 11:54 Pulse 67 03/21/24 11:54 Resp 17 03/21/24 11:54 BP 99/64 03/21/24 11:54 Pulse Ox 92 03/21/24 11:54 O2 Del Method Room Air 03/21/24 11:54 O2 Flow Rate 2 03/16/24 23:50 FiO2 30 03/15/24 11:49 BMI result Body Mass Index 30.8 Const General: cooperative, comfortable, alert and awake Nutritional Appearance: overweight Orientation/consciousness: patient oriented x3 Neck Neck: Yes trachea midline, Yes supple and Yes no JVD Resp Effort & Inspection: normal respiratory effort Auscultation: no rales and wheezes (Improved) Cardio Jugular venous distension: no JVD Palpation: abnormal PMI displaced PMI Rate: regular rate Rhythm: regular rhythm Heart sounds: S1 normal heart sound present, S2 normal heart sound present, no click, no gallops and no murmurs GI Auscultation: normal bowel sounds Neuro General: patient oriented x3 and no focal motor deficits Extrem General: No clubbing, No cyanosis and Yes edema Objective Labs and Meds 03/19/24 06:11 03/21/24 07:30 Lab results: Laboratory Results - last 24 hr 03/21/24 07:30 Sodium 143 Potassium 3.3 Chloride 104 Carbon Dioxide 30 H Anion Gap 12 BUN 27 H Creatinine 1.00 Estim Creat Clear Calc 73.9 Estimated GFR > 60 Random Glucose 154 H Calcium 7.8 L B-Natriuretic Peptide 679 H Progress Note: A&P Assessment and plan (1) Acute exacerbation of CHF (congestive heart failure): Status: Acute Assessment and Plan: Acute CHF most likely ischemic cardiomyopathy. Will need cardiac catheterization as outpatient. Continue current neurohormonal modulation with carvedilol, Entresto. Continue bumetanide. Further management was discussed. Continue to hold spironolactone given his softer blood pressure. Outpatient cardiac catheterization. (2) Nonsustained ventricular tachycardia: Status: Acute Assessment and Plan: Nonsustained ventricular tachycardia still present. Can not operate extra lead vest defibrillator which will put him at increased risk. Discussed with the patient. Continue amiodarone therapy. Continue heart failure management. Outpatient cardiac catheterization. Will sign of the case. Thank you for allowing me to partake in his care Time Spent With Patient Time: Total time managing care of this patient today ____ minutes. Progress Note: Quality Stroke Does the patient have a stroke diagnosis?: No Procedures Date of Service Date of Service: 03/21/24
[2024-03-22] VITALS (8 sets, daily range): BP systolic 94–102; BP diastolic 60–70; PULSE 65–73; RESP 16–20; TEMP 36.5–36.9; O2SAT 93–98; BMI 29.2
[2024-03-22] MEDS: Heparin Sodium,Porcine 5,000 UNIT/ML VIAL 5000 UNIT SUBCUT (05:02)
[2024-03-22] MEDS: levalbuterol HCL 1.25 MG/3 ML VIAL.NEB INHALE ×3 (05:09→11:46)
[2024-03-22] MEDS: Amiodarone HCL 200 MG TABLET 400 MG PO (09:18)
[2024-03-22] MEDS: carvediloL 3.125 MG TABLET PO (09:18)
[2024-03-22] MEDS: methylPREDNISolone Sod Succ 40 MG/ML VIAL IVPUSH (09:19)
[2024-03-22] MEDS: 0.9 % Sodium Chloride Flush 3 ML SYRINGE IVFLUSH (09:19)
[2024-03-22] MEDS: Bumetanide 1 MG TABLET 2 MG PO (09:26)
--- NOTE | 2024-03-22 11:44 | MHC.CM.PN ---
Second IMM given 03/22, copy given in Tuvaluan and Syrian per daughters request. Pt is medically cleared for D/C home with new [facility] services. Pts daughter to transport him home today.
--- NOTE | 2024-03-22 12:31 | PM.DS ---
DS: Providers Provider Date of Service: 03/22/24 Date of admission: 03/15/24 14:15 Primary care physician: Fredi Ritter MD Consults: 03/15/24 14:15 Consult to Cardiology Routine Consulting Provider: [facility] Cardiovascular Services Reason for consultation: CHF 03/16/24 12:40 Consult to Wound Care Routine Reason for consultation: wound to Left index finger 03/18/24 00:32 Consult to Wound Care Routine Reason for consultation: burn- left index finger DS: Diagnosis Discharge Diagnosis (1) Acute exacerbation of CHF (congestive heart failure): Status: Acute (2) Nonsustained ventricular tachycardia: Status: Acute DS: Summary Hospital Course Hospital Course: 69-year-old man presented to the ER with complaints of shortness a breath. He reports he has had shortness of breath and breathing issues over the last 2 months but has been worse over the last couple of days. He does use cocaine and reports that he last used 6 days ago. He reported that he has had some episodes of incontinence of his bowel and bladder because of his weakness. He reports that he lives in a alf with his son and has been compliant with his Lasix but has not taken any other medications. He denied any recent travel, sick contacts, fever, chills, nausea, vomiting, diarrhea. Reported dry cough with no phlegm. He does not smoke or drink alcohol. Chest x-ray in the ER was noted to have cardiomegaly, new patchy density left midlung infiltrate, improved right-sided infiltrate, troponin elevated with peak of 188.8, BNP 996, total bilirubin 1.6. In the ER patient received albuterol, Solu-Medrol, IV magnesium, IV Lasix, Rocephin, azithromycin. He will be admitted for further management and treatment of CHF and pneumonia. 69-year-old man treated for acute on chronic heart failure with reduced ejection fraction, NSVT, cap and asthma exacerbation. Echocardiogram showed EF of 35% with moderate global hypokinesis. Patient was on Entresto and beta-carson at home but apparently was noncompliant, this was resumed during the hospitalization. He was seen and evaluated by Cardiology and initially was thought that the patient might require a LifeVest as he was experiencing multiple episodes of nonsustained V-tach. He was started on IV amiodarone then transitioned to amiodarone 400 mg twice daily, Coreg 3.125 mg b.i.d. was continued. After discussion it was thought that the patient would not be safe at home with a LifeVest and he would likely not be able to use it properly as he has very severe rheumatoid arthritis to his hands and no other family assistance in the home. Patient will continue amiodarone 400 mg b.i.d. for 10 more days then 200 mg daily. Plan is to follow up with Cardiology in the office for further ischemic workup, patient will likely need cardiac catheterization at some point as he reported that he does have some joint issues and may in the future need joint surgery. Community-acquired pneumonia. No sepsis. Treated for patchy density in the left mid lung with Rocephin, azithromycin and doxycycline. Oxygen saturations have been greater than 91% and he had an required any extra oxygen. He has completed antibiotic treatment. Asthma exacerbation. Treated with IV Solu-Medrol, scheduled DuoNebs, no further wheezing and no hypoxia. He will continue short prednisone taper at home. History of crack cocaine use. This is likely contributing to ischemic heart failure, patient was recommended to stop using any street drugs including cocaine. Weakness. Patient has difficulty with ambulation, uses crutches and his apartment. He was seen by Physical therapy and reported that he is baseline 80 at this time and he is safe to return home. Physical therapy recommended home PT. Time Attestation Discharge Coordination Time (in mins): 55 Quality: Safe Use of Opioids Does Pt have an Active Cancer Diagnosis on the Problem List?: No Quality: Stroke Does the patient have a stroke diagnosis?: No Physical Exam Vital Signs: Vital Signs: Last Vital Signs Temp 98.4 F 03/22/24 11:26 Pulse 72 03/22/24 11:47 Resp 16 03/22/24 11:47 BP 94/60 03/22/24 11:26 Pulse Ox 98 03/22/24 11:26 O2 Del Method Room Air 03/22/24 11:26 O2 Flow Rate 2 03/16/24 23:50 FiO2 30 03/15/24 11:49 BMI result Body Mass Index 29.2 Appearing in no acute distress head is normocephalic atraumatic eyes pupils are PERRLA sclera is anicteric mouth throat mucous membranes are intact and moist neck is supple no lymphadenopathy, no JVD noted lung sounds are clear to auscultation heart regular rate rhythm, clear S1, S2 positive bowel sounds, abdomen is soft, nontender neuro patient is alert x3, no focal deficits Poor hand dexterity with history of rheumatoid arthritis Discharge Plan Discharge Anticipated Discharge Date/Time: 03/22/24 12:20 Patient Disposition: Home Health Service Discharge Diagnosis: Acute on chronic heart failure with reduced ejection fraction Nonsustained ventricular tachycardia Community-acquired pneumonia Asthma exacerbation Referrals: Les [facility] [Outside] - 1 Week Fredi Ritter MD [Primary Care Provider] - 1 Week Maycol Stewart MD [Physician] - 1 Week Discharge Medications: New amiodarone 200 mg Tablet 400 mg PO BID Qty: 40 0RF Rx Instructions: take 400 mg twice daily for 10 days then 200 mg daily after that bumetanide 1 mg Tablet 2 mg PO DAILY Qty: 60 0RF Protocol: Hold for SBP< HOLD for SBP < : 90 prednisone 10 mg tablet 40 mg PO DIRECTED Qty: 20 0RF Rx Instructions: see taper instructions Continued carvedilol 3.125 mg Tablet 3.125 mg PO BID Qty: 60 0RF Protocol: Hold for SBP/HR < HOLD for SBP < : 90 HOLD for HR < : 60 furosemide [Lasix] 20 mg tablet 20 mg PO DAILY Qty: 30 0RF hydrocortisone 2.5 % cream 1 appl topical QD-BID Rx Instructions: apply to neck and below Asmanex HFA 100 mcg/actuation HFA aerosol inhaler 2 puff INHALATION BID Entresto 49-51 mg tablet 1 tab PO BID albuterol sulfate [Ventolin HFA] 90 mcg/actuation HFA aerosol inhaler 2 puff inhalation Q4H PRN (Reason: Wheezing) Discharge Orders: Discharge Order (Routine); Ordered 03/22/24 Ordered By: Beckie Dumont Diet: Advance to usual diet Activity on Discharge: As tolerated Stand Alone Forms: Patient Portal Discharge page Print Language: Djiboutian Care Plan Goals: Stop using street drugs Health Concerns: Acute on chronic heart failure with reduced ejection fraction Nonsustained ventricular tachycardia Community-acquired pneumonia Asthma exacerbation Plan of Treatment: Follow-up with primary care provider as needed Follow-up with Cardiology, see contact information above Take all medications as prescribed Assessment: See discharge summary
--- NOTE | 2024-03-22 12:37 | W.MHC.F2F ---
Service Date Service Date: 03/22/24 Encounter Date of encounter: 03/22/24 Reasons for Services Signs and symptoms assessed: Heart failure with reduced ejection fraction Community-acquired pneumonia Asthma exacerbation Weakness with reduced hand dexterity due to rheumatoid arthritis Reason for senior living: CV/CP assess and/or care and medication management Reason for physical therapy: home safety and mobility and therapeutic exercises Homebound: Leaving the home is medically contraindicated at this time without the asist of a device and/or another person due th the listed conditions above and below. Reason homebound: unsteady gait / fall risk, pain with transfers, poor balance / fall risk, weakness related to hospital stay and legally blind Certification: Based on the above findings, I certify that this patient is confined to the home and needs intermittent senior living care, physical therapy and/or speech therapy, or continues to need occupational therapy. The patient is under my care, and I have initiated the establishment of the plan of care. The patient will be followed by a physician who will periodically review the plan of care. Time Spent With Patient Time: Total time managing care of this patient today ____ minutes.
[2024-03-22] MEDS: Doxycycline Monohydrate 100 MG CAPSULE PO (12:50)
== END 2024-03-22 13:11 | disposition home health service (06) | DRG 291 ==
LOC: HO.ED 10:52 → HO.EDOVER 14:30 → HO.IMC 19:39
PROVIDERS: Physician Assistant; Physician Assistant Medical; Admitting Provider Nurse Practitioner Acute Care; Emergency Provider Emergency Medicine; PCP Internal Medicine Geriatric Medicine; Visit Provider Nurse Practitioner Acute Care
DX: I11.0 Hypertensive heart disease with heart failure (principal); I50.23 Acute on chronic systolic (congestive) heart failure; J18.9 Pneumonia, unspecified organism; J96.00 Acute respiratory failure, unspecified whether with hypoxia or hypercapnia; J45.21 Mild intermittent asthma with (acute) exacerbation; E87.21 Acute metabolic acidosis; I47.20 Ventricular tachycardia, unspecified; D69.6 Thrombocytopenia, unspecified; F14.90 Cocaine use, unspecified, uncomplicated; Z91.148 Patient's other noncompliance with medication regimen for other reason; Z87.891 Personal history of nicotine dependence; Z79.899 Other long term (current) drug therapy
CPT/HCPCS: 36415; 71045; 80048; 80053; 80076; 80307; 81003; 82803; 83605; 83735; 83880; 84145; 84484; 85025; 85027; 87040; 93005; 93306; 93356; 94640; 97162; 99285; J0282; J0456; J0696; J1644; J1940; J2919; J3475; Q9957

== ENCOUNTER → 2024-03-15 07:19 | Outpatient (BNV) | payer OTHER, SELFPAY | PROVIDERS: Emergency Provider Emergency Medicine; PCP Internal Medicine Geriatric Medicine; Visit Provider Internal Medicine Cardiovascular Disease | DX: R00.0 Tachycardia, unspecified (principal); R06.09 Other forms of dyspnea | CPT/HCPCS: 93010 ==

== ENCOUNTER 2024-03-15 14:15 | Outpatient (BNV) | payer OTHER, SELFPAY | END 2024-03-17 11:27 | PROVIDERS: Admitting Provider Nurse Practitioner Acute Care; Emergency Provider Emergency Medicine; PCP Internal Medicine Geriatric Medicine; Visit Provider Internal Medicine Cardiovascular Disease | DX: R94.31 Abnormal electrocardiogram [ECG] [EKG] (principal) | CPT/HCPCS: 93010 ==

== ENCOUNTER 2024-03-15 14:15 | Outpatient (BNV) | payer OTHER, SELFPAY | END 2024-03-16 07:00 | PROVIDERS: Admitting Provider Nurse Practitioner Acute Care; Emergency Provider Emergency Medicine; PCP Internal Medicine Geriatric Medicine; Visit Provider Internal Medicine Cardiovascular Disease | DX: I34.0 Nonrheumatic mitral (valve) insufficiency (principal); I36.1 Nonrheumatic tricuspid (valve) insufficiency; R93.1 Abnormal findings on diagnostic imaging of heart and coronary circulation | CPT/HCPCS: 93306; 93356 ==

== ENCOUNTER → 2024-03-15 14:15 | Outpatient (BNV) | payer OTHER, SELFPAY | PROVIDERS: Admitting Provider Nurse Practitioner Acute Care; Emergency Provider Emergency Medicine; PCP Internal Medicine Geriatric Medicine; Visit Provider Internal Medicine Cardiovascular Disease | DX: I50.9 Heart failure, unspecified (principal); I47.29 Other ventricular tachycardia | CPT/HCPCS: 99222; 99233; 99499 ==

== ENCOUNTER → 2024-03-15 14:15 | Outpatient (BNV) | payer OTHER, SELFPAY | PROVIDERS: Admitting Provider Nurse Practitioner Acute Care; Emergency Provider Emergency Medicine; PCP Internal Medicine Geriatric Medicine; Visit Provider Nurse Practitioner Acute Care | DX: I50.9 Heart failure, unspecified (principal); I47.29 Other ventricular tachycardia | CPT/HCPCS: 99223; 99232; 99233; 99239; 99499; G0180 ==

== ENCOUNTER 2024-04-09 10:42 | Outpatient (REF) | payer OTHER, SELFPAY ==
[2024-04-09 14:00] LABS: Anion Gap 17 (12-20); Blood Urea Nitrogen 12 mg/dL (9-16); Calcium 8.6 mg/dL (8.4-10.2); Carbon Dioxide 22 mmol/L (22-29); Chloride 107 mmol/L (96-108); Estimated Glomerular Filt Rate 57; Glucose Random 100 mg/dL (60-115); Potassium 3.7 mmol/L (3.3-5.1); Sodium 142 mmol/L (135-145)
== END 2024-04-09 10:43 | disposition home or self-care (01) ==
LOC: HO.HHCL 10:42
PROVIDERS: Visit Provider Internal Medicine Geriatric Medicine
DX: I50.23 Acute on chronic systolic (congestive) heart failure (principal); I42.9 Cardiomyopathy, unspecified
CPT/HCPCS: 36415; 80048; 83735

== ENCOUNTER 2024-04-20 10:07 | Outpatient (AMB) | payer OTHER, SELFPAY ==
--- NOTE | 2024-04-20 10:13 | MHC.OFFVIS ---
Vital Signs 04/20/24 10:14 Height 5 ft 6 in Weight 185 lb 3.013 oz BMI 29.9 BP 100/62 Blood Pressure Location Lt brachial Position Sitting Pulse 87 Pulse Source Monitor Intake Visit Reasons: Cardiac cath discuss (04/22) NEEDS LABS Manager System Required: Yes Manager System Language: High Scaler Name: darryl [id number] [employer]: [employer] Present Allergies aspirin [ASPIRIN] Allergy (Unknown, Verified 03/15/24 07:22) Rash egg [EGGS] Allergy (Unknown, Verified 03/15/24 07:22) UNKNOWN Influenza Virus Vaccines [INFLUENZA VIRUS VACCINES] Allergy (Unknown, Verified 03/15/24 07:22) UNKNOWN lactose [LACTOSE] Allergy (Unknown, Verified 03/15/24 07:22) GI UPSET Medication List - Last Reconciled 04/20/24 by JEMIMA Muller albuterol sulfate 90 mcg/actuation (Ventolin HFA) 2 puffs inhalation Q4H PRN amiodarone 400 mg (2 x 200 mg) PO BID bumetanide 2 mg See Protocol PO DAILY carvedilol 3.125 mg See Protocol PO BID hydrocortisone 2.5% 1 appl topical QD-BID mometasone 100 mcg/actuation (Asmanex HFA) 2 puffs inhalation BID prednisone 40 mg (4 x 10 mg) PO DIRECTED sacubitril-valsartan 49-51 mg (Entresto) 1 tab PO BID HPI HPI Cardiac cath discuss (04/22) NEEDS LABS: Details: Víctor is a 69 yo male with PMH of cocaine use, nonischemic cardiomyopathy, HFrEF who was recently admitted to [facility] with shortness of breath and treated for decompensated HF. He was diuresed and sent home with Bumex 2 mg daily. He had runs of NSVT and was started on Amiodarone, in addition to his carvedilol. An outpt cardiac cath is being arranged. Today he states he has been having issues with increasing leg edema. She will get sob with walking and ADLs. He was up during the night due to feeling sob. At the time of the visit, he says he is breathing well. No chest pains, palpitations, presyncope, syncope, falls. Has been doing only light activity. He has been taking only 1 mg Bumex daily. He believes another provider told him to reduce it from 2 mg. Taking all other meds. Daughter has been helping him. She is here at this visit. Certified digester used. [facility] Medical History Cardiomyopathy HFrEF (heart failure with reduced ejection fraction) Hypertension Cocaine use disorder Asthma Surgical History Hx of endoscopic retrograde cholangiopancreatography History of cholecystectomy Family History Mother Diabetes Hypertension Arthritis Asthma Father Asthma Social History Household Members: Children Housing: Other Housing Other:: living in correction with son Do you presently have visiting nurse or other home services: Yes (nurse visits every 6mon, interested in more frequent aid visits) Alcohol intake: former Patient Tobacco Use Status: Former Tobacco user Tobacco use type: Cigarette Cigarette Packs Per Day: 2 Cigarettes Per Day: 40.0 Years Smoked: 51 e-Cigarette/Vaping Use: Former Use Second Hand Smoke Exposure: Yes Substance Use Type: Crack/Cocaine service: No Review of Systems Const All systems reviewed & are unremarkable except as noted in HPI and below ENT Denies dizziness Card Denies chest pain, Denies chest pain at rest, Denies chest pain with activity, Denies rapid heart rate, Denies pedal edema, Denies edema, Reports leg edema, Denies lightheadedness, Denies palpitations, Reports dyspnea, Reports dyspnea on exertion and Reports orthopnea Resp Denies cough, Reports dyspnea and Reports dyspnea on exertion GI Denies hematochezia and Denies change in stool character Musc Denies abnormal gait, Denies limited range of motion, Denies muscle cramps, Denies muscle weakness, Denies numbness, Denies radiating pain into limb, Denies stiffness and Denies tingling Neuro Denies abnormal gait, Denies dizziness, Denies numbness and Denies tingling Endo Denies palpitations Physical Exam Vital Signs: Last Vital Signs Pulse 87 04/20/24 10:14 BP 100/62 04/20/24 10:14 BMI result Body Mass Index 29.9 Const General: cooperative, comfortable and no acute distress Orientation/consciousness: patient oriented x3 Neck Neck: Yes JVD Resp Effort & Inspection: normal respiratory effort Auscultation: clear to auscultation bilaterally, no rales, no rhonchi and no wheezes Cardio Jugular venous distension: no JVD Rate: regular rate Rhythm: regular rhythm Heart sounds: S1 normal heart sound present, S2 normal heart sound present, no murmurs and no rubs Neuro General: patient oriented x3 Extrem Other: tight edema both legs to upper thighs and edema to tissue of lower abdomen Psych Appearance: grossly normal Mental Status: mental status grossly normal Speech and movement: Normal speech and movement present Office Procedures EKG Details: Today read by me, normal sinus rhythm, left axis deviation, anterior septal infarct, rate 87, QTC 483 milliseconds - no significant change from prior [id number], Complete Assessment & Plan Assessment & Plan (1) Cardiomyopathy: Code(s): I42.9 - Cardiomyopathy, unspecified Category: Medical Qualifiers: Cardiomyopathy type: other Qualified Code(s): I42.8 - Other cardiomyopathies Plan: Hx of nonischemic cardiomyopathy. In that past it was thought to be related to substance abuse. Echocardiogram done 05/2022 showed EF 40-45%. Nuclear stress test 05/2022 showed normal myocardial perfusion imaging. His last prior visit to our officer was 07/16/22. He was hospitalized with HF 08/2023, 11/2023, 02/2024. Echo done on last admit shows EF 35-40%, mod decrease in RVSF and increased RVSP, mild to mod MR, mod TR. He was diuresed and sent home with Bumex 2 mg daily, Carvedilol, Entresto. He was having runs of NSVT and was started on Amiodarone load followed by maintenance dose. An outpt cardiac cath is being planned. He arrives today with report of increasing leg edema, sob, orthopnea. On exam he has pitting edema from feet, up legs and into tissue of lower abdomen. He has JVD, no rales on exam. He is dening feeling sob at this time. NYHA class 2-3. He has been taking only 1 mg of Bumex daily. Considered ED eval and pt does not feel he needs it. Sent for labs - results available prior to completion of this note: K 3.4, C 1.16, BNP 1181 - which has doubled since last check. Will have him increase Bumex to 2 mg daily. Follow low salt diet, fluid restriction 48 oz daily, leg elevation. Take all meds as directed. Obstain from cocaine use. Will postpone cardiac cath that is scheduled for 04/23/24 as pt has reported orthopnea and evidence of decompensated HF. Will plan to recheck labs in 2 weeks, office weight and quick visual assessment in 2 weeks.Cath to be rescheduled when pt clinically optimized. Spent time going over cath procedure with him in detail, including risks of infection, bleeding, CHRISTIN, ND, stroke. He is agreeable to proceed. ED care if needed. Cardiology follow up 2 weeks post catjh (2) Nonsustained ventricular tachycardia: Code(s): I47.29 - Other ventricular tachycardia Category: Medical Plan: As above (3) Preop cardiovascular exam: Code(s): Z01.810 - Encounter for preprocedural cardiovascular examination Category: Medical Plan: cardiac cath (4) Abnormal EKG: Code(s): R94.31 - Abnormal electrocardiogram [ECG] [EKG] Category: Medical Plan: Evidence of possible old anteroseptal infarct on EKG Plan Time spent on chart review, document, interview, assessment Orders: Orders B Type Natriuretic Peptide 04/20/24 I42.8 - Other cardiomyopathies Basic Metabolic Panel 04/20/24 I47.29 - Other ventricular tachycardia, I50.9 - Heart failure, unspecified, R00.2 - Palpitations, R94.31 - Abnormal electrocardiogram [ECG] [EKG], Z01.810 - Encounter for preprocedural cardiovascular examination Basic Metabolic Panel 2 Weeks I42.8 - Other cardiomyopathies TSH reflex Free T4 04/20/24 I47.29 - Other ventricular tachycardia Complete Blood Count no Diff 04/20/24 I47.29 - Other ventricular tachycardia, I50.9 - Heart failure, unspecified, R00.2 - Palpitations, R94.31 - Abnormal electrocardiogram [ECG] [EKG], Z01.810 - Encounter for preprocedural cardiovascular examination Prothrombin Time INR 04/20/24 I47.29 - Other ventricular tachycardia, I50.9 - Heart failure, unspecified, R00.2 - Palpitations, R94.31 - Abnormal electrocardiogram [ECG] [EKG], Z01.810 - Encounter for preprocedural cardiovascular examination B Type Natriuretic Peptide 2 Weeks I42.8 - Other cardiomyopathies Complete Blood Count Auto Diff 2 Weeks I42.8 - Other cardiomyopathies Prothrombin Time INR 2 Weeks I42.8 - Other cardiomyopathies Medications: New sacubitril-valsartan 49-51 mg (Entresto) 1 tab PO BID 60 tabs 5RF Changed From amiodarone take 400 mg twice daily for 10 days then 200 mg daily after that 400 mg (2 x 200 mg) PO BID 40 tabs 0RF To amiodarone 200 mg PO DAILY 30 tabs 5RF Refilled carvedilol 3.125 mg See Protocol PO BID 60 tabs 5RF bumetanide 2 mg See Protocol PO DAILY 60 tabs 5RF Coding Level of Care Code Est Pt Level 4 (37242) Diagnoses Other cardiomyopathy I42.8 Cardiomyopathy type: other Nonsustained ventricular tachycardia I47.29 Preop cardiovascular exam Z01.810 Abnormal EKG R94.31 CPT Codes EKG - CPT: 18614-[id number], Complete ([id number]) Time Spent (min) 36
[2024-04-20 10:14] VITALS: BP 100/62; PULSE 87; BMI 29.9
== END 2024-04-20 11:24 | disposition home or self-care (01) ==
PROVIDERS: PCP Internal Medicine Geriatric Medicine; Visit Provider Nurse Practitioner Family
DX: I47.29 Other ventricular tachycardia (principal); I42.8 Other cardiomyopathies
CPT/HCPCS: 93010; 99214

== ENCOUNTER 2024-04-20 10:07 | Outpatient (REF) | payer OTHER, SELFPAY ==
[2024-04-20 11:56] LABS: Hematocrit 35.6 % (42.0-52.0); Hemoglobin 11.5 g/dl (14.0-18.0); Mean Corpuscular HGB Conc 32.3 g/dl (31.0-36.0); Mean Corpuscular Hemoglobin 33.4 pg (27.0-33.0); Mean Corpuscular Volume 103.5 fL (80.0-98.0); Mean Platelet Volume 10.4 fL (9.4-12.4); Platelet Count 172 X10*3/uL (160-400); Red Blood Count 3.44 X10*6/uL (4.60-5.80); Red Cell Distribution Width 14.3 % (11.0-16.0); White Blood Count 4.7 X10*3/uL (4.8-10.8)
[2024-04-20 12:00] LABS: INTERNATIONAL NORM RATIO 1.2 (0.9-1.1); Prothrombin Time 14.5 SEC (11.1-13.3)
[2024-04-20 12:42] LABS: B Type Natriuretic Peptide 1181 pg/mL (<100)
[2024-04-20 12:47] LABS: Anion Gap 12 (12-20); Blood Urea Nitrogen 10 mg/dL (9-16); Calcium 8.7 mg/dL (8.4-10.2); Carbon Dioxide 29 mmol/L (22-29); Chloride 107 mmol/L (96-108); Estimated Glomerular Filt Rate > 60; Glucose Random 101 mg/dL (60-115); Potassium 3.4 mmol/L (3.3-5.1); Sodium 145 mmol/L (135-145)
[2024-04-20 12:57] LABS: TSH reflex Free T4 3.39 uIU/mL (0.32-4.0)
== END 2024-04-20 10:08 | disposition home or self-care (01) ==
LOC: HO.LAB 10:07
PROVIDERS: PCP Internal Medicine Geriatric Medicine; Visit Provider Nurse Practitioner Family
DX: Z01.810 Encounter for preprocedural cardiovascular examination (principal); I42.8 Other cardiomyopathies; I47.29 Other ventricular tachycardia; R94.31 Abnormal electrocardiogram [ECG] [EKG]; I50.9 Heart failure, unspecified; R00.2 Palpitations
CPT/HCPCS: 36415; 80048; 83880; 84443; 85027; 85610; 93005; 99212

== ENCOUNTER 2024-05-20 10:17 | Outpatient (AMB) | payer OTHER, SELFPAY ==
[2024-05-20 10:18] VITALS: BP 112/62; PULSE 75; BMI 27.0
--- NOTE | 2024-05-20 10:18 | A.OFFVIS_ITS ---
Vital Signs 05/20/24 10:18 Height 5 ft 6 in Weight 167 lb 8.821 oz BMI 27.0 BP 112/62 Blood Pressure Location Lt brachial Position Sitting Pulse 75 Pulse Source Monitor Intake Visit Reasons: f/u per DC Environmental Science Professor Required: Yes Environmental Science Professor Name: [id number]/darryl/bulgarian Accompanied by: Daughter Allergies aspirin [ASPIRIN] Allergy (Unknown, Verified 03/15/24 07:22) Rash egg [EGGS] Allergy (Unknown, Verified 03/15/24 07:22) UNKNOWN Influenza Virus Vaccines [INFLUENZA VIRUS VACCINES] Allergy (Unknown, Verified 03/15/24 07:22) UNKNOWN lactose [LACTOSE] Allergy (Unknown, Verified 03/15/24 07:22) GI UPSET Medication List - Last Reconciled 05/20/24 by JEMIMA Muller albuterol sulfate 90 mcg/actuation (Ventolin HFA) 2 puffs inhalation Q4H PRN amiodarone 200 mg PO DAILY bumetanide 2 mg See Protocol PO DAILY carvedilol 3.125 mg See Protocol PO BID hydrocortisone 2.5% 1 appl topical QD-BID mometasone 100 mcg/actuation (Asmanex HFA) 2 puffs inhalation BID prednisone 40 mg (4 x 10 mg) PO DIRECTED sacubitril-valsartan 49-51 mg (Entresto) 1 tab PO BID HPI HPI f/u per DC: Details: Víctor is a 69 yo male with PMH of cocaine use, nonischemic cardiomyopathy, HFrEF who was recently admitted to [facility] with shortness of breath and treated for decompensated HF. He was diuresed and sent home with Bumex 2 mg daily. He had runs of NSVT and was started on Amiodarone, in addition to his carvedilol. An outpt cardiac cath is being arranged. On last visit he had evidence of fluid overload and had only been taking Bumex 1 mg daily. BNP was elevated at 1181. His Bumex was increased back to 2 mg daily any now presents for follow-up. Today he states that he has been doing better since last visit. His legs are not as swollen and hard. He denies having PND, orthopnea. Does have some shortness of breath with physical activity which is not new. He admits to being sedentary. No chest discomfort at rest or with activity. No heart palpitations, lightheadedness, presyncope, syncope, falls. He has been monitoring his weight at home and states it is coming down. Taking all meds as directed.. Daughter has been helping him and is present at this visit. Certified pcts used. REPLACED BY [facility] Medical History Cardiomyopathy HFrEF (heart failure with reduced ejection fraction) Hypertension Cocaine use disorder Asthma Surgical History Hx of endoscopic retrograde cholangiopancreatography History of cholecystectomy Family History Mother Diabetes Hypertension Arthritis Asthma Father Asthma Social History Household Members: Children Housing: Other Housing Other:: living in residential with son Do you presently have visiting nurse or other home services: Yes (nurse visits every 6mon, interested in more frequent aid visits) Alcohol intake: former Patient Tobacco Use Status: Former Tobacco user Tobacco use type: Cigarette Cigarette Packs Per Day: 2 Cigarettes Per Day: 40.0 Years Smoked: 51 e-Cigarette/Vaping Use: Former Use Second Hand Smoke Exposure: Yes Substance Use Type: Crack/Cocaine service: No Review of Systems Const All systems reviewed & are unremarkable except as noted in HPI and below Denies chills, Denies fatigue, Denies fever(s), Denies frequent falls, Denies weakness, Denies weight gain and Denies weight loss ENT Denies dizziness Card Denies chest pain, Reports leg edema, Denies lightheadedness, Denies palpitati ons, Denies dyspnea and Denies dyspnea on exertion Resp Denies cough, Denies dyspnea and Denies dyspnea on exertion GI Denies hematochezia Musc Denies abnormal gait, Denies muscle weakness, Denies numbness, Denies radiating pain into limb and Denies tingling Neuro Denies abnormal gait, Denies dizziness, Denies frequent falls, Denies numbness, Denies tingling and Denies weakness Endo Denies fatigue and Denies palpitations Physical Exam Vital Signs: Last Vital Signs Pulse 75 05/20/24 10:18 BP 112/62 05/20/24 10:18 BMI result Body Mass Index 27.0 Const General: cooperative, comfortable and no acute distress Orientation/consciousness: patient oriented x3 Neck Neck: Yes JVD Resp Effort & Inspection: normal respiratory effort Auscultation: clear to auscultation bilaterally, no rales, no rhonchi and no wheezes Cardio Jugular venous distension: no JVD Rate: regular rate Rhythm: regular rhythm Heart sounds: S1 normal heart sound present, S2 normal heart sound present, no murmurs and no rubs Neuro General: patient oriented x3 Extrem Other: tight edema both lower legs, and posterior lower thighs. Psych Appearance: grossly normal Mental Status: mental status grossly normal Speech and movement: Normal speech and movement present Office Procedures EKG Details: Today, read by me, normal sinus rhythm, septal Q-wave, QTC manual 492 milliseconds, rate 75 [id number], Complete Assessment & Plan Assessment & Plan (1) Cardiomyopathy: Code(s): I42.9 - Cardiomyopathy, unspecified Category: Medical Qualifiers: Cardiomyopathy type: other Qualified Code(s): I42.8 - Other cardiomyopathies Plan: Hx of nonischemic cardiomyopathy. In that past it was thought to be related to substance abuse. Echocardiogram done 05/2022 showed EF 40-45%. Nuclear stress test 05/2022 showed normal myocardial perfusion imaging. His last prior visit to our officer was 07/16/22. He was hospitalized with HF 08/2023, 11/2023, 02/2024. Echo done on last admit shows EF 35-40%, mod decrease in RVSF and increased RVSP, mild to mod MR, mod TR. He was diuresed and sent home with Bumex 2 mg daily, Carvedilol, Entresto. He was having runs of NSVT and was started on Amiodarone load followed by maintenance dose. An outpt cardiac cath was being planned however he had evidence of decompensated heart failure on last visit. He had been taking Bumex 1 mg daily instead of 2 mg. His BNP was elevated at 1181.. I had him increase his Bumex back to 2 mg daily. He was continued on carvedilol and Entresto. Cardiac catheterization was placed on hold. Today he reports that he is feeling better with decreased edema, lower weight and no orthopnea. On exam he still has some tight edema in his lower extremities to his mid posterior thighs. He no longer has swelling up into his abdomen. Lungs are clear on examination. His weight is down 18 lb since last visit. EKG done today showing normal sinus rhythm, QTC 492 milliseconds, rate 75. Spent time reviewing cardiac catheterization procedure with him and he states understanding. He is agreeable to proceed. Will check preprocedure labs including CBC, BMP and PT INR, also a BNP and magnesium level. Signs and symptoms of heart failure reviewed with him. Continue home weight monitoring. Continue to follow low-salt diet, fluid restriction 48 oz, leg elevation when sitting. Cardiology follow up 2 weeks post cath (2) Nonsustained ventricular tachycardia: Code(s): I47.29 - Other ventricular tachycardia Category: Medical Plan: As above. No recent lightheadedness, presyncope, syncope, falls. EKG today showing normal sinus rhythm, rate 75, QTC 492 milliseconds. It is not new for him to have mildly prolonged QTC. Will check labs as above. He continues on carvedilol. (3) Preop cardiovascular exam: Code(s): Z01.810 - Encounter for preprocedural cardiovascular examination Category: Medical Plan: cardiac cath (4) Abnormal EKG: Code(s): R94.31 - Abnormal electrocardiogram [ECG] [EKG] Category: Medical Plan: Evidence of possible old anteroseptal infarct on EKG Plan Time spent on chart review, document, interview, assessment Coding Level of Care Code Est Pt Level 4 (55197) Diagnoses Other cardiomyopathy I42.8 Cardiomyopathy type: other Nonsustained ventricular tachycardia I47.29 Preop cardiovascular exam Z01.810 Abnormal EKG R94.31 CPT Codes EKG - CPT: 22380-[id number], Complete ([id number]) Time Spent (min) 30
== END 2024-05-20 11:08 | disposition home or self-care (01) ==
PROVIDERS: PCP Internal Medicine Geriatric Medicine; Visit Provider Nurse Practitioner Family
DX: I42.8 Other cardiomyopathies (principal); I47.29 Other ventricular tachycardia; Z01.810 Encounter for preprocedural cardiovascular examination; R94.31 Abnormal electrocardiogram [ECG] [EKG]
CPT/HCPCS: 93010; 99214

== ENCOUNTER → 2024-05-20 10:17 | Outpatient (BNVA) | payer OTHER, SELFPAY | PROVIDERS: PCP Internal Medicine Geriatric Medicine; Visit Provider Nurse Practitioner Family | DX: Z01.810 Encounter for preprocedural cardiovascular examination (principal); I42.8 Other cardiomyopathies; I47.29 Other ventricular tachycardia; R94.31 Abnormal electrocardiogram [ECG] [EKG] | CPT/HCPCS: 93005; 99212 ==

== ENCOUNTER 2024-06-03 13:16 | Outpatient (REF) | payer MEDICARE, MEDICAID, SELFPAY ==
[2024-06-03 13:28] LABS: MANUAL DIFF FLAG NO
[2024-06-03 14:05] LABS: Basophils Absolute Auto 0.1 X10*3/uL (0.0-0.2); Basophils Percent Auto 1.3 % (0-2); Eosinophils Absolute Auto 0.1 X10*3/uL (0.0-0.4); Eosinophils Percent Auto 2.6 % (0-4); Hematocrit 36.7 % (42.0-52.0); Hemoglobin 12.1 g/dl (14.0-18.0); Imm Gran Abs Auto 0.01 X10*3/uL (0.00-0.03); Imm Gran Pct Auto 0.2 % (0.0-0.4); Lymphocytes Absolute Auto 1.6 X10*3/uL (1.2-4.9); Lymphocytes Percent Auto 30.4 % (20-40); Mean Corpuscular Hemoglobin 32.7 pg (27.0-33.0); Mean Corpuscular Volume 99.2 fL (80.0-98.0); Mean Platelet Volume 10.6 fL (9.4-12.4); Monocytes Absolute Auto 0.8 X10*3/uL (0.1-1.2); Monocytes Percent Auto 14.5 % (2-11); Neutrophils Absolute Auto 2.8 x10*3/uL (2.0-8.3); Platelet Count 199 X10*3/uL (160-400); Red Cell Distribution Width 13.3 % (11.0-16.0); White Blood Count 5.4 X10*3/uL (4.8-10.8)
[2024-06-03 14:12] LABS: Prothrombin Time 12.6 SEC (11.1-13.3)
[2024-06-03 14:32] LABS: Anion Gap 10 (12-20); Blood Urea Nitrogen 12 mg/dL (9-16); Calcium 8.7 mg/dL (8.4-10.2); Carbon Dioxide 28 mmol/L (22-29); Chloride 108 mmol/L (96-108); Estimated Glomerular Filt Rate > 60; Glucose Random 97 mg/dL (60-115); Potassium 3.7 mmol/L (3.3-5.1); Sodium 142 mmol/L (135-145)
[2024-06-03 14:34] LABS: B Type Natriuretic Peptide 674 pg/mL (<100)
== END 2024-06-03 13:17 | disposition home or self-care (01) ==
LOC: HO.LAB 13:16
PROVIDERS: PCP Internal Medicine Geriatric Medicine; Visit Provider Nurse Practitioner Family
DX: I42.8 Other cardiomyopathies (principal)
CPT/HCPCS: 36415; 80048; 83880; 85025; 85610

== ENCOUNTER 2024-06-22 08:41 | Outpatient (AMB) | payer MEDICARE, MEDICAID, SELFPAY ==
[2024-06-22 08:45] VITALS: BP 130/82; PULSE 80; BMI 26.9
--- NOTE | 2024-06-22 08:45 | A.OFFVIS_ITS ---
Vital Signs 06/22/24 08:45 Height 5 ft 6 in Weight 166 lb 10.711 oz BMI 26.9 BP 130/82 Blood Pressure Location Lt brachial Position Sitting Pulse 80 Pulse Source Monitor Intake Visit Reasons: 2 wk follow up s/p cardiac cath Professor Of Exercise Science Required: No Allergies aspirin [ASPIRIN] Allergy (Unknown, Verified 06/22/24 08:49) Rash egg [EGGS] Allergy (Unknown, Verified 06/22/24 08:49) UNKNOWN Influenza Virus Vaccines [INFLUENZA VIRUS VACCINES] Allergy (Unknown, Verified 06/22/24 08:49) UNKNOWN lactose [LACTOSE] Allergy (Unknown, Verified 06/22/24 08:49) GI UPSET Medication List - Last Reconciled 06/22/24 by JEMIMA Muller albuterol sulfate 90 mcg/actuation (Ventolin HFA) 2 puffs inhalation Q4H PRN amiodarone 200 mg PO DAILY carvedilol 3.125 mg See Protocol PO BID furosemide 40 mg PO QAM hydrocortisone 2.5% 1 appl topical QD-BID mometasone 100 mcg/actuation (Asmanex HFA) 2 puffs inhalation BID prednisone 40 mg (4 x 10 mg) PO DIRECTED sacubitril-valsartan 49-51 mg (Entresto) 1 tab PO BID HPI HPI 2 wk follow up s/p cardiac cath: Details: Víctor is a 69 yo male with PMH of cocaine use, nonischemic cardiomyopathy, HFrEF who was [place] [facility] [place], with shortness of breath and treated for decompensated HF. He was diuresed and sent home with Bumex 2 mg daily. He had runs of NSVT and was started on Amiodarone, in addition to his carvedilol. On follow-up visit he had evidence of fluid overload and his Bumex was increased from 1 mg daily up to 2 mg daily. Once clinically improved he was set up for a cardiac catheterization which showed normal coronary arteries. Today he presents for follow-up. Today he states that he has been doing very well. He denies any shortness of breath, PND, orthopnea or edema. He has been losing weight. He has no chest discomfort at rest or with activity. No palpitations, lightheadedness, presyncope, syncope, falls. His right radial catheterization site is feeling good. He ran out of Bumex and has been taking his furosemide which he believes is 20 mg daily. Taking all other meds as directed. Daughter has been helping him and is present at this visit. Certified freelance interpreter/translator used. [facility] Medical History Cardiomyopathy HFrEF (heart failure with reduced ejection fraction) Hypertension Cocaine use disorder Asthma Surgical History Hx of endoscopic retrograde cholangiopancreatography History of cholecystectomy Family History Mother Diabetes Hypertension Arthritis Asthma Father Asthma Social History Household Members: Children Housing: Other Housing Other:: living in [facility] with son Do you presently have visiting nurse or other home services: Yes (nurse visits every 6mon, interested in more frequent aid visits) Alcohol intake: former Patient Tobacco Use Status: Former Tobacco user Tobacco use type: Cigarette Cigarette Packs Per Day: 2 Cigarettes Per Day: 40.0 Years Smoked: 51 e-Cigarette/Vaping Use: Former Use Second Hand Smoke Exposure: Yes Substance Use Type: Crack/Cocaine service: No Review of Systems Const All systems reviewed & are unremarkable except as noted in HPI and below ENT Denies dizziness Card Denies chest pain, Denies chest pain at rest, Denies chest pain with activity, Denies rapid heart rate, Denies pedal edema, Denies edema, Denies leg edema, Denies lightheadedness, Denies palpitations, Denies dyspnea, Denies dyspnea on exertion and Denies orthopnea Resp Denies cough, Denies dyspnea and Denies dyspnea on exertion GI Denies hematochezia and Denies change in stool character Musc Details: uses crutches, right hip discomfort. right radial cath site well healed Reports abnormal gait, Denies limited range of motion, Denies muscle cramps, Denies muscle weakness, Denies numbness, Denies radiating pain into limb, Denies stiffness and Denies tingling Neuro Reports abnormal gait, Denies dizziness, Denies numbness and Denies tingling Endo Denies palpitations Physical Exam Vital Signs: Last Vital Signs Pulse 80 06/22/24 08:45 BP 130/82 06/22/24 08:45 BMI result Body Mass Index 26.9 Const General: cooperative, comfortable and no acute distress Orientation/consciousness: patient oriented x3 Neck Neck: Yes JVD Resp Effort & Inspection: normal respiratory effort Auscultation: clear to auscultation bilaterally, no rales, no rhonchi and no wheezes Cardio Jugular venous distension: no JVD Rate: regular rate Rhythm: regular rhythm Heart sounds: S1 normal heart sound present, S2 normal heart sound present, no murmurs and no rubs Neuro General: patient oriented x3 Extrem Other: mild tightness to palpation of his lower extremeties - trace to mild edema. Right radial cath site with easily palpable radial pulse. Psych Appearance: grossly normal Mental Status: mental status grossly normal Speech and movement: Normal speech and movement present Office Procedures EKG Details: Today, read by me, normal sinus rhythm, can not exclude prior anterior infarct, QTC 462 milliseconds, rate 80 [id number], Complete Assessment & Plan Assessment & Plan (1) Cardiomyopathy: Code(s): I42.9 - Cardiomyopathy, unspecified Category: Medical Qualifiers: Cardiomyopathy type: other Qualified Code(s): I42.8 - Other cardiomyopathies Plan: Hx of nonischemic cardiomyopathy. In that past it was thought to be related to substance abuse. Echocardiogram done 05/2022 showed EF 40-45%. Nuclear stress test 05/2022 showed normal myocardial perfusion imaging. He last was not seen in our office between 07/16/22 and 04/20/2024. He was hospitalized with HF 08/2023, 11/2023, 02/2024. Echo done on last admit shows EF 35-40%, mod decrease in RVSF and increased RVSP, mild to mod MR, mod TR. He was diuresed and sent home with Bumex, Carvedilol, Entresto. He was having runs of NSVT and was started on Amiodarone. On follow-up visit he had evidence of fluid overload and his Bumex was increased to 2 mg daily. On last visit he was clinically improved and he was set up for cardiac catheterization which was done on 06/10/2024 showing normal coronary arteries, PA readings 37/4/21, wedge 13 mmHg. Today he reports that his breathing has been normal and swelling is gone. On my exam he does have some tightness to his lower extremities consistent with mild edema. He ran out of Bumex and has been taking furosemide 20 mg daily for the last week. His weight is down 25 lb since his hospitalization in February. He does not appear fluid overloaded at this time. I will have him stop furosemide and go back on Bumex at 1 mg daily. Instructed on home weights and leg assessment. Is to take an additional dose of Bumex if his weight goes up by 3 lb or if visible leg edema is noticed. Signs and symptoms of heart failure reviewed with him.Continue to follow low-salt diet, fluid restriction 48 oz, leg elevation when sitting. Will check a Holter monitor to reassess for NSVT. At this time will have him continue amiodarone. Will check an echocardiogram to reassess EF. Cardiology follow-up in 2-3 months, sooner if needed. (2) S/P cardiac catheterization: Comment: 06/10/2024 showing normal coronary arteries, PA , wedge 13 Code(s): Z98.890 - Other specified postprocedural states Category: Surgical Plan: Right radial catheterization site well healed (3) Nonsustained ventricular tachycardia: Code(s): I47.29 - Other ventricular tachycardia Category: Medical Plan: As above. No recent lightheadedness, presyncope, syncope, falls. EKG today showing normal sinus rhythm, septal Q-wave, rate 80, manual QTC 462 milliseconds. He continues on carvedilol and amiodarone. Checking Holter and limited echo. (4) Preop cardiovascular exam: Code(s): Z01.810 - Encounter for preprocedural cardiovascular examination Category: Medical Plan: Patient tells me he is hoping to have surgery on his right hip. Cardiac testing planned as above. Recent cardiac catheterization showed normal coronary arteries. Cardiac testing planned as above. Will plan to update this note when most recent testing is completed. (5) Abnormal EKG: Code(s): R94.31 - Abnormal electrocardiogram [ECG] [EKG] Category: Medical Plan: Evidence of possible old anteroseptal infarct on EKG Plan Time spent on chart review, document, interview, assessment Orders: Orders CA echo transthoracic complete 08/24/24 I42.8 - Other cardiomyopathies ECG 3 day holter monitor Today I47.29 - Other ventricular tachycardia Medications: New 2 bumetanide take 1 tablet daily, take an additional tablet ( total of 2 mg) if needed for increasing swelling or weight gain over 3 lb 1 mg PO DAILY 90 days 120 tabs 1RF Changed From amiodarone 200 mg PO DAILY 30 tabs 5RF To amiodarone 200 mg PO DAILY 90 days 90 tabs 1RF From sacubitril-valsartan 49-51 mg (Entresto) 1 tab PO BID 60 tabs 5RF To sacubitril-valsartan 49-51 mg (Entresto) 1 tab PO BID 90 days 180 tabs 1RF From carvedilol 3.125 mg See Protocol PO BID 60 tabs 5RF To carvedilol 3.125 mg See Protocol PO BID 90 days 180 tabs 1RF Coding Level of Care Code Est Pt Level 4 (19735) Diagnoses Other cardiomyopathy I42.8 Cardiomyopathy type: other S/P cardiac catheterization Z98.890 Nonsustained ventricular tachycardia I47.29 Preop cardiovascular exam Z01.810 Abnormal EKG R94.31 CPT Codes EKG - CPT: 34010-[id number], Complete ([id number])
== END 2024-06-22 09:21 | disposition home or self-care (01) ==
PROVIDERS: PCP Internal Medicine Geriatric Medicine; Visit Provider Nurse Practitioner Family
DX: I42.8 Other cardiomyopathies (principal); Z98.890 Other specified postprocedural states; I47.29 Other ventricular tachycardia; Z01.810 Encounter for preprocedural cardiovascular examination; R94.31 Abnormal electrocardiogram [ECG] [EKG]
CPT/HCPCS: 93010; 99214

== ENCOUNTER → 2024-06-22 08:41 | Outpatient (BNVA) | payer MEDICARE, MEDICAID, SELFPAY | PROVIDERS: PCP Internal Medicine Geriatric Medicine; Visit Provider Nurse Practitioner Family | DX: Z01.810 Encounter for preprocedural cardiovascular examination (principal); I42.8 Other cardiomyopathies; I47.29 Other ventricular tachycardia; R94.31 Abnormal electrocardiogram [ECG] [EKG]; Z87.891 Personal history of nicotine dependence; Z98.890 Other specified postprocedural states | CPT/HCPCS: 93005; 99212 ==

== ENCOUNTER 2024-08-23 13:07 | Outpatient (AMB) | payer MEDICARE, MEDICAID, SELFPAY ==
[2024-08-23 13:11] VITALS: BP 122/70; PULSE 65; BMI 26.4
--- NOTE | 2024-08-23 13:11 | MHC.OFFVIS ---
Vital Signs 08/23/24 13:11 Height 5 ft 6 in Weight 163 lb 9.328 oz BMI 26.4 BP 122/70 Blood Pressure Location Lt brachial Position Sitting Pulse 65 Pulse Source Monitor Intake Visit Reasons: 2mth f/up Sales Assistant Entertainment And Media Required: No Pre Wave Assembler: Pre Wave Assembler Present Allergies aspirin [ASPIRIN] Allergy (Unknown, Verified 08/23/24 13:14) Rash egg [EGGS] Allergy (Unknown, Verified 08/23/24 13:14) UNKNOWN Influenza Virus Vaccines [INFLUENZA VIRUS VACCINES] Allergy (Unknown, Verified 08/23/24 13:14) UNKNOWN lactose [LACTOSE] Allergy (Unknown, Verified 08/23/24 13:14) GI UPSET Medication List - Last Reconciled 08/23/24 by Abigail Campbell, POND SAWYER-C albuterol sulfate 90 mcg/actuation (Ventolin HFA) 2 puffs inhalation Q4H PRN amiodarone 200 mg PO DAILY 90 days bumetanide 1 mg PO DAILY 90 days carvedilol 3.125 mg See Protocol PO BID 90 days hydrocortisone 2.5% 1 appl topical QD-BID mometasone 100 mcg/actuation (Asmanex HFA) 2 puffs inhalation BID prednisone 40 mg (4 x 10 mg) PO DIRECTED sacubitril-valsartan 49-51 mg (Entresto) 1 tab PO BID 90 days HPI HPI 2mth f/up: Details: Víctor is a 69 yo male with PMH of cocaine use, nonischemic cardiomyopathy, HFrEF, runs of NSVT during February 2024 [facility] admission. He was put on amiodarone at that time. On last visit a limited echo and Holter monitor were ordered however not completed yet by the patient. He now presents for follow-up. Today he states that he has been doing well. He denies any shortness of breath, PND, orthopnea or edema. His weight remains down. He has no chest discomfort at rest or with activity. No palpitations, lightheadedness, presyncope, syncope, falls. He is mostly sedentary, ambulates with crutches. Taking all other meds as directed. Daughter has been helping him and is present at this visit. Certified beauty advisor used. [facility] Medical History Cardiomyopathy HFrEF (heart failure with reduced ejection fraction) Hypertension Cocaine use disorder Asthma Surgical History Hx of endoscopic retrograde cholangiopancreatography History of cholecystectomy Family History Mother Diabetes Hypertension Arthritis Asthma Father Asthma Social History Household Members: Children Housing: Other Housing Other:: living in fpc with son Do you presently have visiting nurse or other home services: Yes (nurse visits every 6mon, interested in more frequent aid visits) Alcohol intake: former Patient Tobacco Use Status: Former Tobacco user Tobacco use type: Cigarette Cigarette Packs Per Day: 2 Cigarettes Per Day: 40.0 Years Smoked: 51 e-Cigarette/Vaping Use: Former Use Second Hand Smoke Exposure: Yes Substance Use Type: Crack/Cocaine service: No Review of Systems Const All systems reviewed & are unremarkable except as noted in HPI and below ENT Denies dizziness Card Denies chest pain, Denies chest pain at rest, Denies chest pain with activity, Denies rapid heart rate, Denies pedal edema, Denies edema, Denies leg edema, Denies lightheadedness, Denies palpitations, Denies dyspnea, Denies dyspnea on exertion and Denies orthopnea Resp Denies cough, Denies dyspnea and Denies dyspnea on exertion GI Denies hematochezia and Denies change in stool character Musc Denies abnormal gait, Denies limited range of motion, Denies muscle cramps, Denies muscle weakness, Denies numbness, Denies radiating pain into limb, Denies stiffness and Denies tingling Neuro Denies abnormal gait, Denies dizziness, Denies numbness and Denies tingling Endo Denies palpitations Physical Exam Vital Signs: Last Vital Signs Pulse 65 08/23/24 13:11 BP 122/70 08/23/24 13:11 BMI result Body Mass Index 26.4 Const General: cooperative, comfortable and no acute distress Orientation/consciousness: patient oriented x3 Neck Neck: Yes JVD Resp Effort & Inspection: normal respiratory effort Auscultation: clear to auscultation bilaterally, no rales, no rhonchi and no wheezes Cardio Jugular venous distension: no JVD Rate: regular rate Rhythm: regular rhythm Heart sounds: S1 normal heart sound present, S2 normal heart sound present, no murmurs and no rubs Neuro General: patient oriented x3 Extrem Other: ambulates with crutches Psych Appearance: grossly normal Mental Status: mental status grossly normal Speech and movement: Normal speech and movement present Office Procedures EKG Details: Today, read by me, normal sinus rhythm, left axis deviation, QTC 440 milliseconds, rate 66 [id number], Complete Assessment & Plan Assessment & Plan (1) Cardiomyopathy: Code(s): I42.9 - Cardiomyopathy, unspecified Category: Medical Qualifiers: Cardiomyopathy type: other Qualified Code(s): I42.8 - Other cardiomyopathies Plan: Hx of nonischemic cardiomyopathy. In that past it was thought to be related to substance abuse. Echocardiogram done 05/2022 showed EF 40-45%. Nuclear stress test 05/2022 showed normal myocardial perfusion imaging. He last was not seen in our office between 07/16/22 and 04/20/2024. He was hospitalized with HF 08/2023, 11/2023, 02/2024. Echo done on last admit shows EF 35-40%, mod decrease in RVSF and increased RVSP, mild to mod MR, mod TR. He was diuresed and sent home with Bumex, Carvedilol, Entresto. He was having runs of NSVT and was started on Amiodarone. He had cardiac catheterization done on 06/10/2024 showing normal coronary arteries, PA readings 37/4/21, wedge 13 mmHg. On last visit a limited echocardiogram had been ordered to reassess EF and a Holter monitor had been ordered to re-evaluate for NSVT. Those tests were not completed as of yet. Today he reports that he has been feeling well with no concerning symptoms. He does not appear fluid overloaded on examination. Continue on current Bumex, carvedilol and Entresto. Reviewed home weights monitoring. He can take an additional dose of Bumex if his weight goes up by 3 lb or if visible leg edema is noticed. Signs and symptoms of heart failure reviewed with him.Continue to follow low-salt diet, fluid restriction 48 oz, leg elevation when sitting. Plan to call him with test results. At this time will have him continue amiodarone. Cardiology follow-up in 3 months, sooner if needed. (2) S/P cardiac catheterization: Comment: 06/10/2024 showing normal coronary arteries, PA , wedge 13 Code(s): Z98.890 - Other specified postprocedural states Category: Surgical Plan: As above (3) Nonsustained ventricular tachycardia: Code(s): I47.29 - Other ventricular tachycardia Category: Medical Plan: As above. No recent lightheadedness, presyncope, syncope, falls. EKG today showing normal sinus rhythm, septal Q-wave, rate 80, manual QTC 462 milliseconds. He continues on carvedilol and amiodarone. Checking Holter and limited echo. (4) Preop cardiovascular exam: Code(s): Z01.810 - Encounter for preprocedural cardiovascular examination Category: Medical Plan: Patient tells me he is hoping to have surgery on his right hip. Recent cardiac catheterization showed normal coronary arteries. Cardiac testing planned as above. Will plan to update this note when most recent testing is completed. (5) Abnormal EKG: Code(s): R94.31 - Abnormal electrocardiogram [ECG] [EKG] Category: Medical Plan: Evidence of possible old anteroseptal infarct on EKG Plan Time spent on chart review, document, interview, assessment Medications: Refilled carvedilol 3.125 mg See Protocol PO BID 90 days 180 tabs 1RF bumetanide take 1 tablet daily, take an additional tablet ( total of 2 mg) if needed for increasing swelling or weight gain over 3 lb 1 mg PO DAILY 90 days 120 tabs 1RF sacubitril-valsartan 49-51 mg (Entresto) 1 tab PO BID 90 days 180 tabs 1RF amiodarone 200 mg PO DAILY 90 days 90 tabs 0RF Coding Level of Care Code Est Pt Level 4 (95926) Diagnoses Other cardiomyopathy I42.8 Cardiomyopathy type: other S/P cardiac catheterization Z98.890 Nonsustained ventricular tachycardia I47.29 Preop cardiovascular exam Z01.810 Abnormal EKG R94.31 CPT Codes EKG - CPT: 13248-[id number], Complete ([id number]) Time Spent (min) 30
== END 2024-08-23 13:53 | disposition home or self-care (01) ==
PROVIDERS: PCP Internal Medicine Geriatric Medicine; Visit Provider Nurse Practitioner Family
DX: I42.8 Other cardiomyopathies (principal); Z98.890 Other specified postprocedural states; I47.29 Other ventricular tachycardia; Z01.810 Encounter for preprocedural cardiovascular examination; R94.31 Abnormal electrocardiogram [ECG] [EKG]
CPT/HCPCS: 93010; 99214

== ENCOUNTER → 2024-08-23 13:07 | Outpatient (BNVA) | payer MEDICARE, MEDICAID, SELFPAY | PROVIDERS: PCP Internal Medicine Geriatric Medicine; Visit Provider Nurse Practitioner Family | DX: Z01.810 Encounter for preprocedural cardiovascular examination (principal); I42.8 Other cardiomyopathies; I47.29 Other ventricular tachycardia; I11.0 Hypertensive heart disease with heart failure; I50.20 Unspecified systolic (congestive) heart failure; R94.31 Abnormal electrocardiogram [ECG] [EKG]; F14.20 Cocaine dependence, uncomplicated; Z59.01 Sheltered homelessness; Z98.890 Other specified postprocedural states | CPT/HCPCS: 93005; 99212 ==

== ENCOUNTER → 2024-11-27 18:32 | Outpatient (BNV) | payer MEDICARE, MEDICAID, SELFPAY | PROVIDERS: PCP Internal Medicine Geriatric Medicine; Visit Provider Radiology Diagnostic Radiology | DX: H53.462 Homonymous bilateral field defects, left side (principal) | CPT/HCPCS: 70551 ==

== ENCOUNTER 2024-11-27 18:33 | Outpatient (REF) | payer MEDICARE, MEDICAID, SELFPAY ==
--- NOTE | ~2024-11-27 | MR_ITS ---
CLINICAL HISTORY: lt hemianopia MR BRAIN WITHOUT GADOLINIUM Comparison: None Findings: No restricted diffusion. No acute intracranial hemorrhage, extra-axial fluid collection, hydrocephalus or midline shift. Encephalomalacia in the right occipital and left parietal lobes likely sequelae of remote vascular insults. There are probable cortical calcifications in the right occipital lobe. Vascular flow voids are intact. Abnormal signal in the right globes secondary to age-indeterminate injury or prosthesis. No sinus or mastoid fluid. No focal bone lesion. IMPRESSION: 1. No acute infarct. 2. 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 Signal washout in the right occipital lobe on susceptibility weighted imaging is most likely due to calcifications or old hemorrhage, less likely acute hemorrhage. Recommend follow-up noncontrast CT head. 3. Moderate burden of periventricular and subcortical white matter signal alteration. Findings are nonspecific. Differential diagnosis includes but is not limited to microangiopathic gliosis, chronic migraines, remote trauma, remote inflammatory/infectious process or demyelinating process. This document has been electronically signed by: Cris Cain DO on 11/27/2024 21:06:50
--- OUTSIDE RECORDS SUMMARY | 2024-11-27 18:54 | XMS_ITS | Continuity of Care Document ---
Author Organization [facility] Address [address] [address] Phone Care Team Providers Care Marker Machine Name Role Phone Michael Lobato DO Unavailable Unavailable Advance Directives Directive Yes / No Effective Date File Name No Information Encounters Encounter Description Practice Location Reason(s) For Visit Diagnoses Date Provider Providers Copied on Encounter [facility], [address], [id number], [place] tel:[phone] [place] [address] No Information 8 Luis Alfredo Rodriguez. [address] [place] [address], [id number] , [place]. tel:[phone] Family History Family Member Type Diagnosis Age At Onset No Information Payers Payer name Insurance type Covered democrat ID Authoriza tion(s) No Information Social History Type Description Quantity Date Captured Comments Sex Male Smoking Status No Information Chief Complaint And Reason For Visit No Information Reason For Referral Reason For Referral No Information History Of Present Illness Encounter Date Complaint History Of Prese nt Illness No Information Functional Status Date Functional Assessmen t No Information Instructions Date Instruction Additional Infor mation No Information Assessments Type Assessment Date No Information Patient Care Teams Name Effective Dates (start - stop) Status Members No Information
== END 2024-11-27 18:34 | disposition home or self-care (01) ==
LOC: HO.MRI 18:33
PROVIDERS: PCP Internal Medicine Geriatric Medicine; Visit Provider Internal Medicine Geriatric Medicine
DX: H54.62 Unqualified visual loss, left eye, normal vision right eye (principal); H53.462 Homonymous bilateral field defects, left side
CPT/HCPCS: 70551

== ENCOUNTER → 2025-02-08 10:43 | Outpatient (REF) | payer MEDICARE, MEDICAID, SELFPAY ==
--- NOTE | 2025-02-08 10:48 | CA_ITS ---
Transthoracic Echocardiogram Patient (Last, First, Middle): Víctor Mi, Gender: Male Date of : 1955 Age: 69 Procedure Date: 02/08/2025 Procedure Type: Transthoracic Echocardiogram Location: OP Height: 167.64 cm Weight: 72.58 kg BSA: 1.82 m2 Heart Rate: bpm BP: 122 / 60 mmHg Offset Press Operator: Referring MD: Abigail Campbell AMUSEMENT PARK WORKER-C Health Science Instructor: Maycol Stewart MD Symptoms: I42.8 - Other cardiomyopathies Study Quality: Fair ECG Rhythm: Atrial Fibrillation Conclusions: - [id number] LV systolic dysfunction with LVEF of 40-45% Findings Left Ventricle Normal left ventricular cavity size. There is normal left ventricular wall thickness. The left ventricular systolic function is mild to moderately decreased. The visually estimated ejection fraction is between 40-45%. Spectral Doppler is indicative of an impaired relaxation filling pattern. E/E prime ratio is between 8 and 15 consistent with indeterminate filling pressures. Prior Study Comparison Changes noted compared to prior study. LV systolic function has marginally improved Measurements 2D Linear Measurements IVSd: 1.13 0.6-0.9/0.6-1.0 cm LVIDd: 5.27 3.9-5.3/4.2-5.9 cm LVIDd Index: 2.90 2.4-3.2/2.2-3.1 cm/m2 LVIDs: 4.01 2.0-3.6 cm LVPWd: 1.09 0.7-1.1 cm LV Mass: 284.78 67-162/88-224 g LV Mass Index: 156.47 43-95/49-115 g/m2 2D Systolic Function EF 4C: 45.50 >55% EF 2C: 41.60 >55% EF BiP: 43.10 >55% Updated in Other Vendor System with Status of Final Maycol Stewart MD electronically signed on 02/08/2025 4:50:40 PM with status of Final
--- OUTSIDE RECORDS SUMMARY | 2025-02-08 12:42 | XMS_ITS | Encounter Summary ---
Author Organization [facility] Address [address] [place] [address] Care Team Providers Care Hearing Screen Coordinator Name Role Phone Name, Fredi SOLIMAN Primary Care Provider [phone] Reason for Visit * Reason Onset Date Comments Hospital Follow-up 03/24/2024 Encounter Details Date Type Department Care Team ([facility] st Contact Info) Description 03/24/2024 Telephone [facility] MEDICINE [address] [place], [place] [phone] Name, MD Fredi [address] [place] [address] Hospital Follow-up Social History Tobacco Use Types Packs/Day Years Used Date Smoking Tobacco: Former Cigarettes Q uit: 2017 Passive Smoke Exposure: Past Alcohol Use Standard Drinks/Week Comments Not Currently 0 (1 standard drink = 0.6 oz pur e alcohol) social Depression Answer Date Recorded Patient Health Questionnaire-9 Score 9 01/09/2024 Patient Health Questionnaire-9 Score 9 01/09/2024 Last PHQ-9: Questionnaire Data Not on file 0 01/09/2024 Housing Stability Answer Date Recorded What is your housing situation today? [place] have [place] 02/13/[address] you li ve. Do you have problems with any of the following? None of the above 02/13/2024 Food Insecurity Answer Date Recorded Within the past 12 months, y ou worried that your food would run out before you got money to buy more: Never True 02/13/2024 Within the past 12 months,th e food you bought just didn't last and you didn't have enough money to get more: Never True Transportation Answer Date Recorded In the past 12 months, has l ack of transportation kept you from medical appts, meetings, work or from getting things needed for daily living? No 02/13/2024 Utilities Answer Date Recorded In the past 12 months, has t he electric, gas, oil or water company threatened to shut off services in your home? No 02/13/2024 Depression Answer Date Recorded Patient Health Questionnaire-2 Score 2 01/09/2024 Sex and Gender Information Value Date Recorded Sex Assigned at Male 09/23/2022 10:35 AM EDT Legal Sex Male 10:35 AM EDT Gender Identity Male 09/23/2022 10:35 AM EDT Sexual Orientation Straight 09/23/2022 10 :35 AM EDT documented as of this encounter Miscellaneous Notes * Telephone Encounter - Lexy Ron - 03/24/2024 9:24 AM EDT Tc from pt requesting a HDF appt. Hospital: [facility] Date of admission: 03/15/24 Discharge date: 03/22/24 Diagnosed: difficulty breathing documented in this encounter Plan of Treatment Not on file documented as of this encounter Visit Diagnoses Not on filedocumented in this encounter Additional Health Concerns Assessment Noted Time PHQ-9 Depression Total Score: 9 01/09/20 24 11:48 AM EST documented as of this encounter Care Teams Hearing Screen Coordinator Relationship Specialty Start Date End Date Name, MD Fredi [address] [place] [address] PCP - General Family Medicine 02/01/19 documented as of this encounter
--- OUTSIDE RECORDS SUMMARY | 2025-02-08 12:42 | XMS_ITS | Encounter Summary ---
Author Organization [employer] [facility] Address [address] [place] [address] Care Team Providers Care Mural Painter Name Role Phone Name, Fredi SOLIMAN Primary Care Provider [phone] Encounter Details Date Type Department Care Team ([facility] st Contact Info) Description 01/17/2025 Telephone [facility] MEDICINE [address] [place], [place] [phone] Name, MD Fredi [address] [place] [address] Social History Tobacco Use Types Packs/Day Years [...] encounter Miscellaneous Notes * Telephone Encounter - Landy Bird - 01/17/2025 10:32 AM EST Safety and Incident Forest Products Teacher Landy Bird called patient and was not able to leave a message due to voicemail box full. When patient comes into the [facility], please contact Landy Bird @ [phone]. documented in this encounter Plan of Treatment Not on file documented as of this encounter Visit Diagnoses Not on filedocumented in this encounter Additional Health Concerns Assessment Noted Time PHQ-9 Depression Total Score: 9 01/09/20 24 11:48 AM EST documented as of this encounter Care Teams Mural Painter Relationship Specialty Start Date End Date Name, MD Fredi [address] [place] [address] PCP - General Family Medicine 02/01/19 documented as of this encounter
--- OUTSIDE RECORDS SUMMARY | 2025-02-08 12:42 | XMS_ITS | Encounter Summary ---
Author Organization [employer] Address [address] [place] [address] Care Team Providers Care School Community Relations Coordinator Name Role Phone Name, Fredi SOLIMAN Primary Care Provider [phone] Reason for Visit * Reason Onset Date Comments Hospital Follow-up 09/18/2023 Encounter Details Date Type Department Care Team ([facility] st Contact Info) Description 09/18/2023 Telephone [facility] MEDICINE [address] [place], [place] [phone] Name, MD Fredi [address] [place] [address] Hospital Follow-up Social History Tobacco Use Types Packs/Day Years Used Date Smoking Tobacco: Former Cigarettes Q uit: 2017 Alcohol Use Standard Drinks/Week Comments Yes 0 (1 standard drink = 0.6 oz pur e alcohol) social Depression Answer Date Recorded Patient Health Questionnaire-9 Score 6 02/10/2023 Housing Stability Answer Date Recorded What is your housing situation today? I have housing today, but I am worried about losing housing in the future 09/10/[address] you li ve. Do you have problems with any of the following? None of the above 09/10/2023 Food Insecurity Answer Date Recorded Within the past 12 months, y ou worried that your food would run out before you got money to buy more: Never True 09/10/2023 Within the past 12 months,th e food you bought just didn't last and you didn't have enough money to get more: Never True Transportation Answer Date Recorded In the past 12 months, has l ack of transportation kept you from medical appts, meetings, work or from getting things needed for daily living? Yes, it has kept me from medical appointments or getting medications. 08/31/2023 Utilities Answer Date Recorded In the past 12 months, has t he electric, gas, oil or water company threatened to shut off services in your home? No 09/10/2023 Depression Answer Date Recorded Patient Health Questionnaire-2 Score 2 02/10/2023 Sex and Gender Information Value Date Recorded Sex Assigned at Male 09/23/2022 10:35 AM EDT Legal Sex Male 10:35 AM EDT Gender Identity Male 09/23/2022 10:35 AM EDT Sexual Orientation Straight 09/23/2022 10 :35 AM EDT documented as of this encounter Miscellaneous Notes * Telephone Encounter - Hafsa Hastings - 09/18/2023 10:27 AM EDT Tc from [facility] calling to report a hospital f/u. Pt was admitted 09/10 at [facility] and discharged on 09/16.Pt was diagnosed with heart failure. Was advised will forward to care coordinators for f/u. Please contact pt at [phone] documented in this encounter Plan of Treatment Not on file documented as of this encounter Visit Diagnoses Not on filedocumented in this encounter Additional Health Concerns Assessment Noted Time PHQ-9 Depression Total Score: 6 02/11/20 23 9:57 AM EDT documented as of this encounter Care Teams School Community Relations Coordinator Relationship Specialty Start Date End Date Name, MD Fredi [address] [place] [address] PCP - General Family Medicine 02/01/19 documented as of this encounter
--- OUTSIDE RECORDS SUMMARY | 2025-02-08 12:42 | XMS_ITS | Encounter Summary ---
Author Organization [employer] Address [address] [place] [address] Care Team Providers Care Studio Model Name Role Phone Name, Fredi SOLIMAN Primary Care Provider [phone] Encounter Details Date Type Department Care Team ([facility] st Contact Info) Description 10/13/2024 Telephone [facility] MEDICINE [address] [place], [place] [phone] Name, MD Fredi [address] [place] [address] Social History Tobacco Use Types Packs/Day Years [...] encounter Miscellaneous Notes * Telephone Encounter - Serenity [place] - 10/13/2024 3:01 PM EST Outgoing call to inform pt of follow up appointment scheduled with PCP on 11/05. No answer. Mailboxfull. Appointment reminder letter mailed. documented in this encounter Plan of Treatment Not on file documented as of this encounter Visit Diagnoses Not on filedocumented in this encounter Additional Health Concerns Assessment Noted Time PHQ-9 Depression Total Score: 9 01/09/20 24 11:48 AM EST documented as of this encounter Care Teams Studio Model Relationship Specialty Start Date End Date Name, MD Fredi [address] [place] [address] PCP - General Family Medicine 02/01/19 documented as of this encounter
--- OUTSIDE RECORDS SUMMARY | 2025-02-08 12:43 | XMS_ITS | Data Portability ---
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 I have reviewed and agree with the Assessment and Plan as documented by the Sleeve Fixer. Patient given the opportunity to ask questions. Not available 05/14/2023 15:15:50 10/06/2023 10/06/2023 68 yo F with recent admission for lower extremity edema, starting on PO lasix 20mg daily, now calling with PND and lower urinary tract symptoms. Reports waking up at night gasping for air, heavy snoring history, no sleep studies in the past. Also reports dribbling and incomplete bladder emptying. No dysuria. VS wnl. Urine dip negative for infection. Sleeve Fixer exam: no LE edema, lungs CTAB, abd soft, NTND. #PND - recommend PCP f/up for: TTE (if not done on admission last week) sleep study referral - cont current dose lasix 20 daily #LUTS - rec'd PCP visit for PSA and prostate exam given ongoing symptoms pt has precautions for call back or ED Not available 10/06/2023 11:48:42 Plan of Treatment Reminders Order Date Submit Date Provider Last Modified By Organization Details Last Modified Time Details Appointments None recorded. Lab None recorded. Referral None recorded. Procedures None recorded. Surgeries None recorded. Imaging None recorded. Medication Orders Medrol (Chalo) 4 mg tablets in a dose pack [address] [facility], [address] [place] [address], [id number], 3 11:31:26 hydroxyzine HCl 25 mg tablet [address] [facility], [address] [place] [address], [id number], 3 11:15:47 Benadryl 25 mg capsule 2022 023 [email or web address] 0 [facility], [address] [place] [address], [id number], 3 11:25:06 Solu-Medrol (PF) 125 mg/2 mL solution for injection 2022 023 [email or web address], [address] [place] [address], [id number], 3 11:25:06 Patient TargetsNo targets recorded. Patient InstructionsNo instructions recorded. Reason for Referral None Reported. Medical Equipment None Reported. Allergies Allergen ID Allergen Name Allergen Category Reaction Reaction Severity Criticality Documentation Date Start Date Code Code System Note Provider Name and Address Organization Details Recorded Time 8092 aspirin medicatio n Not available Not available Not available 09/21/2024 1191 RxNorm Not Available [facility] - [facility] 4 03:41:54 Medications Name Sig Start Date Stop Date Status Note LastModified by Organization Details LastModified Time cyclobenzapr ine 10 mg tablet TAKE 1 TABLET BY MOUTH THREE TIMES DAILY FOR 10 DAYS active Not Available Not Available Not Available tizanidine 2 mg tablet TAKE 1 TABLET BY MOUTH EVERY 8 HOURS NEEDED. DO NOT EXCEED 3 DOSES PER 24 HOURS. active Not Available Not Available No t Available Viagra 50 mg tablet TAKE 1 TABLET BY MOUTH ONCE DAILY NEEDED active Not Available Not Available No t Available tramadol 50 mg tablet TAKE 1 TABLET BY MOUTH EVERY 8 HOURS NEEDED active Not Available Not Available No t Available hydroxyzine HCl 25 mg tablet TAKE 1 TO 2 TABLETS BY MOUTH EVERY 6 HOURS NEEDED (for itching) active Not Available Not Available No t Available methylpredni solone 4 mg tablets in a dose pack TAKE DIRECTED ON PACKAGE active Not Available Not Available No t Available Ventolin HFA 90 mcg/actuatio n aerosol inhaler INHALE 2 PUFFS BY MOUTH EVERY 4 TO 6 HOURS NEEDED active Not Available Not Available No t Available Benadryl 25 mg capsule 50 mg po now 2022 active Not Available Not Available Not Avai lable valsartan 40 mg tablet TAKE 1 TABLET BY MOUTH TWICE DAILY active Not Available Not Available No t Available Flovent HFA 220 mcg/actuatio n aerosol inhaler INHALE 1 PUFF BY MOUTH TWICE DAILY IN THE MORNING AND AT BEDTIME RINSE MOUTH AFTER USING. DO NOT SWALLOW active Not Available Not Available Not Available Solu-Medrol (PF) 125 mg/2 mL solution for injection 125mg x1 now 2022 active Not Available Not Available Not Avai lable naloxone 4 mg/actuation nasal spray FOR SUSPECTED OPIOID OVERDOSE. SPRAY 0.1mL IN ONE NOSTRIL. REPEAT IN ALTERNATE NOSTRIL 2-3 MINUTES IF NEEDED. SEEK MEDICAL ATTENTION IMMEDIATELY EVEN IF PATIENT RESPONDS. active Not Available Not Available No t Available Vitals Date Recorded Heart rate Body temperature Respiratory rate Body weight Oxygen saturation Oxygen saturation in Arterial blood by Pulse oximetry Systolic blood pressure Diastolic blood pressure Provider Name and Address Organization Details Last Updated DateTime 3 76 /min 98.2 [degF] 18 /min 32541.6 4 g 97 % 97 % 138 mm[Hg] 86 mm[Hg] Not Available [facility] 3 11:07:48 Date Recorded Oxygen saturation Oxygen saturation in Arterial blood by Pulse oximetry Body height Heart rate Respiratory rate Body temperature Body weight Systolic blood pressure Diastolic blood pressure Provider Name and Address Organization Details Last Updated DateTime 3 97 % 97 % 167.64 cm 105 /min 16 /min 97 [degF] 58992.3 76 g 151 mm[Hg] 95 mm[Hg] Not Available [facility] [employer] 3 10:34:33 Social History None recorded. Functional Status None recorded. Mental Status None recorded. Family History Nothing Reported. Medical History No medical history recorded. Past Encounters Encounter ID Performer Location Encounter Start Date Encounter Closed Date Diagnosis/Indication Diagnosis SNOMED-CT Code Diagnosis ICD10 Code Diagnosis Note [id number] Lisha Mejia MD [facility] [address] [place] [address] 05/14/2023 11:07:35 05/15/2023 16:19:49 Pruritic rash 67259827 L28.2 likely allergic ? etiology- patient cannot get rx until tomorrow- advised may take benadryl 50 mg every 6 hrs until the hydroxyzin e arrives then do not mix/advise d need for f/u with pcp this week- may need allergy testing which pcp can set up Advised if develops lip/tongue /throat swelling/ dysphagia/ feeling throat closing/ SOB/ CP/ syncope or high fever to go to the ER- he verbalized understand ing to the medic [id number] WHITNEY NAPOLES MD [facility] [address] [place] [id number] 10/06/2023 10:34:30 10/06/2023 14:43:29 Nocturnal dyspnea 190217528 R06.00 Lower urin citlalli tract symptoms 306184926 R39.9 Health Concerns Section Related Observation LastModified by Organization Detai ls LastModified Time None Recorded Concern Status LastModified by Organization Details LastModified Time None Recorded Advance Directives Directive None Recorded Payers Encounter Date Sequence Insurance Name Policy Number Policy Covered Member ID Member ID Guarantor Name 05/14/2023 1 [facility] - DOS ON OR AFTER 2023 - DUAL ELIGIBLE - LONG-TERM OPTIONS AND ONE CARE (MEDICARE REPLACEMENT/ADV ANTAGE - HMO) Víctor Mi [id number] Víctor Mi 10/06/2023 1 [facility] - DOS ON OR AFTER 2023 - DUAL ELIGIBLE - LONG-TERM OPTIONS AND ONE CARE (MEDICARE REPLACEMENT/ADV ANTAGE - HMO) Víctor Mi [id number] Víctor Mi Notes Date Note Type Note Provider Name and Address Organization Details Recorded Time 05/14/2023 text/html [facility] Nursing Assessment: Reason For Request: Rash Chief Complaints: Wound Care PMH: COPD/Asthma, Hypertension, Other Allergies: Unknown Comments: Member has had a rash on his back for over a week. Member has been scratching his back. Member has bumps with dry skin. The skin is not broken or bleeding. Member has not placed anything on the area. Member is scratching his back / legs/ heads . Per member has been getting blisters. Per nurse it does not look like shingles. Member has not changed diet/ meds/ detergent and has not done any yard work. 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 Is not a diabetic per patient. Has had 1 x 25 mg benadryl occ per day w/out significant relief of itch.............. .................. .................. .................. .................. .................. .................. .................. . Sleeve Fixer Note From Lonnie Frank: Pt presents A@Ox4. [place] warm and dry. Cleer airway with equal chest rise and fall. Pt c/o itching on body legs and head for past 3 months with some skin irritation. Pt denies allergies other than Egg, SOB, CP, Diff swallowing, Diff breathing, swelling, fever, nausea or diarrhea. Pt denies any new meds or detergent or soap changes. Baseline vitals assessed and recorded. Rash assessed. Minor welts with pink areas around left flank, left shoulder and top of right thigh. Nothing visible on his scalp. [facility] 125mg Solu medrol admin via IM and 50mg benydryl given PO. RX called in . Pt and son educated on signs that indicate the ER. Pt advised to follow up with PCP by friday .................. .................. .................. .................. .................. .................. .................. ............... Disposition: Fulfilled Lisha Mejia MD [address] [facility],[address], [place], [phone], [employer] 05/14/2023 15:16:12 10/06/2023 text/html [facility] Nursing Assessment: Reason For Request: Pt reporting 3 days abdominal pain which is causing shortness of breathe + dizziness. Chief Complaints: Abdominal Pain, Shortness of Breath/Dyspnea, Syncope/Dizziness/ Lightheadedness PMH: COPD/Asthma, Hypertension Allergies: Aspirin Comments: Member calling in to place a referral, identified via /name. Member vague and difficult to direct to answer specific questions. Member who stated he had 20lbs of water weight a while ago, was in the hospital, and given water meds, Pierce any swelling today. Member also stated he had stomach issues in 2019. Member now with firm abdomen, sob and dizziness. This nurse recommended 911 for emergent eval in ED, member declined, will not go to the hospital, he does not want to wait for hours, he was made aware the consequences of delaying care. Member is voiding well, no BM for 3 days, denies n/v, no fever/chills, member able to speak in full sentences. Member difficult to assess. Member would like an [facility] visit. .................. .................. .................. .................. .................. .................. .................. ............... Sleeve Fixer Note From Alireza Salmeron: Pt reports he was seen at [place] ED 2 weeks ago for bilateral ANCELMO and mild SOB. Pt was given furosemide 20 mg qd. Pt saw PCP last week for blood work and has f/u next Saturday 10/13. Pt is reporting SOB when lying flat and separately c/o difficulty/straini ng to urinate. Pt does not have scale in the home. Pt denies CP, NUNN, edema, dysuria, hematuria, f/n/v/d. Pt? s adult son also sts he hears his father ? snoring and gasping? throughout the night. Pt is alert, NAD. VSS. Afebrile. Neuro exam and gait normal. Lungs CTA. Benign ABD exam. No CVA tenderness. No ANCELMO. Urine dip is not suggestive of infection. Pt? s sx seem c/w sleep apnea. Pt educated on sleep apnea and the importance of discussing this with his PCP next week. Pt also instructed to discuss urination issues and for the PCP to r/o prostatitis, BPH and prostate CA. Pt advised to obtain a scale and record daily weights. Pt instructed to seek emergent medical care for new or worsening sx, which are reviewed with him. .................. .................. .................. .................. .................. .................. .................. ............... Disposition: Fulfilled WHITNEY NAPOLES MD [address] [facility],[address], [place], [phone], [employer] 10/06/2023 11:49:06
--- OUTSIDE RECORDS SUMMARY | 2025-02-08 12:43 | XMS_ITS | Clinical Summary ---
Author Organization [employer] Address [address] [place] [address] Care Team Providers Care Director Design Name Role Phone Name, Fredi SOLIMAN Primary Care Provider [phone] Allergies Active Allergy Reactions Criticality Noted Date Comments Aspirin Hives,Rash Low 02/01/2019 Egg White (Egg Protein) Unknown 05/01/2023 Influenza Vaccines Unknown 05/01/2023 Lactose GI intolerance 05/01/2023 Medications Ventolin HFA 108 (90 Base) MCG/ACT inhaler INHALE 2 PUFFS BY MOUTH EVERY 4 HOURS NEEDED FOR WHEEZING OR SHORTNESS OF BREATH 18 g 3 4 Active bumetanide (Bumex) 1 MG tablet Take 2 tablets (2 mg) by mouth Once per day. 60 tablet 3 4 04/08/20 25 Active amiodarone (Pacerone) 200 MG tablet TAKE 2 TABLETS BY MOUTH TWICE DAILY FOR 10 DAYS, THEN DECREASE TO 1 TABLET BY MOUTH EVERY DAY 4 Active fluticasone furoate (Arnuity Ellipta) 100 MCG/ACT inhalerIndicati ons:Acute on chronic systolic congestive heart failure (CMS/HCC) Inhale 1 puff Once per day. 1 each 11 4 04/09/20 25 Active baclofen (Lioresal) 10 MG tablet Take 1 tablet (10 mg) by mouth 2 times daily for 20 days. 40 tablet 4 Active hydrocortisone 2.5 % cream APPLY TOPICALLY ONE OR TWO TIMES DAILY AFTER SHOWER OR BATH TO NECK AND BELOW. DO NOT USE ON FACE. 60 g 1 4 Active sacubitril-vals arely (Entresto) 49-51 MG tablet Take 1 tablet by mouth 2 times daily. 30 tablet 12 4 06/11/20 25 Active carvedilol (Coreg) 3.125 MG tablet Take 1 tablet (3.125 mg) by mouth 2 times daily. 60 tablet 4 06/11/20 25 Active clopidogrel (Plavix) 75 MG tabletIndicatio ns:Vision loss of left eye,Hemianopia of left eye Take 1 tablet (75 mg) by mouth Once per day. 30 tablet 5 11/26/19 26 Active atorvastatin (Lipitor) 40 MG tabletIndicatio ns:History of right BAND SAW FILER stroke Take 1 tablet (40 mg) by mouth Once per day. 30 tablet 5 12/13/19 26 Active Active Problems Problem Noted Date Diagnosed Date History of right BAND SAW FILER stroke 12/13/2024 Vision loss of left eye 11/26/2024 Hemianopia of left eye 11/26/2024 Assessment & Plan (11/26/2024 2:43 PM EST): Peripheral vision loss evident in R eye, otherwise neuro exam wnl Plan to obtain urgent brain MRI for stroke r/o Will start pt on plavix for anticoagulation while awaiting imaging results. Plan to f/u with PCP once imaging complete Plan to keep f/u with oph for 12/03/24 Nonsustained ventricular tachycardia 04/14/2024 Abnormal EKG 01/02/2024 01/02/2024 Chronic systolic congestive heart failure 202301/02/2024 Overview (02/13/2024): EKG wit septal infarct. Nuclear stress test was done on 06/21/2022 showing normal myocardial perfusion imaging however reduced EF with exercise and stress. Echocardiogram done 06/10/2022 showed EF 40-45%, impaired relaxation, [id number] MR. Holter monitor done 06/21/2022 for 3 days shows sinus rhythm with average heart rate 88, heart rate range 78 to 133, 24% of the time heart rate greater than 100, SVE 12% of the time with up to 20 beat run. CHF exacerbation 08/2023 2D echo showed LVEF 35% with moderate tricuspid valve and mitral valve regurgitation Cardiomyopathy 01/02/2024 01/02/2024 Overview (02/13/2024): EKG wit septal infarct. Nuclear stress test was done on 06/21/2022 showing normal myocardial perfusion imaging however reduced EF with exercise and stress. Echocardiogram done 06/10/2022 showed EF 40-45%, impaired relaxation, [id number] MR. Holter monitor done 06/21/2022 for 3 days shows sinus rhythm with average heart rate 88, heart rate range 78 to 133, 24% of the time heart rate greater than 100, SVE 12% of the time with up to 20 beat run. CHF exacerbation 08/2023 2D echo showed LVEF 35% with moderate tricuspid valve and mitral valve regurgitation Cocaine use disorder 01/02/2024 01/02/2024 PAC (premature atrial contraction) 01/02/2024 01/02/2024 Palpitation 01/02/2024 01/02/2024 Fluid overload 09/10/2023 Assessment & Plan (09/10/2023 10:34 AM EDT): Given 20 lb weight gain on 1 month, increased SOB with minimal exertion, increased JVP, crackles on exam and 3+ pitting edema LE in setting of known lowe EF, suspect uncompensated congestive heart failure. Pt agrees to go the the ER for evaluation and management. He does not want an ambulance. He denies chest pain and vitals are stable. Agrees to uber. Will notify ER pt is expected. Bilateral carpal tunnel syndrome 08/19/2023 Overview (08/19/2023): NCS 09/2021: IMPRESSION: Severe end-stage carpal tunnel syndrome and ulnar neuropathy on the right. Nerve conduction EMG study: A severe end-stage carpal tunnel syndrome bilaterally. Severe compression palsy of the right ulnar nerve at the elbow. Mild compression palsy of the left ulnar nerve at the elbow. EMG of the right C5-T1 innervated muscles shows active denervation in the ulnar, innervated intrinsic hand muscles consistent with severe ulnar neuropathy. No voluntary motor units in the right abductor pollicis brevis consistent with end-stage carpal tunnel syndrome. 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 Right hip: Interval development of marked flattening of the right femoral head and underlying large area of osteolysis is present, most consistent with evolving avascular necrosis and superimposed subchondral cyst. Previously documented ill-defined lytic areas involving the acetabulum and the superior intertrochanteric region appears similar, of indeterminate etiology. 2. Lumbosacral spine: Multilevel moderate degenerative spondylosis and facet joint arthropathy, appears similar to prior study dated 07/16/2021. Asthma 02/01/2019 Chronic neck pain 02/01/2019 Resolved Problems Problem Noted Date Diagnosed Date Resolved Date Acute exacerbation of CHF (c ongestive heart failure) 04/14/2024 06/11/2024 Pneumonia 04/14/2024 06/11/2024 Acute systolic CHF (congestive heart failure) 04/14/20 24 06/11/2024 Acute respiratory failure with hypoxia 04/14/2024 06/11/2024 Asthma exacerbation 04/14/2024 06/11/20 Cardiomegaly 01/02/2024 01/02/2024 02/13/2024 Chest discomfort 01/02/2024 01/02/2024 01/30/2024 Cocaine use 01/02/2024 01/02/2024 01/30/2024 Edema, peripheral 01/02/2024 01/02/2024 01/30/2024 Osteoarthritis of right hip 01/02/2024 01/02/2024 01/30/2024 Preop cardiovascular exam 01/02/2024 01/02/2024 Systolic congestive heart failure 10/03/2023 10/03/2023 Weakness of hand 05/08/2023 08/19/2023 Acute systolic heart failure 02/10/2023 02/13/2024 Overview (01/02/2024): EKG wit septal infarct. Nuclear stress test was done on 06/21/2022 showing normal myocardial perfusion imaging however reduced EF with exercise and stress. Echocardiogram done 06/10/2022 showed EF 40-45%, impaired relaxation, [id number] MR. Holter monitor done 06/21/2022 for 3 days shows sinus rhythm with average heart rate 88, heart rate range 78 to 133, 24% of the time heart rate greater than 100, SVE 12% of the time with up to 20 beat run. CHF exacerbation 08/2023 2D echo showed LVEF 35% with moderate tricuspid valve and mitral valve regurgitation LFTs abnormal 02/02/2019 05/22/2023 Hand pain 02/01/2019 08/19/2023 Encounters Date Type Department Care Team Description 01/17/2025 Telephone [facility] [place] [address] Fredi Ritter MD 12/14/2024 Telephone [facility] [place] [address] Marcy Bernardo RN 12/13/2024 Orders Only [facility] [place] [place] [address] Fredi Ritter MD History of right BAND SAW FILER stroke (Primary Dx) 11/29/2024 Telephone [facility] [place] [address] Amber NallelyDO 11/26/2024 1:15 PM EST Office Visit [facility] [place] [address] Fredi Ritter MD Hemianopia of left eye (Primary Dx); Vision loss of left eye 11/25/2024 Telephone [facility] [place] [address] Fredi Ritter MD Chart Prep 11/19/2024 Telephone [facility] [place] [address] Fredi Ritter MD Nurse Triage from Last 3 Months Immunizations Name Administration Dates Next Due Pfizer Covid-19 Vaccine 12+ Bivalent 01/28/2023 Pneumococcal Conjugate PCV 13 02/18/2022 Pneumococcal Polysaccharide PPSV23 04/03/2009 TD (adult), 2 Lf tetanus tox oid, preservative free, adsorbed 08/02/2021 Tdap 04/03/2009 Social History Tobacco Use Types Packs/Day Years Used Date Smoking Tobacco: Former Cigarettes Q uit: 2017 Passive Smoke Exposure: Past Tobacco Cessation:Counseling Given: Not Answered Alcohol Use Standard Drinks/Week Comments Not Currently [...] Orientation Straight 09/23/2022 10 :35 AM EDT Last Filed Vital Signs Vital Sign Reading Time Taken Comments Blood Pressure 132/82 11/26/2024 1:18 PM EST Pulse 86 11/26/2024 1:18 PM EST Temperature 36.7 ??C (98.1 ??F) 11/26/2024 1:18 PM ES T Respiratory Rate 18 11/26/2024 1:18 PM EST Oxygen Saturation 99% 11/26/2024 1:18 PM EST Inhaled Oxygen Concentration - - Weight 78 kg (172 lb) 11/26/2024 1:18 PM EST Height 167.6 cm (5' 6 ) 06/11/2024 11:32 AM EDT Body Mass Index 27.76 06/11/2024 11:32 AM EDT Plan of Treatment Health Maintenance Due Date Last Done Comments CT Colonography 1955 Colonoscopy 1955 Colorectal Cancer Screening 1955 FIT DNA/Cologuard 1957 FIT 1957 FOBT 1955 Sigmoidoscopy 1955 Zoster Vaccines (1 of 2) 2007 RSV Patients and Patients Aged 60 years or older (1 - Risk 60-74 years 1-dose series) 2017 Depression Monitoring (PHQ-9) 07/09/2024 01/09/2024, 01/09/2024 COVID-19 Vaccine ( season) 2024 01/28/2023, 01/02/2022, 06/12/2021, Additional history exists Influenza Vaccine (#1) 2024 Depression Screening 01/09/2025 01/09/2024, 01/09/20 24 SDOH Screening 02/12/2025 02/13/2024 Alcohol/Substance Use Screening 06/11/2025 06/11/2024 Tobacco Screening 06/11/2025 06/11/2024 Lipid Panel 01/02/2027 01/02/2022 Pneumococcal Vaccine: 50+ Years (3 of 3 - PCV20 or PCV21) 02/18/2027 02/18/2022, 04/03/2009 DTaP/Tdap/Td Vaccines (3 - Td or Tdap) 08/02/2031 08/02/2021, 04/03/2009 Hepatitis C Screening Completed 12/20/2020 HIB Vaccines Aged Out No longer eligi ble based on patient's age to complete this topic HPV Vaccines Aged Out No longer eligi ble based on patient's age to complete this topic Hepatitis A Vaccines Aged Out No long er eligible based on patient's age to complete this topic Hepatitis B Vaccines Aged Out No long er eligible based on patient's age to complete this topic IPV Vaccines Aged Out No longer eligi ble based on patient's age to complete this topic Meningococcal Vaccine Aged Out No kathy stephen eligible based on patient's age to complete this topic RSV under 20 months Aged Out No longe r eligible based on patient's age to complete this topic Rotavirus Vaccines Aged Out No longer eligible based on patient's age to complete this topic Procedures Procedure Name Priority Date/Time Associated Diagnosis Comments MR BRAIN WO CONTRAST Urgent 11/27/2024 9:06 PM EST Vision loss of left eye Hemianopia of left eye LIPID PANEL, STANDARD Routine 01/02/2022 9:47 AM EST ZZZ HISTORICAL HEPATITIS C AB W/REFL TO HCV RNA, QN, PCR Routine 12/20/2020 1:06 PM EST from Last 3 Months or Most Recently Relevant to Health Maintenance Results * MR Brain w/o Contrast (11/27/2024 9:06 PM EST) Anatomical Region Laterality Modality Brain Magnetic Resonan ce 11/27/2024 9:06 PM EST Narrative 11/27/2024 9:08 PM EST ? [facility] ?[address] ?[place] [address] ? Magnetic Resonance Report ? Signed ? Patient: Víctor Mi ?MR#: [id number] ? : 1955 ?Acct:[id number] ? Age/Sex: 69 / M ?ADM Date: 11/27/24 ? Loc: HO.MRI ? Attending Dr: Fredi Ritter MD ? Ordering Physician: Fredi Ritter MD ?? Date of Service: 11/27/24 ?? Procedure(s): MR head/brain wo con ?? Accession Number(s): [id number] ? cc: Fredi Ritter MD ? CLINICAL HISTORY: lt hemianopia ? MR BRAIN WITHOUT GADOLINIUM ? Comparison: None ? Findings: ?? No restricted diffusion. ?? No acute intracranial hemorrhage, extra-axial fluid collection, ?? hydrocephalus or midline shift. ?? Encephalomalacia in the right occipital and left parietal lobes likely ?? sequelae of remote vascular insults. There are probable cortical ?? calcifications in the right occipital lobe. ?? Vascular flow voids are intact. ? Abnormal signal in the right globes secondary to age-indeterminate injury ?? or prosthesis. ?? No sinus or mastoid fluid. ?? No focal bone lesion. ? IMPRESSION: ?? 1. No acute infarct. ?? 2. Probable old small infarcts in the right BAND SAW FILER and left MCA territories. ?? Signal washout in the right occipital lobe on susceptibility weighted ?? imaging is most likely due to calcifications or old hemorrhage, less ?? likely acute hemorrhage. Recommend follow-up noncontrast CT head. ?? 3. Moderate burden of periventricular and subcortical white matter signal ?? alteration. Findings are nonspecific. Differential diagnosis includes but ?? is not limited to microangiopathic gliosis, chronic migraines, remote ?? trauma, remote inflammatory/infectious process or demyelinating process. ? This document has been electronically signed by: Cris Cain, DO on ?? 11/27/2024 21:06:50 ? Dictated By: ?Cris Cain MD ? Signed By: ?<Electronically signed by Cris Cain MD in OV> ?11/27/242107 ? DD/ 05 ? TD/TT: 11/27/242105 ? Die Mechanic: ? Procedure Note Sylvain, Image - 11/27/2024 [place] [address] Magnetic Resonance Report Signed Patient: Joseline Mi#: [id number] : 7Acct:[id number] Age/Sex: 69 / MADM Date: 11/27/24 Loc: HO.MRI Attending Dr: Fredi Ritter MD Ordering Physician: Fredi Ritter MD Date of Service: 11/27/24 Procedure(s): MR head/brain wo con Accession Number(s): [id number] cc: Fredi Ritter MD CLINICAL HISTORY: lt hemianopia MR BRAIN WITHOUT GADOLINIUM Comparison: None Findings: No restricted diffusion. No acute intracranial hemorrhage, extra-axial fluid collection, hydrocephalus or midline shift. Encephalomalacia in the right occipital and left parietal lobes likely sequelae of remote vascular insults. There are probable cortical calcifications in the right occipital lobe. Vascular flow voids are intact. Abnormal signal in the right globes secondary to age-indeterminate injury or prosthesis. No sinus or mastoid fluid. No focal bone lesion. IMPRESSION: 1. No acute infarct. 2. Probable old small infarcts in the right BAND SAW FILER and left MCA territories. Signal washout in the right occipital lobe on susceptibility weighted imaging is most likely due to calcifications or old hemorrhage, less likely acute hemorrhage. Recommend follow-up noncontrast CT head. 3. Moderate burden of periventricular and subcortical white matter signal alteration. Findings are nonspecific. Differential diagnosis includes but is not limited to microangiopathic gliosis, chronic migraines, remote trauma, remote inflammatory/infectious process or demyelinating process. This document has been electronically signed by: Cris Cain DO on 11/27/2024 21:06:50 Dictated By: Cris Cain MD Signed By: <Electronically signed by Cris Cain MD in OV> 11/27/242107 DD/ 05 TD/TT: 11/27/242105 Die Mechanic: Fredi Ritter MD [facility] MRI PROCEDURES Final Result * LIPID PANEL, STANDARD (01/02/2022 9:47 AM EST) Chol/HDLC Ratio 3.1 <5.0 (calc) [facility] Cholesterol, Total 138 <200 mg/dL [facility] HDL Cholesterol 45 > OR = 40 mg/dL [facility] LDL Cholesterol 75 mg/dL (calc) [facility] Comment: Reference range: <100 ?? Desirable range <100 mg/dL for primary prevention; ?? <70 mg/dL for patients with CHD or diabetic patients ?? with > or = 2 CHD risk factors. ?? LDL-C is now calculated using the Jesica ?? calculation, which is a validated novel method providing ?? better accuracy than the Friedewald equation in the ?? estimation of LDL-C. ?? Khurram JERONIMO et al. ALONDRA. 2013;310(19): 1563-0339 ?? (http://education.giddy/faq/GIS424) Non-HDL Cholesterol 93 <130 mg/dL (calc) [facility] Comment: For patients with diabetes plus 1 major ASCVD risk ?? factor, treating to a non-HDL-C goal of <100 mg/dL ?? (LDL-C of <70 mg/dL) is considered a therapeutic ?? option. Triglycerides 95 <150 mg/dL [facility] 01/02/2022 9:47 AM EST Fredi Ritter MD LAB BLOOD ORDERABLES Final Resul t Performing Organization Address [facility] Phone Number [facility] [address] [place] [address], * HEPATITIS C AB W/REFL TO HCV RNA, QN, PCR (12/20/2020 1:06 PM EST) HEPATITIS C ANTIBODY NON-REACT GINA NON-REACT GINA [facility] INDEX 0.04 <1.00 [facility] Comment: ?? HCV antibody was non-reactive. There is no laboratory ?? evidence of HCV infection. ?? In most cases, no further action is required. However, if recent HCV exposure is suspected, a test for HCV RNA (test code 01587) is suggested. ?? For additional information please refer to http://education.Mediasurface/faq/HEF36o6 (This link is being provided for informational/ educational purposes only.) ?? 12/20/2020 1:06 PM EST Fredi Ritter MD HISTORICAL/NON ORDERABLE LABS Fi nal Result Performing Organization Address [facility] Phone Number [facility] [address] from Last 3 Months or Most Recently Relevant to Health Maintenance Insurance MEDICARE * Guarantor: Víctor Mi Account Type Relation to Patient Date of Phone Billing Address Personal/Family Self [address] LYNDSAY Saldana Care Teams Director Design Relationship Specialty Start Date End Date Name, MD Fredi [address] [place] [address] Les LYNDSAY [address] PCP - General Family Medicine 02/01/19
--- OUTSIDE RECORDS SUMMARY | 2025-02-08 12:43 | XMS_ITS | Continuity of Care Document ---
Author Organization [facility] Address [address] [place] [phone] Phone Care Team Providers Care Program Analyst Name Role Phone Michael Lobato DO Unavailable Unavailable Advance Directives Directive Yes / No Effective Date File Name No Information Encounters Encounter Description Practice Location Reason(s) For Visit Diagnoses Date Provider [facility], [address], [id number], [place] tel:[phone] [address] [place] [address] No Information 2017 Luis Alfredo Rodriguez. [address] [place] [address], [id number], [place]. tel:[phone] Family History Family Member Type Diagnosis Age At Onset No Information Payers Payer name Insurance type Covered alliance party ID Authoriza tion(s) No Information Social History Type Description Quantity Date Captured Comments Sex Male Smoking Status No Information Chief Complaint And Reason For Visit No Information History Of Present Illness Encounter Date Complaint History Of Prese nt Illness No Information Instructions Date Instruction Additional Infor mation No Information Assessments Type Assessment Date No Information
--- OUTSIDE RECORDS SUMMARY | 2025-02-08 12:43 | XMS_ITS | Clinical Summary ---
Author Organization [address] Address [address] [place] [phone] Phone Care Team Providers Care Lamination Spinner Name Role Phone Kevin Peralta MD Primary Care Provider Allergies Active Allergy Reactions Criticality Noted Date Comments Ibuprofen Other Low 12/08/2009 Causes gi distress Milk Containing Products (Dairy) Hives 03/14/2009 Salicylates 03/14/2009 ulcers Active Problems Problem Noted Date Diagnosed Date OA (osteoarthritis) 11/04/2024 H. pylori infection 01/16/2010 Asthma 04/03/2009 Overview (11/04/2024): Patient has 2 attacks per year and he rarely uses the Albuterol Blindness, one eye 04/03/2009 Overview (11/04/2024): Right eye after trauma as a child Low back pain 04/03/2009 Tobacco use disorder 04/03/2009 Immunizations Name Administration Dates Next Due Pneumococcal polysaccharide 23 valent (Pneumovax 23) 2yo and older 04/03/2009 Tdap Tetanus diptheria acell ular pertussis (Boostrix; Adacel) 7yo and older 04/03/2009 Surgical History Surgery Date Site/Laterality Comments EYE SURGERY PROCEDURE: HISTORICAL EYE SURGERY; COMMENT: right eye if glass Medical History Medical History Date Comments OA (osteoarthritis) DX:OA (osteo arthritis) Family History Relation Name Status Comments Brother 1 Alive Brother 2 Alive Brother 3 Alive Brother 4 Alive Brother 5 Alive DM Brother 6 Alive DM Brother 7 Alive Brother 8 Alive Daughter Alive Father Asthma Mother DM, HTN, OA, As thma Sister 1 Alive DM Sister 2 Alive DM Sister 3 Alive DM Sister 4 Alive DM Sister 5 Alive Son Alive Social History Tobacco Use Types Packs/Day Years Used Date Smoking Tobacco: Every Day Cigarettes Alcohol Use Standard Drinks/Week Comments Yes 0 (1 standard drink = 0.6 oz pur e alcohol) Sex and Gender Information Value Date Recorded Sex Assigned at Not on file Legal Sex Male 8:05 PM EST Gender Identity Not on file Sexual Orientation Not on file Obstetrics History Plan of Treatment Upcoming Encounters Date Type Department Care Team ([facility] st Contact Info) Description 03/04/2025 11:30 AM EDT Office Visit Adult Medicine [facility] [address] [place] [phone] Shae Stuart PA [address] [place] [phone] Health Maintenance Due Date Last Done Comments Zoster Vaccines (1 of 2) 2007 Pneumococcal Vaccine: 50+ Ye ars (2 of 2 - PCV) 04/03/2010 04/03/2009 RSV Immunization Patients 60 + Years Old (1 - Risk 60-74 years 1-dose series) 2017 DTaP,Tdap,and Td Vaccines (2 - Td or Tdap) 04/03/2019 04/03/2009 Abdominal Aortic Aneurysm (A AA) Screen 12/18/2023 Cholesterol Screening (Lipid Panel) 12/18/2023 08/09/2013 Colorectal Cancer Screening: Colonoscopy 12/18/2023 Depression Screening 12/18/2023 Falls Risk Assessment 12/18/2023 Medicare Annual Wellness Visit 12/18/2023 Social Influencers of Health Screening 12/18/2023 COVID-19 Vaccine (1 - 2023-2 5 season) 2024 Influenza Vaccine (#1) 2024 Hepatitis C Screening Completed 08/09/2013 HIB Vaccines Aged Out No longer eligi [...] on patient's age to complete this topic MMR Vaccines Aged Out No longer eligi ble based on patient's age to complete this topic Meningococcal ACWY Vaccine Aged Out N o longer eligible based on patient's age to complete this topic Meningococcal B Vacine Aged Out No lo nger eligible based on patient's age to complete this topic RSV Immunization Patients Un jey 20 months Aged Out No longer eligible b ased on patient's age to complete this topic Varicella Vaccines Aged Out No longer eligible based on patient's age to complete this topic Procedures Procedure Name Priority Date/Time Associated Diagnosis Comments HEPATITIS C SCREENING Routine 08/09/2013 LIPID PANEL Routine 08/09/2013 from Last 3 Months or Most Recently Relevant to Health Maintenance Results * Hepatitis C Screening (08/09/2013) Hepatitis C Screening abstracted Historical Provider HEALTH MAINTENANCE Final Result * (ABNORMAL) Lipid panel (08/09/2013) LDL/HDL Ratio 3 0 - 4 Triglycerides 227(A) 0 - 150 mg/dL Cholesterol 164 0 - 200 mg/dL HDL 51 >=40 mg/dL LDL Cholesterol 68 0 - 100 mg/dL Blood Venous blood specimen / Unknown Historical Provider LAB BLOOD ORDERABLES Nicol l Result from Last 3 Months or Most Recently Relevant to Health Maintenance Insurance [address] [place] [address] MEDICAID - [place] MEDICARE Care Teams Lamination Spinner Relationship Specialty Start Date End Date Kevin Peralta MD [address] [place] [address] PCP - General Internal Medicine 10/26/24
== END ==
LOC: HO.CARD 10:43
PROVIDERS: PCP Internal Medicine Geriatric Medicine; Visit Provider Nurse Practitioner Family
DX: I42.8 Other cardiomyopathies (principal); I47.29 Other ventricular tachycardia
CPT/HCPCS: 93242; 93308

== ENCOUNTER → 2025-02-08 10:48 | Outpatient (BNV) | payer MEDICARE, MEDICAID, SELFPAY | PROVIDERS: PCP Internal Medicine Geriatric Medicine; Visit Provider Internal Medicine Cardiovascular Disease | DX: I42.8 Other cardiomyopathies (principal) | CPT/HCPCS: 93308; 93321 ==

== ENCOUNTER 2025-03-24 09:42 | Outpatient (AMB) | payer MEDICARE, MEDICAID, SELFPAY ==
[2025-03-24 09:46] VITALS: BP 120/62; PULSE 81; BMI 29.7
--- NOTE | 2025-03-24 09:46 | A.OFFVIS_ITS ---
Vital Signs 03/24/25 09:46 Height 5 ft 6 in Weight 183 lb 13.848 oz BMI 29.7 BP 120/62 Blood Pressure Location Lt brachial Position Sitting Pulse 81 Pulse Source Monitor Intake Visit Reasons: r/s 03/11/25 followup s/p testing Climate Change Risk Assessor Required: No Medical Collections Specialist: Medical Collections Specialist Present Allergies aspirin [ASPIRIN] Allergy (Unknown, Verified 03/24/25 09:48) Rash egg [EGGS] Allergy (Unknown, Verified 03/24/25 09:48) UNKNOWN Influenza Virus Vaccines [INFLUENZA VIRUS VACCINES] Allergy (Unknown, Verified 03/24/25 09:48) UNKNOWN lactose [LACTOSE] Allergy (Unknown, Verified 03/24/25 09:48) GI UPSET Medication List - Last Reconciled 03/24/25 by JEMIMA Muller albuterol sulfate 90 mcg/actuation (Ventolin HFA) 2 puffs inhalation Q4H PRN amiodarone 200 mg PO DAILY 90 days atorvastatin 40 mg PO DAILY bumetanide 1 mg PO BID carvedilol 3.125 mg See Protocol PO BID 90 days hydrocortisone 2.5% 1 appl topical QD-BID mometasone 100 mcg/actuation (Asmanex HFA) 2 puffs inhalation BID prednisone 40 mg (4 x 10 mg) PO DIRECTED sacubitril-valsartan 49-51 mg (Entresto) 1 tab PO BID 90 days HPI HPI r/s 03/11/25 followup s/p testing: Details: Víctor is a 70 yo male with PMH of cocaine use, nonischemic cardiomyopathy, HFrEF, runs of NSVT during February 2024 [facility] admission. He was put on amiodarone at that time. Since last visit he underwent a limited echo and Holter monitor for further evaluation and now presents for follow-up. Today he states that last September he had a stroke. Tells me he had flashing in his visual field then had a sudden decrease in his vision overall. He says he is now legally blind. 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 He does not believe he has seen a neurologist yet. He has no new mobility issues. He has chronic issues with his right leg. He denies any shortness of breath, PND, orthopnea or edema. No chest discomfort at rest or with activity. No palpitations, lightheadedness, presyncope, syncope, falls. He is mostly sedentary, ambulates with crutches. Taking all other meds as directed. He has gained weight and admits to getting up at night and eating then going back to bed. Daughter is present and assisting with Bur[place]ian interpretation at their request. [facility] Medical History Cardiomyopathy HFrEF (heart failure with reduced ejection fraction) Hypertension Cocaine use disorder Asthma Surgical History Hx of endoscopic retrograde cholangiopancreatography History of cholecystectomy Family History Mother Diabetes Hypertension Arthritis Asthma Father Asthma Social History Household Members: Children Housing: Other Housing Other:: living in senior care with son Do you presently have visiting nurse or other home services: Yes (nurse visits every 6mon, interested in more frequent aid visits) Alcohol intake: former Patient Tobacco Use Status: Former Tobacco user Tobacco use type: Cigarette Cigarette Packs Per Day: 2 Cigarettes Per Day: 40.0 Years Smoked: 51 e-Cigarette/Vaping Use: Former Use Second Hand Smoke Exposure: Yes Substance Use Type: Crack/Cocaine service: No Review of Systems Const All systems reviewed & are unremarkable except as noted in HPI and below Reports fatigue and Reports weight gain ENT Details: legally blind Denies dizziness Card Denies chest pain, Denies chest pain at rest, Denies chest pain with activity, Denies rapid heart rate, Denies pedal edema, Denies edema, Denies leg edema, Denies lightheadedness, Denies palpitations, Denies dyspnea, Denies dyspnea on exertion and Denies orthopnea Resp Denies cough, Denies dyspnea and Denies dyspnea on exertion GI Denies hematochezia and Denies change in stool character Musc Reports abnormal gait (uses crutch - right leg issues), Denies limited range of motion, Denies muscle cramps, Denies muscle weakness, Denies numbness, Denies radiating pain into limb, Denies stiffness and Denies tingling Neuro Details: Reports having stroke in Nov Reports abnormal gait (uses crutch - right leg issues), Denies dizziness, Denies numbness and Denies tingling Endo Reports fatigue and Denies palpitations Physical Exam Vital Signs: Last Vital Signs Pulse 81 03/24/25 09:46 BP 120/62 03/24/25 09:46 BMI result Body Mass Index 29.7 Const General: cooperative, comfortable and no acute distress Orientation/consciousness: patient oriented x3 Neck Neck: Yes JVD Resp Effort & Inspection: normal respiratory effort Auscultation: clear to auscultation bilaterally, no rales, no rhonchi and no wheezes Cardio Jugular venous distension: no JVD Rate: regular rate Rhythm: regular rhythm Heart sounds: S1 normal heart sound present, S2 normal heart sound present, no murmurs and no rubs Neuro General: patient oriented x3 Extrem Other: ambulates with crutches Psych Appearance: grossly normal Mental Status: mental status grossly normal Speech and movement: Normal speech and movement present Office Procedures EKG Details: Today, read by me, Normal sinus rhythm, right axis, manual QTc 488ms, rate 81. [id number], Complete Results Reviewed Results Reviewed: 11/27/24 MRI of brain IMPRESSION: 1. No acute infarct. 2. Probable old small infarcts in the right CLOD PULLER and left MCA territories. Signal washout in the right occipital lobe on susceptibility weighted imaging is most likely due to calcifications or old hemorrhage, less likely acute hemorrhage. Recommend follow-up noncontrast CT head. 3. Moderate burden of periventricular and subcortical white matter signal alteration. Findings are nonspecific. Differential diagnosis includes but is not limited to microangiopathic gliosis, chronic migraines, remote trauma, remote inflammatory/infectious process or demyelinating process. Assessment & Plan Assessment & Plan (1) Cardiomyopathy: Code(s): I42.9 - Cardiomyopathy, unspecified Category: Medical Qualifiers: Cardiomyopathy type: other Qualified Code(s): I42.8 - Other cardiomyopathies Plan: Hx of nonischemic cardiomyopathy. Echocardiogram done 05/2022 showed EF 40-45%. Nuclear stress test 05/2022 showed normal myocardial perfusion imaging. He last was not seen in our office between 07/16/22 and 04/20/2024. He was hospitalized with HF 08/2023, 11/2023, 02/2024, none since. Echocardiogram done 02/08/2025 shows EF 40-45%. He continues on Bumex 1 mg b.i.d.. He is also on carvedilol and Entresto for neurohormonal modulation. He does not appear fluid overloaded on exam however he has gained 20 lb since his last visit in July. He admits to increased dietary intake. Will check labs today and include a BNP for further evaluation. No med changes made at this time. Signs and symptoms of heart failure reviewed with him. Continue to follow low-salt diet, fluid restriction 48 oz, leg elevation when sitting. Cardiology follow-up in 3 months, sooner if needed. (2) S/P cardiac catheterization: Comment: 06/10/2024 showing normal coronary arteries, PA , wedge 13 Code(s): Z98.890 - Other specified postprocedural states Category: Medical Plan: As above (3) Nonsustained ventricular tachycardia: Code(s): I47.29 - Other ventricular tachycardia Category: Medical Plan: Noted to have NSVT during last hospitalization for 2023. He was put on amiodarone. Holter monitor done 02/08/2025 shows sinus rhythm, average heart rate 79 per, SVE 1.4% of time, ve 0.1% of time, rare couplets, trigeminy and bigeminy, 4 NSVT runs, longest 9 beats. EKG today showing normal sinus rhythm, manual QTC 488 milliseconds, rate 81. Will check labs today for amiodarone monitoring, including CMP, TSH, will add magnesium. Continue carvedilol and amiodarone. (4) On amiodarone therapy: Code(s): Z79.899 - Other half-way (current) drug therapy Category: Medical (5) CVA (cerebral vascular accident): Code(s): I63.9 - Cerebral infarction, unspecified Category: Medical Plan: Report of CVA 09/2024 with residual heard vision, now legally blind. MRI as reported above with no acute infarcts however evidence of prior infarcts noted. Will obtain note from his PCP for review. Recent Holter did not show any atrial fibrillation. He is on amiodarone at this time. Plan Time spent on chart review, document, interview, assessment Orders: Orders Comprehensive Met. Panel Today I42.8 - Other cardiomyopathies, Z79.899 - Other equipment operator intermodal yard (current) drug therapy B Type Natriuretic Peptide Today I42.8 - Other cardiomyopathies TSH reflex Free T4 Today Z79.899 - Other equipment operator intermodal yard (current) drug therapy Magnesium Today I47.29 - Other ventricular tachycardia Patient Instructions: - Continue taking carvedilol and Entresto as prescribed - Monitor any changes in swelling or shortness of breath - Focus on a balanced diet and exercise as tolerated - Complete blood work to monitor medication effects - Follow-up visit in three months, or sooner if new symptoms develop - Notify immediately if chest pain, fainting, or increased swelling occurs Coding Level of Care Code Est Pt Level 4 (90918) Complex EM visit Add On G2211 Diagnoses Other cardiomyopathy I42.8 Cardiomyopathy type: other S/P cardiac catheterization Z98.890 Nonsustained ventricular tachycardia I47.29 On amiodarone therapy Z79.899 CVA (cerebral vascular accident) I63.9 CPT Codes EKG - CPT: 24296-[id number], Complete ([id number]) Time Spent (min) 28
--- OUTSIDE RECORDS SUMMARY | 2025-03-24 10:47 | XMS_ITS | Clinical Summary ---
Author Organization [employer] Address [address] [facility] [address] [place] [address] Care Team Providers Care Suction Plate Carrier Cleaner Name Role Phone Name, Fredi SOLIMAN Primary Care Provider [phone] Allergies Active Allergy Reactions Criticality Noted Date [...] (Lipitor) 40 MG tabletIndicatio ns:History of right SOCCER REFEREE stroke Take 1 tablet (40 mg) by mouth Once per day. 30 tablet 5 12/13/19 26 Active Active Problems Problem Noted Date Diagnosed Date History of right SOCCER REFEREE stroke 12/13/2024 Vision loss of left eye [...] done 06/10/2022 showed EF 40-45%, impaired relaxation, bghd-va-vfkjwame MR. Holter monitor done 06/21/2022 for 3 [...] done 06/10/2022 showed EF 40-45%, impaired relaxation, mthz-ba-hueowaeg MR. Holter monitor done 06/21/2022 for 3 [...] done 06/10/2022 showed EF 40-45%, impaired relaxation, vttk-wd-nzuwozhj MR. Holter monitor done 06/21/2022 for 3 [...] Type Department Care Team Description 01/17/2025 Telephone [facility] [address] [place] [address] Name, MD Fredi from Last 3 Months Immunizations Name Administration [...] is your housing situation today? I have lakekojo dye 02/13/[address] you [...] 60-74 years 1-dose series) 2017 Depression Monitoring 07/09/2024 01/09/2024, 024 COVID-19 Vaccine ( season) 2024 01/28/2023, 01/02/2022, [...] Procedure Name Priority Date/Time Associated Diagnosis Comments LIPID PANEL, STANDARD Routine 01/02/2022 9:47 AM EST [facility] HISTORICAL HEPATITIS C AB W/REFL TO HCV RNA, QN, PCR Routine 12/20/2020 1:06 PM EST from Last 3 Months or Most Recently Relevant to Health Maintenance Results * LIPID PANEL, STANDARD (01/02/2022 9:47 AM [...] ?? Khurram JERONIMO et al. ALONDRA. 2013;310(19): 3103-7494 ?? (http://Lex Machina.SkySpecs/faq/LFT054) Non-HDL Cholesterol 93 <130 mg/dL (calc) [facility] Comment: For patients with diabetes plus 1 major ASCVD risk ?? factor, treating to a non-HDL-C goal of <100 mg/dL ?? (LDL-C of <70 mg/dL) is considered a therapeutic ?? option. Triglycerides 95 <150 mg/dL [facility] 01/02/2022 9:47 AM EST us Fredi Ritter MD LAB BLOOD ORDERABLES Final Resul t [facility] [address] * HEPATITIS C AB W/REFL TO HCV RNA, QN, PCR (12/20/2020 1:06 PM EST) HEPATITIS C ANTIBODY NON-REACT GINA NON-REACT GINA [facility] INDEX 0.04 <1.00 [facility] Comment: ?? HCV antibody was non-reactive. There is no laboratory ?? evidence of HCV infection. ?? In most cases, no further action is required. However, if recent HCV exposure is suspected, a test for HCV RNA (test code 24604) is suggested. ?? For additional information please refer to http://Lex Machina.Allocab/faq/CKG07e7 (This link is being provided for informational/ educational purposes only.) ?? 12/20/2020 1:06 PM EST us Fredi Ritter MD HISTORICAL/NON ORDERABLE LABS Fi nal Result [facility] [address] from Last 3 Months or Most Recently Relevant to Health Maintenance Insurance * Guarantor: MiSaul Account Type Relation to Patient Date of Phone Billing Address Personal/Family Self [address] [place] Care Teams Suction Plate Carrier Cleaner Relationship Specialty Start Date End Date Name, MD Fredi [address] [place] [address] [place] [address] PCP - General Family Medicine 02/01/19
--- OUTSIDE RECORDS SUMMARY | 2025-03-24 10:47 | XMS_ITS | Encounter Summary ---
Author Organization [employer] Address [address] [place] [address] Care Team Providers Care Science Professor Name Role Phone Name, Fredi SOLIMAN Primary Care Provider [phone] Reason for Visit * Reason Onset Date Comments Hospital Follow-up 09/18/2023 Encounter Details Date Type Department Care Team ([facility] st Contact Info) Description 09/18/2023 Telephone [facility] [address] [place], [place] [phone] Name, MD Fredi [address] [place] [address] Hospital Follow-up Social History Tobacco Use Types [...] - 09/18/2023 10:27 AM EDT Tc from [facility] calling to report a hospital f/u. Pt was admitted 09/10 at [facility] and discharged on 09/16.Pt was diagnosed with heart failure. Was advised will forward to care coordinators for f/u. Please contact pt at [phone] documented in this encounter Plan of Treatment Not on file documented as of this encounter Visit Diagnoses Not on filedocumented in this encounter Additional Health Concerns Assessment Noted Time PHQ-9 Depression Total Score: 6 02/11/20 23 9:57 AM EDT documented as of this encounter Care Teams Science Professor Relationship Specialty Start Date End Date Name, MD Fredi [address] [place] [address] PCP - General Family Medicine 02/01/19 documented as of this encounter
--- OUTSIDE RECORDS SUMMARY | 2025-03-24 10:47 | XMS_ITS | Continuity of Care Document ---
Author Organization [facility] Address [address] [place] [phone] Phone Care Team Providers Care Soil And Plant Scientist Name Role Phone Unavailable Unavailable Unavailable Advance Directives Directive Yes / No Effective Date File Name No Information Encounters Encounter Description Practice Location Reason(s) For Visit Diagnoses Date Provider [facility], [address], [id number], tel:[phone] [address] No Information 2017 No Information Family History Family Member Type Diagnosis Age [...]
--- OUTSIDE RECORDS SUMMARY | 2025-03-24 10:47 | XMS_ITS | Encounter Summary ---
Author Organization [employer] Address [address] [place] [address] Care Team Providers Care Dietary Tech Name Role Phone Name, Fredi SOLIMAN Primary Care Provider [phone] Reason for Visit * Reason Onset Date Comments Hospital Follow-up 03/24/2024 Encounter Details Date Type Department Care Team ([facility] st Contact Info) Description 03/24/[address] [facility] [address] [place], [place] [phone] Name, MD Fredi [address] [place] [address] Hospital Follow-up Social History Tobacco Use Types [...] from pt requesting a HDF appt. Hospital: [facility] Date of admission: 03/15/24 Discharge date: 03/22/24 Diagnosed: difficulty breathing documented in this encounter Plan of Treatment Not on file documented as of this encounter Visit Diagnoses Not on filedocumented in this encounter Additional Health Concerns Assessment Noted Time PHQ-9 Depression Total Score: 9 01/09/20 24 11:48 AM EST documented as of this encounter Care Teams Dietary Tech Relationship Specialty Start Date End Date Name, MD Fredi [address] [place] [address] PCP - General Family Medicine 02/01/19 documented as of this encounter
--- OUTSIDE RECORDS SUMMARY | 2025-03-24 10:47 | XMS_ITS | Encounter Summary ---
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 Phone Kevin Peralta MD Primary Care Provider Reason for Referral * Imaging (Routine) - Authorized Specialty Diagnoses / Procedures Referred By Contac t Referred To Contact Radiology Diagnoses Encounter for abdominal aortic aneurysm (AAA) screening Procedures US Abdomen Aortic Aneurysm Screening Kevin Peralta MD [address] [place] [address] Phone: tel: fax: [address] Phone: tel: Referral ID Status Reason Start Date Expiration Date V isits Requested Visits Authorized [id number] Authorized 03/23/2025 03/23/2026 1 1 Reason for Visit * Reason Comments Follow-up Encounter Details Date Type Department Care Team (Late st Contact Info) Description 03/23/2025 12:00 PM EDT Office Visit Adult Medicine [address] [phone] Kevin Peralta MD [address] [place] [address] Nonischemic cardiomyopathy (CMS/HCC V24, CMS/HCC V28) (Primary Dx); Chronic systolic heart failure (CMS/HCC V24, CMS/HCC V28); History of CVA with residual deficit; Avascular necrosis of bone of right hip (CMS/HCC V24, CMS/HCC V28); Moderate persistent asthma without complication; Macrocytic anemia with vitamin B12 deficiency; Prediabetes; Encounter for screening for malignant neoplasm of colon; Screening for prostate cancer; Encounter for abdominal aortic aneurysm (AAA) screening; Crack cocaine use Social History Tobacco Use Types Packs/Day Years Used Date Smoking Tobacco: Former Cigarettes Tobacco Cessation:Counseling Given: Not Answered Comments:Quit 2017 Alcohol Use Standard Drinks/Week Comments Not Currently 0 (1 standard drink = 0.6 oz pur e alcohol) Housing Instability Answer Date Recorde d Are you worried that in the next 2 months you may not have stable housing? Yes 03/23/2025 Food Access & Nutrition Answer Date Rec orded Do you have access to a vari ety of food including fruits and vegetables? No 03/23/2025 Health Literacy Answer Date Recorded How often do you need to hav e someone help you when you read instructions, pamphlets, or other written material from your doctor or pharmacy? Never 03/23/2025 Caregiver: How often do you need to have someone help you when you read instructions, pamphlets, or other written material from your doctor or pharmacy? Not on file 03/23/2025 Financial Risk Answer Date Recorded How hard is it for you to pa y for the very basics like food, housing, medical care, and air conditioning / heating? Not very hard 03/23/2025 Transportation Answer Date Recorded Has the lack of transportati on kept you from meetings, work, or from getting things needed for daily living? No Has the lack of transportati on kept you from medical appointments or from getting medications? No 03/23/2025 Social Isolation Answer Date Recorded How often do you feel lonely or isolated from th ose around you? Never 03/23/2025 Food Risk Answer Date Recorded Within the past 12 months we worried whether our food would run out before we got money to buy more. Never true 03/23/2025 Within the past 12 months th e food we bought just didn't last and we didn't have money to get more. Never true 03/23/2025 Dependent Care Answer Date Recorded Do you need help finding or paying for care for your loved ones. For example, child welfare worker or elderly care for an older adult? No 03/23/2025 Education Answer Date Recorded Do you think completing more education or training, like finishing a GED, going to college, or learning a trade, would be helpful for you? No 03/23/2025 Employment and Income Answer Date Recor ded During the last four weeks, have you been actively looking for work? No 03/23/2025 Living Situation Answer Date Recorded What is your living situation? 0 03/23/2025 Sex and Gender Information Value Date Recorded Sex Assigned at Not on file Legal Sex Male 8:05 PM EST Gender Identity Not on file Sexual Orientation Not on file Occupation Industry Job Start Date Job End Date retired Not on file Not on file Not on file documented as of this encounter Last Filed Vital Signs Vital Sign Reading Time Taken Comments Blood Pressure 124/72 03/23/2025 11:49 AM EDT Pulse 81 03/23/2025 11:49 AM EDT Temperature 36.7 ??C (98.1 ??F) 03/23/2025 11:49 AM E DT Respiratory Rate 14 03/23/2025 11:49 AM EDT Oxygen Saturation - - Inhaled Oxygen Concentration - - Weight 83.9 kg (185 lb) 03/23/2025 11:49 AM EDT Height 167.6 cm (5' 6 ) 03/23/2025 11:49 AM EDT Body Mass Index 29.86 03/23/2025 11:49 AM EDT documented in this encounter Ordered Prescriptions Prescription Sig Dispense Quantity Refills Last Filled Start Date End Date cyanocobalamin (VITAMIN B-12) 1,000 mcg tablet Take 1 tablet (1,000 mcg total) by mouth 1 (one) time each day. 90 each 1 03/23/2025 documented in this encounter Progress Notes * Lilia Rangel MA - 03/23/2025 12:00 PM EDT D Social Influencers of Health Who provided answers?: Self Within the past 12 months we worried whether our food would run out before we got money to buy more.: Never true Within the past 12 months the food we bought just didn't last and we didn't have money to get more.: Never true How hard is it for you to pay for the very basics like food, housing, medical care, and air conditioning / heating?: Not very hard Are you worried that in the next 2 months you may not have stable housing?: Yes Do you have access to a variety of food including fruits and vegetables?: No Has the lack of transportation kept you from meetings, work, or from getting things needed for daily living?: No Has the lack of transportation kept you from medical appointments or from getting medications?: No How often do you feel lonely or isolated from those around you?: Never How often do you need to have someone help you when you read instructions, pamphlets, or other written material from your doctor or pharmacy?: Never Have you fallen in the past year? yes. Are you worried about falling? yes. . * Mariel Hong MA - 03/23/2025 12:00 PM EDT B12 injection given left deltoid. See medication/immunization tab. Patient to remain 20 minutes. * Kevin Peralta MD - 03/23/2025 12:00 PM EDT SUBJECTIVE: Víctor Mi is a 70 y.o. male who presents today for Chief Complaint Patient presents with Follow-up HPI: Patient presented for follow-up. Recently establish care for our practice. Follows with [facility] as well as external ophthalmology. Please see the previous note regarding patient's active medical issues. Current Meds: Current Outpatient Medications: albuterol HFA (Ventolin HFA) 90 mcg/actuation inhaler, Inhale 2 puffs by mouth every 4 (four) hoursif needed for wheezing or shortness of breath., Disp: 6.7 g, Rfl: 0 amiodarone (PACERONE) 200 mg tablet, Take 1 tablet (200 mg total) by mouth 1 (one) time each day., Disp: , Rfl: atorvastatin (LIPITOR) 40 mg tablet, Take 1 tablet (40 mg total) by mouth 1 (one) time each day., Disp: 30 each, Rfl: 5 bumetanide (BUMEX) 1 mg tablet, Take 2 tablets (2 mg total) by mouth daily., Disp: , Rfl: cetirizine (ZyrTEC) 10 mg tablet, Take 1 tablet (10 mg total) by mouth 1 (one) time each day., Disp: 30 each, Rfl: 5 clopidogreL (PLAVIX) 75 mg tablet, Take 1 tablet (75 mg total) by mouth 1 (one) time each day., Disp: 30 each, Rfl: 5 ferrous sulfate 325 mg (65 mg iron) EC tablet, Take 1 tablet (325 mg total) by mouth 1 (one) time each day with breakfast. Do not crush, chew, or split., Disp: , Rfl: fluticasone furoate (Arnuity Ellipta) 100 mcg/actuation blister with device inhaler, Inhale 1 puff by mouth 1 (one) time each day., Disp: 1 each, Rfl: 5 sacubitriL-valsartan (Entresto) 49-51 mg per tablet, Take 1 tablet by mouth 2 times daily., Disp: ,Rfl: cyanocobalamin (VITAMIN B-12) 1,000 mcg tablet, Take 1 tablet (1,000 mcg total) by mouth 1 (one) time each day., Disp: 90 each, Rfl: 1 Current Facility-Administered Medications: cyanocobalamin (VITAMIN B-12) injection 1,000 mcg, 1,000 mcg, intramuscular, See admin instructions, Kevin Peralta MD, 1,000 mcg at 03/23/25 1228 Allergies: Allergies Allergen Reactions Egg White Unknown Influenza Virus Vaccines Unknown Milk Containing Products (Dairy) Hives Salicylates ulcers Ibuprofen Other Causes gi distress Immunizations: Immunization History Administered Date(s) Administered Pfizer (ages 12 & older) Bivalent, COVID-19 01/28/2023 Pneumococcal polysaccharide 23 valent (Pneumovax 23) 2yo and older 04/03/2009 Tdap Tetanus diptheria acellular pertussis (Boostrix; Adacel) 7yo and older 04/03/2009 Active Problems: Patient Active Problem List Diagnosis Asthma Blindness, one eye H. pylori infection Low back pain OA (osteoarthritis) [place] [facility] [place] Former smoker Nonischemic cardiomyopathy [place] [place] [facility] [place]) Macrocytic anemia with vitamin B12 deficiency Drug abuse [place] [place] [facility] [place]) Avascular necrosis of bone of right hip [place] [place] [facility] [place]) History of stroke Prediabetes HISTORY: Past Medical History: Diagnosis Date Asthma Blindness CHF (congestive heart failure) [place] [place] [facility] [place]) Former smoker Iron deficiency OA (osteoarthritis) DX:OA (osteoarthritis) Stroke [place] [place] [facility] [place]) Substance abuse [place] [place] [facility] [place]) Past Surgical History: Procedure Laterality Date CHOLECYSTECTOMY 2020 EYE SURGERY Right eye if glass Family History Problem Relation Name Age of Onset Diabetes Mother HTN, OA, asthma Asthma Father overnight Diabetes Sister x5 Arthritis Sister No Known Problems Brother x8 Stroke Brother Other (Accident) Brother Social History Socioeconomic History Marital status: Single Spouse name: Not on file Number of children: Not on file Years of education: Not on file Highest education level: Not on file Occupational History Occupation: retired Tobacco Use Smoking status: Former Current packs/day: 0.30 Types: Cigarettes Smokeless tobacco: Not on file Tobacco comments: Quit 2017 Substance and Sexual Activity Alcohol use: Not Currently Drug use: Yes Types: Crack cocaine Comment: 2x / week Sexual activity: Not on file Other Topics Concern Not on file Social History Narrative Not on file ROS: GENERAL: Negative for malaise, significant weight loss and fever RESPIRATORY: No cough, wheezing or shortness of breath CARDIOVASCULAR: Negative for chest pain, leg swelling and palpitations GI: Negative for abdominal discomfort, changes in bowel habits, blood in stool or black stools VITAL SIGNS Vitals: 03/23/25 1149 BP: 124/72 Pulse: 81 Resp: 14 Temp: 36.7 ??C (98.1 ??F) TempSrc: Temporal Weight: 83.9 kg (185 lb) Height: 1.676 m (66 ) Body mass index is 29.86 kg/m??. Body surface area is 1.93 meters squared. PHYSICAL EXAM: Blood pressure 124/72, pulse 81, temperature 36.7 ??C (98.1 ??F), temperature source Temporal, resp. rate 14, height 1.676 m (66 ), weight 83.9 kg (185 lb). Body mass index is 29.86 kg/m??. Plan is deferred until next visit APPEARANCE: Alert and in no acute distress HEART: RRR with normal S1 and S2, no murmurs, no gallops, no JVD appreciated CHEST: non-tender LUNG: clear to auscultation bilaterally ABDOMEN: Bowel sounds normoactive, no bruits and soft, non-tender, without organomegaly or palpablemasses No results found for this or any previous visit (from the past 4464 hours). Recent Results (from the past 4 weeks) Hemoglobin A1c Collection Time: 03/21/25 12:05 PM Result Value Ref Range Hemoglobin A1C 6.3 <6.5 % Mean Bld Glu Estim. 134 mg/dL Folate Collection Time: 03/21/25 12:05 PM Result Value Ref Range Folate 9.3 2.8 - 17.0 ng/ml Vitamin B12 Collection Time: 03/21/25 12:05 PM Result Value Ref Range Vitamin B-12 205 (L) 250 - 900 pcg/mL Iron and TIBC Collection Time: 03/21/25 12:05 PM Result Value Ref Range Iron 99 50 - 160 mcg/dL TIBC 300 250 - 450 mcg/dL Iron Saturation 33 20 - 50 % Lipid panel with reflex to direct LDL Collection Time: 03/21/25 12:05 PM Result Value Ref Range Cholesterol 123 0 - 200 mg/dL Triglycerides 80 0 - 150 mg/dL HDL 63 >=40 mg/dL LDL Calculated 44 0 - 100 mg/dL VLDL Cholesterol Madhu 16 mg/dL Non HDL Chol. (LDL+VLDL) 60 <145 mg/dL Chol/HDL Ratio 2.0 0.0 - 4.4 Comprehensive metabolic panel Collection Time: 03/21/25 12:05 PM Result Value Ref Range Sodium 141 133 - 145 mmol/L Potassium 3.6 3.5 - 5.5 mmol/L Chloride 107 96 - 110 mmol/L CO2 29 21 - 32 mmol/L Anion Gap 5 3 - 11 Glucose 75 70 - 100 mg/dL BUN 10 5 - 25 mg/dL Creatinine 1.40 (H) 0.70 - 1.30 mg/dL eGFR 55 (L) >=60 mL/min/1.73m2 BUN/Creatinine Ratio 7.1 Calcium 8.7 8.5 - 10.5 mg/dL AST (SGOT) 15 10 - 42 unit/L ALT (SGPT) 17 10 - 60 unit/L Alkaline Phosphatase 131 (H) 42 - 121 unit/L Total Protein 7.3 6.0 - 8.0 g/dL Albumin 3.8 3.2 - 5.0 g/dL Total Bilirubin 0.6 0.0 - 1.4 mg/dL CBC auto differential Collection Time: 03/21/25 12:05 PM Result Value Ref Range WBC 6.6 4.8 - 10.8 K/mcL RBC 4.00 (L) 4.50 - 5.50 M/mcL Hemoglobin 13.0 (L) 13.5 - 17.5 g/dL Hematocrit 40.2 (L) 42.0 - 54.0 % MCV 101.8 (H) 79.0 - 98.0 FL MCH 32.9 (H) 27.0 - 32.0 pcg MCHC 32.3 32.0 - 37.0 g/dL RDW 13.1 11.0 - 15.0 % Platelets 187 130 - 400 K/mcL MPV 11.4 (H) 7.0 - 11.0 FL NRBC 0.0 <1.0 % NRBC Absolute 0.00 <0.10 K/mcL Neutrophils Relative 56.2 % Lymphocytes Relative 28.8 % Monocytes Relative 11.5 % Eosinophils Relative 2.4 % Basophils Relative 0.8 % Immature Granulocytes Relative 0.3 % Neutrophils Absolute 3.71 1.50 - 7.00 K/mcL Lymphocytes Absolute 1.90 1.00 - 5.00 K/mcL Monocytes Absolute 0.76 0.20 - 1.00 K/mcL Eosinophils Absolute 0.16 0.00 - 0.50 K/mcL Basophils Absolute 0.05 0.00 - 0.20 K/mcL Immature Granulocytes Absolute 0.02 0.00 - 0.03 K/mcL ASSESSMENT/PLAN: Víctor was seen today for follow-up. Diagnoses and all orders for this visit: Nonischemic cardiomyopathy (CMS/HCC V24, CMS/HCC V28) (Primary) - Comprehensive metabolic panel; Future Chronic systolic heart failure (CMS/HCC V24, CMS/HCC V28) - Comprehensive metabolic panel; Future History of CVA with residual deficit - Comprehensive metabolic panel; Future Avascular necrosis of bone of right hip (CMS/HCC V24, CMS/HCC V28) Moderate persistent asthma without complication Macrocytic anemia with vitamin B12 deficiency - cyanocobalamin (VITAMIN B-12) injection 1,000 mcg - CBC and differential; Future Prediabetes - Hemoglobin A1c; Future Encounter for screening for malignant neoplasm of colon - Cologuard?? colon cancer screening; Future - Cologuard?? colon cancer screening Screening for prostate cancer - Prostate specific antigen screen; Future Encounter for abdominal aortic aneurysm (AAA) screening - US Abdomen Aortic Aneurysm Screening; Future Other orders - cyanocobalamin (VITAMIN B-12) 1,000 mcg tablet; Take 1 tablet (1,000 mcg total) by mouth 1 (one) time each day. Plan Continue albuterol, Arnuity Ellipta for asthma. Patient follows with cardiology for nonischemic cardiomyopathy, chronic systolic ingestive heart failure. Medication management is managed by cardiology. Advised on stopping the cocaine use. Understands that cocaine can worsen the cardiomyopathy. Patient is still not willing to stop the cocaine use. Patient's grandson was present during the visit. Euvolemic on exam today. Recent labs show macrocytic anemia, will start B12 replacement therapy. Patient has left vision loss, hemianopsia, seeing ophthalmology. 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 CT scan showed similar findings. Continue Plavix, statin. Has seen orthopedics previously for avascular necrosis, per patient he was advised to stop cocaine use prior to any surgery but he declined to do so. Currently using wheelchair for ambulation. Obtain repeat labs in 3 months. Check PSA as part of prostate cancer screening. Never had a colonoscopy. He is agreeable to Cologuard and colonoscopy if needed. Cologuard ordered. I have applied the code G2211 to this patient???s visit as the primary care provider dealing with (above mentioned conditions) leading to the extensive work up, and management associated with the medical care of this patient. This patient???s serious conditions and complex medical conditions also required several consultants needing management and coordination through my office. I have reviewed all information as it pertains to the management of this patient for final approval. Follow up in about 3 months (around 06/22/2025) for Next scheduled follow-up. Orders Placed This Encounter Procedures US Abdomen Aortic Aneurysm Screening Comprehensive metabolic panel Hemoglobin A1c CBC and differential Prostate specific antigen screen Cologuard?? colon cancer screening Kevin Peralta MD documented in this encounter Plan of Treatment Upcoming Encounters Date Type Department Care Team (Late st Contact Info) Description 04/04/2025 8:15 AM EDT Appointment Radiology Department - [address] [phone] 04/04/2025 10:40 AM EDT Consult Gastroenterology - [place] [address] [place] [address] Tanesha Vicente NP 175 [facility] [address] [place] [address] 04/06/2025 11:30 AM EDT Clinical Support Adult Medicine [address] [phone] 06/22/2025 11:15 AM EDT Office Visit Adult Medicine [address] [phone] Kevin Peralta MD [address] [place] [address] Scheduled Orders Name Type Priority Associated Diagnoses Orde r Schedule Comprehensive metabolic panel Lab Routine Nonischemic cardiomyopathy (CMS/HCC V24, CMS/HCC V28) Chronic systolic heart failure (CMS/HCC V24, CMS/HCC V28) History of CVA with residual deficit Expected: 06/22/2025, Expires: 03/23/2026 Hemoglobin A1c Lab Routine Prediabetes Expected: 06/22/2025, Expires: 03/23/2026 CBC and differential Lab Routine Macrocytic anemia with vitamin B12 deficiency Expected: 06/22/2025, Expires: 03/23/2026 Prostate specific antigen screen Lab Routine Screening for prostate cancer Expected: 06/22/2025, Expires: 03/23/2026 Cologuard?? colon cancer screening Lab Routine Encounter for screening for malignant neoplasm of colon 1 Occurrences starting 03/23/2025 until 03/23/2026 Abdomen Aortic Aneurysm Screening Imaging Routine Encounter for abdominal aortic aneurysm (AAA) screening Expected: 03/23/2025, Expires: 03/23/2026 documented as of this encounter Visit Diagnoses Diagnosis Nonischemic cardiomyopathy (CMS/HCC V24, CMS/HCC V28)- Primary Other primary cardiomyopathies Chronic systolic heart failure (CMS/HCC V24, CMS/HCC V28) Chronic systolic heart failure History of CVA with residual deficit Avascular necrosis of bone of right hip (CMS/HCC V24, CMS/HCC V28) Moderate persistent asthma without complication Macrocytic anemia with vitamin B12 deficiency Prediabetes Other abnormal glucose Encounter for screening for malignant neoplasm of colon Screening for prostate cancer Special screening for malignant neoplasm of prostate Encounter for abdominal aortic aneurysm (AAA) screening Crack cocaine use Nondependent cocaine abuse, unspecified documented in this encounter Administered Medications Active Administered Medications - up to 3 most recent administrations Medication Order MAR Action Action Date Dose Rate Site cyanocobalamin (VITAMIN B-12) injection 1,000 mcg 1,000 mcg, intramuscular, See admin instructions, Starting on Fri03/23/25 at 1206, Every 7 days for 4 weeks then every 30 daysIndications:Macrocyti c anemia with vitamin B12 deficiency Given 03/23/2025 12:28 PM EDT 1,000 mcg Left Deltoid documented in this encounter Additional Health Concerns Assessment Noted Time PHQ-9 Depression Total Score: 0 03/23/20 25 11:47 AM EDT A fall risk assessment has been complete d for the patient 03/23/2025 11:48 AM EDT documented as of this encounter Care Teams 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
--- OUTSIDE RECORDS SUMMARY | 2025-03-24 10:47 | XMS_ITS | Data Portability ---
Author Organization [employer] [employer] Address [address] [place] [address] Care Team Providers Care College Sports Coach Name Role Phone [facility] Referring Provider [phone] Assessment Encounter Date Assessment Date Assessment LastModified by Organization Details LastModified Time 05/14/2023 05/14/2023 I provided real -time medical direction via phone for this encounter, and was available for additional phone based assistance as needed. I have reviewed and agree with the Assessment and Plan as documented by the Registered Nurse Obstetrics. Patient given the opportunity to ask questions. [email or web address] Not available 05/14/2023 15:15:50 10/06/2023 10/06/2023 68 [...] VS wnl. Urine dip negative for infection. Registered Nurse Obstetrics exam: no LE edema, lungs CTAB, abd soft, NTND. #PND - recommend PCP f/up for: TTE (if not done on admission last week) sleep study referral - cont current dose lasix 20 daily #LUTS - rec'd PCP visit for PSA and prostate exam given ongoing symptoms pt has precautions for call back or ED [email or web address] Not available 10/06/2023 11:48:42 Plan of Treatment Reminders Order Date Submit Date Provider Last Modified By Organization Details Last Modified Time Details Appointments None recorded. Lab None recorded. Referral None recorded. Procedures None recorded. Surgeries None recorded. Imaging None recorded. Medication Orders Medrol (Chalo) 4 mg tablets in a dose pack 2022 023 [facility], [address] [place] [address], [id number], 3 11:31:26 hydroxyzine HCl 25 mg tablet 2022 023 [facility], [address] [place] [address], [id number], 3 11:15:47 Benadryl 25 mg capsule 2022 023 [email or web address] 0 [facility], [address] [place] [address], [id number], 3 11:25:06 Solu-Medrol (PF) 125 mg/2 mL solution for injection 2022 023 [email or web address], [address] [place] [address], [id number], 3 11:25:06 Patient TargetsNo targets recorded. Patient [...] t Available hydroxyzine HCl 25 mg tablet 1-2 tablets every 6 hrs prn itching active Not Available Not Available Not Available methylpredni solone 4 mg tablets in [...] 3 76 /min 98.2 [degF] 18 /min 45777.6 4 g 97 % 97 % 138 mm[Hg] 86 mm[Hg] Not Available [employer] 3 11:07:48 Date Recorded Oxygen saturation Oxygen saturation in Arterial blood by Pulse oximetry Body height Heart rate Respiratory rate Body temperature Body weight Systolic blood pressure Diastolic blood pressure Provider Name and Address Organization Details Last Updated DateTime 3 97 % 97 % 167.64 cm 105 /min 16 /min 97 [degF] 92275.3 76 g 151 mm[Hg] 95 mm[Hg] Not Available [employer] 3 10:34:33 Social History None recorded. Functional Status None recorded. Mental Status None recorded. Family History Nothing Reported. Medical History No medical history recorded. Past Encounters Encounter ID Performer Location Encounter Start Date Encounter Closed Date Diagnosis/Indication Diagnosis SNOMED-CT Code Diagnosis ICD10 Code Diagnosis Note [id number] Lisha Mejai MD [facility] [address] [place] [address] 05/14/2023 11:07:35 05/15/2023 16:19:49 Pruritic rash 43884998 L28.2 likely allergic ? etiology- patient cannot [...] he verbalized understand ing to the medic [id number] WHITNEY NAPOLES MD [facility] [address] [place] [phone] 10/06/2023 10:34:30 10/06/2023 14:43:29 Nocturnal dyspnea 576334932 R06.00 Lower urin citlalli tract symptoms 835291289 R39.9 Health Concerns Section Related Observation LastModified by Organization Detai ls LastModified Time None Recorded Concern Status LastModified by Organization Details LastModified Time None Recorded Advance Directives Directive None Recorded Payers Encounter Date Sequence Insurance Name Policy Number Policy Covered Member ID Member ID Guarantor Name 05/14/2023 1 [facility] - DOS ON OR AFTER 2023 - DUAL ELIGIBLE - [facility] OPTIONS AND ONE CARE (MEDICARE REPLACEMENT/ADV ANTAGE - HMO) Víctor Mi [id number] Víctor Mi 10/06/2023 1 [facility] - DOS ON OR AFTER 2023 - DUAL ELIGIBLE - [facility] OPTIONS AND ONE CARE (MEDICARE REPLACEMENT/ADV ANTAGE - HMO) Víctor Mi [id number] Víctor Mi Notes Date Note Type Note [...] .................. .................. .................. .................. .................. .................. . Registered Nurse Obstetrics Note From Lonnie Frank: Pt presents A@Ox4. [place] warm and dry. Cleer airway with equal [...] right thigh. Nothing visible on his scalp. [facility] contacted and 125mg Solu medrol admin via IM and 50mg benydryl given PO. RX called in . Pt and son educated on signs that indicate the ER. Pt advised to follow up with PCP by friday .................. .................. .................. .................. .................. .................. .................. ............... Disposition: Fulfilled Lisha Mejia MD [address] [facility],[address], [place], [address], [employer] 05/14/2023 15:16:12 10/06/2023 text/html [facility] Nursing Assessment: [...] difficult to assess. Member would like an [facility] visit. .................. .................. .................. .................. .................. .................. .................. ............... Registered Nurse Obstetrics Note From Alireza Salmeron: Pt reports he was seen at [place] [facility] 2 weeks ago for bilateral ANCELMO [...] ............... Disposition: Fulfilled WHITNEY NAPOLES MD [address] [facility],[address], [place], [phone], [employer] 10/06/2023 11:49:06
--- OUTSIDE RECORDS SUMMARY | 2025-03-24 10:47 | XMS_ITS | Encounter Summary ---
Author Organization [facility] Address [address] [place] [address] Care Team Providers Care Full Stack Php Developer Name Role Phone Name, Fredi SOLIMAN Primary Care Provider [phone] Encounter Details Date Type Department Care Team ([facility] st Contact Info) Description 10/13/2024 Telephone [facility] [address] [place], [place] [phone] Name, MD Fredi [address] [place] [address] Social History Tobacco Use Types Packs/Day Years [...] documented as of this encounter Care Teams Full Stack Php Developer Relationship Specialty Start Date End Date Name, MD Fredi [address] [place] [address] PCP - General Family Medicine 02/01/19 documented as of this encounter
--- OUTSIDE RECORDS SUMMARY | 2025-03-24 10:47 | XMS_ITS | Clinical Summary ---
Author Organization [facility] [address] [facility] Address [address] [place] [address] Phone Care Team Providers Care Timber Framer Name Role Phone Kevin Peralta MD Primary Care Provider Allergies Active Allergy Reactions Criticality Noted Date Comments Egg White Unknown 05/01/2023 Ibuprofen Other Low 12/08/2009 Causes gi distress Influenza Virus Vaccines Unknown 05/01/2023 Milk Containing Products (Dairy) Hives 03/14/2009 Salicylates 03/14/2009 ulcers Medications bumetanide (BUMEX) 1 mg tablet Take 2 tablets (2 mg total) by mouth daily. 4 04/08/20 25 Active amiodarone (PACERONE) 200 mg tablet Take 1 tablet (200 mg total) by mouth 1 (one) time each day. 4 Active sacubitriL-vals arely (Entresto) 49-51 mg per tablet Take 1 tablet by mouth 2 times daily. 4 06/11/20 25 Active ferrous sulfate 325 mg (65 mg iron) EC tablet Take 1 tablet (325 mg total) by mouth 1 (one) time each day with breakfast. Do not crush, chew, or split. Active fluticasone furoate (Arnuity Ellipta) 100 mcg/actuation blister with device inhaler Inhale 1 puff by mouth 1 (one) time each day. 1 each 5 5 03/04/20 26 Active albuterol HFA (Ventolin HFA) 90 mcg/actuation inhaler Inhale 2 puffs by mouth every 4 (four) hours if needed for wheezing or shortness of breath. 6.7 g 5 Active clopidogreL (PLAVIX) 75 mg tablet Take 1 tablet (75 mg total) by mouth 1 (one) time each day. 30 each 5 08/31/20 25 Active atorvastatin (LIPITOR) 40 mg tablet Take 1 tablet (40 mg total) by mouth 1 (one) time each day. 30 each 5 08/31/20 25 Active cetirizine (ZyrTEC) 10 mg tablet Take 1 tablet (10 mg total) by mouth 1 (one) time each day. 30 each 5 03/04/20 26 Active cyanocobalamin (VITAMIN B-12) 1,000 mcg tablet Take 1 tablet (1,000 mcg total) by mouth 1 (one) time each day. 90 each 1 5 Active fluticasone furoate (Arnuity Ellipta) 100 mcg/actuation blister with device inhaler Inhale 1 puff by mouth daily. 4 03/04/20 25 Discontinu ed(Reorder ) albuterol HFA (Ventolin HFA) 90 mcg/actuation inhaler Take 2 puffs by mouth every 4 (four) hours if needed. 03/04/20 25 Discontinu ed(Reorder ) Hospital, Clinic, or Other Facility Administered Medication Ordered Dose Route Frequency Start Date End Date Status cyanocobalamin (VITAMIN B-12) injection 1,000 mcgIndications:Macro cytic anemia with vitamin B12 deficiency 1000 mcg IM See admin instructions 03/23/2025 Active Active Problems Problem Noted Date Diagnosed Date Prediabetes 03/23/2025 Chronic heart failure ([facility] V24, [facility] V28) 03/04/2025 Former smoker 03/04/2025 Nonischemic cardiomyopathy ([facility] V24, [facility] V28) 03/04/2025 Macrocytic anemia with vitamin B12 deficiency Drug abuse ([facility] V24, [facility] V28) 03/04/2025 Avascular necrosis of bone o f right hip ([facility] V24, [facility] V28) 03/04/2025 History of stroke 03/04/2025 Overview (03/04/2025): MRI: Probable old small infarcts in the right 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 OA (osteoarthritis) 11/04/2024 H. pylori infection 01/16/2010 Asthma 04/03/2009 Overview (11/04/2024): Patient has 2 attacks per year and he rarely uses the Albuterol Blindness, one eye 04/03/2009 Overview (11/04/2024): Right eye after trauma as a child Low back pain 04/03/2009 Resolved Problems Problem Noted Date Diagnosed Date Resolved Date Tobacco use disorder 04/03/2009 025 Encounters Date Type Department Care Team Description 03/23/2025 12:00 PM EDT Office Visit Adult [address] [phone] Kevin Peralta MD Nonischemic cardiomyopathy (CMS/HCC V24, CMS/HCC V28) (Primary [...] aortic aneurysm (AAA) screening; Crack cocaine use 03/08/2025 10:47 AM EDT - 03/08/2025 11:59 PM EDT Hospital Encounter CT Scan [address] [phone] Abnormal MRI of head Discharge Disposition: Home or Self Care 03/04/2025 11:30 AM EDT Office Visit [address] [phone] Shae Stuart PA Encounter to establish care (Primary Dx); Encounter for screening for lipid disorder; Family history of diabetes mellitus; Moderate persistent asthma without complication; Former smoker; Chronic heart failure, unspecified heart failure type ([facility] V24, [facility] V28); Drug abuse ([facility] V24, [facility] V28); Nonischemic cardiomyopathy ([facility] V24, [facility] V28); Anemia, unspecified type; History of stroke; Hemianopia of left eye; Abnormal MRI of head; Urticaria; Food allergy; Dysphagia, unspecified type; Avascular necrosis of bone of right hip ([facility] V24, [facility] V28) 03/04/2025 Telephone Adult Medicine [address] [phone] Shae Stuart PA Fitting for DME from Last 3 Months Immunizations Name Administration Dates Next Due Pneumococcal polysaccharide 23 valent (Pneumovax 23) 2yo and older 04/03/2009 Tdap Tetanus diptheria acell ular pertussis (Boostrix; Adacel) 7yo and older 04/03/2009 Surgical History Surgery Date Site/Laterality Comments EYE SURGERY Right eye if glass CHOLECYSTECTOMY 11/24/2019 - 11/23/2020 Medical History Medical History Date Comments OA (osteoarthritis) DX:OA (osteo arthritis) Substance abuse ([facility] V24, [facility] V28) Stroke ([facility] V24, [facility] V28) CHF (congestive heart failure) ([facility] V24, [facility] V28) Iron deficiency Asthma Former smoker Blindness Family History Medical History Relation Name Comments No Known Problems Brother 1 x8 Stroke Brother 2 Accident Brother 3 Asthma Father overnight Diabetes Mother HTN, OA, asthma Arthritis Sister Diabetes Sister x5 Relation Name Status Comments Brother 1 Alive Brother 2 Brother 3 Daughter Alive Father Mother Sister Alive Son Alive Social History Tobacco Use [...] your loved ones. For example, child welfare specialist or elderly care for an older adult? [...] file Not on file Not on file Obstetrics History Last Filed Vital Signs Vital Sign Reading Time Taken Comments Blood Pressure 124/72 03/23/2025 11:49 AM EDT Pulse 81 03/23/2025 11:49 AM EDT Temperature 36.7 ??C (98.1 ??F) 03/23/2025 11:49 AM E DT Respiratory Rate 14 03/23/2025 11:49 AM EDT Oxygen Saturation 98% 03/04/2025 11:40 AM EDT Inhaled Oxygen Concentration - - Weight 83.9 kg (185 lb) 03/23/2025 11:49 AM EDT Height 167.6 cm (5' 6 ) 03/23/2025 11:49 AM EDT Body Mass Index 29.86 03/23/2025 11:49 AM EDT Plan of Treatment Upcoming Encounters Date Type Department Care Team (Late st Contact Info) Description 04/04/2025 8:15 AM EDT Appointment Radiology Department - [address] [phone] 04/04/2025 10:40 AM EDT Consult Gastroenterology - [place] [address] [phone] Tanesha Vicente, CRISTAL 175 [facility] Joey [address] [place] [id number] 04/06/2025 11:30 AM EDT Clinical Support Adult Medicine [address] [phone] 06/22/2025 11:15 AM EDT Office Visit Adult Medicine [address] [phone] Kevin Peralta MD [address] [place] [phone] Health Maintenance Due Date Last Done Comments Hepatitis A Vaccines (1 of 2 - Risk 2-dose series) 02/17/1976 Zoster Vaccines (1 of 2) 2007 RSV Immunization Adult Patients (1 - Risk 60-74 years 1-dose series) 2017 Abdominal Aortic Aneurysm (AAA) Screen 12/18/2023 Colorectal Cancer Screening: Colonoscopy 12/18/2023 Medicare Annual Wellness Visit 12/18/2023 COVID-19 Vaccine ( season) 2024 01/28/2023, 01/02/2022, 06/12/2021, Additional history exists Influenza Vaccine (Season Ended) 2025 Hypertension/CHF/CAD Annual BMP Blood Test 03/21/2026 03/21/2025, 11/11/2013 Depression Screening 03/23/2026 03/23/2025 Falls Risk Assessment 03/23/2026 03/23/2025, 025 Social Influencers of Health Screening 03/23/2026 03/23/2025 Pneumococcal Vaccine: 50+ Years (3 of 3 - PCV20 or PCV21) 02/18/2027 02/18/2022, 04/03/2009 Cholesterol Screening (Lipid Panel) 03/21/2030 03/21/2025, 01/02/2022, 08/09/2013 DTaP,Tdap,and Td Vaccines (3 - Td or Tdap) 08/02/2031 08/02/2021, 04/03/2009 Hepatitis C Screening Completed 08/09/2013 HIB Vaccines [...] age to complete this topic Meningococcal B Vaccine Aged Out No l onger eligible based on patient's age to complete this topic RSV Immunization Patients Under 20 months Aged Out No longer eligible based on patient's age to complete this topic Varicella Vaccines Aged Out No longer eligible based on patient's age to complete this topic Procedures Procedure Name Priority Date/Time Associated Diagnosis Comments CBC WITH AUTO DIFFERENTIAL Routine 03/21/2025 12:05 PM EDT Anemia, unspecified type COMPREHENSIVE METABOLIC PANEL Routine 03/21/2025 12:05 PM EDT Encounter to establish care LIPID PANEL WITH REFLEX TO DIRECT LDL Routine 03/21/2025 12:05 PM EDT Encounter for screening for lipid disorder IRON AND TIBC Routine 03/21/2025 12:05 PM EDT Anemia, unspecified type CBC AND DIFFERENTIAL Routine 03/21/2025 12:05 PM EDT Anemia, unspecified type VITAMIN B12 Routine 03/21/2025 12:05 PM EDT Anemia, unspecified type FOLATE Routine 03/21/2025 12:05 PM EDT Anemia, unspecified type HEMOGLOBIN A1C Routine 03/21/2025 12:05 PM EDT Family history of diabetes mellitus CT HEAD WO CONTRAST Routine 03/08/2025 1 0:58 AM EDT Abnormal MRI of head HEPATITIS C SCREENING Routine 08/09/2013 from Last 3 Months or Most Recently Relevant to Health Maintenance Results * Lipid panel with reflex to direct LDL (03/21/2025 12:05 PM EDT) Cholesterol 123 0 - 200 mg/dL LAB CHEMISTRY METHOD 03/21/2025 6:44 PM EDT [facility] Triglycerides 80 0 - 150 mg/dL LAB CHEMISTRY METHOD 03/21/2025 6:44 PM EDT [facility] HDL 63 >=40 mg/dL LAB CHEMISTRY METHOD 03/21/2025 6:44 PM EDT [facility] LDL Calculated 44 0 - 100 mg/dL LAB CHEMISTRY METHOD 03/21/2025 6:44 PM EDT [facility] VLDL Cholesterol Madhu 16 mg/dL LAB CHEMISTRY METHOD 03/21/2025 6:44 PM EDT [facility] Non HDL Chol. (LDL+VLDL) 60 <145 mg/dL LAB CHEMISTRY METHOD 03/21/2025 6:44 PM EDT [facility] Chol/HDL Ratio 2.0 0.0 - 4.4 LAB CHEMISTRY METHOD 03/21/2025 6:44 PM EDT [facility] Blood Venous blood specimen / Unknown Venipuncture / Unknown 03/21/2025 12:05 PM EDT 03/21/2025 12:05 PM EDT us Shae Narciso PUENTE LAB BLOOD ORDERABLES Final Resul t [facility] [address] [place] [address], [place] [phone] * (ABNORMAL) CBC auto differential (03/21/2025 12:05 PM EDT) WBC 6.6 4.8 - 10.8 K/mcL LAB HEMETOLOGY METHOD 03/21/2025 2:24 PM EDT [facility] RBC 4.00(L) 4.50 - 5.50 M/mcL LAB HEMETOLOGY METHOD 03/21/2025 2:24 PM EDT [facility] Hemoglobin 13.0(L) 13.5 - 17.5 g/dL LAB HEMETOLOGY METHOD 03/21/2025 2:24 PM EDT [facility] Hematocrit 40.2(L) 42.0 - 54.0 % LAB HEMETOLOGY METHOD 03/21/2025 2:24 PM EDT [facility] MCV 101.8(H) 79.0 - 98.0 FL LAB HEMETOLOGY METHOD 03/21/2025 2:24 PM EDT [facility] MCH 32.9(H) 27.0 - 32.0 pcg LAB HEMETOLOGY METHOD 03/21/2025 2:24 PM EDT [facility] MCHC 32.3 32.0 - 37.0 g/dL LAB HEMETOLOGY METHOD 03/21/2025 2:24 PM EDT [facility] RDW 13.1 11.0 - 15.0 % LAB HEMETOLOGY METHOD 03/21/2025 2:24 PM EDT [facility] Platelets 187 130 - 400 K/mcL LAB HEMETOLOGY METHOD 03/21/2025 2:24 PM [facility] MPV 11.4(H) 7.0 - 11.0 FL LAB HEMETOLOGY METHOD 03/21/2025 2:24 PM EDT [facility] NRBC 0.0 <1.0 % LAB HEMETOLOGY METHOD 03/21/2025 2:24 PM EDT [facility] NRBC Absolute 0.00 <0.10 K/mcL LAB HEMETOLOGY METHOD 03/21/2025 2:24 PM [facility] Neutrophils Relative 56.2 % LAB HEMETOLOGY METHOD 03/21/2025 2:24 PM [facility] Lymphocytes Relative 28.8 % LAB HEMETOLOGY METHOD 03/21/2025 2:24 PM [facility] Monocytes Relative 11.5 % LAB HEMETOLOGY METHOD 03/21/2025 2:24 PM [facility] Eosinophils Relative 2.4 % LAB HEMETOLOGY METHOD 03/21/2025 2:24 PM [facility] Basophils Relative 0.8 % LAB HEMETOLOGY METHOD 03/21/2025 2:24 PM [facility] Immature Granulocytes Relative 0.3 % LAB HEMETOLOGY [facility] Neutrophils Absolute 3.71 1.50 - 7.00 K/mcL LAB HEMETOLOGY METHOD 03/21/2025 2:24 PM [facility] Lymphocytes Absolute 1.90 1.00 - 5.00 K/mcL LAB HEMETOLOGY METHOD 03/21/2025 2:24 PM EDT [facility] Monocytes Absolute 0.76 0.20 - 1.00 K/mcL LAB HEMETOLOGY METHOD 03/21/2025 2:24 PM EDT [facility] Eosinophils Absolute 0.16 0.00 - 0.50 K/[facility] LAB HEMETOLOGY METHOD 03/21/2025 2:24 PM EDT [facility] Basophils Absolute 0.05 0.00 - 0.20 K/[facility] LAB HEMETOLOGY METHOD 03/21/2025 2:24 PM EDT [facility] Immature Granulocytes Absolute 0.02 0.00 - 0.03 K/[facility] LAB HEMETOLOGY METHOD 03/21/2025 2:24 PM EDT [facility] Blood Venous blood specimen / Unknown Venipuncture / Unknown 03/21/2025 12:05 PM EDT 03/21/2025 12:05 PM EDT us Shae Narciso PUENTE LAB BLOOD ORDERABLES Final Resul t [facility] [address] [place] [address], [place] [phone] * Iron and TIBC (03/21/2025 12:05 PM EDT) Iron 99 50 - 160 mcg/dL LAB CHEMISTRY METHOD 03/21/2025 6:44 PM EDT [facility] TIBC 300 250 - 450 mcg/dL LAB CHEMISTRY METHOD 03/21/2025 6:44 PM EDT [facility] Iron Saturation 33 20 - 50 % LAB CHEMISTRY METHOD 03/21/2025 6:44 PM EDT [facility] Blood Venous blood specimen / Unknown Venipuncture / Unknown 03/21/2025 12:05 PM EDT 03/21/2025 12:05 PM EDT us Shae Narciso PUENTE LAB BLOOD ORDERABLES Final Resul t Performing Organization Address [facility]/ZIP Co de Phone Number [facility] [address] [place] [address], [place] [phone] * Hemoglobin A1c (03/21/2025 12:05 PM EDT) [facility] Hemoglobin A1C 6.3 <6.5 % LAB CHEMISTRY METHOD 03/21/2025 11:26 PM EDT [facility] Mean Bld Glu Estim. 134 mg/dL LAB CHEMISTRY METHOD 03/21/2025 11:26 PM EDT [facility] Blood Venous blood specimen / Unknown Venipuncture / Unknown 03/21/2025 12:05 PM EDT 03/21/2025 12:05 PM EDT us Shae PUENTE LAB BLOOD ORDERABLES Final Resul t Performing Organization Address [facility]/ZIP Co de Phone Number [facility] [address] [place] [address], [place] [phone] * Folate (03/21/2025 12:05 PM EDT) [facility] Folate 9.3 2.8 - 17.0 ng/ml LAB CHEMISTRY METHOD 03/21/2025 6:44 PM EDT [facility] Blood Venous blood specimen / Unknown Venipuncture / Unknown 03/21/2025 12:05 PM EDT 03/21/2025 12:05 PM EDT [employer] Stuart PA LAB BLOOD ORDERABLES Final Resul t Performing Organization Address [facility]/ZIP Co de Phone Number [facility] [address] [place] [address], [place] [phone] * (ABNORMAL) Vitamin B12 (03/21/2025 12:05 PM EDT) [facility] Vitamin B-12 205(L) 250 - 900 pcg/mL LAB CHEMISTRY METHOD 03/21/2025 6:44 PM [facility] Blood Venous blood specimen / Unknown Venipuncture / Unknown 03/21/2025 12:05 PM EDT 03/21/2025 12:05 PM EDT us Shae Narciso PUENTE LAB BLOOD ORDERABLES Final Resul t [facility] [address] [place] [address], * (ABNORMAL) Comprehensive metabolic panel (03/21/2025 12:05 PM EDT) Sodium 141 133 - 145 mmol/L LAB CHEMISTRY METHOD 03/21/2025 6:44 PM [facility] Potassium 3.6 3.5 - 5.5 mmol/L LAB CHEMISTRY METHOD 03/21/2025 6:44 PM [facility] Chloride 107 96 - 110 mmol/L LAB CHEMISTRY METHOD 03/21/2025 6:44 PM [facility] CO2 29 21 - 32 mmol/L LAB CHEMISTRY METHOD 03/21/2025 6:44 PM [facility] Anion Gap 5 3 - 11 LAB CHEMISTRY METHOD 03/21/2025 6:44 PM [facility] Glucose 75 70 - 100 mg/dL LAB CHEMISTRY METHOD 03/21/2025 6:44 PM [facility] BUN 10 5 - 25 mg/dL LAB CHEMISTRY METHOD 03/21/2025 6:44 PM [facility] Creatinine 1.40(H) 0.70 - 1.30 mg/dL LAB CHEMISTRY METHOD 03/21/2025 6:44 PM [facility] eGFR 55(L) >=60 mL/min/1. 73m2 LAB CHEMISTRY METHOD 03/21/2025 6:44 PM EDT [facility] Comment:Calculation based on the??Chronic Kidney Disease Epidemiology Collaboration (CKD-EPI) equation refit??without adjustment for race. BUN/Creatinine Ratio 7.1 LAB CHEMISTRY METHOD 03/21/2025 6:44 PM EDT [facility] Calcium 8.7 8.5 - 10.5 mg/dL LAB CHEMISTRY METHOD 03/21/2025 6:44 PM [facility] AST (SGOT) 15 10 - 42 unit/L LAB CHEMISTRY METHOD 03/21/2025 6:44 PM [facility] ALT (SGPT) 17 10 - 60 unit/L LAB CHEMISTRY METHOD 03/21/2025 6:44 PM [facility] Alkaline Phosphatase 131(H) 42 - 121 unit/L LAB CHEMISTRY METHOD 03/21/2025 6:44 PM [facility] Total Protein 7.3 6.0 - 8.0 g/dL LAB CHEMISTRY METHOD 03/21/2025 6:44 PM [facility] Albumin 3.8 3.2 - 5.0 g/dL LAB CHEMISTRY METHOD 03/21/2025 6:44 PM [facility] Total Bilirubin 0.6 0.0 - 1.4 mg/dL LAB CHEMISTRY METHOD 03/21/2025 6:44 PM EDT [facility] Blood Venous blood specimen / Unknown Venipuncture / Unknown 03/21/2025 12:05 PM EDT 03/21/2025 12:05 PM EDT us Shae Narciso PUENTE LAB BLOOD ORDERABLES Final Resul t [facility] [address] [place] [address], * CT Head wo Contrast (03/08/2025 10:58 AM EDT) Anatomical Region Laterality Modality Head and Neck Computed Tomogra phy 03/08/2025 3:38 PM EDT Impressions 03/09/2025 2:45 PM EDT Hypodense area in the medial right occipital lobe corresponds with the susceptibility signal abnormalities on MRI and is probably secondary to old hemorrhage. ??No evidence of acute intracranial hemorrhage. ??Probable chronic infarcts in the left parietal and right occipital regions as on MRI. ??Nonspecific white matter hypodensities could be secondary to chronic small vessel ischemic disease. POS - [id number] -------- FINAL REPORT -------- Dictated By: Randi Bobo Dictated Date: 03/08/2025 15:38 ET Assigned Physician: Randi Bobo Reviewed and Electronically Signed By: Randi Bobo Signed Date: 03/09/2025 14:45 ET Workstation ID: [id number] Transcribed By: Self Edit Transcribed Date: 03/08/2025 17:08 ET Narrative 03/09/2025 2:45 PM EDT EXAM: HEAD CT HISTORY: Abnormal brain MRI. ??Abnormal signal in the right occipital lobe on susceptibility weighted imaging most likely due to calcifications or old hemorrhage, less likely acute hemorrhage. ??Noncontrast head CT recommended. COMPARISON: Brain MRI 11/27/2024 TECHNIQUE: Nonenhanced head CT from skull base to vertex with multi-planar reformats. ??Manual dose reduction technique tailored for patient and site of imaging. TOTAL CTDIvol: 63.29 mGy FINDINGS: Small to medium-sized hypodense area in the left anterior parietal lobe corresponds with signal abnormalities on the MRI from a chronic infarct. ??Similar-appearing area in the right occipital lobe. ??A more hypodense area without calcifications in the medial right occipital lobe corresponds with the area of susceptibility signal abnormalities on MRI. ??This is probably secondary to old hemorrhage when correlated with MRI. ??No evidence of acute intracranial hemorrhage or an acute territorial infarction. ??Patchy white matter hypodensities correspond with signal abnormalities on MRI. ?? No hydrocephalus. ??No evidence of a mass, mass effect, or midline shift. ??No cerebellar ectopia. ??Pituitary gland is not enlarged. ?? No acute fracture or destructive bone lesion. ??No significant sinus disease in the partially imaged paranasal sinuses. ??Imaged mastoid air cells are clear. ??Partially imaged right orbital implant. Procedure Note Randi Bobo MD - 03/09/2025 EXAM: HEAD CT HISTORY: Abnormal brain MRI. Abnormal signal in the right occipital lobeon susceptibility weighted imaging most likely due to calcifications orold hemorrhage, less likely acute hemorrhage. Noncontrast head CTrecommended. COMPARISON: Brain MRI 11/27/2024 TECHNIQUE: Nonenhanced head CT from skull base to vertex with multi- planarreformats. Manual dose reduction technique tailored for patient and siteof imaging. TOTAL CTDIvol: 63.29 mGy FINDINGS: Small to medium-sized hypodense area in the left anterior parietal lobecorresponds with signal abnormalities on the MRI from a chronic infarct.Similar-appearing area in the right occipital lobe. A more hypodense areawithout calcifications in the medial right occipital lobe corresponds withthe area of susceptibility signal abnormalities on MRI. This is probablysecondary to old hemorrhage when correlated with MRI. No evidence ofacute intracranial hemorrhage or an acute territorial infarction. Patchywhite matter hypodensities correspond with signal abnormalities on MRI. No hydrocephalus. No evidence of a mass, mass effect, or midline shift.No cerebellar ectopia. Pituitary gland is not enlarged. No acute fracture or destructive bone lesion. No significant sinusdisease in the partially imaged paranasal sinuses. Imaged mastoid aircells are clear. Partially imaged right orbital implant. IMPRESSION: Hypodense area in the medial right occipital lobe corresponds with thesusceptibility signal abnormalities on MRI and is probably secondary toold hemorrhage. No evidence of acute intracranial hemorrhage. Probablechronic infarcts in the left parietal and right occipital regions as onMRI. Nonspecific white matter hypodensities could be secondary to chronicsmall vessel ischemic disease. POS - [id number] -------- FINAL REPORT -------- Dictated By: Randi Bobo Dictated Date: 03/08/2025 15:38 ET Assigned Physician: Randi Bobo Reviewed and Electronically Signed By: Randi Bobo Signed Date: 03/09/2025 14:45 ET Workstation ID: [id number] Transcribed By: Self Edit Transcribed Date: 03/08/2025 17:08 ET us Shae Stuart PA IMG CT PROCEDURES Final Result * Hepatitis C Screening (08/09/2013) Hepatitis C Screening abstracted Historical Provider HEALTH MAINTENANCE Final Result from Last 3 Months or Most Recently Relevant to Health Maintenance Insurance MEDICARE [place]ICAID [place] [facility] Care Teams Timber Framer Relationship Specialty Start Date End Date Kevin Peralta MD [address] [place] [address] PCP - General Internal Medicine 10/26/24
== END 2025-03-24 10:26 | disposition home or self-care (01) ==
LOC: HO.HCS 09:43
PROVIDERS: PCP Internal Medicine Geriatric Medicine; Visit Provider Nurse Practitioner Family
DX: I42.8 Other cardiomyopathies (principal); Z98.890 Other specified postprocedural states; I47.29 Other ventricular tachycardia; Z79.899 Other long term (current) drug therapy; I63.9 Cerebral infarction, unspecified
CPT/HCPCS: 93010; 99214; G2211

== ENCOUNTER 2025-03-24 09:42 | Outpatient (REF) | payer MEDICARE, MEDICAID, SELFPAY ==
[2025-03-24 11:46] LABS: B Type Natriuretic Peptide 394 pg/mL (<100)
--- OUTSIDE RECORDS SUMMARY | 2025-03-24 12:05 | XMS_ITS | Clinical Summary ---
Author Organization [employer] Address [address] [facility] 7t [place] [address] Care Team Providers Care Assistant Brand Manager Name Role Phone Name, Fredi SOLIMAN Primary Care Provider [phone] Allergies Active Allergy Reactions Criticality Noted Date [...] (Lipitor) 40 MG tabletIndicatio ns:History of right LOG CLERK stroke Take 1 tablet (40 mg) by mouth Once per day. 30 tablet 5 12/13/19 26 Active Active Problems Problem Noted Date Diagnosed Date History of right LOG CLERK stroke 12/13/2024 Vision loss of left eye [...] done 06/10/2022 showed EF 40-45%, impaired relaxation, nqwd-da-nqlsjkkn MR. Holter monitor done 06/21/2022 for 3 [...] done 06/10/2022 showed EF 40-45%, impaired relaxation, ecfl-fe-xyqccbyz MR. Holter monitor done 06/21/2022 for 3 [...] done 06/10/2022 showed EF 40-45%, impaired relaxation, edvl-cb-ldngkevm MR. Holter monitor done 06/21/2022 for 3 [...] Type Department Care Team Description 01/17/2025 Telephone [facility] MEDICINE [address] [place] [address] Name, MD Fredi from Last [...] is your housing situation today? I have alkekojo dye 02/13/[address] you [...] ?? Khurram JERONIMO et al. ALONDRA. 2013;310(19): 8450-7142 ?? (http://Syntasia.[employer] [place]/faq/ARK832) Non-HDL Cholesterol 93 <130 mg/dL (calc) [facility] Comment: For patients with diabetes plus 1 major ASCVD risk ?? factor, treating to a non-HDL-C goal of <100 mg/dL ?? (LDL-C of <70 mg/dL) is considered a therapeutic ?? option. Triglycerides 95 <150 mg/dL [facility] 01/02/2022 9:47 AM EST us Fredi Ritter MD LAB BLOOD ORDERABLES Final Resul t [facility] [address] * HEPATITIS C AB W/REFL TO HCV RNA, QN, PCR (12/20/2020 1:06 PM EST) HEPATITIS C ANTIBODY NON-REACT GINA NON-REACT GINA [facility] INDEX 0.04 <1.00 [facility] Comment: ?? HCV antibody was non-reactive. There is no laboratory ?? evidence of HCV infection. ?? In most cases, no further action is required. However, if recent HCV exposure is suspected, a test for HCV RNA (test code 60682) is suggested. ?? For additional information please refer to http://Syntasia.[employer]/faq/KKS60l6 (This link is being provided for informational/ educational purposes only.) ?? 12/20/2020 1:06 PM EST us Fredi Ritter MD HISTORICAL/NON ORDERABLE LABS Fi nal Result [facility] [address] from Last 3 Months or Most Recently Relevant to Health Maintenance Insurance * Guarantor: MiSaul Account Type Relation to Patient Date of Phone Billing Address Personal/Family Self [address] [place] Care Teams Assistant Brand Manager Relationship Specialty Start Date End Date Name, MD Fredi [address] [place] [address] [place] [address] PCP - General Family Medicine 02/01/19
--- OUTSIDE RECORDS SUMMARY | 2025-03-24 12:05 | XMS_ITS | Encounter Summary ---
Author Organization [employer] Address [address] [facility] [address] 7t [place] [address] Care Team Providers Care Networking Administrator Name Role Phone Name, Fredi SOLIMAN Primary Care Provider [phone] Reason for Visit * Reason Onset Date Comments Hospital Follow-up 03/24/2024 Encounter Details Date Type Department Care Team ([facility] st Contact Info) Description 03/24/2024 Telephone [facility] MEDICINE [address] [place], [place] [phone] Name, MD Fredi [address] [place] [address] Hospital Follow-up Social History Tobacco Use Types [...] from pt requesting a HDF appt. Hospital: [facility] Date of admission: 03/15/24 Discharge date: 03/22/24 Diagnosed: difficulty breathing documented in this encounter Plan of Treatment Not on file documented as of this encounter Visit Diagnoses Not on filedocumented in this encounter Additional Health Concerns Assessment Noted Time PHQ-9 Depression Total Score: 9 01/09/20 24 11:48 AM EST documented as of this encounter Care Teams Networking Administrator Relationship Specialty Start Date End Date Name, MD Fredi [address] [place] [address] PCP - General Family Medicine 02/01/19 documented as of this encounter
--- OUTSIDE RECORDS SUMMARY | 2025-03-24 12:05 | XMS_ITS | Continuity of Care Document ---
Author Organization [facility] Address [address] [place] [phone] Phone Care Team Providers Care Treating And Pumping Supervisor Name Role Phone Unavailable Unavailable Unavailable Advance Directives Directive Yes / No Effective Date File Name No Information Encounters Encounter Description Practice Location Reason(s) For Visit Diagnoses Date Provider [facility], [address], [id number], tel:[phone] [address] No Information 2017 No Information Family History Family Member Type Diagnosis Age At Onset No Information Payers Payer name Insurance type Covered republican ID Authoriza tion(s) No Information Social History Type Description Quantity Date Captured Comments Sex Male Smoking Status No Information Chief Complaint And Reason For Visit No Information History Of Present Illness Encounter Date Complaint History Of Prese nt Illness No Information Instructions Date Instruction Additional Infor mation No Information Assessments Type Assessment Date No Information
--- OUTSIDE RECORDS SUMMARY | 2025-03-24 12:05 | XMS_ITS | Encounter Summary ---
Author Organization [facility] Address [address] [place] [address] Care Team Providers Care Experience Specialist Name Role Phone Kevin Peralta MD Primary Care Provider Reason for Referral * Imaging (Routine) - Authorized Specialty Diagnoses / Procedures Referred By Contac t Referred To Contact Radiology Diagnoses Encounter for abdominal aortic aneurysm (AAA) screening Procedures US Abdomen Aortic Aneurysm Screening Kevin Peralta MD [address] [place] [address] Phone: tel: fax: [address] Phone: tel: Referral ID Status Reason Start Date Expiration Date V isits Requested Visits Authorized [id number] Authorized 03/23/2025 03/23/2026 1 1 Reason for Visit * Reason Comments Follow-up Encounter Details Date Type Department Care Team (Late st Contact Info) Description 03/23/2025 12:00 PM EDT Office Visit Adult Medicine [address] [phone] Kevin Peralta MD [address] [place] [address] Nonischemic cardiomyopathy (CMS/HCC V24, CMS/HCC V28) (Primary [...] for your loved ones. For example, child protective services specialist or elderly care for an older [...] establish care for our practice. Follows with [place] [facility] as well as external ophthalmology. Please [...] back pain OA (osteoarthritis) Chronic heart failure ([facility] V24, [facility] V28) Former smoker Nonischemic cardiomyopathy ([facility] V24, [facility] V28) Macrocytic anemia with vitamin B12 deficiency Drug abuse ([facility] V24, [facility] V28) Avascular necrosis of bone of right hip ([facility] V24, [facility] V28) History of stroke Prediabetes HISTORY: Past Medical History: Diagnosis Date Asthma Blindness CHF (congestive heart failure) ([facility] V24, [facility] V28) Former smoker Iron deficiency OA (osteoarthritis) DX:OA (osteoarthritis) Stroke ([facility] V24, [facility] V28) Substance abuse ([facility] V24, [facility] V28) Past Surgical History: Procedure Laterality Date [...] hemianopsia, seeing ophthalmology. Previous MRI showed right UPHOLSTERER OUTSIDE and left MCA infarct. CT scan showed [...] 8:15 AM EDT Appointment Radiology Department - [address] [phone] 04/04/2025 10:40 AM EDT Consult Gastroenterology - [place] [address] [place] [address] Tanesha Vicente NP 175 [facility] [address] [place] [address] 04/06/2025 11:30 AM EDT Clinical Support Adult Medicine [address] [phone] 06/22/2025 11:15 AM EDT Office Visit Adult Medicine [address] [phone] Kevin Peralta MD [address] [place] [address] Scheduled Orders Name Type Priority Associated Diagnoses [...] documented as of this encounter Care Teams Experience Specialist Relationship Specialty Start Date End Date Kevin Peralta MD [address] [place] [address] PCP - General Internal Medicine 10/26/24 documented as of this encounter
--- OUTSIDE RECORDS SUMMARY | 2025-03-24 12:05 | XMS_ITS | Clinical Summary ---
Author Organization [facility] [address] [facility] Address [address] [place] [address] Phone Care Team Providers Care Audit Practice Intern Name Role Phone Kevin Peralta MD Primary [...] Diagnosed Date Prediabetes 03/23/2025 Chronic heart failure ([facility] V24, [facility] V28) 03/04/2025 Former smoker 03/04/2025 Nonischemic cardiomyopathy ([facility] V24, [facility] V28) 03/04/2025 Macrocytic anemia with vitamin B12 deficiency Drug abuse ([facility] V24, [facility] V28) 03/04/2025 Avascular necrosis of bone o f right hip ([facility] V24, [facility] V28) 03/04/2025 History of stroke 03/04/2025 Overview (03/04/2025): MRI: Probable old small infarcts in the right MANAGER UTILITIES and left MCA territories. OA (osteoarthritis) 11/04/2024 [...] 03/23/2025 12:00 PM EDT Office Visit Adult [address] [phone] Kevin Peralta MD Nonischemic cardiomyopathy (CMS/HCC V24, [...] 11:59 PM EDT Hospital Encounter CT Scan [address] [phone] Abnormal MRI of head Discharge Disposition: Home or Self Care 03/04/2025 11:30 AM EDT Office Visit [address] [phone] Shae Stuart PA Encounter to establish care (Primary Dx); Encounter for screening for lipid disorder; Family history of diabetes mellitus; Moderate persistent asthma without complication; Former smoker; Chronic heart failure, unspecified heart failure type ([facility] V24, [facility] V28); Drug abuse ([facility]24, [facility] V28); Nonischemic cardiomyopathy ([facility] V24, [facility] V28); Anemia, unspecified type; History of stroke; Hemianopia of left eye; Abnormal MRI of head; Urticaria; Food allergy; Dysphagia, unspecified type; Avascular necrosis of bone of right hip ([facility] V24, [facility] V28) 03/04/2025 Telephone Adult Medicine [address] [phone] Shae Stuart PA Fitting for DME from [...] OA (osteoarthritis) DX:OA (osteo arthritis) Substance abuse ([facility] V24, [facility] V28) Stroke ([facility] V24, [facility] V28) CHF (congestive heart failure) ([facility] V24, [facility] V28) Iron deficiency Asthma Former smoker [...] care for your loved ones. For example, attendant children's institution or elderly care for an older adult? [...] 8:15 AM EDT Appointment Radiology Department - [address] [phone] 04/04/2025 10:40 AM EDT Consult Gastroenterology - [place] [address] [phone] Tanesha Vicente, [place] 175 [facility] Joey [address] [place] [address] 04/06/2025 11:30 AM EDT Clinical Support Adult Medicine [address] [phone] 06/22/2025 11:15 AM EDT Office Visit Adult Medicine [address] [phone] Kevin Peralta MD [address] [place] [address] Health Maintenance Due Date Last Done Comments [...] LAB CHEMISTRY METHOD 03/21/2025 6:44 PM EDT [facility] Triglycerides 80 0 - 150 mg/dL LAB CHEMISTRY METHOD 03/21/2025 6:44 PM EDT [facility] HDL 63 >=40 mg/dL LAB CHEMISTRY METHOD 03/21/2025 6:44 PM EDT [facility] LDL Calculated 44 0 - 100 mg/dL LAB CHEMISTRY METHOD 03/21/2025 6:44 PM EDT [facility] VLDL Cholesterol Madhu 16 mg/dL LAB CHEMISTRY METHOD 03/21/2025 6:44 PM EDT [facility] Non HDL Chol. (LDL+VLDL) 60 <145 mg/dL LAB CHEMISTRY METHOD 03/21/2025 6:44 PM EDT [facility] Chol/HDL Ratio 2.0 0.0 - 4.4 LAB CHEMISTRY METHOD 03/21/2025 6:44 PM EDT [facility] Blood Venous blood specimen / Unknown Venipuncture / Unknown 03/21/2025 12:05 PM EDT 03/21/2025 12:05 PM EDT us Shae Narciso PUENTE LAB BLOOD ORDERABLES Final Resul t [facility] [address] [place] [address], [place] [phone] * (ABNORMAL) CBC auto differential (03/21/2025 12:05 PM EDT) WBC 6.6 4.8 - 10.8 K/mcL LAB HEMETOLOGY METHOD 03/21/2025 2:24 PM EDT [facility] RBC 4.00(L) 4.50 - 5.50 M/mcL LAB HEMETOLOGY METHOD 03/21/2025 2:24 PM EDT [facility] Hemoglobin 13.0(L) 13.5 - 17.5 g/dL LAB HEMETOLOGY METHOD 03/21/2025 2:24 PM EDT [facility] Hematocrit 40.2(L) 42.0 - 54.0 % LAB HEMETOLOGY METHOD 03/21/2025 2:24 PM EDT [facility] MCV 101.8(H) 79.0 - 98.0 FL LAB HEMETOLOGY METHOD 03/21/2025 2:24 PM EDT [facility] MCH 32.9(H) 27.0 - 32.0 pcg LAB HEMETOLOGY METHOD 03/21/2025 2:24 PM EDT [facility] MCHC 32.3 32.0 - 37.0 g/dL LAB HEMETOLOGY METHOD 03/21/2025 2:24 PM EDT [facility] RDW 13.1 11.0 - 15.0 % LAB HEMETOLOGY METHOD 03/21/2025 2:24 PM EDT [facility] Platelets 187 130 - 400 K/mcL LAB HEMETOLOGY METHOD 03/21/2025 2:24 PM [facility] MPV 11.4(H) 7.0 - 11.0 FL LAB HEMETOLOGY METHOD 03/21/2025 2:24 PM EDT [facility] NRBC 0.0 <1.0 % LAB HEMETOLOGY METHOD 03/21/2025 2:24 PM EDT [facility] NRBC Absolute 0.00 <0.10 K/mcL LAB HEMETOLOGY METHOD 03/21/2025 2:24 PM [facility] Neutrophils Relative 56.2 % LAB HEMETOLOGY METHOD 03/21/2025 2:24 PM [facility] Lymphocytes Relative 28.8 % LAB HEMETOLOGY METHOD 03/21/2025 2:24 PM [facility] Monocytes Relative 11.5 % LAB HEMETOLOGY METHOD 03/21/2025 2:24 PM [facility] Eosinophils Relative 2.4 % LAB HEMETOLOGY METHOD 03/21/2025 2:24 PM [facility] Basophils Relative 0.8 % LAB HEMETOLOGY METHOD 03/21/2025 2:24 PM [facility] Immature Granulocytes Relative 0.3 % LAB HEMETOLOGY METHOD 03/21/2025 2:[facility] Neutrophils Absolute 3.71 1.50 - 7.00 K/mcL LAB HEMETOLOGY METHOD 03/21/2025 2:24 PM [facility] Lymphocytes Absolute 1.90 1.00 - 5.00 K/mcL LAB HEMETOLOGY METHOD 03/21/2025 2:24 PM EDT [facility] Monocytes Absolute 0.76 0.20 - 1.00 K/mcL LAB HEMETOLOGY METHOD 03/21/2025 2:24 PM EDT [facility] Eosinophils Absolute 0.16 0.00 - 0.50 K/[facility] LAB HEMETOLOGY METHOD 03/21/2025 2:24 PM EDT [facility] Basophils Absolute 0.05 0.00 - 0.20 K/[facility] LAB HEMETOLOGY METHOD 03/21/2025 2:24 PM EDT [facility] Immature Granulocytes Absolute 0.02 0.00 - 0.03 K/[facility] HEMETOLOGY METHOD 03/21/2025 2:24 PM EDT [facility] Blood Venous blood specimen / Unknown Venipuncture / Unknown 03/21/2025 12:05 PM EDT 03/21/2025 12:05 PM EDT us Shae Narciso PUENTE LAB BLOOD ORDERABLES Final Resul t [facility] [address] [place] [address], [place] [phone] * Iron and TIBC (03/21/2025 12:05 PM EDT) Iron 99 50 - 160 mcg/dL LAB CHEMISTRY METHOD 03/21/2025 6:44 PM EDT [facility] TIBC 300 250 - 450 mcg/dL LAB CHEMISTRY METHOD 03/21/2025 6:44 PM EDT [facility] Iron Saturation 33 20 - 50 % LAB CHEMISTRY METHOD 03/21/2025 6:44 PM EDT [facility] Blood Venous blood specimen / Unknown Venipuncture / Unknown 03/21/2025 12:05 PM EDT 03/21/2025 12:05 PM EDT us Shae Narciso PUENTE LAB BLOOD ORDERABLES Final Resul t Performing Organization Address [facility]/ZIP Co de Phone Number [facility] [address] [place] [address], [place] [phone] * Hemoglobin A1c (03/21/2025 12:05 PM EDT) [facility] Hemoglobin A1C 6.3 <6.5 % LAB CHEMISTRY METHOD 03/21/2025 11:26 PM EDT [facility] Mean Bld Glu Estim. 134 mg/dL LAB CHEMISTRY METHOD 03/21/2025 11:26 PM EDT [facility] Blood Venous blood specimen / Unknown Venipuncture / Unknown 03/21/2025 12:05 PM EDT 03/21/2025 12:05 PM EDT us Shae PUENTE LAB BLOOD ORDERABLES Final Resul t Performing Organization Address [facility]/ZIP Co de Phone Number [facility] [address] [place] [address], [place] [phone] * Folate (03/21/2025 12:05 PM EDT) [facility] Folate 9.3 2.8 - 17.0 ng/ml LAB CHEMISTRY METHOD 03/21/2025 6:44 PM EDT [facility] Blood Venous blood specimen / Unknown Venipuncture / Unknown 03/21/2025 12:05 PM EDT 03/21/2025 12:05 PM EDT [employer] Stuart PA LAB BLOOD ORDERABLES Final Resul t Performing Organization Address [facility]/ZIP Co de Phone Number [facility] [address] [place] [address], [place] [phone] * (ABNORMAL) Vitamin B12 (03/21/2025 12:05 PM EDT) [facility] Vitamin B-12 205(L) 250 - 900 pcg/mL LAB CHEMISTRY METHOD 03/21/2025 6:44 PM [facility] Blood Venous blood specimen / Unknown Venipuncture / Unknown 03/21/2025 12:05 PM EDT 03/21/2025 12:05 PM EDT us Shae Narciso PUENTE LAB BLOOD ORDERABLES Final Resul t [facility] [address] [place] [address], * (ABNORMAL) Comprehensive metabolic panel (03/21/2025 12:05 PM EDT) Sodium 141 133 - 145 mmol/L LAB CHEMISTRY METHOD 03/21/2025 6:44 PM [facility] Potassium 3.6 3.5 - 5.5 mmol/L LAB CHEMISTRY METHOD 03/21/2025 6:44 PM [facility] Chloride 107 96 - 110 mmol/L LAB CHEMISTRY METHOD 03/21/2025 6:44 PM [facility] CO2 29 21 - 32 mmol/L LAB CHEMISTRY METHOD 03/21/2025 6:44 PM [facility] Anion Gap 5 3 - 11 LAB CHEMISTRY METHOD 03/21/2025 6:44 PM [facility] Glucose 75 70 - 100 mg/dL LAB CHEMISTRY METHOD 03/21/2025 6:44 PM [facility] BUN 10 5 - 25 mg/dL LAB CHEMISTRY METHOD 03/21/2025 6:44 PM [facility] Creatinine 1.40(H) 0.70 - 1.30 mg/dL LAB CHEMISTRY METHOD 03/21/2025 6:44 PM [facility] eGFR 55(L) >=60 mL/min/1. 73m2 LAB CHEMISTRY METHOD 03/21/2025 6:44 PM EDT [facility] Comment:Calculation based on the??Chronic Kidney Disease Epidemiology Collaboration (CKD-EPI) equation refit??without adjustment for race. BUN/Creatinine Ratio 7.1 LAB CHEMISTRY METHOD 03/21/2025 6:44 PM EDT [facility] Calcium 8.7 8.5 - 10.5 mg/dL LAB CHEMISTRY METHOD 03/21/2025 6:44 PM [facility] AST (SGOT) 15 10 - 42 unit/L LAB CHEMISTRY METHOD 03/21/2025 6:44 PM [facility] ALT (SGPT) 17 10 - 60 unit/L LAB CHEMISTRY METHOD 03/21/2025 6:44 PM [facility] Alkaline Phosphatase 131(H) 42 - 121 unit/L LAB CHEMISTRY METHOD 03/21/2025 6:44 PM [facility] Total Protein 7.3 6.0 - 8.0 g/dL LAB CHEMISTRY METHOD 03/21/2025 6:44 PM [facility] Albumin 3.8 3.2 - 5.0 g/dL LAB CHEMISTRY METHOD 03/21/2025 6:44 PM [facility] Total Bilirubin 0.6 0.0 - 1.4 mg/dL LAB CHEMISTRY METHOD 03/21/2025 6:44 PM EDT [facility] Blood Venous blood specimen / Unknown Venipuncture / Unknown 03/21/2025 12:05 PM EDT 03/21/2025 12:05 PM EDT us Shae Narciso PUENTE LAB BLOOD ORDERABLES Final Resul t [facility] [address] [place] [address], * CT Head wo Contrast (03/08/2025 10:58 [...] chronic small vessel ischemic disease. POS - [id number] -------- FINAL REPORT -------- Dictated By: Randi Bobo Dictated Date: 03/08/2025 15:38 ET Assigned Physician: Randi Bobo Reviewed and Electronically Signed By: Randi Bobo Signed Date: 03/09/2025 14:45 ET Workstation ID: [id number] Transcribed By: Self Edit Transcribed Date: 03/08/2025 [...] to chronicsmall vessel ischemic disease. POS - [id number] -------- FINAL REPORT -------- Dictated By: Randi Bobo Dictated Date: 03/08/2025 15:38 ET Assigned Physician: Randi Bobo Reviewed and Electronically Signed By: Randi Bobo Signed Date: 03/09/2025 14:45 ET Workstation ID: [id number] Transcribed By: Self Edit Transcribed Date: 03/08/2025 17:08 ET us Shae Stuart PA IMG CT PROCEDURES Final Result * Hepatitis C Screening (08/09/2013) Hepatitis C Screening abstracted Historical Provider HEALTH MAINTENANCE Final Result from Last 3 Months or Most Recently Relevant to Health Maintenance Insurance MEDICARE [place]ICAID [place] Care Teams Audit Practice Intern Relationship Specialty Start Date End Date Kevin Peralta MD [address] [place] [address] PCP - General Internal Medicine 10/26/24
--- OUTSIDE RECORDS SUMMARY | 2025-03-24 12:05 | XMS_ITS | Encounter Summary ---
Author Organization [employer] Address [address] [place] [address] Care Team Providers Care Hoop Bender Tank Name Role Phone Name, Fredi SOLIMAN Primary Care Provider [phone] Encounter Details Date Type Department Care Team ([facility] st Contact Info) Description 10/13/2024 Telephone [facility] MEDICINE [address] [place], [place] [phone] Name, MD Fredi [address] [place] [address] Social History Tobacco Use Types Packs/Day Years [...] documented as of this encounter Care Teams Hoop Bender Tank Relationship Specialty Start Date End Date Name, MD Fredi [address] [place] [address] PCP - General Family Medicine 02/01/19 documented as of this encounter
--- OUTSIDE RECORDS SUMMARY | 2025-03-24 12:05 | XMS_ITS | Encounter Summary ---
Author Organization [employer] Address [address] [place] [address] Care Team Providers Care Dock Or Pier Laborer Name Role Phone Name, Fredi SOLIMAN Primary Care Provider [phone] Reason for Visit * Reason Onset Date Comments Hospital Follow-up 09/18/2023 Encounter Details Date Type Department Care Team ([facility] st Contact Info) Description 09/18/2023 Telephone [facility] [address], [place] [id number] Name, MD Fredi [address] [place] [address] Hospital Follow-up Social History Tobacco Use Types [...] - 09/18/2023 10:27 AM EDT Tc from [facility] calling to report a hospital f/u. Pt was admitted 09/10 at [facility] and discharged on 09/16.Pt was diagnosed with heart failure. Was advised will forward to care coordinators for f/u. Please contact pt at [phone] documented in this encounter Plan of Treatment Not on file documented as of this encounter Visit Diagnoses Not on filedocumented in this encounter Additional Health Concerns Assessment Noted Time PHQ-9 Depression Total Score: 6 02/11/20 23 9:57 AM EDT documented as of this encounter Care Teams Dock Or Pier Laborer Relationship Specialty Start Date End Date Name, MD Fredi [address] [place] [address] PCP - General Family Medicine 02/01/19 documented as of this encounter
[2025-03-24 12:16] LABS: Alanine Aminotransferase 14 U/L (0-40); Albumin Level 4.3 g/dL (3.5-5.0); Alkaline Phosphatase 129 U/L (39-117); Anion Gap 13 (12-20); Aspartate Amino Transferase 27 U/L (5-37); Bilirubin Total 0.5 mg/dL (0.0-1.0); Blood Urea Nitrogen 16 mg/dL (9-16); Calcium 8.8 mg/dL (8.4-10.2); Carbon Dioxide 27 mmol/L (22-29); Chloride 108 mmol/L (96-108); Estimated Glomerular Filt Rate 52; Glucose Random 87 mg/dL (60-115); Potassium 3.6 mmol/L (3.3-5.1); Sodium 144 mmol/L (135-145); TSH reflex Free T4 2.02 uIU/mL (0.32-4.0); Total Protein 7.9 g/dL (6.5-8.0)
== END 2025-03-24 09:43 | disposition home or self-care (01) ==
LOC: HO.LAB 09:42
PROVIDERS: Visit Provider Nurse Practitioner Family
DX: I42.8 Other cardiomyopathies (principal); I47.29 Other ventricular tachycardia; I63.9 Cerebral infarction, unspecified; Z98.890 Other specified postprocedural states; Z79.899 Other long term (current) drug therapy
CPT/HCPCS: 36415; 80053; 83735; 83880; 84443; 93005; 99212

== ENCOUNTER 2025-07-18 12:29 | Outpatient (AMB) | payer MEDICARE, MEDICAID, SELFPAY ==
--- OUTSIDE RECORDS SUMMARY | 2018-10-23 12:39 | XMS_ITS | Continuity of Care Document ---
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 [address] [place] [address], [id number], [place]. tel:[phone] Family History Family Member Type Diagnosis Age At Onset No Information Payers Payer name Insurance type Covered green party ID Authoriza tion(s) No Information Social History Type Description Quantity Date Captured Comments Sex Male Smoking Status No Information Chief Complaint And Reason For Visit No Information History Of Present Illness Encounter Date Complaint History Of Prese nt Illness No Information Instructions Date Instruction Additional Infor mation No Information Assessments Type Assessment Date No Information
--- NOTE | 2025-07-18 12:43 | A.OFFVIS_ITS ---
Vital Signs 07/18/25 12:44 Height 5 ft 6 in Weight 182 lb 15.739 oz BMI 29.5 BP 130/66 Blood Pressure Location Lt brachial Position Sitting Pulse 76 Intake Visit Reasons: 3m follow up Intake Note: 3 month follow-up with ekg feeling good Transmission Engineer Required: Yes Transmission Engineer Services: Transmission Engineer Offered & Declined Program Or Project Administrator: Program Or Project Administrator Present Accompanied by: Daughter Allergies aspirin (ASPIRIN) Allergy (Unknown, Verified 03/24/25 09:48) Rash egg (EGGS) Allergy (Unknown, Verified 03/24/25 09:48) UNKNOWN Influenza Virus Vaccines (INFLUENZA VIRUS VACCINES) Allergy (Unknown, Verified 03/24/25 09:48) UNKNOWN lactose (LACTOSE) Allergy (Unknown, Verified 03/24/25 09:48) GI UPSET Medication List - Last Reconciled 07/18/25 by Maycol Stewart MD albuterol sulfate 90 mcg/actuation (Ventolin HFA) 2 puffs inhalation Q4H PRN amiodarone 200 mg PO DAILY atorvastatin 40 mg PO DAILY bumetanide 1 mg PO BID carvedilol 3.125 mg See Protocol PO BID 90 days hydrocortisone 2.5% 1 appl topical QD-BID mometasone 100 mcg/actuation (Asmanex HFA) 2 puffs inhalation BID sacubitril-valsartan 49-51 mg (Entresto) 1 tab PO BID 90 days HPI Comments Details: Víctor comes for follow-up, accompanied by his daughter. Patient had in between reduced a bumetanide to once a day. He started having leg swelling and shortness of breath and subsequently his daughter advised him to re up his bumetanide to 1 mg b.i.d.. Since then he has been doing well. He has not had any prolonged palpitation irregular heartbeat no neurologic events. No orthopnea, PND, leg edema now. Does have exertional shortness of breath as his apartment this has now shifted to 4th floor in his to go up and down flights of stairs. Takes all his medications. No lightheadedness, syncope. [facility] Medical History Cardiomyopathy HFrEF (heart failure with reduced ejection fraction) Hypertension Cocaine use disorder Asthma Surgical History Hx of endoscopic retrograde cholangiopancreatography History of cholecystectomy Family History Mother Diabetes Hypertension Arthritis Asthma Father Asthma Social History Household Members: Children Housing: Other Housing Other:: living in correction with son Do you presently have visiting nurse or other home services: Yes (nurse visits every 6mon, interested in more frequent aid visits) Alcohol intake: former Patient Tobacco Use Status: Former Tobacco user Tobacco use type: Cigarette Cigarette Packs Per Day: 2 Cigarettes Per Day: 40.0 Years Smoked: 51 e-Cigarette/Vaping Use: Former Use Second Hand Smoke Exposure: Yes Substance Use Type: Crack/Cocaine service: No Review of Systems Const Denies chills, Denies fatigue, Denies fever(s), Denies frequent falls, Denies weakness, Denies weight gain and Denies weight loss ENT Denies dizziness Card Denies chest pain, Denies leg edema, Denies lightheadedness, Denies palpitations, Denies dyspnea, Denies dyspnea on exertion, Denies orthopnea and Denies other (loss of consciousness) Resp Denies cough, Denies dyspnea and Denies dyspnea on exertion GI Denies hematochezia and Denies change in stool character Musc Denies abnormal gait, Denies muscle weakness, Denies numbness, Denies radiating pain into limb and Denies tingling Neuro Denies abnormal gait, Denies dizziness, Denies frequent falls, Denies numbness, Denies tingling and Denies weakness Endo Denies fatigue and Denies palpitations Physical Exam Vital Signs: Last Vital Signs Pulse 76 07/18/25 12:44 BP 130/66 07/18/25 12:44 BMI result Body Mass Index 29.5 Const General: cooperative, comfortable, no acute distress and poor hygiene Orientation/consciousness: patient oriented x3 Limitations: crutches Neck Neck: Yes JVD Resp Effort & Inspection: normal respiratory effort Auscultation: clear to auscultation bilaterally, no rales, no rhonchi and no wheezes Cardio Jugular venous distension: no JVD Rate: regular rate Rhythm: regular rhythm Heart sounds: S1 normal heart sound present, S2 normal heart sound present, no murmurs and no rubs Neuro General: patient oriented x3 Extrem Other: ambulates with crutches Psych Appearance: grossly normal Mental Status: mental status grossly normal Speech and movement: Normal speech and movement present Office Procedures EKG Details: EKG shows normal sinus [place] [id number]-[id number], Complete Assessment & Plan Assessment & Plan (1) Cardiomyopathy: Code(s): I42.9 - Cardiomyopathy, unspecified Category: Medical Qualifiers: Cardiomyopathy type: other Qualified Code(s): I42.8 - Other cardiomyopathies Plan: Patient with prior history of heart failure with reduced ejection fraction with severe LV systolic dysfunction which has now improved to [id number] LV systolic dysfunction. Clinically doing well on current bumetanide dose. Importance of regular bumetanide use to reduce risk of recurrent hospitalization due to heart failure was discussed. Continue neurohormonal modulation with carvedilol and Entresto. Follow-up echocardiogram in 6 months time. He has prior history of nonsustained ventricular tachycardia currently on amiodarone therapy. Will reduce amiodarone to 100 mg daily. Follow-up Holter monitor in 6 months time. (2) Preop cardiovascular exam: Code(s): Z01.810 - Encounter for preprocedural cardiovascular examination Category: Medical Plan: Preoperative cardiovascular risk stratification prior to hip surgery. This is considered intermediate risk surgery. Patient has no prior history of coronary artery disease. His LV systolic function has improved and he is currently euvolemic and well compensated from heart failure perspective. I would continue all his medications, especially neurohormonal modulation except for Lasix on the day of surgery. His risk for perioperative cardiovascular morbidity mortality is low to intermediate. As he is currently optimized to undergo the surgery with ongoing medical therapy. Will follow up in the clinic in 6 months time, sooner p.r.n.. Thank you for allowing me to partake in his care Orders: Orders CA echo transthoracic complete 6 Months I42.8 - Other cardiomyopathies ECG 3 day holter monitor 6 Months I42.8 - Other cardiomyopathies Medications: Changed From amiodarone 200 mg PO DAILY 90 tabs 2RF I42.8 - Other cardiomyopathies To amiodarone 100 mg (1/2 x 200 mg) PO DAILY 90 tabs 2RF I42.8 - Other cardiomyopathies Coding Level of Care Code Est Pt Level 4 (91440) Complex EM visit Add On G2211 Diagnoses Other cardiomyopathy I42.8 Cardiomyopathy type: other Preop cardiovascular exam Z01.810 CPT Codes EKG - CPT: 12779-[id number], Complete ([id number])
[2025-07-18 12:44] VITALS: BP 130/66; PULSE 76; BMI 29.5
--- OUTSIDE RECORDS SUMMARY | 2025-07-18 13:38 | XMS_ITS | Clinical Summary ---
Author Organization [facility] [address] [place] [address] [place] [phone] Phone Care Team Providers Care [employer] Coach Name Role Phone Kevin Peralta MD Primary Care Provider Allergies Active Allergy Reactions Criticality Noted Date Comments Egg White Unknown 05/01/2023 Ibuprofen Other Low 12/08/2009 Causes gi distress Influenza Virus Vaccines Unknown 05/01/2023 Milk Containing Products (Dairy) Hives 03/14/2009 Salicylates 03/14/2009 ulcers Medications bumetanide (BUMEX) 1 mg tablet Take 2 tablets (2 mg total) by mouth daily. 4 Active amiodarone (PACERONE) 200 mg tablet Take 1 tablet (200 mg total) by mouth 1 (one) time each day. 4 Active ferrous sulfate 325 mg (65 mg iron) EC tablet Take 1 tablet (325 mg total) by mouth 1 (one) time each day with breakfast. Do not crush, chew, or split. Active fluticasone furoate (Arnuity Ellipta) 100 mcg/actuation blister with device inhaler Inhale 1 puff by mouth 1 (one) time each day. 1 each 5 03/04/20 26 Active clopidogreL (PLAVIX) 75 mg tablet Take 1 tablet (75 mg total) by mouth 1 (one) time each day. 30 each 5 5 08/31/20 25 Active cetirizine (ZyrTEC) 10 mg tablet Take 1 tablet (10 mg total) by mouth 1 (one) time each day. 30 each 5 5 03/04/20 26 Active cyanocobalamin (VITAMIN B-12) 1,000 mcg tablet Take 1 tablet (1,000 mcg total) by mouth 1 (one) time each day. 90 each 1 5 Active albuterol HFA (PROAIR HFA ; PROVENTIL HFA ; VENTOLIN HFA) 90 mcg/actuation inhaler INHALE 2 PUFFS BY MOUTH EVERY 4 (FOUR) HOURS IF NEEDED FOR WHEEZING OR SHORTNESS OF BREATH. 6.7 each 5 Active atorvastatin (LIPITOR) 40 mg tablet TAKE 1 TABLET BY MOUTH 1 TIME EACH DAY. 90 tablet 1 5 Active Hospital, Clinic, or Other Facility Administered Medication Ordered Dose Route Frequency Start Date End Date Status cyanocobalamin (VITAMIN B-12) injection 1,000 mcgIndications:Macro cytic anemia with vitamin B12 deficiency 1000 mcg IM See admin instructions 03/23/2025 Active Active Problems Problem Noted Date Diagnosed Date History of CVA with residual deficit 06/22/2025 Prediabetes 03/23/2025 Chronic heart failure ([facility] V24, [facility] V28) 03/04/2025 Former smoker 03/04/2025 Nonischemic cardiomyopathy ([facility] V24, [facility] V28) 03/04/2025 Macrocytic anemia with vitamin B12 deficiency Drug abuse ([facility] V24, [facility] V28) 03/04/2025 Avascular necrosis of bone o f right hip ([facility] V24, [facility] V28) 03/04/2025 History of stroke 03/04/2025 Overview (03/04/2025): MRI: Probable old small infarcts in the right LOGISTICS SUPPORT and left MCA territories. OA (osteoarthritis) 11/04/2024 [...] Encounters Date Type Department Care Team Description 06/23/2025 Telephone Adult [address] [phone] Kevin Peralta MD 06/22/2025 11:45 AM EDT Clinical Support [address] [phone] B12 deficiency (Primary Dx) 06/22/2025 11:15 AM EDT Office Visit [address] [phone] Kevin Peralta MD Avascular necrosis of bone of right hip (CMS/HCC V24, CMS/HCC V28) (Primary Dx); Nonischemic cardiomyopathy (CMS/HCC V24, CMS/HCC V28); Chronic systolic heart failure (CMS/HCC V24, CMS/HCC V28); Drug abuse (CMS/HCC V24, CMS/HCC V28); Moderate persistent asthma without complication; History of CVA with residual deficit; B12 deficiency; Prediabetes; Macrocytic anemia with vitamin B12 deficiency; Encounter for vitamin deficiency screening; Stage 3a chronic kidney disease (CMS/HCC V24, CMS/HCC V28) 06/22/2025 Telephone Adult [address] [phone] Kevin Peralta MD 06/01/2025 10:00 AM EDT Clinical Support [address] [phone] B12 deficiency (Primary Dx) from Last 3 Months Immunizations Name Administration Dates Next Due Pneumococcal polysaccharide 23 valent (Pneumovax 23) 2yo and older 04/03/2009 Tdap Tetanus diptheria acell ular pertussis (Boostrix; Adacel) 7yo and older 04/03/2009 Surgical History Surgery Date Site/Laterality Comments EYE SURGERY Right eye if glass CHOLECYSTECTOMY 11/24/2019 - 11/23/2020 Medical History Medical History Date Comments OA (osteoarthritis) DX:OA (osteo arthritis) Substance abuse ([facility] V24, [facility] V28) Stroke ([facility] V24, [facility] V28) CHF (congestive heart failure) ([facility] V24, [facility] V28) Iron deficiency Asthma Former smoker Blindness [...] for your loved ones. For example, child adolescent psychiatrist or elderly care for an older adult? [...] Sign Reading Time Taken Comments Blood Pressure 128/67 06/22/2025 10:44 AM EDT Pulse 74 06/22/2025 10:44 AM EDT Temperature 36.7 C (98.1 F) 06/22/2025 10:44 AM EDT Respiratory Rate 15 06/22/2025 10:44 AM EDT Oxygen Saturation 95% 06/22/2025 10:44 AM EDT Inhaled Oxygen Concentration - - Weight 82.8 kg (182 lb 9.6 oz) 06/22/2025 10:44 AM EDT Height 167.6 cm (5' 6 ) 06/22/2025 10:44 AM EDT Body Mass Index 29.47 06/22/2025 10:44 AM EDT Plan of Treatment Upcoming Encounters Date Type Department Care Team (Late st Contact Info) Description 07/27/2025 10:45 AM EDT Clinical Support Adult Medicine [address] [phone] 08/24/2025 8:30 AM EDT Office Visit Adult Medicine [address] [phone] Kevin Peralta MD [address] [place] [address] Health Maintenance Due Date Last Done Comments Hepatitis A Vaccines (1 of 2 - Risk 2-dose series) 02/17/1976 Zoster Vaccines (1 of 2) 2007 RSV Immunization Adult Patients (1 - Risk 60-74 years 1-dose series) 2017 Medicare Annual Wellness Visit 12/18/2023 COVID-19 Vaccine ( season) 2024 01/28/2023, 01/02/2022, 06/12/2021, Additional history exists Influenza Vaccine (#1) 2025 Falls Risk Assessment 03/23/2026 03/23/2025, 025 Social Influencers of Health Screening 03/23/2026 03/23/2025 Hypertension/CHF/CAD Annual BMP Blood Test 06/22/2026 06/22/2025, 03/21/2025, 11/11/2013 Pneumococcal Vaccine: 50+ Years (3 of 3 - PCV20 or PCV21) 02/18/2027 02/18/2022, 04/03/2009 Colorectal Cancer Screening: FIT-DNA (Cologuard) 04/04/2028 04/04/2025, 04/04/2025 Cholesterol Screening (Lipid Panel) 03/21/2030 03/21/2025, 01/02/2022, 08/09/2013 DTaP,Tdap,and Td Vaccines (3 - Td or Tdap) 08/02/2031 08/02/2021, 04/03/2009 Hepatitis C Screening Completed 08/09/2013 Depression Screening Completed 03/23/2025 Abdominal Aortic Aneurysm (AAA) Screen Completed 04/04/2025 HIB Vaccines Aged Out No longer eligi [...] Diagnosis Comments CBC WITH AUTO DIFFERENTIAL Routine 06/22/2025 11:53 AM EDT Macrocytic anemia with vitamin B12 deficiency INTRINSIC FACTOR BLOCKING ANTIBODY Routine 06/22/2025 11:53 AM EDT Macrocytic anemia Anemia due to vitamin B12 deficiency, unspecified B12 deficiency type ANTI-PARIETAL ANTIBODY Routine 06/22/2025 11:53 AM EDT Macrocytic anemia Anemia due to vitamin B12 deficiency, unspecified B12 deficiency type COMPREHENSIVE METABOLIC PANEL Routine 06/22/2025 11:53 AM EDT Nonischemic cardiomyopathy (CMS/HCC V24, CMS/HCC V28) Chronic systolic heart failure (CMS/HCC V24, CMS/HCC V28) History of CVA with residual deficit HEMOGLOBIN A1C Routine 06/22/2025 11:53 AM EDT Prediabetes CBC AND DIFFERENTIAL Routine 06/22/2025 11:53 AM EDT Macrocytic anemia with vitamin B12 deficiency PROSTATE SPECIFIC ANTIGEN SCREEN Routine 06/22/2025 11:53 AM EDT Screening for prostate cancer US ABDOMEN AORTIC ANEURYSM SCREENING Routine 04/04/2025 8:22 AM EDT Encounter for abdominal aortic aneurysm (AAA) screening LAB COLOGUARD COLON CANCER SCREEN Routine 04/04/2025 4:00 AM EDT Encounter for screening for malignant neoplasm of colon LIPID PANEL WITH REFLEX TO DIRECT LDL Routine 03/21/2025 12:05 PM EDT Encounter for screening for lipid disorder HEPATITIS C SCREENING Routine 08/09/2013 from Last 3 Months or Most Recently Relevant to Health Maintenance Results * Prostate specific antigen screen (06/22/2025 11:53 AM EDT) Pathologist [facility] PSA 0.90 0.00 - 4.00 ng/mL LAB CHEMISTRY METHOD 06/22/2025 5:27 PM EDT [facility] Blood Venous blood specimen / Unknown Venipuncture / Unknown 06/22/2025 11:53 AM EDT 06/22/2025 11:53 AM EDT [facility] - 06/22/2025 5:27 PM EDT The Siemens [employer] Chemiluminescent Immunoassay is used. Results obtained with different assay methods or kits cannot be used interchangeably. Results cannot be interpreted as absolute evidence of the presence or absence of malignant disease. us Kevin Peralta MD LAB BLOOD ORDERABLES F inal Result [facility] [address] [place] [address], * (ABNORMAL) CBC auto differential (06/22/2025 11:53 AM EDT) [facility] WBC 5.8 4.8 - 10.8 K/mcL LAB HEMETOLOGY METHOD 06/22/2025 3:22 PM EDT [facility] RBC 4.10(L) 4.50 - 5.50 M/mcL LAB HEMETOLOGY METHOD 06/22/2025 3:22 PM EDT [facility] Hemoglobin 13.2(L) 13.5 - 17.5 g/dL LAB HEMETOLOGY METHOD 06/22/2025 3:22 PM EDT [facility] Hematocrit 40.1(L) 42.0 - 54.0 % LAB HEMETOLOGY METHOD 06/22/2025 3:22 PM [facility] MCV 98.8(H) 79.0 - 98.0 FL LAB HEMETOLOGY METHOD 06/22/2025 3:22 PM EDT [facility] MCH 32.5(H) 27.0 - 32.0 pcg LAB HEMETOLOGY METHOD 06/22/2025 3:22 PM [facility] MCHC 32.9 32.0 - 37.0 g/dL LAB HEMETOLOGY METHOD 06/22/2025 3:[facility] RDW 12.7 11.0 - 15.0 % LAB HEMETOLOGY METHOD 06/22/2025 3:22 PM [facility] Platelets 193 130 - 400 K/mcL LAB HEMETOLOGY METHOD 06/22/2025 3:22 PM [facility] MPV 11.7(H) 7.0 - 11.0 FL LAB HEMETOLOGY METHOD 06/22/2025 3:22 PM [facility] NRBC 0.0 <1.0 % LAB HEMETOLOGY METHOD 06/22/2025 3:22 PM [facility] NRBC Absolute 0.00 <0.10 K/mcL LAB HEMETOLOGY METHOD 06/22/2025 3:22 PM [facility] Neutrophils Relative 62.0 % LAB HEMETOLOGY METHOD 06/22/2025 3:22 PM [facility] Lymphocytes Relative 21.5 % LAB HEMETOLOGY METHOD 06/22/2025 3:22 PM [facility] Monocytes Relative 13.7 % LAB HEMETOLOGY METHOD 06/22/2025 3:22 PM [facility] Eosinophils Relative 1.9 % LAB HEMETOLOGY METHOD 06/22/2025 3:22 PM [facility] Basophils Relative 0.7 % LAB HEMETOLOGY METHOD 06/22/2025 3:22 PM EDT [facility] Immature Granulocytes Relative 0.2 % LAB HEMETOLOGY METHOD 06/22/2025 3:22 PM EDT [facility] Neutrophils Absolute 3.61 1.50 - 7.00 K/mcL LAB HEMETOLOGY METHOD 06/22/2025 3:22 PM EDT [facility] Lymphocytes Absolute 1.25 1.00 - 5.00 K/mcL LAB HEMETOLOGY METHOD 06/22/2025 3:22 PM EDT [facility] Monocytes Absolute 0.80 0.20 - 1.00 K/mcL LAB HEMETOLOGY METHOD 06/22/2025 3:22 PM EDT [facility] Eosinophils Absolute 0.11 0.00 - 0.50 K/mcL LAB HEMETOLOGY METHOD 06/22/2025 3:22 PM EDT [facility] Basophils Absolute 0.04 0.00 - 0.20 K/mcL LAB HEMETOLOGY METHOD 06/22/2025 3:22 PM EDT [facility] Immature Granulocytes Absolute 0.01 0.00 - 0.03 K/mcL LAB HEMETOLOGY METHOD 06/22/2025 3:22 PM EDT [facility] Blood Venous blood specimen / Unknown Venipuncture / Unknown 06/22/2025 11:53 AM EDT 06/22/2025 11:53 AM EDT us Kevin Peralta MD LAB BLOOD ORDERABLES F inal Result [facility] [address] [place] [address], * (ABNORMAL) Intrinsic factor blocking antibody (06/22/2025 11:53 AM EDT) Intrinsic Factor Blocking Antibody POSITIVE(A ) Negative 06/27/2025 3:44 PM EDT [facility] Comment: Positive in 50% of persons with pernicious anemia. Very high serum levels of vitamin B12 may give false positive results for intrinsic factor antibody. No sample should be collected from a patient who has received vitamin B12 injection therapy within the past week. Test performed at [facility], [address], [place] [address] Mariya Lee MD, PhD - Janitorial Services Supervisor Blood Venous blood specimen / Unknown Venipuncture / Unknown 06/22/2025 11:53 AM EDT 06/22/2025 11:53 AM EDT Tanesha Vicente LAP MACHINE TENDER LAB BLOOD ORDERABLES Final Resu lt [facility] [address] [place] [address] * Anti-parietal antibody (06/22/2025 11:53 AM EDT) Gastric Parietal Cell Ab 6.2 <=20 UNITS 07/01/2025 1:[address] [facility] Comment: Interpretation: Negative Test performed at [facility], [address] , [place] [address] aMriya Lee MD, PhD - Janitorial Services Supervisor Blood Venous blood specimen / Unknown Venipuncture / Unknown 06/22/2025 11:53 AM EDT 06/22/2025 11:53 AM EDT Tanesha Vicente LAP MACHINE TENDER LAB BLOOD ORDERABLES Final Resu lt [facility] [address] [place] [address] * Hemoglobin A1c (06/22/2025 11:53 AM EDT) Hemoglobin A1C 6.1 <6.5 % LAB CHEMISTRY METHOD 06/22/2025 8:40 PM EDT [facility] Mean Bld Glu Estim. 128 mg/dL LAB CHEMISTRY METHOD 06/22/2025 8:40 PM [facility] Blood Venous blood specimen / Unknown Venipuncture / Unknown 06/22/2025 11:53 AM EDT 06/22/2025 11:53 AM EDT us Kevin Peralta MD LAB BLOOD ORDERABLES F inal Result [facility] [address] [place] [address], [place] [phone] * (ABNORMAL) Comprehensive metabolic panel (06/22/2025 11:53 AM EDT) Sodium 138 133 - 145 mmol/L LAB CHEMISTRY METHOD 06/22/2025 4:38 PM [facility] Potassium 3.8 3.5 - 5.5 mmol/L LAB CHEMISTRY METHOD 06/22/2025 4:38 PM [facility] Chloride 101 96 - 110 mmol/L LAB CHEMISTRY METHOD 06/22/2025 4:38 PM [facility] CO2 31 21 - 32 mmol/L LAB CHEMISTRY METHOD 06/22/2025 4:38 PM [facility] Anion Gap 6 3 - 11 LAB CHEMISTRY METHOD 06/22/2025 4:38 PM [facility] Glucose 92 70 - 100 mg/dL LAB CHEMISTRY METHOD 06/22/2025 4:38 PM [facility] BUN 8 5 - 25 mg/dL LAB CHEMISTRY METHOD 06/22/2025 4:38 PM [facility] Creatinine 1.59(H) 0.70 - 1.30 mg/dL LAB CHEMISTRY METHOD 06/22/2025 4:38 PM [facility] eGFR 47(L) >=60 mL/min/1. 73m2 LAB CHEMISTRY METHOD 06/22/2025 4:38 PM [facility] Comment:Calculation based on the Chronic Kidney Disease Epidemiology Collaboration (CKD-EPI) equation refit without adjustment for race. BUN/Creatinine Ratio 5.0 LAB CHEMISTRY METHOD 06/22/2025 4:38 PM T [facility] Calcium 8.3(L) 8.5 - 10.5 mg/dL LAB CHEMISTRY METHOD 06/22/2025 4:38 PM [facility] AST (SGOT) 32 10 - 42 unit/L LAB CHEMISTRY METHOD 06/22/2025 4:38 PM [facility] ALT (SGPT) 25 10 - 60 unit/L LAB CHEMISTRY METHOD 06/22/2025 4:38 PM [facility] Alkaline Phosphatase 136(H) 42 - 121 unit/L LAB CHEMISTRY METHOD 06/22/2025 4:38 PM [facility] Total Protein 7.8 6.0 - 8.0 g/dL LAB CHEMISTRY METHOD 06/22/2025 4:38 PM [facility] Albumin 3.9 3.2 - 5.0 g/dL LAB CHEMISTRY METHOD 06/22/2025 4:38 PM [facility] Total Bilirubin 0.6 0.0 - 1.4 mg/dL LAB CHEMISTRY METHOD 06/22/2025 4:38 PM T [facility] Blood Venous blood specimen / Unknown Venipuncture / Unknown 06/22/2025 11:53 AM EDT 06/22/2025 11:53 AM EDT us Kevin Peralta MD LAB BLOOD ORDERABLES F inal Result [facility] [address] [place] [address], * US Abdomen Aortic Aneurysm Screening (04/04/2025 8:22 AM EDT) Anatomical Region Laterality Modality Abdominal aorta Ultrasound 04/04/2025 8:35 AM EDT Impressions 04/04/2025 8:38 AM EDT No abdominal aortic aneurysm. -------- FINAL REPORT -------- Dictated By: Brian Watson Dictated Date: 04/04/2025 08:35 ET Assigned Physician: Brian Watson Reviewed and Electronically Signed By: Brian Watson Signed Date: 04/04/2025 08:38 ET Workstation ID: [id number] Transcribed By: Self Edit Transcribed Date: 04/04/2025 08:35 ET Narrative 04/04/2025 8:38 AM EDT US ABDOMEN AORTIC ANEURYSM SCREENING COMPARISON: None HISTORY: screen for AAA FINDINGS: Proximal abdominal aorta: 1.8 cm Middle abdominal aorta: 1.4 cm Distal abdominal aorta: 1.1 cm Right common iliac artery: 0.8 cm Left common iliac artery: 0.8 cm Procedure Note Biran Watson MD - 04/04/2025 US ABDOMEN AORTIC ANEURYSM SCREENING COMPARISON: None HISTORY: screen for AAA FINDINGS: Proximal abdominal aorta: 1.8 cm Middle abdominal aorta: 1.4 cm Distal abdominal aorta: 1.1 cm Right common iliac artery: 0.8 cm Left common iliac artery: 0.8 cm IMPRESSION: No abdominal aortic aneurysm. -------- FINAL REPORT -------- Dictated By: Brian Watson Dictated Date: 04/04/2025 08:35 ET Assigned Physician: Brian Watson Reviewed and Electronically Signed By: Brian Watson Signed Date: 04/04/2025 08:38 ET Workstation ID: [id number] Transcribed By: Self Edit Transcribed Date: 04/04/2025 08:35 ET Kevin Peralta MD [facility] US PROCEDURES Nicol l Result * Cologuard?? colon cancer screening (04/04/2025 4:00 AM EDT) COLOGUARD Negative Negative [facility] Comment: The Cologuard Plus (TM) test was performed on this specimen. NEGATIVE TEST RESULT. A negative (normal) Cologuard Plus result means the patient has a [id number] chance of having colorectal cancer (CRC) or advanced precancer (polyps or lesions that could become cancer). Negative is the normal value (reference range) for this assay. Guidelines recommend screening again 3 years after a negative Cologuard Plus result. Continued screening increases the chance of finding CRC early or preventing it entirely. A clinical validation study showed the Cologuard Plus test is effective at ruling out CRC. Out of every 10,000 patients testing negative, approximately 2 will be falsely reassured that they do not have CRC, and out of every 100 patients testing negative, approximately 7 patients will be falsely reassured they do not have advanced precancer. TEST DESCRIPTION: The Cologuard Plus test is a multi-target stool DNA (mt-sDNA) test that analyzes DNA and hemoglobin biomarkers in stool. It uses a proprietary algorithm to qualitatively detect CRC and advanced precancer. It is FDA-approved and indicated for use in adults 45 years or older at average risk for CRC. A positive (abnormal) result should be followed by a colonoscopy. Patients with a negative (normal) result should screen again in 3 years. False positive and false negative results may occur. The USPSTF recommends the Cologuard test as a CRC screening option. Their modeling estimates that screening with the test every 3 years from ages 45-85 could prevent up to 73% of CRC and avoid up to 85% of CRC deaths. A 18,911-patient clinical trial found the Cologuard Plus test effectively detects CRC and precancer. The study found the test was 95% sensitive for CRC, 43% sensitive for advanced precancer, and had a 91% specificity (Cologuard Plus Clinician Brochure. [employer]. [place], [place].). Visit www.[email or web address]com/about/tolvhief-[email or web address]-[email or web address] for more test information, references, warnings, and precautions. Stool 04/04/2025 4:00 AM EDT 04/06/2025 10:14 AM EDT us Kevin Peralta MD LAB MOLECULAR DIAGNOST ICS ORDERABLES Final Result [facility] [address] [place] [address] [facility] [address] [place] [place] [address] * Lipid panel with reflex to direct LDL (03/21/2025 12:05 PM EDT) Cholesterol 123 0 - 200 mg/dL LAB CHEMISTRY METHOD 03/21/2025 6:44 PM EDT [facility] Triglycerides 80 0 - 150 mg/dL LAB CHEMISTRY METHOD 03/21/2025 6:44 PM EDT [facility] HDL 63 >=40 mg/dL LAB CHEMISTRY METHOD 03/21/2025 6:44 PM EDT [facility] LDL Calculated 44 0 - 100 mg/dL LAB CHEMISTRY METHOD 03/21/2025 6:44 PM EDT [facility] VLDL Cholesterol Madhu 16 mg/dL LAB CHEMISTRY METHOD 03/21/2025 6:44 PM EDT [facility] Non HDL Chol. (LDL+VLDL) 60 <145 mg/dL LAB CHEMISTRY METHOD 03/21/2025 6:44 PM EDT [facility] Chol/HDL Ratio 2.0 0.0 - 4.4 LAB CHEMISTRY METHOD 03/21/2025 6:44 PM EDT [facility] Blood Venous blood specimen / Unknown Venipuncture / Unknown 03/21/2025 12:05 PM EDT 03/21/2025 12:05 PM EDT us Shae Narciso PUENTE LAB BLOOD ORDERABLES Final Resul t [facility] [address] [place] [address], * Hepatitis C Screening (08/09/2013) Hepatitis C Screening abstracted Historical Provider MD HEALTH MAINTENANCE Final Result from Last 3 Months or Most Recently Relevant to Health Maintenance Insurance [place]ICARE [place]ID [place] - [place] Care 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
== END 2025-07-18 13:08 | disposition home or self-care (01) ==
LOC: HO.HCS 12:30
PROVIDERS: PCP Internal Medicine Geriatric Medicine; Visit Provider Internal Medicine Cardiovascular Disease
DX: I42.8 Other cardiomyopathies (principal); Z01.810 Encounter for preprocedural cardiovascular examination
CPT/HCPCS: 93010; 99214; G2211

== ENCOUNTER → 2025-07-18 12:29 | Outpatient (BNVA) | payer MEDICARE, MEDICAID, SELFPAY | PROVIDERS: PCP Internal Medicine Geriatric Medicine; Visit Provider Internal Medicine Cardiovascular Disease | DX: Z01.810 Encounter for preprocedural cardiovascular examination (principal); I42.8 Other cardiomyopathies | CPT/HCPCS: 93005; 99212 ==